=== PATIENT | male | born 1955 | race Caucasian/White ===

== ENCOUNTER 2021-05-31 02:42 | Day surgery (SDC) | payer MEDICARE, SELFPAY ==
[2021-05-31 07:41] VITALS: BP 150/95; PULSE 84; RESP 18; TEMP 36.4; O2SAT 98; BMI 23.3
[2021-05-31] MEDS: LACTATED RINGERS 1,000 ML 150 ML IV CONT (07:57)
--- NOTE | 2021-05-31 08:10 | WPDANESEPPF ---
Anes - Initial Pre Proc Eval Procedure: Operation Date: 05/31/21 08:30 Proposed Procedures p Colonoscopy - Aly Scherer MD Date/Time: 05/31/21 08:10 Surgeon: Aly Scherer MD Pre Op Diagnosis: positive cologuard Patient Data Age: 65 Gender: M Height: 1.83 m Weight: 78 kg Last Vital Signs Temp 36.4 C L 05/31/21 07:41 Pulse 84 05/31/21 07:41 Resp 18 05/31/21 07:41 BP 150/95 H 05/31/21 07:41 Pulse Ox 98 05/31/21 07:41 Allergies Allergy/AdvReac Type Severity Reaction Status Date / Time codeine Allergy Unknown rash/itchin Verified 05/31/21 07:39 g Home Medications Medication Instructions Recorded Confirmed Type propranolol 120 mg capsule,24 120 mg PO DAILY #90 cap 01/26/21 05/22/21 Rx hr,extended release alprazolam 1 mg tablet 1 mg PO .COMPLEX #60 tablet 02/27/21 05/22/21 Rx amitriptyline 10 mg tablet See Rx Instructions .ROUTE 05/04/21 05/22/21 Rx .COMPLEX #180 tablet amlodipine 10 mg tablet 10 mg PO DAILY #90 tablet 05/25/21 05/31/21 Rx Patient hx anesthesia problems: none Family hx anesthesia problems: none PMFSH Surgical History Surgical History H/O colonoscopy (~2010) H/O hernia repair Family History Family History Mother Hypertension Family history of elevated blood lipids Grandparent Family history of malignant neoplasm of uterus Family history of malignant neoplasm of ovary Social History Social History Smoking status: Former smoker Tobacco type: cigarettes Smoking end date: 10/14/08 Alcohol intake: current Substance use: never Substance use type: does not use Living arrangements: with family Spiritual care concerns: No Anes - Eval Final PreProcedure Day of Procedure 05/31/21 08:10 Patient weight: normal Heart: regular rate and rhythm Lungs: clear to auscultation Airway: Mallampati scale class II Neurological: alert and oriented Last oral intake: >/= 8 hours ASA classification: II Emergent: no Anesthetic plan: proceed Anesthesia type and monitoring: general GIVS and standard monitoring Informed Consent: The patient's anesthetic plan and its attendant risks and benefits were discussed with the patient/family/POA. Questions were solicited and answers provided to the satisfaction of the patient/family/POA.
--- NOTE | 2021-05-31 08:14 | WPDGICN ---
Assessment and Plan Assessment and plan (1) Positive colorectal cancer screening using Cologuard test: Code(s): R19.5 - Other fecal abnormalities Status: Acute Assessment and Plan: patient presents for screening colonoscopy because of positive Cologuard test. Further recommendations will be given after endoscopy. GI Consult Note Consult date/time: 05/31/21 08:14 HPI: Daniel Harry is a 65 year old male Referred because of positive Cologuard test. Patient reports his weight appetite bowel movements are normal. He denies abdominal pain. He has had no bleeding. Family history is noncontributory. Last colonoscopy was 10 years ago. Review of Systems Review of Systems: All systems reviewed & are unremarkable except as noted in HPI and below PMFSH Surgical History Surgical History H/O colonoscopy (~2010) H/O hernia repair Family History Family History Mother Hypertension Family history of elevated blood lipids Grandparent Family history of malignant neoplasm of uterus Family history of malignant neoplasm of ovary Social History Social History Smoking status: Former smoker Tobacco type: cigarettes Smoking end date: 10/14/08 Alcohol intake: current Substance use: never Substance use type: does not use Living arrangements: with family Spiritual care concerns: No Meds Home Medications and Allergies Home Medications Medication Instructions Recorded Confirmed Type propranolol 120 mg capsule,24 120 mg PO DAILY #90 cap 01/26/21 05/22/21 Rx hr,extended release alprazolam 1 mg tablet 1 mg PO .COMPLEX #60 tablet 02/27/21 05/22/21 Rx amitriptyline 10 mg tablet See Rx Instructions .ROUTE 05/04/21 05/22/21 Rx .COMPLEX #180 tablet amlodipine 10 mg tablet 10 mg PO DAILY #90 tablet 05/25/21 05/31/21 Rx Allergies Allergy/AdvReac Type Severity Reaction Status Date / Time codeine Allergy Unknown rash/itchin Verified 05/31/21 07:39 g Vital Signs Vital Signs - 24 hr 05/31/21 07:41 Temperature 97.5 F L Pulse Rate 84 Respiratory Rate 18 Blood Pressure 150/95 H Pulse Oximetry 98 Exam Narrative: Physical exam reveals patient to be alert. Vital signs stable. HEENT exam is unremarkable. Patient is anicteric. Lungs are clear to auscultation and percussion. Heart is without murmur or extra sounds. Abdominal exam bowel sounds are present soft nontender with no organomegaly. Digital external rectal exam is normal.
[2021-05-31 08:50] VITALS: BP 84/49; PULSE 69; RESP 22; O2SAT 97
[2021-05-31 09:00] VITALS: BP 107/69; PULSE 63; RESP 20; O2SAT 98
[2021-05-31 09:10] VITALS: BP 116/75; PULSE 60; RESP 20; O2SAT 100
== END 2021-05-31 09:21 | disposition home or self-care (01) ==
PROVIDERS: PCP Family Medicine; Visit Provider Internal Medicine Gastroenterology
PROC: 0DJD8ZZ Inspection of Lower Intestinal Tract, Via Natural or Artificial Opening Endoscopic (ICD-10-PCS; CPT 45378; principal; 2021-05-31 08:30)
DX: R19.5 Other fecal abnormalities (principal); D12.3 Benign neoplasm of transverse colon; K63.5 Polyp of colon; K64.8 Other hemorrhoids; Z87.891 Personal history of nicotine dependence
CPT/HCPCS: 45385; 88305; J2704; J7120

== ENCOUNTER 2022-03-29 13:34 | Outpatient (CLI) | payer MEDICARE, SELFPAY ==
--- NOTE | 2022-03-29 13:44 | ECHO_ITS ---
Patient Info Name: Daniel Harry Age: 66 years : 1955 Gender: Male Ht: 72 in Wt: 180 lbs BSA: 2.04 m2 HR: 73 bpm BP: 158 / 106 mmHg Technical Quality: Good Exam Date: 03/29/2022 2:16 PM Exam Location: [facility] Patient Status: Outpatient Admit Date: 03/29/2022 Staff Ordering Physician: Christopher Wilkinson MD Instrumentation And Control Technician: Melissa Paula RDCS Attending Provider: Christopher Wilkinson MD Referring Physician: Minh MANCIA; Exam Type: CA echo doppler color flow Study Info Indications I34.0 - Nonrheumatic mitral (valve) insufficiency Complete two-dimensional, color flow and Doppler transthoracic echocardiogram is performed. Summary 1. Complete two-dimensional, color flow and Doppler transthoracic echocardiogram is performed. 2. Left ventricular chamber dimension is mildly enlarged. 3. Left ventricular systolic function is normal, estimated at 55-60%. 4. The left ventricular diastolic function is abnormal. 5. E/e' 10 is mildly elevated. 6. Left atrial chamber dimension is moderately enlarged. 7. The mitral valve has moderate posterior prolapse. 8. There is mild to moderate mitral valve regurgitation. 9. No pulmonary hypertension, estimated pulmonary arterial systolic pressure is 27 mmHg. Left Ventricle E/e' 10 is mildly elevated. Left ventricular chamber dimension is mildly enlarged. Left ventricular systolic function is normal, estimated at 55-60%. The left ventricular diastolic function is abnormal. Right Ventricle Right ventricular chamber dimension is normal. Right ventricular systolic function is normal. Left Atria Left atrial chamber dimension is moderately enlarged. Right Atria Right atrial chamber dimension is normal. Aortic Valve The aortic valve is trileaflet. There is no aortic valve stenosis. There is no aortic valve regurgitation. Pulmonic Valve There is no pulmonic regurgitation. Mitral Valve The mitral valve has moderate posterior prolapse. There is no mitral valve stenosis. There is mild to moderate mitral valve regurgitation. Tricuspid Valve There is no tricuspid valve regurgitation. No pulmonary hypertension, estimated pulmonary arterial systolic pressure is 27 mmHg. Pericardium/Pleural There is no pericardial effusion. Inferior Vena Cava Normal inferior vena cava with >50% collapse upon inspiration consistent with normal right atrial pressure, 5 mmHg. Aorta The aortic root size at the sinus of Valsalva is normal. Left Ventricular Outflow Tract Name Value Normal LVOT 2D LVOT Diameter 2.1 cm LVOT Doppler LVOT Peak Gradient 4 mmHg LVOT Mean Gradient 2 mmHg LVOT VTI 19 cm LVOT VTI/AV VTI Ratio 0.9 LVOT Stroke Volume 67 ml LVOT CO 15.6 l/min LVOT CI 7.6 l/min/m2 Pulmonic Valve Name Value Normal
== END 2022-03-29 13:35 | disposition home or self-care (01) ==
LOC: ANHCARD 13:35
PROVIDERS: PCP Family Medicine; Visit Provider Family Medicine
DX: I34.0 Nonrheumatic mitral (valve) insufficiency (principal); R01.1 Cardiac murmur, unspecified
CPT/HCPCS: 93306

== ENCOUNTER 2024-03-17 12:34 | Outpatient (CLI) | payer MEDICARE, SELFPAY ==
--- NOTE | 2024-03-17 12:38 | ECHO_ITS ---
Patient Info Name: Daniel Harry Age: 68 years : 1955 Gender: Male Ht: 72 in Wt: 180 lbs BSA: 2.04 m2 HR: 86 bpm BP: 169 / 114 mmHg Heart Rhythm: Sinus Rhythm Technical Quality: Good Exam Date: 03/17/2024 12:47 PM Exam Location: [facility] Patient Status: Outpatient Admit Date: 03/17/2024 Staff Ordering Physician: Nishant, Andres Solano PA-C Crop Setting Out Machine Operator: Telma Santos RDCS Attending Provider: Nishant, Andres Solano PA-C Referring Physician: Nishant VILLARREAL; Exam Type: CA echo doppler color flow Study Info Indications I10 - Essential (primary) hypertension Complete two-dimensional, color flow and Doppler transthoracic echocardiogram is performed. Summary 1. Complete two-dimensional, color flow and Doppler transthoracic echocardiogram is performed. 2. Left ventricular chamber dimension is normal. 3. Left ventricular systolic function is normal, estimated at 55-60%. 4. The left ventricular diastolic function is abnormal. 5. E/e' 11 is mildly elevated. 6. Left atrial chamber dimension is severely enlarged. 7. The mitral valve has moderate posterior prolapse and mild thickened mitral valve leaflets. 8. There is mild to moderate mitral valve regurgitation. 9. There is trace tricuspid valve regurgitation. 10. No pulmonary hypertension, estimated pulmonary arterial systolic pressure is 33 mmHg. 11. There is trace pulmonic regurgitation. Left Ventricle E/e' 11 is mildly elevated. Left ventricular chamber dimension is normal. Left ventricular systolic function is normal, estimated at 55-60%. The left ventricular diastolic function is abnormal. Right Ventricle Right ventricular systolic function is normal and with normal TAPSE 1.8 cm. Right ventricular chamber dimension is normal. Left Atria Left atrial chamber dimension is severely enlarged. Right Atria Right atrial chamber dimension is normal. Aortic Valve The aortic valve is trileaflet. There is no aortic valve stenosis. There is no aortic valve regurgitation. Pulmonic Valve There is trace pulmonic regurgitation. Mitral Valve The mitral valve has moderate posterior prolapse and mild thickened mitral valve leaflets. There is no mitral valve stenosis. There is mild to moderate mitral valve regurgitation. Tricuspid Valve There is trace tricuspid valve regurgitation. No pulmonary hypertension, estimated pulmonary arterial systolic pressure is 33 mmHg. Pericardium/Pleural There is no pericardial effusion. Inferior Vena Cava Normal inferior vena cava with >50% collapse upon inspiration consistent with normal right atrial pressure, 5 mmHg. Aorta The aortic root size at the sinus of Valsalva is normal. Left Ventricular Outflow Tract Name Value Normal LVOT 2D LVOT Diameter 2.1 cm LVOT Doppler LVOT Peak Gradient 3 mmHg LVOT Mean Gradient 1 mmHg LVOT VTI 12 cm LVOT VTI/AV VTI Ratio 0.8 LVOT Stroke Volume 42 ml LVOT CO 3.3 l/min LVOT CI 1.6 l/min/m2 Pulmonic Valve
== END 2024-03-17 12:35 | disposition home or self-care (01) ==
LOC: ANHCARD 12:35
PROVIDERS: PCP Family Medicine; Visit Provider Physician Assistant
DX: I11.9 Hypertensive heart disease without heart failure (principal); I34.0 Nonrheumatic mitral (valve) insufficiency; R93.1 Abnormal findings on diagnostic imaging of heart and coronary circulation
CPT/HCPCS: 93306

== ENCOUNTER 2024-04-22 00:59 | Day surgery (SDC) | payer MEDICARE, SELFPAY ==
[2024-04-21 15:00] VITALS: BMI 24.4
[2024-04-22] VITALS (9 sets, daily range): BP systolic 127–155; BP diastolic 88–98; PULSE 67–81; RESP 11–19; TEMP 36.3; O2SAT 96–100; BMI 24.2
--- NOTE | 2024-04-22 08:50 | WPDMODSED ---
Moderate Sedation Note-Pt Data Patient Data Diagnosis: Mitral regurgitation Present Complaint: Mitral regurgitation Procedure to be performed/Plan: Transesophageal echocardiogram with color-flow pulse-wave Doppler Agitated saline study Moderate sedation Allergies Allergy/AdvReac Type Severity Reaction Status Date / Time codeine Allergy Unknown rash/itchin Verified 04/22/24 07:32 g Home Medications Medication Instructions Recorded Confirmed Type krill 300 mg-omega-3 90 mg-dha 27 1 cap PO DAILY 07/02/22 04/21/24 History mg-epa 45 [id number]-qdtynhu-qhtlrcq capsule (Maximum Red Krill Chardon-3) smtnovta-wg-zxmff 300 mcg-K 60 1 tablet PO DAILY 07/02/22 04/21/24 History mcg-lycop 600 mcg-lutein 300 mcg tablet (Centrum Silver Ultra Men's) amlodipine 10 mg tablet 10 mg PO DAILY #90 tabs 10/10/23 04/21/24 Rx amitriptyline 25 mg tablet 25 mg PO QHS #90 tabs 11/14/23 04/21/24 Rx propranolol 120 mg capsule,24 See Rx Instructions .Route 02/03/24 04/21/24 Rx hr,extended release .COMPLEX #90 caps Current Medications: Active Medications Sodium Chloride (Normal Saline Iv) 1,000 mls @ 30 mls/hr IV CONT .Q24H ESE Stop: 04/23/24 16:49 Sedation/Anesthesia: No previous sedation/anesthesia problems (including family history). [facility] Surgical History Surgical History H/O colonoscopy (~2010) H/O hernia repair Family History Family History Mother Hypertension Family history of elevated blood lipids Grandparent Family history of malignant neoplasm of uterus Family history of malignant neoplasm of ovary Social History Social History Smoking status: Former smoker Tobacco type: cigarettes Smoking end date: 10/14/08 Alcohol intake: never Substance use: never Substance use type: does not use Lack of Transportation: No Lack of Food: Never True Current Housing: I Have Housing Concerned About Future Housing: No Difficulty Paying Gas/Electric Bills: No Difficulty Paying for Meds: No Currently Unemployed: No Education: High School Diploma/GED Difficulty w/ Childcare or Family Care: No Living arrangements: with family Spiritual care concerns: No Mod Sed Physical Exam Physical Exam Pre Procedural Exam: Normal: Appearance, Eyes, Ears, Nose, Neck, Throat, Airway, Lungs, Heart Size, Heart Rate, Heart Rhythm, Neuro Exam, Abdomen, Extremities and Skin Hours since solid foods: 12 Hours since liquid intake: 12 Mallampati Classification: class II Internal Medicine - PN: Obj Da Vital Signs Vital Signs: Vital Signs - 24 hr 04/22/24 07:34 Temperature 36.3 C L Pulse Rate 81 Respiratory Rate 19 Blood Pressure 155/95 H Pulse Oximetry 100 Oxygen Delivery Room Air Meds/Results Medications: Active Medications Generic Name Dose Route Start Last Admin Trade Name Freq PRN Reason Stop Dose Admin Sodium Chloride 1,000 mls @ 30 mls/hr 04/22/24 07:30 Normal Saline Iv IV CONT 04/23/24 16:49 .Q24H ESE ASA Classification/Sedation ASA Classification/Sedation ASA Class: II Emergent: No Risks: Risks, benefits and alternatives explained and patient/family accepted plan for sedation. Patient re-evaluated immediately prior to sedation.
--- NOTE | 2024-04-22 08:51 | WPDHPUPDATE1 ---
History and Physical Update Update Date/Time: 04/22/24 08:51 History and Physical has been reviewed, including an updated exam of the patient. There are NO changes in the patient's condition. Risks, benefits, and alternatives have been discussed and questions answered. Patient agrees to proceed with procedure.
--- NOTE | 2024-04-22 09:09 | P.PCNTEE_ITS ---
PJ TransEsophageal Echocardiogram Date of procedure: 04/22/24 Procedure Type: 1. Multiplanar transesophageal echocardiography with pulsed wave and color-flow Doppler 2. Agitated saline study 3. Moderate sedation Diagnosis: Mitral valve prolapse and mitral regurgitation Indications: Mitral valve prolapse and mitral regurgitation Image Quality: Good Findings: After discussing the risks, benefits and alternatives of the procedure patient agreeable to verbal and written informed consent. Risks discussed included esophageal rupture perforation, need for emergent surgery bleeding, pain infection, sore throat, adverse reaction anesthesia, . After establishing continuous animal stunner, pulse ox an Faisal and serial blood pressure assessments procedure was started. Procedure start time 8:53 a.m. Procedure stop time 9:09 a.m. Medications used: Her can spread hypopharynx x2 for a topical anesthetic. A total of 3 mg of Versed and 75 mcg of fentanyl are given in divided dosages for moderate sedation. Medications were administered patient was monitored by Scarlet Richey RN Complications: None Blood loss: None Findings: Normal left ventricular size. Ejection fraction 55-60%. Normal right ventricular size and function. Normal right atrial size. Moderate left a trial enlargement. Left atrial appendage is normal with pulse-wave velocities of 75 cm/sec. No pericardial effusion. Aortic root is measured at 3.3 cm at the sinus of Valsalva. Normal tricuspid valve with trivial tricuspid regurgitation. Normal pulmonic valve with mild pulmonic regurgitation. Aortic valve trileaflet mildly sclerotic with trace to mild aortic insufficiency. The mitral valve is abnormal in appearance. Appears to have mitral valve prolapse which is at least moderate and especially involving what is likely P2 although 3D capabilities are not available. Highly eccentric mitral regurgitation is noted with the MR jet being eccentric and anteriorly directed up to the level of the pulmonary veins. Mitral regurgitation is considered to be at least moderate. Atrial septum does show some [id number] shunting by color flow. Agitated saline study however was negative. Conclusions: 1. EF 55-60% without wall motion abnormalities 2. Moderate left atrial enlargement 3. Posterior leaflet prolapse as detailed above with at least moderate mitral regurgitation 4. Rtkn-do-utdcd atrial septal shunting by color-flow Doppler 5. Mild pulmonic regurgitation 6. Trace to mild aortic insufficiency 7. Moderate sedation
== END 2024-04-22 10:05 | disposition home or self-care (01) ==
PROVIDERS: PCP Family Medicine; Visit Provider Internal Medicine Cardiovascular Disease
PROC: (CPT 93312; principal; 2024-04-22 08:30)
DX: I34.1 Nonrheumatic mitral (valve) prolapse (principal); I34.0 Nonrheumatic mitral (valve) insufficiency; I37.1 Nonrheumatic pulmonary valve insufficiency; I10 Essential (primary) hypertension; E78.5 Hyperlipidemia, unspecified; Z87.891 Personal history of nicotine dependence
CPT/HCPCS: 93312; 93320; 93325; J2250; J3010; J7030

== ENCOUNTER 2025-03-11 13:24 | Emergency (ER) | payer MEDICARE, SELFPAY ==
--- OUTSIDE RECORDS SUMMARY | 2025-03-11 13:26 | XMS_ITS | Clinical Summary ---
Author Organization [facility] Address [address] [place] [id number] Phone Care Team Providers Care Bilingual Patient Support Caseworker Name Role Phone Christopher Wilkinson MD Primary Care Provider Allergies Active Allergy Reactions Criticality Noted Date Comments Codeine Rash,Itching Low 12/21/2014 Medications propranolol (INDERAL) 80 mg tablet Take 80 mg by mouth daily. Active amLODIPine (NORVASC) 10 mg tablet Take 10 mg by mouth daily. Active triamterene-hyd rochlorothiazid e (DYAZIDE) 37.5-25 mg capsule Take 1 Cap by mouth daily early childhood. Active ALPRAZolam (XANAX) 1 mg tablet Take 2 mg by mouth nightly as needed for Anxiety. Active FOLIC ACID/MULTIVITS- MIN/LUT (CENTRUM SILVER ORAL) Take 1 Tab by mouth daily. Active glucosamine-cho ndroitin (ARTHX DS) 500-400 mg Capsule Take 1 Cap by mouth daily. 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 Gender Identity Not on file Sexual Orientation Not on file Last Filed Vital Signs Vital Sign Reading Time Taken Comments Blood Pressure 149/90 12/31/2014 6:10 AM CDT Pulse 76 12/31/2014 6:10 AM CDT Temperature 36.9 C (98.5 F) 12/31/2014 6:10 AM CDT Respiratory Rate 18 12/31/2014 6:10 AM CDT Oxygen Saturation 97% 12/31/2014 6:10 AM CDT Inhaled Oxygen Concentration - - Weight 84.4 kg (186 lb) 12/30/2014 5:46 AM CDT Height 182.9 cm (6') 12/21/2014 10:13 AM CDT Body Mass Index 25.23 12/21/2014 10:13 AM CDT Plan of Treatment Health Maintenance Due Date Last Done Comments DTAP/TDAP/TD VACCINES (1 - Tdap) 1974 COLORECTAL SCREENING 2000 Colorectal Cancer Screening 2000 FIT-DNA Q 3 years 2000 FIT/FOBT Q 1 year 2000 Flex Sig/CT Colonography Q 5 years 2000 PNEUMOCOCCAL VACCINE 50+ YEARS (1 of 1 - PCV) 11/24/19 ZOSTER VACCINE (1 of 2) 2005 INFLUENZA VACCINE (#1) 2024 RSV VACCINE (60+ or ) (1 - 1-dose 75+ series) 2030 Medical Devices Implanted Type Area Certified Master Safecracker Device Identifier Shelf Expiration Date Model / Serial / Lot Pros Jaime White [id number] - [id number] Implanted:Qty: 1 on 12/30/2014 by Marito Jane MD at [facility] Ear Left: Ear [employer] 08/30/2022 [id number] / / [id number] Insurance BCBS BLUE ACCESS/TRUE BLUE PPO Advance Directives For more information, please contact: [phone] * Full Code (Latest Code Status on File) Date Activated Date Inactivated Comments 12/30/2014 9:28 AM 12/31/2014 9:42 AM * Full Code Date Activated Date Inactivated Comments 12/30/2014 5:42 AM 12/30/2014 9:28 AM Care Teams Bilingual Patient Support Caseworker Relationship Specialty Start Date End Date Christopher Wilkinson MD [address] [place] [id number] PCP - General Family Practice 11/22/14
--- OUTSIDE RECORDS SUMMARY | 2025-03-11 13:27 | XMS_ITS | Clinical Summary ---
Author Organization [facility] Address [address] [place] [id number] Care Team Providers Care Meteorology Teacher Name Role Phone Nora Montes MD Primary Care Provider [phone] Anne Marie España MD Unavailable [phone] Allergies Active Allergy Reactions Criticality Noted Date Comments Codeine Itching,Rash Medium 12/21/2014 Medications amLODIPine (NORVASC) 10 mg tabletIndicati ons:hypertensi on Take 1 tablet (10 mg total) by mouth every morning Active ALPRAZolam (XANAX) 0.5 mg tablet Take 2 tablets (1 mg total) by mouth daily as needed for anxiety 05/27/20 24 Active omega-3 fatty acids-fish oil 300-1,000 mg capsule Take 1 capsule (1 g total) by mouth every morning Active multivitamin (MULTI-DAY ORAL) Take 1 tablet by mouth every morning Active calcium carbonate (TUMS) 500 mg (200 mg elemental calcium) chewable tablet Take 1 tablet/chew tab (500 mg total) by mouth as needed for indigestion or heartburn Active LORazepam (ATIVAN) 0.5 mg tabletIndicati ons:Insomnia,a nxiety Take 1 tablet (0.5 mg total) by mouth nightly as needed for anxiety 01/28/20 25 Active amitriptyline (ELAVIL) 25 mg tablet Take 0.5 tablets (12.5 mg total) by mouth nightly Active acetaminophen 500 mg capsule Take 2 capsules (1,000 mg total) by mouth every 6 (six) hours as needed for pain 02/21/20 25 Active senna-docusate (PERICOLACE) 8.6-50 mg Take 1 tablet by mouth 2 (two) times a day as needed for constipation 20 tablet 02/21/20 25 Active aspirin 81 mg enteric coated tablet Take 1 tablet (81 mg total) by mouth daily 30 tablet 1 02/21/[address] (PROTONIX) 40 mg EC tabletIndicati ons:Treatment of Non-Bleeding Gastric Disorder Take 1 tablet (40 mg total) by mouth daily 30 tablet 1 02/21/20 25 026 Active oxyCODONE (ROXICODONE) 5 mg immediate release tabletIndicati ons:Pain Take 1 tablet (5 mg total) by mouth every 4 (four) hours as needed for pain 30 tablet 02/21/20 25 Active propranolol LA (INDERAL LA) 120 mg 24 hr capsuleIndicat ions:hypertens ion Take 1 capsule (120 mg total) by mouth every morning 02/03/20 24 Discontinu ed(Stop Taking at Discharge) acetaminophen (TYLENOL) 500 mg tabletIndicati ons:Arthritic Pain,Pain,arth ritis pain in neck Take 1 tablet (500 mg total) by mouth every 6 (six) hours as needed for pain Discontinu ed(Stop Taking at Discharge) mupirocin (BACTROBAN) 2 % ointment Apply to each nostril 2 (two) times a day For 5 days prior to procedure 22 g 02/13/20 25 025 Discontinu ed(Stop Taking at Discharge) methocarbamoL (ROBAXIN) 500 mg tablet Take 2 tablets (1,000 mg total) by mouth 3 (three) times a day for 14 days 84 tablet 02/21/20 25 025 Active Problems Problem Noted Date Diagnosed Date Leukocytosis 02/20/2025 Assessment & Plan (02/20/2025 8:13 AM CDT): Likely reactive Temp (24hrs), Av.2 C (99 F), Min:36.7 C (98.1 F), Max:37.7 C (99.9 F) WBC Date Value Ref Range Status 02/19/2025 12.46 (H) 3.80 - 9.90 K/cumm Final 02/18/2025 13.92 (H) 3.80 - 9.90 K/cumm Final 02/18/2025 10.12 (H) 3.80 - 9.90 K/cumm Final The current medical regimen is effective; continue present plan and medications. Continue to monitor daily CBC and routine vital signs. Thrombocytopenia 02/20/2025 Assessment & Plan (02/20/2025 8:21 AM CDT): Platelet baseline 130 PLT 90 on admission PLT downtrending @ 83 today No overt signs of bleeding Will continue to monitor Postoperative pain 02/19/2025 Assessment & Plan (02/20/2025 8:11 AM CDT): 3 Days Post-Op Expected after surgery Pain 1st site scores for the past 12 hrs: Pain Assessment Pain Score Patient's Stated Pain Goal Pain Type Pain Location Pain Orientation Pain Radiating Towards Pain Descriptors Pain Frequency Pain Onset Clinical Progression Pain Interventions Response to Interventions 02/20/25 0639 -- 3 -- -- -- -- -- -- -- -- -- -- -- 02/20/25 0308 0-10 2 -- -- -- -- -- -- -- -- -- -- Partial pain relief 02/20/25 0210 0-10 4 2 Surgical pain Rib cage Right none Aching With movement/cough Ongoing Not changed Medication (See MAR) -- 02/20/25 0000 0-10 2 -- -- -- -- -- -- -- -- -- Declines -- 02/19/252044 0-10 2 -- -- -- -- -- -- -- -- -- -- Partial pain relief Pain controlled on current regimen Educate and encourage splinting technique Bowel regimen to prevent constipation Preop cardiovascular exam 11/09/2024 Hx of varicose veins of lower extremity 06/26/20 Assessment & Plan (06/26/2024 10:31 AM CDT): Chronic and symptomatic varicosities noted to both lower extremities. No ulcerations. Continue wearing compression therapy and follow-up in the next few weeks with a lower extremity venous reflux. Palpitations 04/10/2024 Nonrheumatic mitral valve regurgitation 04/10/20 24 MVP (mitral valve prolapse) 04/10/2024 Assessment & Plan (02/20/2025 8:09 AM CDT): Procedure(s): REPAIR/REPLACE MITRAL VALVE ROBOTIC XI CLOSURE PATENT FORAMEN OVALE Transferred to floor 02/18/25 Continue aspirin 81mg po daily Daily CBC and BMP Daily weight; last recorded weight 83.9 kg Chest tubes removed on 02/19/25; site(s) approximated without drainage or redness. EPW pulled on 02/19/25; telemetry last 24 hours SR 80's - 90s with rare PACs and PVCs Continue telemetry monitoring Bowel regimen Heart healthy diet Continue incentive spirometer and pulmonary hygiene PT/OT OOBTC TID Hyperlipidemia 04/10/2024 Hypertension 04/10/2024 Assessment & Plan (02/20/2025 8:11 AM CDT): Home antihypertensives: Amlodipine Vitals: 02/19/25200402/19/25 2301 02/20/25 0100 02/20/25 0308 BP: 104/70 100/62 BP Location: Left arm Right arm Patient Position: Reclining HOB 30 degrees Pulse: 97 87 90 Resp: 18 18 18 Temp: 36.7 C (98.1 F) TempSrc: Oral Oral SpO2: 98% 94% 93% Weight: 83.9 kg (184 lb 15.5 oz) Height: Continue to hold home amlodipine; normotensive Encourage low sodium diet Continue to monitor vital signs per routine and adjust medications as tolerated Resolved Problems Problem Noted Date Diagnosed Date Resolved Date Cardiac abnormality 02/17/2025 02/20/20 Severe mitral regurgitation 10/27/2024 02/19/2025 Encounters Date Type Department Care Team Description 02/22/2025 Orders Only [facility] Cardiothoracic Surgery [address] [facility] 8th Floor [address] Room [address] [place] [phone] Argenis Jones, FIELD LOGISTICS COORDINATOR Status post cardiac surgery (Primary Dx) 02/17/2025 12:22 PM CDT - 02/20/2025 12:40 PM CDT Hospital Encounter [facility] [address] [place] [address] Anne Marie España MD Severe mitral regurgitation (Primary Dx); MVP (mitral valve prolapse) Discharge Disposition: Discharge to home, home health skilled care 02/17/2025 8:00 AM CDT - 02/17/2025 3:55 PM CDT Surgery [facility] Operating Room [address] [place] [address] Anne Marie España MD REPAIR/REPLACE MITRAL VALVE ROBOTIC XI 02/17/2025 7:57 AM CDT Anesthesia Event [facility] Operating Room [address] [place] [address] Natividad Guevara MD Mallette, Allison Anne, NP 02/17/2025 7:05 AM CDT Ancillary Procedure [facility] Operating Room [address] [place] [address] Hemant Tucker MD 02/12/2025 Orders Only [facility] Cardiothoracic Surgery [address] [place] [address] [facility] 8th Floor [address] Room [address] [place] [phone] Ciera Tejada NP 02/03/2025 11:40 AM CDT - 02/03/2025 11:59 PM CDT Hospital Encounter [facility] [address] [place] [address] Discharge Disposition: Discharge to home or self care 02/03/2025 10:00 AM CDT Pre-Admission Testing [facility] Preoperative Assessment [facility]) [address] [place] [address] Pre-op testing (Primary Dx); Mitral valve prolapse 12/11/2024 Telephone [facility] Cardiothoracic Surgery [address] [place] [address] [facility] 8th Floor [address] Room [address] [place], [place] [phone] Janeen Das NP from Last 3 Months Surgical History Surgery Date Site/Laterality Comments HERNIA REPAIR 10/14/2015 - 10/13/2016 Left STAPEDECTOMY 12/30/2014 Bilateral COLONOSCOPY CARDIAC CATHETERIZATION 12/07/2024 Left Procedure: LEFT HEART CATHETERIZATION WITH CORONARY ANGIOGRAPHY AND WITH OR WITHOUT LEFT VENTRICULOGRAM [id number]; Surgeon: Ravindra Musa MD PhD; Location: [facility]; Service: Cardiovascular; Laterality: Left; AFTER CPAP Medical History Medical History Date Comments Heart valve disease severe MR Hypertension Arthritis MVP (mitral valve prolapse) PONV (postoperative nausea and vomiting) Family History Medical History Relation Name Comments Arthritis Mother Cem [place] Cancer Mother Cem [place] Depression Mother Cem [place] Hyperlipidemia Mother Cem [place] Hypertension Mother Cem [place] Anesthesia problems Neg Hx Relation Name Status Comments Mother Cem [place] Social History Tobacco Use Types Packs/Day Years Used Date Smoking Tobacco: Former Cigarettes 0.5 41.8 1 968 - 07/23/2009 Passive Smoke Exposure: Past Smokeless Tobacco: Never Tobacco Cessation:Counseling Given: Not Answered Comments:Quit several times, eventually stopping in 2008 AUDIT-C Answer Date Recorded Q1: How often do you have a drink containing alcohol? Never 02/17/2025 Q2: How many drinks containi ng alcohol do you have on a typical day when you are drinking? Patient does not drink Q3: How often do you have si x or more drinks on one occasion? Never 02/17/2025 Personal Safety Answer Date Recorded Have you ever been in or are you currently in a harmful physical or emotional relationship or is someone making you feel afraid or unsafe? Denies 02/17/2025 Sex and Gender Information Value Date Recorded Sex Assigned at Not on file Legal Sex Male 8:00 PM [employer] Gender Identity Not on file Sexual Orientation Not on file Obstetrics History Last Filed Vital Signs Vital Sign Reading Time Taken Comments Blood Pressure 113/69 02/20/2025 11:02 AM CDT Pulse 88 02/20/2025 11:02 AM CDT Temperature 37.2 C (99 F) 02/20/2025 11:02 AM CDT Respiratory Rate 18 02/20/2025 11:0 2 AM CDT Oxygen Saturation 96% 02/20/2025 11: 02 AM CDT Inhaled Oxygen Concentration - - Weight 83.9 kg (184 lb 15.5 oz) 02/20/2025 1:00 AM CDT Height 182.9 cm (6' 0.01) 02/17/2025 3:00 PM CD T Body Mass Index 25.08 02/17/2025 3:00 PM CDT Plan of Treatment Health Maintenance Due Date Last Done Comments Colon Cancer Screening-Colonoscopy 1955 Depression Screening 1955 Hepatitis C Screening 1955 Prostate Cancer Screening-PSA 1955 DTaP/Tdap/Td Vaccine (1 - Tdap) 1966 Hepatitis B Screening 1973 Zoster Vaccine (1 of 2) 2005 Abdominal Aortic Aneurysm (A AA) Screen 2020 Well Visit 65+ 2020 Pneumococcal vaccine 65+ (2 of 2 - PCV) 02/14/2022 02/14/2021 Covid-19 Vaccine (2023-2 5 season) 2024 02/10/2021, 01/13/2021 Influenza Vaccine (Season Ended) 2025 11/14/2023, 08/23/2021, 09/12/2020, Additional history exists Fall Risk Assessment 02/20/2026 02/20/2025, 07/02/2024, 04/10/2024 Medical Devices Implanted Type Area Cipher Expert Device Identifier Shelf Expiration Date Model / Serial / Lot Stapes Implant (Make And Model Unknown) Other - see comments Stapes Description:Patient claims t hat the implant was placed around 1995. Between 06/07/1987 and 04/12/1989 the Noel piston stapes was erroneously manufactured with ferromagnetic material making them MR Unsafe. Such implants could be pulled strongly by magnetic forces which could injure the patient. In MRI Scanners and the Stapes Prosthesis (2007) Tiffanie estimates that between 64 and 266 patients received these implants worldwide and 64 of them received warning cards instructing them not to undergo MRI exposure. Cristobal Stapes Implant (4mm Stem X 1mm Well) With Bucket Handle-12/30/2014 Implanted:2014 (Quantity not on file) Other - see comments Stapes Description:Unfortunately, t he make and model were not described in the op note for this implant in 2015. Fortunately, [employer] lists all Jain stapes implants as MR Safe by the old definition; this can be interpreted to mean that the patient can be safely scanned at least at 1.5T in Normal Operating Mode. Reference (consulted 07/13/2024): [email or web address] =[email or web address] [employer] Ring Physio Flex Mitral Annuloplasty 38mm [id number] - [id number] - [id number] Implanted:Qty: 1 on 02/17/2025 by Anne Marie España MD at [facility] N/A: Heart [employer] [id number] 10/26/2029 [id number] / [id number] / Procedures Procedure Name Priority Date/Time Associated Diagnosis Comments EGFR Routine 02/19/2025 9:52 PM CDT PROTIME-INR Routine 02/19/2025 9:52 PM CDT POTASSIUM, WHOLE BLOOD Routine 02/19/2025 9:52 PM CDT PHOSPHORUS Routine 02/19/2025 9:52 PM CDT MAGNESIUM Routine 02/19/2025 9:52 PM CDT CBC WITHOUT DIFFERENTIAL Routine 02/19/2025 9:52 PM CDT BASIC METABOLIC PANEL Routine 02/19/2025 9:52 PM CDT XR CHEST PA LATERAL 2 VIEWS IP Routine 02/19/2025 8:52 PM CDT TRANSTHORACIC ECHO (TTE) COMPLETE W DOPPLER/CF W CONTRAST Routine 02/19/2025 11:10 AM CDT BLOOD CULTURE Routine 02/19/2025 8:29 AM CDT BLOOD CULTURE Routine 02/19/2025 8:29 AM CDT URINALYSIS AND REFLEX TO MICROSCOPIC AND CULTURE Routine 02/19/2025 1:45 AM CDT XR CHEST 1 VIEW IP Routine 02/18/2025 10:08 PM CDT PEP THERAPY Routine 02/18/2025 9:59 PM CDT PEP THERAPY Routine 02/18/2025 9:59 PM CDT PEP THERAPY Routine 02/18/2025 9:59 PM CDT EGFR Routine 02/18/2025 8:56 PM CDT POTASSIUM, WHOLE BLOOD Routine 02/18/2025 8:56 PM CDT PHOSPHORUS Routine 02/18/2025 8:56 PM CDT MAGNESIUM Routine 02/18/2025 8:56 PM CDT CBC WITHOUT DIFFERENTIAL Routine 02/18/2025 8:56 PM CDT BASIC METABOLIC PANEL Routine 02/18/2025 8:56 PM CDT HEMOGLOBIN A1C Routine 02/18/2025 8:56 PM CDT POCT GLUCOSE DEVICE Routine 02/18/2025 6 :07 PM CDT CRITICAL CARE Routine 02/18/2025 4:07 PM CDT Severe mitral regurgitation POCT GLUCOSE DEVICE Routine 02/18/2025 12:33 PM CDT OXYHEMOGLOBIN, CENTRAL VENOUS STAT 02/18/2025 9:45 AM CDT POTASSIUM, WHOLE BLOOD STAT 02/18/2025 9:45 AM CDT ECG 12-LEAD STAT 02/18/2025 8:39 AM CDT POCT GLUCOSE DEVICE Routine 02/18/2025 7 :28 AM CDT POCT GLUCOSE DEVICE Routine 02/18/2025 4 :14 AM CDT OXYHEMOGLOBIN, CENTRAL VENOUS STAT 02/18/2025 3:07 AM CDT EGFR Routine 02/18/2025 12:44 AM CDT OXYHEMOGLOBIN, CENTRAL VENOUS STAT 02/18/2025 12:44 AM CDT PHOSPHORUS Routine 02/18/2025 12:44 AM CDT MAGNESIUM Routine 02/18/2025 12:44 AM CDT BASIC METABOLIC PANEL Routine 02/18/2025 12:44 AM CDT CBC WITHOUT DIFFERENTIAL Routine 02/18/2025 12:44 AM CDT POCT GLUCOSE DEVICE Routine 02/18/2025 12:43 AM CDT XR CHEST 1 VIEW IP Routine 02/17/2025 9:45 PM CDT POTASSIUM, WHOLE BLOOD STAT 02/17/2025 9:08 PM CDT OXYHEMOGLOBIN, CENTRAL VENOUS STAT 02/17/2025 9:08 PM CDT POCT GLUCOSE DEVICE Routine 02/17/2025 8 :55 PM CDT POTASSIUM, WHOLE BLOOD STAT 02/17/2025 4:53 PM CDT LACTATE, WHOLE BLOOD Timed 02/17/2025 4:53 PM CDT POCT GLUCOSE DEVICE Routine 02/17/2025 4 :48 PM CDT OXYHEMOGLOBIN, CENTRAL VENOUS STAT 02/17/2025 2:38 PM CDT POCT GLUCOSE DEVICE Routine 02/17/2025 2 :35 PM CDT XR ABDOMEN AP 1 VIEW IP Routine 02/17/2025 2:25 PM CDT XR CHEST 1 VIEW ED Urgent/IP Urgent 02/17/2025 2:25 PM CDT ECG 12-LEAD STAT 02/17/2025 1:45 PM CDT CRITICAL CARE Routine 02/17/2025 1:37 PM CDT POC BLOOD GAS AND CHEMISTRIES, ARTERIAL Routine 02/17/2025 1:32 PM CDT EGFR STAT 02/17/2025 1:32 PM CDT APTT STAT 02/17/2025 1:32 PM CDT PROTIME-INR STAT 02/17/2025 1:32 PM CDT CBC WITHOUT DIFFERENTIAL STAT 02/17/2025 1:32 PM CDT MAGNESIUM STAT 02/17/2025 1:32 PM CDT BASIC METABOLIC PANEL STAT 02/17/2025 1:32 PM CDT FL AN PROCEDURE PLACEHOLDER Routine 02/17/2025 1:25 PM CDT FL AN ELECTIVE ENDOTRACHEAL AIRWAY Routine 02/17/2025 1:25 PM CDT POCT PARTIAL THROMBOPLASTIN TIME (PTT) Routine 02/17/2025 12:25 PM CDT POC BLOOD GAS AND CHEMISTRIES, ARTERIAL Routine 02/17/2025 12:25 PM CDT POCT PROTHROMBIN TIME Routine 02/17/2025 12:24 PM CDT POCT PLATELET COUNT AND HEMATOCRIT Routine 02/17/2025 12:24 PM CDT POCT HEPARIN/ACT CPB Routine 02/17/2025 12:22 PM CDT POC BLOOD GAS AND CHEMISTRIES, ARTERIAL Routine 02/17/2025 11:55 AM CDT POCT HEPARIN/ACT CPB Routine 02/17/2025 11:49 AM CDT POCT HEPARIN/ACT CPB Routine 02/17/2025 11:15 AM CDT POC BLOOD GAS AND CHEMISTRIES, ARTERIAL Routine 02/17/2025 11:14 AM CDT POCT HEPARIN/ACT CPB Routine 02/17/2025 10:43 AM CDT POC BLOOD GAS AND CHEMISTRIES, ARTERIAL Routine 02/17/2025 10:42 AM CDT POCT HEPARIN/ACT CPB Routine 02/17/2025 10:08 AM CDT POC BLOOD GAS AND CHEMISTRIES, ARTERIAL Routine 02/17/2025 10:07 AM CDT POCT HEPARIN/ACT CPB Routine 02/17/2025 9:41 AM CDT POC BLOOD GAS AND CHEMISTRIES, ARTERIAL Routine 02/17/2025 9:30 AM CDT FL AN PROCEDURE PLACEHOLDER Routine 02/17/2025 9:28 AM CDT ANESTHESIA CENTRAL VENOUS LINE PLACEMENT Routine 02/17/2025 9:27 AM CDT ANESTHESIA CENTRAL VENOUS LINE PLACEMENT Routine 02/17/2025 9:26 AM CDT ANESTHESIA ARTERIAL LINE PLACEMENT Routine 02/17/2025 9:25 AM CDT ANESTHESIA INTUBATION Routine 02/17/2025 9:22 AM CDT POCT HEPARIN DOSE RESPONSE, CPB Routine 02/17/2025 9:16 AM CDT CLOSURE PATENT FORAMEN OVALE 02/17/2025 8:00 AM CDT MVP (mitral valve prolapse) Severe mitral regurgitation REPAIR/REPLACE MITRAL VALVE ROBOTIC XI 02/17/2025 8:00 AM CDT MVP (mitral valve prolapse) Severe mitral regurgitation PJ ADD-ON FOR OR Routine 02/17/2025 7:0 4 AM CDT TYPE AND SCREEN STAT 02/17/2025 6:58 AM CDT PREPARE RBC Timed 02/17/2025 6:26 AM CDT XR CHEST PA LATERAL 2 VIEWS Schedule Routine, Read Routine (OP Routine) 02/03/2025 11:56 AM CDT Pre-op testing EGFR Routine 02/03/2025 11:23 AM CDT Pre-op testing DIFFERENTIAL AUTO Routine 02/03/2025 11:23 AM CDT Pre-op testing COMPREHENSIVE METABOLIC PANEL Routine 02/03/2025 11:23 AM CDT Pre-op testing CBC WITH AUTO DIFFERENTIAL Routine 02/03/2025 11:23 AM CDT Pre-op testing TYPE AND SCREEN 14 DAY Routine 02/03/2025 11:23 AM CDT Pre-op testing PROTIME-INR Routine 02/03/2025 11:23 AM CDT Pre-op testing Mitral valve prolapse CPAP APTT ALGORITHM Routine 02/03/2025 11:23 AM CDT Pre-op testing URINALYSIS AND REFLEX TO MICROSCOPIC AND CULTURE Routine 02/03/2025 11:23 AM CDT Pre-op testing from Last 3 Months Results * Potassium, whole blood (02/19/2025 9:52 PM CDT) Potassium, bld 4.0 3.3 - 4.9 mmol/L Blood 02/19/2025 9:52 PM CDT 02/19/2025 10:19 PM CDT us Hilaria Cross NP LAB BLOOD ORDERABLES Final Result Performing Organization Address City/State/[facility] Co de Phone Number QUAN SOTO [facility] [place] [address] * eGFR (02/19/2025 9:52 PM CDT) eGFR 85 >=60 mL/min/1. 73 m2 Comment: Interpretive Data Reference Interval Normal >/= 90 mL/min/1.73m2 Mildly decreased* 60 - 89 mL/min/1.73m2 Mildly to moderately decreased 45 - 59 mL/min/1.73m2 Moderately to severely decreased 30 - 44 mL/min/1.73m2 Severely decreased 15 - 29 mL/min/1.73m2 Kidney Failure < 15 mL/min/1.73m2 *Relative to young adult level Estimated glomerular filtration rate is determined by the 2020 CKD-EPI equation recommended by the National Kidney Foundation (A Unifying Approach to GFR Estimation: Recommendations of the NKF-ASK Task Force on Reassessing the Inclusion of Race in Diagnosing Kidney Disease, JASN 202). The CKD-EPI equation should not be used for patients with unstable renal function and has not been validated in children and those over 70. Current interpretive data was last reviewed 2021. Blood 02/19/2025 9:52 PM CDT 02/19/2025 10:24 PM CDT us Hilaria Cross NP LAB BLOOD ORDERABLES Final Result Performing Organization Address City/State/[facility] de Phone Number [facility] Department [place] [address] * (ABNORMAL) Protime-INR (02/19/2025 9:52 PM CDT) [facility] PT 13.2(H) 9.7 - 13.0 sec INR 1.22(H) 0.90 - 1.20 [facility] Comment: Interpretive data Oral anticoagulant therapeutic ranges: Venous thromboembolism prophylaxis or treatment: 2.0-3.0 CARDIOLOGY Standard range: 2.0-3.0 High-intensity range: 2.5-3.5 Refer to indication-specific guidelines for appropriate target ranges for prosthetic heart valve replacement. Current interpretive data was last revised on 2019. Blood 02/19/2025 9:52 PM CDT 02/19/2025 10:29 PM CDT Hilaria Cross NP LAB BLOOD ORDERABLES Final Result Performing Organization Address [facility] de Phone Number [facility] Department [place] [address] * (ABNORMAL) CBC without differential (02/19/2025 9:52 PM CDT) [facility] WBC 12.46(H) 3.80 - 9.90 K/cumm Hgb 10.6(L) 13.0 - 17.5 g/dL [facility] Hct 30.0(L) 38.9 - 50.3 % [facility] Plt 83(L) 150 - 400 K/cumm [facility] MPV 12.4(H) 9.1 - 12.3 fL [facility] RBC 3.06(L) 4.30 - 5.80 M/cumm [facility] MCV 98.0(H) 81.3 - 96.4 fL [facility] MCH 34.6(H) 27.1 - 33.3 pg [facility] MCHC 35.3 32.3 - 35.7 g/dL [facility] RDW CV 12.3 11.1 - 14.9 % [facility] RDW SD 44.1 35.7 - 48.1 fL [facility] NRBC abs 0.00 0.00 - 0.01 K/cumm [facility] Blood 02/19/2025 9:52 PM CDT 02/19/2025 10:24 PM CDT us Hilaria Cross CURB SUPERVISOR LAB BLOOD ORDERABLES Final Result Performing Organization Address City/[facility] Co de Phone Number [facility] [place] [address] * (ABNORMAL) Phosphorus (02/19/2025 9:52 PM CDT) Pathologist [facility] Phosphorus, pl 1.2(L) 2.3 - 4.5 mg/dL Blood 02/19/2025 9:52 PM CDT 02/19/2025 10:24 PM CDT us Hilaria Cross CURB SUPERVISOR LAB BLOOD ORDERABLES Final Result Performing Organization Address [facility] de Phone Number [facility] [place] [address] * Magnesium (02/19/2025 9:52 PM CDT) Pathologist [facility] Magnesium 2.0 1.4 - 2.5 mg/dL Blood 02/19/2025 9:52 PM CDT 02/19/2025 10:24 PM CDT us Hilaria Cross CURB SUPERVISOR LAB BLOOD ORDERABLES Final Result Performing Organization Address [facility] de Phone Number [facility] [place] [address] * (ABNORMAL) Basic metabolic panel (02/19/2025 9:52 PM CDT) Sodium 134(L) 135 - 145 mmol/L Potassium, pl 4.0 3.3 - 4.9 mmol/L [facility] Chloride 101 97 - 110 mmol/L [facility] CO2 28 22 - 32 mmol/L [facility] Anion gap 5 2 - 15 mmol/L [facility] BUN 20 6 - 25 mg/dL [facility] Creatinine 0.97 0.80 - 1.30 mg/dL [facility] Glucose 128 70 - 199 mg/dL [facility] Comment: Interpretive Data Fasting glucose >/= 126 mg/dl is diagnostic for diabetes. Fasting is defined as no caloric intake for at least 8 hours. Fasting glucose between 100 mg/dl to 125 mg/dl is diagnostic of prediabetes. In a patient with classic symptoms of hyperglycemia or hyperglycemic crisis, a random glucose >/= 200 mg/dl is diagnostic for diabetes. In the absence of unequivocal hyperglycemia, results should be confirmed by repeat testing. The classification and Diagnosis of Diabetes Diabetes Care 202; 46: S19-S40. Current interpretive data was last revised 2022. Calcium 8.0(L) 8.5 - 10.3 mg/dL [facility] Blood 02/19/2025 9:52 PM CDT 02/19/2025 10:24 PM CDT us Hilaria Cross NP LAB BLOOD ORDERABLES Final Result [facility] Department [place] [address] * XR Chest PA Lateral 2 Views (02/19/2025 8:52 PM CDT) Anatomical Region Laterality Modality Body, Chest N/A Computed Radiogr aphy 02/19/2025 9:02 PM CDT Impressions 02/19/2025 9:02 PM CDT The current study is compared with the prior radiograph dated 02/18/2025. A right internal jugular catheter is in place, tip overlies the superior vena cava.. There is no pneumothorax.. There are small bilateral pleural effusions. The patient is status post mitral valve repair. Extensive patchy right greater than left basilar atelectasis is noted. The heart and mediastinal contours are stable. Electronically signed by: Danya Martin M.D. Narrative 02/19/2025 9:02 PM CDT EXAMINATION: 2 view chest radiograph Procedure Note Danya Martin MD - 02/19/2025 EXAMINATION: 2 view chest radiograph IMPRESSION: The current study is compared with the prior radiograph dated 02/18/2025. A right internal jugular catheter is in place, tip overlies the superior vena cava.. There is no pneumothorax.. There are small bilateral pleural effusions. The patient is status post mitral valve repair. Extensive patchy right greater than left basilar atelectasis is noted. The heart and mediastinal contours are stable. Electronically signed by: Danya Martin M.D. us Anne Marie España MD IMG XR PROCEDURES Final Resul t * TRANSTHORACIC ECHO (TTE) COMPLETE W DOPPLER/CF W CONTRAST (02/19/2025 11:10 AM CDT) EF Mod BP 52 % CONS SCIMAGE Anatomical Region Laterality Modality Ultrasound 02/19/2025 10:0 8 AM CDT Narrative 02/19/2025 3:17 PM CDT [facility] [place] [place] [address] Transthoracic Echocardiographic Report Patient Name: NORA HARRY L : 1955 (69y 2m) Gender: M Study Date: 02/19/2025 10:08:10 AM Ht(Inch): 72 Wt(Lb): 175.05 BSA: 2.01 Field Crop Farmer: rTish Galindo RDCS Location: [id number] Order Provider: ANNE MARIE ESPAÑA Heart Rate: 73 BMI: 23.74 BP: 96 / 68 Ref Provider: ANNE MARIE ESPAÑA PROCEDURES: Echocardiographic Report: Transthoracic complete echo with strain imaging and contrast, 2D, spectral and tissue Doppler, color flow Doppler, M-mode. Contrast: Contrast Enhancement was Employed: After initial imaging due to sub- optimal quality related to co-morbidity defined by patient's body habitus and due to suboptimal image quality with inadequate visualization of at least 2 of 16 LV wall segments in any view after initial imaging. Perflutren contrast was administered using the volume necessary to obtain adequate images. 0.8 ml Optison Administered, (2.2 ml wasted). INDICATIONS: Post - op Mitral Valve repair. CONCLUSIONS: 1. Concentric LV remodeling. Normal left ventricular systolic function. The Ejection Fraction (Billy's) is measured at 52 %. Left ventricular diastolic function is indeterminate due to mitral valve repair or replacement. The average global longitudinal strain is abnormal. 2. Right ventricular dilatation. Mild right ventricular hypokinesis. 3. Moderately biatrial enlargement. 4. No interatrial shunt by color Doppler. 5. Status post mitral valve repair with annuloplasty ring. Mitral valve leaflets appear mildly thickened. Trivial mitral valve regurgitation. 6. Mild to moderate tricuspid regurgitation. The estimated pulmonary artery systolic pressure is 33.0 mmHg. 7. 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 8. The IVC was <2.1 cm and collapsibility <50%. (est. RA pressure 6-10 mmHg). COMPARISONS: Compared with prior PJ, (08/26/2024) the following changes are now seen: MV annuloplasty is new and MR is significantly reduced. ATTESTATION: I have personally reviewed and interpreted this study without fellow or resident. - DISCLAIMER: The study images and the final report will be retained in the patient chart by the Echo Laboratory for the legally required time period. This chart constitutes the legal record of any testing performed. FINDINGS: Left Ventricle: Concentric LV remodeling. Normal left ventricular systolic function. The Ejection Fraction (Billy's) is measured at 52 %. Left ventricular diastolic function is indeterminate due to mitral valve repair or replacement. The average global longitudinal strain is abnormal. The LV global strain is: -11.4 %. Less negative than expected LV GLPS Avg. Paradoxical interventricular septal motion consistent with prior cardiac or thoracic surgery. Right Ventricle: Right ventricular dilatation. Mild right ventricular hypokinesis. The right ventricular strain is more negative than -17%. Left Atrium: Moderately dilated left atrium. Right Atrium: Right atrial dilatation. Atrial Septum: No shunt by color Doppler. Mitral Valve: Mitral valve leaflets appear mildly thickened. Trivial mitral valve regurgitation. No stenosis present. The mean transmitral gradient is: 1 mmHg. Specific MV Structure Abnormalities: Status post mitral valve repair with annuloplasty ring. Aortic Valve: Trileaflet aortic valve. Mild aortic valve regurgitation. No aortic valve stenosis. The mean transaortic gradient is 3 mmHg. The aortic valve area by the continuity equation (using VTI) is 2.99 cm2. Aortic valve dimensionless index is 0.84. Tricuspid Valve: Normal tricuspid valve structure. Mild to moderate tricuspid regurgitation. The estimated pulmonary artery systolic pressure is 33.0 mmHg. Pulmonic Valve: Normal pulmonic valve structure. Mild pulmonic regurgitation. Pericardium: No pericardial effusion. Aorta: Mild aortic root dilation at sinuses of Valsalva. 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 IVC: IVC is upper limit of normal in size. The IVC was <2.1 cm and collapsibility <50%. (est. RA pressure 6-10 mmHg). MEASUREMENTS: 2D/MM Value Range Doppler Value Range LVIDd 2D 4.67 cm [ 4.20 - 5.80 ] AV Peak Bud 1.0 m/s [ 1.0 - 1.7 ] LVIDs 2D 3.45 cm [ 2.50 - 4.00 ] AV Peak PG 4.00 mmHg IVSd 2D 1.22 cm [ 0.60 - 1.00 ] AV Mean PG 3 mmHg LVPWd 2D 1.22 cm [ 0.60 - 1.00 ] AV VTI 14.9 cm LV Thickness Ratio 1.0 LVOT Peak Bud 0.9 m/s [ 0.7 - 1.1 ] LV FS 2D 26.20 % [ 25.00 - 43.00 ] LVOT Peak PG 3.24 mmHg LV Mass 2D 218.16 g LVOT Mean PG 2 mmHg LV Mass Index 2D 108.54 g/m2 LVOT VTI 12.5 cm RWT 0.52 LVOT Diam 2.13 cm EDV Mod BP 149.45 ml [ 62.00 - 150.00 ] NERI VTI 2.99 cm2 LV EDV Index 74.35 ml/m2 LVOT/AV VTI 0.84 - Dimensionless index (DVI) ESV Mod BP 72.33 ml [ 21.00 - 61.00 ] MV E Peak Bud 1.0 m/s [ 0.6 - 1.3 ] EF Mod BP 52 % [ 52 - 72 ] MV Peak Bud 1.1 m/s LV GLS -11.4 % [ -25.0 - -18.0 ] MV Peak PG 4.84 mmHg LA Length 4C 5.95 cm MV Mean PG 1 mmHg LA Length 2C 6.07 cm MV VTI 20.8 cm LA Volume BP 89.17 ml MV Decel Time 186.45 msec [ 104.00 - 258.00 ] LA Volume Index 44.36 ml/m2 [ 16.00 - 34.00 ] Med E` Bud 9.9 cm/sec [ 8.0 - 25.0 ] RV Base Dimen 2D 4.4 cm [ 2.5 - 4.2 ] Lat E` Bud 11.0 cm/sec [ 10.0 - 25.0 ] TAPSE 1.38 cm [ 1.71 - 5.00 ] Average E/E` 9.57 RA Volume 72.81 ml RV S` 10.19 cm/sec RA Volume Index 36.22 ml/m2 TR Peak Bud 2.3 m/s [ 1.0 - 2.8 ] IVC Diam 2.14 cm TR Peak PG 21.2 mmHg AoR Diam 2D 3.93 cm [ 3.10 - 3.70 ] PV Peak Bud 0.9 m/s [ 0.4 - 0.8 ] Ao Root Index 1.96 cm/m2 [ 1.00 - 2.00 ] PV Peak PG 3.24 mmHg Asc Ao Diam 2D 3.72 cm PI ED Bud 65.66 m/sec Asc Ao Index 1.85 cm/m2 Electronically Signed By: Laure Huntley MD 02/19/2025 3:16:46 PM CDT Procedure Note Laure Huntley, - 02/19/2025 [facility] [place] [place] [address] Transthoracic Echocardiographic Report Patient Name: NORA HARRY L : 1955 (69y 2m) Gender: M Study Date: 02/19/2025 10:08:10 AM Ht(Inch): 72 Wt(Lb): 175.05 BSA: 2.01 Field Crop Farmer: Trish Galindo RDCS Location: [id number] Order Provider:ANNE MARIE ESPAÑA Heart Rate: 73 BMI: 23.74 BP: 96 / 68 Ref Provider: ANNE MARIE ESPAÑA PROCEDURES: Echocardiographic Report: Transthoracic complete echo with strain imagingand contrast, 2D, spectral and tissue Doppler, color flow Doppler, M-mode. Contrast: Contrast Enhancement was Employed: After initial imaging due tosub- optimal quality related to co-morbidity defined by patient's body habitus and dueto suboptimal image quality with inadequate visualization of at least 2 of 16 LV wallsegments in any view after initial imaging. Perflutren contrast was administered using thevolume necessary to obtain adequate images. 0.8 ml Optison Administered, (2.2 mlwasted). INDICATIONS: Post - op Mitral Valve repair. CONCLUSIONS: 1. Concentric LV remodeling. Normal left ventricular systolic function.The Ejection Fraction (Billy's) is measured at 52 %. Left ventricular diastolicfunction is indeterminate due to mitral valve repair or replacement. The averageglobal longitudinal strain is abnormal. 2. Right ventricular dilatation. Mild right ventricular hypokinesis. 3. Moderately biatrial enlargement. 4. No interatrial shunt by color Doppler. 5. Status post mitral valve repair with annuloplasty ring. Mitral valveleaflets appear mildly thickened. Trivial mitral valve regurgitation. 6. Mild to moderate tricuspid regurgitation. The estimated pulmonaryartery systolic pressure is 33.0 mmHg. 7. 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 8. The IVC was <2.1 cm and collapsibility <50%. (est. RA pressure 6-10mmHg). COMPARISONS: Compared with prior PJ, (08/26/2024) the following changes are now seen:MV annuloplasty is new and MR is significantly reduced. ATTESTATION: I have personally reviewed and interpreted this study without fellow orresident. - DISCLAIMER: The study images and the final report will be retained in the patientchart by the Echo Laboratory for the legally required time period. This chart constitutesthe legal record of any testing performed. FINDINGS: Left Ventricle: Concentric LV remodeling. Normal left ventricular systolicfunction. The Ejection Fraction (Billy's) is measured at 52 %. Left ventriculardiastolic function is indeterminate due to mitral valve repair or replacement. The averageglobal longitudinal strain is abnormal. The LV global strain is: -11.4 %. Less negative thanexpected LV GLPS Avg. Paradoxical interventricular septal motion consistent with priorcardiac or thoracic surgery. Right Ventricle: Right ventricular dilatation. Mild right ventricularhypokinesis. The right ventricular strain is more negative than -17%. Left Atrium: Moderately dilated left atrium. Right Atrium: Right atrial dilatation. Atrial Septum: No shunt by color Doppler. Mitral Valve: Mitral valve leaflets appear mildly thickened. Trivialmitral valve regurgitation. No stenosis present. The mean transmitral gradient is: 1mmHg. Specific MV Structure Abnormalities: Status post mitral valve repair with annuloplastyring. Aortic Valve: Trileaflet aortic valve. Mild aortic valve regurgitation. Noaortic valve stenosis. The mean transaortic gradient is 3 mmHg. The aortic valve areaby the continuity equation (using VTI) is 2.99 cm2. Aortic valve dimensionlessindex is 0.84. Tricuspid Valve: Normal tricuspid valve structure. Mild to moderatetricuspid regurgitation. The estimated pulmonary artery systolic pressure is 33.0mmHg. Pulmonic Valve: Normal pulmonic valve structure. Mild pulmonicregurgitation. Pericardium: No pericardial effusion. Aorta: Mild aortic root dilation at sinuses of Valsalva. Dilation of theascending aorta when indexed. IVC: IVC is upper limit of normal in size. The IVC was <2.1 cm andcollapsibility <50%. (est. RA pressure 6-10 mmHg). MEASUREMENTS: 2D/MM Value Range DopplerValue Range LVIDd 2D 4.67 cm [ 4.20 - 5.80 ] AV Peak Vel1.0 m/s [ 1.0 - 1.7 ] LVIDs 2D 3.45 cm [ 2.50 - 4.00 ] AV Peak PG4.00 mmHg IVSd 2D 1.22 cm [ 0.60 - 1.00 ] AV Mean PG3 mmHg LVPWd 2D 1.22 cm [ 0.60 - 1.00 ] AV VTI14.9 cm LV Thickness Ratio 1.0 LVOT Peak Vel0.9 m/s [ 0.7 - 1.1 ] LV FS 2D 26.20 % [ 25.00 - 43.00 ] LVOT Peak PG3.24 mmHg LV Mass 2D 218.16 g LVOT Mean PG2 mmHg LV Mass Index 2D 108.54 g/m2 LVOT VTI12.5 cm RWT 0.52 LVOT Diam2.13 cm EDV Mod BP 149.45 ml [ 62.00 - 150.00 ] NERI VTI2.99 cm2 LV EDV Index 74.35 ml/m2 LVOT/AV VTI0.84 - Dimensionless index (DVI) ESV Mod BP 72.33 ml [ 21.00 - 61.00 ] MV E Peak Vel1.0 m/s [ 0.6 - 1.3 ] EF Mod BP 52 % [ 52 - 72 ] MV Peak Vel1.1 m/s LV GLS -11.4 % [ -25.0 - -18.0 ] MV Peak PG4.84 mmHg LA Length 4C 5.95 cm MV Mean PG1 mmHg LA Length 2C 6.07 cm MV VTI20.8 cm LA Volume BP 89.17 ml MV Decel Dzdd170.45 msec [ 104.00 - 258.00 ] LA Volume Index 44.36 ml/m2 [ 16.00 - 34.00 ] Med E` Vel9.9 cm/sec [ 8.0 - 25.0 ] RV Base Dimen 2D 4.4 cm [ 2.5 - 4.2 ] Lat E` Vel11.0 cm/sec [ 10.0 - 25.0 ] TAPSE 1.38 cm [ 1.71 - 5.00 ] Average E/E`9.57 RA Volume 72.81 ml RV S`10.19 cm/sec RA Volume Index 36.22 ml/m2 TR Peak Vel2.3 m/s [ 1.0 - 2.8 ] IVC Diam 2.14 cm TR Peak PG21.2 mmHg AoR Diam 2D 3.93 cm [ 3.10 - 3.70 ] PV Peak Vel0.9 m/s [ 0.4 - 0.8 ] Ao Root Index 1.96 cm/m2 [ 1.00 - 2.00 ] PV Peak PG3.24 mmHg Asc Ao Diam 2D 3.72 cm PI ED Vel65.66 m/sec Asc Ao Index1.85 cm/m2 Electronically Signed By: Laure Huntley MD 02/19/2025 3:16:46 PM CDT us Anne Marie España MD CV ECHO PROCEDURES Final Resu lt * Blood culture Blood Arm, right (02/19/2025 8:29 AM CDT) Report Final Report: No growth Blood (Arm, right) 02/19/2025 8:29 AM CDT 02/19/2025 9:08 AM CDT Edmond GLASS [facility] - 02/23/2025 12:00 PM CDT Collection->Peripheral 1. Blood cultures are incubated for 4 days on a continuously monitored blood culture system. The first report of a negative culture is issued within 24 hours of receipt of the specimen in the laboratory. 2. Positive culture results are reported as soon as they are detected. 3. The most important factor for detection of microbes in the setting of bloodstream infection is the volume of blood submitted for culture. Failure to collect an optimal blood volume can result in false negative blood cultures. 4. For pediatric patients, the recommended blood volume to collect follows a weight based strategy. See the electronic test catalog for collection instructions. 5. For positive blood cultures, a rapid molecular test may be performed for organism identification using the danuta ePlex blood culture identification panel for gram positive (BCID-GP) and gram negative (BCID-GN) organisms. This nucleic acid amplification test detects microbial DNA in positive blood culture broth. This assay has been cleared by the [place] Food and Drug Administration and its performance characteristics have been verified by the [facility]. For questions about this culture, contact the Microbiology Laboratory at [phone]. Interpretive data was last revised on 24. Anne Marie España MD LAB MICROBIOLOGY - GENERAL OR DERABLES Final Result [facility] Department [place] [address] * Blood culture Blood Arm, left (02/19/2025 8:29 AM CDT) Report Final Report: No growth Blood (Arm, left) 02/19/2025 8:29 AM CDT 02/19/2025 9:08 AM CDT [facility] - 02/23/2025 12:00 PM CDT Collection->Peripheral 1. Blood cultures are incubated for 4 days on a continuously monitored blood culture system. The first report of a negative culture is issued within 24 hours of receipt of the specimen in the laboratory. 2. Positive culture results are reported as soon as they are detected. 3. The most important factor for detection of microbes in the setting of bloodstream infection is the volume of blood submitted for culture. Failure to collect an optimal blood volume can result in false negative blood cultures. 4. For pediatric patients, the recommended blood volume to collect follows a weight based strategy. See the electronic test catalog for collection instructions. 5. For positive blood cultures, a rapid molecular test may be performed for organism identification using the danuta ePlex blood culture identification panel for gram positive (BCID-GP) and gram negative (BCID-GN) organisms. This nucleic acid amplification test detects microbial DNA in positive blood culture broth. This assay has been cleared by the [place] Food and Drug Administration and its performance characteristics have been verified by the [facility]biology [facility]. For questions about this culture, contact the Microbiology Laboratory at [phone]. Interpretive data was last revised on 24. us Anne Marie España MD LAB MICROBIOLOGY - GENERAL OR DERABLES Final Result [facility] [place] [address] * Urinalysis reflex to microscopic and culture Urine (02/19/2025 1:45 AM CDT) Color, ur Yellow Yellow Clarity, ur Clear Clear [facility] Specific gravity, ur 1.029 1.003 - 1.030 [facility] pH, urine 6.0 [facility] Comment: Interpretive Data U rine pH is affected by diet, medications, systemic acid-base disturbances, and renal tubular function. pH may affect urinary stone formation. For example, urine pH below 6.0 may help reduce the tendency for calcium phosphate stones and pH greater than 6.0 may reduce the tendency for uric acid stone formation. Source: [facility] Current Interpretive Data was last revised on 2017 Protein, ur ql Trace Negative [facility] Glucose, ur ql Negative Negative [facility] Ketones, ur Negative Negative [facility] Bilirubin, ur Negative Negative [facility] Blood, ur Negative Negative [facility] Urobilinogen, ur <2.0 <2.0 mg/dL [facility] Nitrite, ur Negative Negative [facility] Leukocyte esterase, ur Negative Negative [facility] UA reflex comment Reflex conditions for microscopic UA and culture not met. [facility] Urine 02/19/2025 1:45 AM CDT 02/19/2025 2:15 AM CDT Hilaria Cross NP LAB MICROBIOLOGY - GENERAL ORDERABLES Final Result [facility] Department [place] [address] * XR Chest 1 View - in PM (02/18/2025 10:08 PM CDT) Anatomical Region Laterality Modality Body, Chest N/A Digital Radiogra phy 02/19/2025 10:3 1 AM CDT Impressions 02/19/2025 11:01 AM CDT Comparison 02/17/2025. Right internal jugular central venous catheter over the superior cavoatrial junction. Unchanged right basilar atelectasis or scarring. No effusion or pneumothorax. Normal heart size. Mitral valve prosthesis. Dictated by: Scottie Guevara MD PHD The radiology attending physician has personally reviewed this study, and had reviewed and/or edited this written report and agrees with it. Electronically signed by: Danya Martin M.D. Narrative 02/19/2025 11:01 AM CDT EXAMINATION: 1 view chest radiograph Procedure Note Danya Martin MD - 02/19/2025 EXAMINATION: 1 view chest radiograph IMPRESSION: Comparison 02/17/2025. Right internal jugular central venous catheter over the superior cavoatrial junction. Unchanged right basilar atelectasis or scarring. No effusion or pneumothorax. Normal heart size. Mitral valve prosthesis. Dictated by: Scottie Guevara MD PHD The radiology attending physician has personally reviewed this study, and had reviewed and/or edited this written report and agrees with it. Electronically signed by: Danya Martin M.D. Elsye Duffy CURB SUPERVISOR IMG XR PROCEDURES Final Result * Potassium, whole blood (02/18/2025 8:56 PM CDT) Potassium, bld 4.1 3.3 - 4.9 mmol/L Blood 02/18/2025 8:56 PM CDT 02/18/2025 9:44 PM CDT Hilaria Cross CURB SUPERVISOR LAB BLOOD ORDERABLES Final Result Performing Organization Address [facility] Co de Phone Number [facility] [place] [address] * eGFR (02/18/2025 8:56 PM CDT) eGFR 72 >=60 mL/min/1. 73 m2 Comment: Interpretive Data Reference Interval Normal >/= 90 mL/min/1.73m2 Mildly decreased* 60 - 89 mL/min/1.73m2 Mildly to moderately decreased 45 - 59 mL/min/1.73m2 Moderately to severely decreased 30 - 44 mL/min/1.73m2 Severely decreased 15 - 29 mL/min/1.73m2 Kidney Failure < 15 mL/min/1.73m2 *Relative to young adult level Estimated glomerular filtration rate is determined by the 2020 CKD-EPI equation recommended by the National Kidney Foundation (A Unifying Approach to GFR Estimation: Recommendations of the NKF-ASK Task Force on Reassessing the Inclusion of Race in Diagnosing Kidney Disease, JASN 2020). The CKD-EPI equation should not be used for patients with unstable renal function and has not been validated in children and those over 70. Current interpretive data was last reviewed 2021. Blood 02/18/2025 8:56 PM CDT 02/18/2025 9:51 PM CDT Hilaria Cross CURB SUPERVISOR LAB BLOOD ORDERABLES Final Result Performing Organization Address [facility] Co de Phone Number [facility] [place] [address] * (ABNORMAL) CBC without differential (02/18/2025 8:56 PM CDT) Pathologist [facility] WBC 13.92(H) 3.80 - 9.90 K/cumm Hgb 11.9(L) 13.0 - 17.5 g/dL [facility] Hct 34.0(L) 38.9 - 50.3 % [facility] Plt 83(L) 150 - 400 K/cumm [facility] MPV 12.7(H) 9.1 - 12.3 fL [facility] RBC 3.42(L) 4.30 - 5.80 M/cumm [facility] MCV 99.4(H) 81.3 - 96.4 fL [facility] MCH 34.8(H) 27.1 - 33.3 pg [facility] MCHC 35.0 32.3 - 35.7 g/dL [facility] RDW CV 12.3 11.1 - 14.9 % [facility] RDW SD 44.8 35.7 - 48.1 fL [facility] NRBC abs 0.00 0.00 - 0.01 K/cumm [facility] Blood 02/18/2025 8:56 PM CDT 02/18/2025 9:50 PM CDT Hilaria Cross CURB SUPERVISOR LAB BLOOD ORDERABLES Final Result Performing Organization Address City/[facility]/ZIP Co de Phone Number [facility] Department [place] [address] * Phosphorus (02/18/2025 8:56 PM CDT) Phosphorus, pl 2.5 2.3 - 4.5 mg/dL Blood 02/18/2025 8:56 PM CDT 02/18/2025 9:51 PM CDT Hilaria Cross CURB SUPERVISOR LAB BLOOD ORDERABLES Final Result [facility] [place] [address] * Magnesium (02/18/2025 8:56 PM CDT) Pathologist [facility] Magnesium 2.2 1.4 - 2.5 mg/dL Blood 02/18/2025 8:56 PM CDT 02/18/2025 9:51 PM CDT Hilaria Cross CURB SUPERVISOR LAB BLOOD ORDERABLES Final Result Performing Organization Address [facility] Co de Phone Number [facility] [place] [address] * Hemoglobin A1c (02/18/2025 8:56 PM CDT) Hgb A1C 5.1 4.0 - 5.6 % Estimated Average Glucose 100 mg/dL [facility] Comment: The ADA recommends reporting an estimated Average Glucose (eAG) with all Hemoglobin A1c results using the equation derived from a study of 507 normal and diabetic adults. Minority populations were underrepresented and children were not included. (Diabetes Care 2020; 43(S1): S66-S76). The eAG is not equivalent to a fasting glucose. Blood 02/18/2025 8:56 PM CDT 02/18/2025 9:51 PM CDT Hilaria Cross CURB SUPERVISOR LAB BLOOD ORDERABLES Final Result Performing Organization Address [facility] Co de Phone Number [facility] [place] [address] * (ABNORMAL) Basic metabolic panel (02/18/2025 8:56 PM CDT) [facility] Sodium 134(L) 135 - 145 mmol/L Potassium, pl 3.9 3.3 - 4.9 mmol/L [facility] Chloride 102 97 - 110 mmol/L [facility] CO2 27 22 - 32 mmol/L [facility] Anion gap 5 2 - 15 mmol/L [facility] BUN 20 6 - 25 mg/dL [facility] Creatinine 1.11 0.80 - 1.30 mg/dL [facility] Glucose 139 70 - 199 mg/dL [facility] Comment: Interpretive Data Fasting glucose >/= 126 mg/dl is diagnostic for diabetes. Fasting is defined as no caloric intake for at least 8 hours. Fasting glucose between 100 mg/dl to 125 mg/dl is diagnostic of prediabetes. In a patient with classic symptoms of hyperglycemia or hyperglycemic crisis, a random glucose >/= 200 mg/dl is diagnostic for diabetes. In the absence of unequivocal hyperglycemia, results should be confirmed by repeat testing. The classification and Diagnosis of Diabetes Diabetes Care 2021; 46: S19-S40. Current interpretive data was last revised 2022. Calcium 8.0(L) 8.5 - 10.3 mg/dL [facility] Blood 02/18/2025 8:56 PM CDT 02/18/2025 9:51 PM CDT us Hilaria Cross CURB SUPERVISOR LAB BLOOD ORDERABLES Final Result Performing Organization Address City/[facility]/ZIP Co de Phone Number [facility] [facility] [place] [address] * POCT glucose (02/18/2025 6:07 PM CDT) [facility] Signature Glucose, POC 159 70 - 199 mg/dL Blood 02/18/2025 6:07 PM CDT 02/18/2025 6:07 PM CDT Anne Marie España MD LAB POCT ORDERABLES - DEVICE Final Result Performing Organization Address City/[facility]/ZIP Co de Phone Number [facility] [place] [address] * Critical Care (02/18/2025 4:07 PM CDT) Narrative Ester Dunn MD - 02/18/2025 4:07 PM CDT Ester Dunn MD 02/18/2025 4:15 PM Critical Care Performed by: Ester Dunn MD Authorized by: Ester Dunn MD CRITICAL CARE: Team: 83 CTICU Shift: AM Level of Billing: Critical Care My time spent with this patient was 35 minutes: Critical Provider Statement: I have seen and examined the patient on this day of service. I have reviewed and confirmed the history, physical exam, laboratory and radiologic data as documented in the signed ICU note. I have reviewed and discussed my treatment plan with the ICU team and other medical/staff consultant staff, making frequent assessments and decisions regarding this patient's complex medical care. Critical Care time was exclusive of time spent performing separately billed procedures, treating other patients, and teaching. This time was in addition to and separate from critical care provided by other practitioners in my group on this day of service. Critical Care was necessary to treat or prevent imminent or life-threatening deterioration of the following conditions: us Ester Dunn MD IN CLINIC/BEDSIDE ORD ERABLES Final Result * POCT glucose (02/18/2025 12:33 PM CDT) Glucose, POC 143 70 - 199 mg/dL Blood 02/18/2025 12:3 3 PM CDT 02/18/2025 12:33 PM CDT Anne Marie España MD LAB POCT ORDERABLES - DEVICE Final Result Performing Organization Address City/[facility] Co de Phone Number [facility] [place] [address] * Oxyhemoglobin, central venous (02/18/2025 9:45 AM CDT) Oxyhemoglobin, CV 77.7 % Comment: Interpretive Data No reference range established. Current interpretive data was last revised 2019. Blood 02/18/2025 9:45 AM CDT 02/18/2025 9:53 AM CDT us Elyse Duffy NP LAB BLOOD ORDERABLES Fi nal Result Performing Organization Address City/[facility]/ZIP Co de Phone Number [facility] [place] [address] * Potassium, whole blood (02/18/2025 9:45 AM CDT) Potassium, bld 4.2 3.3 - 4.9 mmol/L Blood 02/18/2025 9:45 AM CDT 02/18/2025 9:53 AM CDT Elyse Duffy NP LAB BLOOD ORDERABLES Fi nal Result Performing Organization Address [facility] Co de Phone Number [facility] [place] [address] * ECG 12 lead (02/18/2025 8:39 AM CDT) [facility] Ventricular Rate EKG/Min 81 BPM [facility] Atrial Rate 81 BPM [facility] FL-Interval (MSEC) 196 ms [facility] QRS-Interval (MSEC) 90 ms [facility] QT-Interval (MSEC) 396 ms [facility] QTc 460 ms [facility] P [place] 73 degrees [facility] R [place] 10 degrees [facility] T [place] 35 degrees [facility] Diagnosis Normal sinus rhythm Early repolarization Normal ECG When compared with ECG of 17-FEB-2025 13:45, Questionable change in QRS axis Confirmed by HAWA KOTHARI M.D ([id number]) on 02/18/2025 1:56:20 PM [facility] 02/18/2025 8:39 AM CDT 02/18/2025 1:56 PM CDT us Anne Marie España MD ECG ORDERABLES Final Result Performing Organization Address [facility] de Phone Number [facility] * POCT glucose (02/18/2025 7:28 AM CDT) Glucose, POC 105 70 - 199 mg/dL Blood 02/18/2025 7:28 AM CDT 02/18/2025 7:28 AM CDT Anne Marie España MD LAB POCT ORDERABLES - DEVICE Final Result Performing Organization Address [facility] Co de Phone Number [facility] [place] [address] * POCT glucose (02/18/2025 4:14 AM CDT) Glucose, POC 115 70 - 199 mg/dL Blood 02/18/2025 4:14 AM CDT 02/18/2025 4:14 AM CDT Anne Marie España MD LAB POCT ORDERABLES - DEVICE Final Result Performing Organization Address [facility] de Phone Number [facility] [place] [address] * Oxyhemoglobin, central venous (02/18/2025 3:07 AM CDT) Oxyhemoglobin, CV 77.7 % Comment: Interpretive Data No reference range established. Current interpretive data was last revised 2019. Blood 02/18/2025 3:07 AM CDT 02/18/2025 3:11 AM CDT Elyse Duffy NP LAB BLOOD ORDERABLES Fi nal Result Performing Organization Address [facility] de Phone Number [facility] [place] [address] * Oxyhemoglobin, central venous (02/18/2025 12:44 AM CDT) Oxyhemoglobin, CV 71.2 % Comment: Interpretive Data No reference range established. Current interpretive data was last revised 2019. Blood 02/18/2025 12:4 4 AM CDT 02/18/2025 12:49 AM CDT Elyse Duffy NP LAB BLOOD ORDERABLES Fi nal Result Performing Organization Address [facility] Co de Phone Number [facility] [place] [address] * eGFR (02/18/2025 12:44 AM CDT) [facility] eGFR >90 >=60 mL/min/1. 73 m2 Comment: Interpretive Data Reference Interval Normal >/= 90 mL/min/1.73m2 Mildly decreased* 60 - 89 mL/min/1.73m2 Mildly to moderately decreased 45 - 59 mL/min/1.73m2 Moderately to severely decreased 30 - 44 mL/min/1.73m2 Severely decreased 15 - 29 mL/min/1.73m2 Kidney Failure < 15 mL/min/1.73m2 *Relative to young adult level Estimated glomerular filtration rate is determined by the 2020 CKD-EPI equation recommended by the National Kidney Foundation (A Unifying Approach to GFR Estimation: Recommendations of the NKF-ASK Task Force on Reassessing the Inclusion of Race in Diagnosing Kidney Disease, JASN 2020). The CKD-EPI equation should not be used for patients with unstable renal function and has not been validated in children and those over 70. Current interpretive data was last reviewed 2021. Blood 02/18/2025 12:4 4 AM CDT 02/18/2025 12:55 AM CDT us Elyse Duffy NP LAB BLOOD ORDERABLES [facility] Result [facility] [place] [address] * (ABNORMAL) CBC without differential (02/18/2025 12:44 AM CDT) [facility] WBC 10.12(H) 3.80 - 9.90 K/cumm Hgb 12.3(L) 13.0 - 17.5 g/dL [facility] Hct 34.6(L) 38.9 - 50.3 % [facility] Plt 102(L) 150 - 400 K/cumm [facility] MPV 11.8 9.1 - 12.3 fL [facility] RBC 3.57(L) 4.30 - 5.80 M/cumm [facility] MCV 96.9(H) 81.3 - 96.4 fL [facility] MCH 34.5(H) 27.1 - 33.3 pg [facility] MCHC 35.5 32.3 - 35.7 g/dL [facility] RDW CV 12.1 11.1 - 14.9 % [facility] RDW SD 43.2 35.7 - 48.1 fL [facility] NRBC abs 0.00 0.00 - 0.01 K/cumm [facility] Blood 02/18/2025 12:4 4 AM CDT 02/18/2025 12:55 AM CDT Elyse Duffy NP LAB BLOOD ORDERABLES Fi nal Result Performing Organization Address City/[facility] Co de Phone Number [facility] [place] [address] * Phosphorus (02/18/2025 12:44 AM CDT) Phosphorus, pl 3.9 2.3 - 4.5 mg/dL Blood 02/18/2025 12:4 4 AM CDT 02/18/2025 12:55 AM CDT Elyse Duffy NP LAB BLOOD ORDERABLES Fi nal Result Performing Organization Address [facility] Co de Phone Number [facility] [place] [address] * Magnesium (02/18/2025 12:44 AM CDT) Magnesium 1.8 1.4 - 2.5 mg/dL Blood 02/18/2025 12:4 4 AM CDT 02/18/2025 12:55 AM CDT Elyse Duffy NP LAB BLOOD ORDERABLES Fi nal Result Performing Organization Address City/[facility]/ZIP Co de Phone Number [facility] [place] [address] * (ABNORMAL) Basic metabolic panel (02/18/2025 12:44 AM CDT) Sodium 135 135 - 145 mmol/L Potassium, pl 3.8 3.3 - 4.9 mmol/L [facility] Chloride 103 97 - 110 mmol/L [facility] CO2 27 22 - 32 mmol/L [facility] Anion gap 5 2 - 15 mmol/L [facility] BUN 14 6 - 25 mg/dL [facility] Creatinine 0.65(L) 0.80 - 1.30 mg/dL [facility] Glucose 141 70 - 199 mg/dL [facility] Comment: Interpretive Data Fasting glucose >/= 126 mg/dl is diagnostic for diabetes. Fasting is defined as no caloric intake for at least 8 hours. Fasting glucose between 100 mg/dl to 125 mg/dl is diagnostic of prediabetes. In a patient with classic symptoms of hyperglycemia or hyperglycemic crisis, a random glucose >/= 200 mg/dl is diagnostic for diabetes. In the absence of unequivocal hyperglycemia, results should be confirmed by repeat testing. The classification and Diagnosis of Diabetes Diabetes Care 2021; 46: S19-S40. Current interpretive data was last revised 2022. Calcium 8.1(L) 8.5 - 10.3 mg/dL [facility] Blood 02/18/2025 12:4 4 AM CDT 02/18/2025 12:55 AM CDT us Elyse Duffy NP LAB BLOOD ORDERABLES nal Result [facility] [place] [address] * POCT glucose (02/18/2025 12:43 AM CDT) Glucose, POC 130 70 - 199 mg/dL Blood 02/18/2025 12:4 3 AM CDT 02/18/2025 12:43 AM CDT us Anne Marie España MD LAB POCT ORDERABLES - DEVICE Final Result [facility] [place] [address] * XR Chest 1 View - in PM (02/17/2025 9:45 PM CDT) Anatomical Region Laterality Modality Body, Chest N/A Digital Radiogra phy 02/18/2025 9:43 AM CDT Impressions 02/18/2025 9:44 AM CDT Comparison is made to chest radiograph 02/17/2025. There is been interval removal of the endotracheal tube and gastric tube. A right internal jugular central venous catheter terminates in the superior vena cava. A mitral valve annuloplasty is noted. Thoracostomy tube is noted. There is scattered subsegmental atelectasis. No pulmonary consolidation or pleural effusion. No definite residual pneumothorax. The cardiomediastinal silhouette is unchanged. Dictated by: Gregorio Myles MD The radiology attending physician has personally reviewed this study, and had reviewed and/or edited this written report and agrees with it. Electronically signed by: José Miguel Bautista M.D. Narrative 02/18/2025 9:44 AM CDT EXAMINATION: 1 view chest radiograph Procedure Note José Miguel Bautista MD - 02/18/2025 EXAMINATION: 1 view chest radiograph IMPRESSION: Comparison is made to chest radiograph 02/17/2025. There is been interval removal of the endotracheal tube and gastric tube. A right internal jugular central venous catheter terminates in the superior vena cava. A mitral valve annuloplasty is noted. Thoracostomy tube is noted. There is scattered subsegmental atelectasis. No pulmonary consolidation or pleural effusion. No definite residual pneumothorax. The cardiomediastinal silhouette is unchanged. Dictated by: Gregorio Myles MD The radiology attending physician has personally reviewed this study, and had reviewed and/or edited this written report and agrees with it. Electronically signed by: José Miguel Bautista M.D. Elyse Duffy CURB SUPERVISOR IMG XR PROCEDURES Final Result * Oxyhemoglobin, central venous (02/17/2025 9:08 PM CDT) Pathologist [facility] Oxyhemoglobin, CV 81.4 % Comment: Interpretive Data No reference range established. Current interpretive data was last revised 2019. Blood 02/17/2025 9:08 PM CDT 02/17/2025 9:11 PM CDT Elyse Duffy CURB SUPERVISOR LAB BLOOD ORDERABLES Fi nal Result Performing Organization Address [facility] Co de Phone Number [facility] [place] [address] * Potassium, whole blood (02/17/2025 9:08 PM CDT) [facility] Potassium, bld 4.0 3.3 - 4.9 mmol/L Blood 02/17/2025 9:08 PM CDT 02/17/2025 9:11 PM CDT Anne Marie España MD LAB BLOOD ORDERABLES Final Re sult Performing Organization Address [facility] Co de Phone Number [facility] [place] [address] * POCT glucose (02/17/2025 8:55 PM CDT) [facility] Glucose, POC 139 70 - 199 mg/dL Blood 02/17/2025 8:55 PM CDT 02/17/2025 8:55 PM CDT Anne Marie España MD LAB POCT ORDERABLES - DEVICE Final Result Performing Organization Address [facility] Co de Phone Number [facility] [place] [address] * Potassium, whole blood (02/17/2025 4:53 PM CDT) Potassium, bld 4.1 3.3 - 4.9 mmol/L Blood 02/17/2025 4:53 PM CDT 02/17/2025 4:57 PM CDT Elyse Duffy NP LAB BLOOD ORDERABLES Fi nal Result Performing Organization Address [facility] Co de Phone Number [facility] [place] [address] * Lactate, whole blood (02/17/2025 4:53 PM CDT) [facility] Lactate, bld 1.2 0.7 - 2.0 mmol/L Blood 02/17/2025 4:53 PM CDT 02/17/2025 4:57 PM CDT Elyse Duffy NP LAB BLOOD ORDERABLES Fi nal Result Performing Organization Address [facility] de Phone Number [facility] [place] [address] * POCT glucose (02/17/2025 4:48 PM CDT) [facility] Glucose, POC 155 70 - 199 mg/dL Blood 02/17/2025 4:48 PM CDT 02/17/2025 4:48 PM CDT Anne Marie España MD LAB POCT ORDERABLES - DEVICE Final Result Performing Organization Address [facility] de Phone Number [facility] [place] [address] * Oxyhemoglobin, central venous (02/17/2025 2:38 PM CDT) [facility] Oxyhemoglobin, CV 78.4 % Comment: Interpretive Data No reference range established. Current interpretive data was last revised 2019. Blood 02/17/2025 2:38 PM CDT 02/17/2025 2:42 PM CDT us Elyse Duffy NP LAB BLOOD ORDERABLES Fi nal Result [facility] [place] [address] * POCT glucose (02/17/2025 2:35 PM CDT) Glucose, POC 141 70 - 199 mg/dL Blood 02/17/2025 2:35 PM CDT 02/17/2025 2:35 PM CDT Anne Marie España MD LAB POCT ORDERABLES - DEVICE Final Result Performing Organization Address [facility] Co de Phone Number [facility] [place] [address] * XR Chest 1 View (02/17/2025 2:25 PM CDT) Anatomical Region Laterality Modality Body, Chest N/A Computed Radiogr aphy 02/17/2025 3:48 PM CDT Impressions 02/17/2025 4:04 PM CDT Comparison with 02/03/2025. Postoperative changes of mitral valve repair through right thoracostomy changes. No pleural effusion. Tiny right apical pneumothorax. Gastric tube below the diaphragm. Right internal jugular central venous catheter tip overlies the superior cavoatrial junction. Endotracheal tube 5 cm above the catrina. No pneumothorax. Stable cardiac mediastinal silhouette. Dictated by: Scottie Guevara MD PHD The radiology attending physician has personally reviewed this study, and had reviewed and/or edited this written report and agrees with it. Electronically signed by: Nora Romo M.D. Narrative 02/17/2025 4:04 PM CDT EXAMINATION: 1 view chest radiograph Procedure Note Nora Romo MD - 02/17/2025 EXAMINATION: 1 view chest radiograph IMPRESSION: Comparison with 02/03/2025. Postoperative changes of mitral valve repair through right thoracostomy changes. No pleural effusion. Tiny right apical pneumothorax. Gastric tube below the diaphragm. Right internal jugular central venous catheter tip overlies the superior cavoatrial junction. Endotracheal tube 5 cm above the catrina. No pneumothorax. Stable cardiac mediastinal silhouette. Dictated by: Scottie Guevara MD PHD The radiology attending physician has personally reviewed this study, and had reviewed and/or edited this written report and agrees with it. Electronically signed by: Nora Romo M.D. Anne Marie España MD IMG XR PROCEDURES Final Resul t * XR Abdomen AP 1 View - KUB (02/17/2025 2:25 PM CDT) Anatomical Region Laterality Modality Body, Abdomen N/A Computed Radiogr aphy 02/17/2025 3:55 PM CDT Impressions 02/18/2025 1:35 PM CDT Orogastric tube tip and side port terminating in the body of the stomach. Dictated by: Ventura Garber M.D. The radiology attending physician has personally reviewed this study, and had reviewed and/or edited this written report and agrees with it. Electronically signed by: Gurmeet Munoz M.D. Narrative 02/18/2025 1:35 PM CDT EXAMINATION: Abdomen, one view. HISTORY: Check tube placement. COMPARISON: None Procedure Note Gurmeet Munoz MD - 02/18/2025 EXAMINATION: Abdomen, one view. HISTORY: Check tube placement. COMPARISON: None IMPRESSION: Orogastric tube tip and side port terminating in the body of the stomach. Dictated by: Ventura Garber M.D. The radiology attending physician has personally reviewed this study, and had reviewed and/or edited this written report and agrees with it. Electronically signed by: Gurmeet Munoz M.D. us Elyse Duffy NP IMG XR PROCEDURES Final Result * ECG 12 lead (02/17/2025 1:45 PM CDT) Ventricular Rate EKG/Min 66 BPM [facility] Atrial Rate 66 BPM [facility] FL-Interval (MSEC) 196 ms [facility] QRS-Interval (MSEC) 98 ms [facility] QT-Interval (MSEC) 416 ms [facility] QTc 436 ms [facility] P [place] 80 degrees [facility] R [place] 70 degrees [facility] T [place] 40 degrees [facility] Diagnosis Normal sinus rhythm Minimal voltage criteria for LVH, may be normal variant ( Sokolow-Talbot ) Borderline ECG When compared with ECG of 03-FEB-2025 11:12, (unconfirmed) No significant change was found Confirmed by HAWA KOTHARI M.D ([id number]) on 02/17/2025 4:09:21 PM [facility] 02/17/2025 1:45 PM CDT 02/17/2025 4:09 PM CDT us Anne Marie España MD ECG ORDERABLES Final Result [facility] * Critical Care (02/17/2025 1:37 PM CDT) Narrative Ester Dunn MD - 02/17/2025 1:37 PM CDT Ester Dunn MD 02/18/2025 1:23 PM Critical Care Performed by: Elyse Duffy NP Authorized by: Elyse Duffy NP CRITICAL CARE: Team: [facility] Shift: AM Level of Billing: Critical Care My time spent with this patient was 125 minutes: Critical Provider Statement: I have seen and examined the patient on this day of service. I have reviewed and confirmed the history, physical exam, laboratory and radiologic data as documented in the signed ICU note. I have reviewed and discussed my treatment plan with the ICU team and other medical/staff consultant staff, making frequent assessments and decisions regarding this patient's complex medical care. Critical Care time was exclusive of time spent performing separately billed procedures, treating other patients, and teaching. This time was in addition to and separate from critical care provided by other practitioners in my group on this day of service. Critical Care was necessary to treat or prevent imminent or life-threatening deterioration of the following conditions: I spent time reviewing and interpreting data from bedside monitors, laboratory results, and imaging, I spent time discussing the management of this critically ill patient with consultants and the medical staff and I spent time documenting in the medical record us Elyse Duffy NP IN CLINIC/BEDSIDE ORDER FELISA Final Result * eGFR (02/17/2025 1:32 PM CDT) eGFR >90 >=60 mL/min/1. 73 m2 Comment: Interpretive Data Reference Interval Normal >/= 90 mL/min/1.73m2 Mildly decreased* 60 - 89 mL/min/1.73m2 Mildly to moderately decreased 45 - 59 mL/min/1.73m2 Moderately to severely decreased 30 - 44 mL/min/1.73m2 Severely decreased 15 - 29 mL/min/1.73m2 Kidney Failure < 15 mL/min/1.73m2 *Relative to young adult level Estimated glomerular filtration rate is determined by the 2020 CKD-EPI equation recommended by the National Kidney Foundation (A Unifying Approach to GFR Estimation: Recommendations of the NKF-ASK Task Force on Reassessing the Inclusion of Race in Diagnosing Kidney Disease, JASN 202). The CKD-EPI equation should not be used for patients with unstable renal function and has not been validated in children and those over 70. Current interpretive data was last reviewed 2021. Blood 02/17/2025 1:32 PM CDT 02/17/2025 1:51 PM CDT us Anne Marie España MD LAB BLOOD ORDERABLES Final Re sult [facility] [place] [address] * (ABNORMAL) POC Blood Gas and Chemistries, Arterial - (02/17/2025 1:32 PM CDT) pH, Art POC 7.33(L) 7.35 - 7.45 pCO2, Art POC 44 35 - 45 mmHg [facility] pO2, Art POC 150(H) 83 - 108 mmHg [facility] Na, POC 138 135 - 145 mmol/L [facility] K POC 4.5 3.3 - 4.9 mmol/L [facility] Comment: Interpretive Data Not all point of care methods assess for hemolysis. Confirm with instrument and retest K+ if not consistent with clinical signs and symptoms. Current Interpretive Data was last revised on 2024. Cl, POC 108 97 - 110 mmol/L [facility] Ionized Ca, POC 5.46(H) 4.50 - 5.10 mg/dL [facility] Glucose, POC 146 70 - 199 mg/dL [facility] Lactate POC 2.6(H) 0.7 - 2.0 mmol/L [facility] SO2 (olvin) arterial 99(H) 90 - 95 % [facility] Base excess, POC -2.8 mmol/L [facility] HCO3, Art POC 23 20 - 30 mmol/L [facility] Hct, POC 35.0(L) 41.4 - 51.6 % [facility] Total Hb, POC 11.6(L) 13.8 - 17.2 g/dL [facility] Blood 02/17/2025 1:32 PM CDT 02/17/2025 1:32 PM CDT us Anne Marie España MD LAB POCT ORDERABLES - DEVICE Final Result [facility] [place] [address] * aPTT (02/17/2025 1:32 PM CDT) [facility] Signature aPTT 28 28 - 38 sec Comment: Interpretive Data Heparin therapeutic range: 66.0 - 100.0 seconds. Range based on correlation with therapeutic heparin activity range of 0.3 - 0.7 Units/mL. Current interpretive data was last revised on 2023. Blood 02/17/2025 1:32 PM CDT 02/17/2025 1:43 PM CDT Anne Marie España MD LAB BLOOD ORDERABLES Final Re sult Performing Organization Address [facility] Co de Phone Number [facility] [place] [address] * (ABNORMAL) Protime-INR (02/17/2025 1:32 PM CDT) [facility] PT 14.7(H) 9.7 - 13.0 sec INR 1.35(H) 0.90 - 1.20 [facility] Comment: Interpretive data Oral anticoagulant therapeutic ranges: Venous thromboembolism prophylaxis or treatment: 2.0-3.0 CARDIOLOGY Standard range: 2.0-3.0 High-intensity range: 2.5-3.5 Refer to indication-specific guidelines for appropriate target ranges for prosthetic heart valve replacement. Current interpretive data was last revised on 2019. Blood 02/17/2025 1:32 PM CDT 02/17/2025 1:43 PM CDT Anne Marie España MD LAB BLOOD ORDERABLES Final Re sult Performing Organization Address [facility] Co de Phone Number [facility] Department [place] [address] * (ABNORMAL) CBC without differential (02/17/2025 1:32 PM CDT) Pathologist [facility] WBC 10.51(H) 3.80 - 9.90 K/cumm Hgb 11.1(L) 13.0 - 17.5 g/dL [facility] Hct 32.1(L) 38.9 - 50.3 % [facility] Plt 90(L) 150 - 400 K/cumm [facility] MPV 11.8 9.1 - 12.3 fL [facility] RBC 3.21(L) 4.30 - 5.80 M/cumm [facility] MCV 100.0(H) 81.3 - 96.4 fL [facility] MCH 34.6(H) 27.1 - 33.3 pg [facility] MCHC 34.6 32.3 - 35.7 g/dL [facility] RDW CV 12.2 11.1 - 14.9 % [facility] RDW SD 44.6 35.7 - 48.1 fL [facility] NRBC abs 0.00 0.00 - 0.01 K/cumm [facility] Blood 02/17/2025 1:32 PM CDT 02/17/2025 1:51 PM CDT Anne Marie España MD LAB BLOOD ORDERABLES Final Re sult Performing Organization Address City/[facility]/ZIP Co de Phone Number [facility] Department [place] [address] * Magnesium (02/17/2025 1:32 PM CDT) [facility] Magnesium 2.2 1.4 - 2.5 mg/dL Blood 02/17/2025 1:32 PM CDT 02/17/2025 1:51 PM CDT Anne Marie España MD LAB BLOOD ORDERABLES Final Re sult Performing Organization Address [facility] Co de Phone Number [facility] [place] [address] * Basic metabolic panel (02/17/2025 1:32 PM CDT) [facility] Sodium 138 135 - 145 mmol/L Potassium, pl 4.5 3.3 - 4.9 mmol/L [facility] Chloride 110 97 - 110 mmol/L [facility] CO2 24 22 - 32 mmol/L [facility] Anion gap 4 2 - 15 mmol/L [facility] BUN 20 6 - 25 mg/dL [facility] Creatinine 0.81 0.80 - 1.30 mg/dL [facility] Glucose 145 70 - 199 mg/dL [facility] Comment: Interpretive Data Fasting glucose >/= 126 mg/dl is diagnostic for diabetes. Fasting is defined as no caloric intake for at least 8 hours. Fasting glucose between 100 mg/dl to 125 mg/dl is diagnostic of prediabetes. In a patient with classic symptoms of hyperglycemia or hyperglycemic crisis, a random glucose >/= 200 mg/dl is diagnostic for diabetes. In the absence of unequivocal hyperglycemia, results should be confirmed by repeat testing. The classification and Diagnosis of Diabetes Diabetes Care 2021; 46: S19-S40. Current interpretive data was last revised 2022. Calcium 9.3 8.5 - 10.3 mg/dL [facility] Blood 02/17/2025 1:32 PM CDT 02/17/2025 1:51 PM CDT us Anne Marie España MD LAB BLOOD ORDERABLES Final Re sult [facility] [place] [address] * FL AN ELECTIVE ENDOTRACHEAL AIRWAY, [place] AN PROCEDURE PLACEHOLDER (02/17/2025 1:25 PM CDT) Narrative Ever Mishra RN - 02/17/2025 1:25 PM CDT Ever Mishra RN 02/17/2025 1:26 PM Airway Patient location: OR Urgency: elective Indications for airway management: anesthesia Difficult airway: no Staff: Supervising provider: Natividad Guevara MD Placed by: Other staff: Ever Mishra, RN Emergent airway documentation: Risks and benefits discussed: yes Consent obtained: yes Consent given by: patient Airway prep: Preoxygenated: yes Patient position: sniffing Mask difficulty assessment: 0 - not attempted Spontaneous ventilation during airway: absent Sedation level during airway: GA Final airway details: Final airway type: endotracheal airway Tube type: Sonny tube ETT size: 8.0 mm Cuffed: yes Technique used for successful ETT placement: exchange catheter Devices/Methods used in placement: tube changer Insertion site: oral Blade type: Aurora Blade size: 4 Cormack-Lehane (direct): grade I - full view of glottis Cuff volume: 8 mL Cuff inflated with: air ETT to teeth: 24 cm Placement verified by: auscultation and CO2 detection Airway secured with: silk tape Number of attempts: 1 Additional comments: Atraumatic. Dentition same as pre-op. Double lumen ETT exchanged for Sonny tube us Natividad Guevara MD ANESTHESIA ORDERABLES Final Result * (ABNORMAL) POCT Partial thromboplastin time (PTT) (02/17/2025 12:25 PM CDT) APTT, POC 30.8(L) 32.5 - 46.1 sec Blood 02/17/2025 12:2 5 PM CDT 02/17/2025 12:25 PM CDT Anne Marie España MD LAB POCT ORDERABLES - DEVICE Final Result [facility] [place] [address] * (ABNORMAL) POC Blood Gas and Chemistries, Arterial - (02/17/2025 12:25 PM CDT) pH, Art POC 7.29(L) 7.35 - 7.45 pCO2, Art POC 46(H) 35 - 45 mmHg [facility] pO2, Art POC 92 83 - 108 mmHg [facility] Na, POC 138 135 - 145 mmol/L [facility] K POC 4.5 3.3 - 4.9 mmol/L [facility] Comment: Interpretive Data Not all point of care methods assess for hemolysis. Confirm with instrument and retest K+ if not consistent with clinical signs and symptoms. Current Interpretive Data was last revised on 2024. Cl, POC 109 97 - 110 mmol/L [facility] Ionized Ca, POC 5.48(H) 4.50 - 5.10 mg/dL [facility] Glucose, POC 179 70 - 199 mg/dL [facility] Lactate POC 2.3(H) 0.7 - 2.0 mmol/L [facility] SO2 (olvin) arterial 98(H) 90 - 95 % [facility] Base excess, POC -4.5 mmol/L [facility] HCO3, Art POC 21 20 - 30 mmol/L [facility] Hct, POC 34.0(L) 41.4 - 51.6 % [facility] Total Hb, POC 11.3(L) 13.8 - 17.2 g/dL [facility] Blood 02/17/2025 12:2 5 PM CDT 02/17/2025 12:25 PM CDT Anne Marie España MD LAB POCT ORDERABLES - DEVICE Final Result Performing Organization Address [facility] de Phone Number [facility] [place] [address] * (ABNORMAL) POCT prothrombin time (02/17/2025 12:24 PM CDT) PT, POC 22.4(H) 11.7 - 16.6 sec INR, POC 1.7(H) 0.9 - 1.2 [facility] Blood 02/17/2025 12:2 4 PM CDT 02/17/2025 12:24 PM CDT Anne Marie España MD LAB POCT ORDERABLES - DEVICE Final Result Performing Organization Address [facility] de Phone Number [facility] [place] [address] * (ABNORMAL) POCT hemoglobin, hematocrit and platelet count (02/17/2025 12:24 PM CDT) Hgb, POC 10.6(L) 13.0 - 17.5 g/dL Hematocrit POC 31.2(L) 38.9 - 50.3 % [facility] Platelet POC 71(L) 150 - 400 K/cumm [facility] Blood 02/17/2025 12:2 4 PM CDT 02/17/2025 12:24 PM CDT Anne Marie España MD LAB POCT ORDERABLES - DEVICE Final Result [facility] Department [place] [address] * POCT heparin/ACT CPB (02/17/2025 12:22 PM CDT) Pathologist [facility] Heparin POC 0.0 units/mL ACT, CPB 112 112 - 174 sec [facility] Blood 02/17/2025 12:2 2 PM CDT 02/17/2025 12:22 PM CDT Anne Marie España MD LAB POCT ORDERABLES - DEVICE Final Result Performing Organization Address [facility] Co de Phone Number [facility] Department [place] [address] * (ABNORMAL) POC Blood Gas and Chemistries, Arterial - (02/17/2025 11:55 AM CDT) [facility] pH, Art POC 7.35 7.35 - 7.45 pCO2, Art POC 39 35 - 45 mmHg [facility] pO2, Art POC 154(H) 83 - 108 mmHg [facility] Na, POC 138 135 - 145 mmol/L [facility] K POC 5.2(H) 3.3 - 4.9 mmol/L [facility] Comment: Interpretive Data Not all point of care methods assess for hemolysis. Confirm with instrument and retest K+ if not consistent with clinical signs and symptoms. Current Interpretive Data was last revised on 2024. Cl, POC 113(H) 97 - 110 mmol/L [facility] Ionized Ca, POC 5.64(H) 4.50 - 5.10 mg/dL [facility] Glucose, POC 178 70 - 199 mg/dL [facility] Lactate POC 1.8 0.7 - 2.0 mmol/L [facility] SO2 (olvin) arterial 100(H) 90 - 95 % [facility] Base excess, POC -3.8 mmol/L [facility] HCO3, Art POC 22 20 - 30 mmol/L [facility] Hct, POC 32.0(L) 41.4 - 51.6 % [facility] Total Hb, POC 10.6(L) 13.8 - 17.2 g/dL [facility] Blood 02/17/2025 11:5 5 AM CDT 02/17/2025 11:55 AM CDT Anne Marie España MD LAB POCT ORDERABLES - DEVICE Final Result Performing Organization Address City/[facility] Co de Phone Number [facility] [place] [address] * (ABNORMAL) POCT heparin/ACT CPB (02/17/2025 11:49 AM CDT) Heparin POC 3.4 units/mL ACT, CPB 479(H) 112 - 174 sec [facility] Blood 02/17/2025 11:4 9 AM CDT 02/17/2025 11:49 AM CDT Anne Marie España MD LAB POCT ORDERABLES - DEVICE Final Result Performing Organization Address [facility] de Phone Number [facility] [place] [address] * (ABNORMAL) POCT heparin/ACT CPB (02/17/2025 11:15 AM CDT) Heparin POC <2.8 units/mL ACT, CPB 465(H) 112 - 174 sec [facility] Blood 02/17/2025 11:1 5 AM CDT 02/17/2025 11:15 AM CDT Anne Marie España MD LAB POCT ORDERABLES - DEVICE Final Result Performing Organization Address City/[facility] Co de Phone Number [facility] [place] [address] * (ABNORMAL) POC Blood Gas and Chemistries, Arterial - (02/17/2025 11:14 AM CDT) pH, Art POC 7.37 7.35 - 7.45 pCO2, Art POC 39 35 - 45 mmHg [facility] pO2, Art POC 296(H) 83 - 108 mmHg [facility] Na, POC 138 135 - 145 mmol/L [facility] K POC 5.0(H) 3.3 - 4.9 mmol/L [facility] Comment: Interpretive Data Not all point of care methods assess for hemolysis. Confirm with instrument and retest K+ if not consistent with clinical signs and symptoms. Current Interpretive Data was last revised on 2024. Cl, POC 111(H) 97 - 110 mmol/L [facility] Ionized Ca, POC 4.46(L) 4.50 - 5.10 mg/dL [facility] Glucose, POC 166 70 - 199 mg/dL [facility] Lactate POC 1.2 0.7 - 2.0 mmol/L [facility] SO2 (olvin) arterial 100(H) 90 - 95 % [facility] Base excess, POC -2.5 mmol/L [facility] HCO3, Art POC 23 20 - 30 mmol/L [facility] Hct, POC 32.0(L) 41.4 - 51.6 % [facility] Total Hb, POC 10.5(L) 13.8 - 17.2 g/dL [facility] Blood 02/17/2025 11:1 4 AM CDT 02/17/2025 11:14 AM CDT us Anne Marie España MD LAB POCT ORDERABLES - DEVICE Final Result [facility] [place] [address] * (ABNORMAL) POCT heparin/ACT CPB (02/17/2025 10:43 AM CDT) Heparin POC 3.4 units/mL ACT, CPB 549(H) 112 - 174 sec [facility] Blood 02/17/2025 10:4 3 AM CDT 02/17/2025 10:43 AM CDT us Anne Marie España MD LAB POCT ORDERABLES - DEVICE Final Result [facility] [place] [address] * (ABNORMAL) POC Blood Gas and Chemistries, Arterial - (02/17/2025 10:42 AM CDT) pH, Art POC 7.35 7.35 - 7.45 pCO2, Art POC 42 35 - 45 mmHg [facility] pO2, Art POC 320(H) 83 - 108 mmHg [facility] Na, POC 137 135 - 145 mmol/L [facility] K POC 4.8 3.3 - 4.9 mmol/L [facility] Comment: Interpretive Data Not all point of care methods assess for hemolysis. Confirm with instrument and retest K+ if not consistent with clinical signs and symptoms. Current Interpretive Data was last revised on 2024. Cl, POC 110 97 - 110 mmol/L [facility] Ionized Ca, POC 4.57 4.50 - 5.10 mg/dL [facility] Glucose, POC 154 70 - 199 mg/dL [facility] Lactate POC 1.3 0.7 - 2.0 mmol/L [facility] SO2 (olvin) arterial 100(H) 90 - 95 % [facility] Base excess, POC -2.3 mmol/L [facility] HCO3, Art POC 23 20 - 30 mmol/L [facility] Hct, POC 33.0(L) 41.4 - 51.6 % [facility] Total Hb, POC 11.1(L) 13.8 - 17.2 g/dL [facility] Blood 02/17/2025 10:4 2 AM CDT 02/17/2025 10:42 AM CDT us Anne Marie España MD LAB POCT ORDERABLES - DEVICE Final Result [facility] [place] [address] * (ABNORMAL) POCT heparin/ACT CPB (02/17/2025 10:08 AM CDT) Heparin POC 4.1 units/mL ACT, CPB 498(H) 112 - 174 sec [facility] Blood 02/17/2025 10:0 8 AM CDT 02/17/2025 10:08 AM CDT us Anne Marie España MD LAB POCT ORDERABLES - DEVICE Final Result [facility] [place] [address] * (ABNORMAL) POC Blood Gas and Chemistries, Arterial - (02/17/2025 10:07 AM CDT) pH, Art POC 7.41 7.35 - 7.45 pCO2, Art POC 35 35 - 45 mmHg [facility] pO2, Art POC 378(H) 83 - 108 mmHg [facility] Na, POC 138 135 - 145 mmol/L [facility] K POC 4.2 3.3 - 4.9 mmol/L [facility] Comment: Interpretive Data Not all point of care methods assess for hemolysis. Confirm with instrument and retest K+ if not consistent with clinical signs and symptoms. Current Interpretive Data was last revised on 2024. Cl, POC 109 97 - 110 mmol/L [facility] Ionized Ca, POC 4.49(L) 4.50 - 5.10 mg/dL [facility] Glucose, POC 131 70 - 199 mg/dL [facility] Lactate POC 2.1(H) 0.7 - 2.0 mmol/L [facility] SO2 (olvin) arterial 98(H) 90 - 95 % [facility] Base excess, POC -2.0 mmol/L [facility] HCO3, Art POC 23 20 - 30 mmol/L [facility] Hct, POC 34.0(L) 41.4 - 51.6 % [facility] Total Hb, POC 11.2(L) 13.8 - 17.2 g/dL [facility] Blood 02/17/2025 10:0 7 AM CDT 02/17/2025 10:07 AM CDT Anne Marie España MD LAB POCT ORDERABLES - DEVICE Final Result Performing Organization Address [facility] Co de Phone Number [facility] [place] [address] * (ABNORMAL) POCT heparin/ACT CPB (02/17/2025 9:41 AM CDT) Pathologist [facility] Heparin POC >4.7 units/mL ACT, CPB 539(H) 112 - 174 sec [facility] Blood 02/17/2025 9:41 AM CDT 02/17/2025 9:41 AM CDT Anne Marie España MD LAB POCT ORDERABLES - DEVICE Final Result Performing Organization Address [facility] de Phone Number [facility] [place] [address] * (ABNORMAL) POC Blood Gas and Chemistries, Arterial - (02/17/2025 9:30 AM CDT) pH, Art POC 7.40 7.35 - 7.45 pCO2, Art POC 36 35 - 45 mmHg [facility] pO2, Art POC 373(H) 83 - 108 mmHg [facility] Na, POC 137 135 - 145 mmol/L [facility] K POC 3.8 3.3 - 4.9 mmol/L [facility] Comment: Interpretive Data Not all point of care methods assess for hemolysis. Confirm with instrument and retest K+ if not consistent with clinical signs and symptoms. Current Interpretive Data was last revised on 2024. Cl, POC 109 97 - 110 mmol/L [facility] Glucose, POC 122 70 - 199 mg/dL [facility] Lactate POC 2.2(H) 0.7 - 2.0 mmol/L [facility] SO2 (olvin) arterial 100(H) 90 - 95 % [facility] Base excess, POC -2.1 mmol/L [facility] HCO3, Art POC 23 20 - 30 mmol/L [facility] Hct, POC 38.0(L) 41.4 - 51.6 % [facility] Total Hb, POC 12.7(L) 13.8 - 17.2 g/dL [facility] Blood 02/17/2025 9:30 AM CDT 02/17/2025 9:30 AM CDT us Anne Marie España MD LAB POCT ORDERABLES - DEVICE Final Result [facility] [place] [address] * [place] AN PROCEDURE PLACEHOLDER (02/17/2025 9:28 AM CDT) Anatomical Region Laterality Modality Other Narrative 02/17/2025 9:28 AM CDT Natividad Guevara MD 02/17/2025 1:13 PM PJ Date/time: Staff: Supervising anesthesiologist: Natividad Guevara MD Performed by: 1st Fellow: Hemant Tucker MD Preprocedure checklist: patient identified, procedure contraindications assessed, procedure consent, risks, benefits and alternatives discussed, monitors and equipment checked, timeout performed and PJ probe inserted into esophagus using lubricating jelly General procedure Information: Reason for procedure/indications: assessment of ascending aorta, assessment of surgical repair, hemodynamic instability and hemodynamic monitoring Performed: personally and with fellows Procedure performed at surgeon's request: yes Results discussed with surgeon: yes Images submitted to archive: yes Patient location: OR Intubated: yes Bite block placed: no Probe Insertion: easy Complications: no Probe type: adult Modalities: 2D imaging, continuous wave Doppler, pulsed wave Doppler, color Doppler and 3D imaging Billing information: Physician requesting echo: Anne Marie España MD CPT code: PJ placement and diagnostic exam, non-congenital (34150) ICD code(s) for medical necessity: I34.0 - Nonrheumatic mitral (valve) insufficiency, Q21.1 - Atrial septal defect Echocardiographic and doppler measurements: Ventricles: Left ventricle: Cavity size: normal Hypertrophy: No Thrombus: No Global function: mildly decreased LVEF%: 40-50 Right ventricle: Cavity size: normal Hypertrophy: no Thrombus: No Global function: normal Interventricular septum: normal Regional function: 1- Basal anteroseptal: normal 2- Basal anterior: normal 3- Basal anterolateral: normal 4- Basal inferolateral: normal 5- Basal inferior: normal 6- Basal inferoseptal: normal 7- Mid anteroseptal: normal 8- Mid anterior: normal 9- Mid anterolateral: normal 10- Mid inferolateral: normal 11- Mid inferior: normal 12- Mid inferoseptal: normal 13- Apical anterior: normal 14- Apical lateral: normal 15- Apical inferior: normal 16- Apical septal: normal 17- [place]: normal Valves: Aortic Valve: Annulus: normal Leaflet morphology: normal Leaflet motion: normal Stenosis: none Regurgitation: trace Mitral valve: Annulus: normal Leaflet morphology anterior: thickened Leaflet morphology posterior: normal Leaflet motion anterior: prolapse Stenosis: none Regurgitation: severe Tricuspid valve: Annulus: normal Leaflet morphology: normal Leaflet motion: normal Stenosis: none Regurgitation: mild Pulmonic valve: Annulus: normal Stenosis: none Regurgitation: mild Aorta: Ascending aorta: Size: normal Dissection: no Plaque thickness(mm): 0-3 Plaque mobile: no Aortic arch: Size: normal Dissection: no Plaque thickness(mm): 0-3 Plaque mobile: no Descending aorta: Size: normal Dissection: no Plaque thickness(mm): 0-3 Plaque mobile: no Atria: Right atrium: Size: normal Spontaneous echo contrast: No Thrombus: no Mass: No Left atrium: Size: dilated Spontaneous echo contrast: No Thrombus: no Mass: No Left atrial appendage: normal Interatrial septum: PFO by CFD Diastolic function and other findings: Diastolic function: normal Pericardium: normal Left pleural effusion: none Right pleural effusion: normal Pulmonary venous flow: reversed systolic flow Pre-procedure PJ exam summary: Patient intubated, under anesthesia, NSR, no inotropes. Normal LV size with mildly reduced function EF 50%. Normal RV size/function. Severe MR secondary to P2 prolapse, thickened posterior leaflet. C-sept 2.8cm. Trileaflet AV with trace AI, no . Mild TR with PASP 39, annulus dilated to 4.5 cm. Moderate PFO by CFD with L>R shunt. Postprocedure (follow-up) PJ exam: LV: normal systolic function RV: unchanged Interventricular septum: unchanged Aortic valve: unchanged Mitral valve: normal Mitral valve gradient peak: 5 mmHg Mitral valve gradient mean: 2 mmHg Pulmonic valve: unchanged Tricuspid valve: unchanged Atria: unchanged Aorta: unchanged Pericardium: unchanged Left pleural: unchanged Right pleural: unchanged Postprocedure (follow-up) PJ exam comments: S/p MVr and PFO closure. On dobutamine 5>3 after initial sluggish inferior wall and function, subsequently recovered to baseline. LV on 3 dobutamine with normal EF. No RWMA. Normal RV size/function. No residual MR. Peak gradient 5, mean 2. AI remains trace. TR remains trace/mild. No residual PFO. No changes with chest closure. Attestation Statement: By signing this report the attending anesthesiologist certifies that he or she has personally reviewed and interpreted the echocardiogram and has reviewed and or edited and agrees with the written comments contained within the report. us Natividad Guevara MD ANESTHESIA ORDERABLES Edited Result - Final * Central Venous Line (02/17/2025 9:27 AM CDT) Narrative Hemant Tucker MD - 02/17/2025 9:27 AM CDT Hemant Tucker MD 02/17/2025 9:27 AM Central Venous Line Patient location: OR Indication: central venous access and CVP monitoring Staff: Supervising provider: Natividad Guevara MD Placed by: Other staff: Ever Mishra RN Procedure prep: Patient position: Trendelenburg. PPE: provider hand hygiene, provider hat/mask, sterile gloves, sterile gown, full body drape, sterile gel and sterile probe covers. Prep solution: chlorhexadine/alcohol was applied to area. Ultrasound Evaluation: Ultrasound was prepped into field and used prior to prep. Prior to the procedure, the cannulated vein was evaluated by ultrasound and deemed suitably patent for access.This vessel was accessed using real-time ultrasound guidance and an image was placed in the patient's medical record Central line: Laterality: right Site: internal jugular An individually distinct skin insertion site is being utilized for placement of the catheter. Catheter type: introducer sheath Oximetric catheter: yes Catheter size: 9 Fr. Catheter length: 10 cm Technique: anatomy identified with ultrasound, Seldinger technique, wire threaded easily and wire removed intact Venous verification: manometry, ultrasound confirmation and PJ confirmation Post insertion: all ports aspirated, all ports flushed easily, line sutured in place and occlusive dressing applied Chlorhexidine patch applied: yes Number of attempts: 1 Assessment: Events: patient tolerated procedure well with no complications Natividad Guevara MD ANESTHESIA ORDERABLES Final Result * Central Venous Line (02/17/2025 9:26 AM CDT) Hemant Rivero MD - 02/17/2025 9:26 AM CDT Hemant Tucker MD 02/17/2025 9:27 AM Central Venous Line Patient location: OR Indication: central venous access Staff: Supervising provider: Natividad Guevara MD Placed by: Other staff: Ever Mishra RN Procedure prep: Patient position: Trendelenburg. PPE: provider hand hygiene, provider hat/mask, sterile gloves, sterile gown, sterile gel, sterile probe covers and full body drape. Prep solution: chlorhexadine/alcohol was applied to area. Ultrasound Evaluation: Ultrasound was prepped into field. Prior to the procedure, the cannulated vein was evaluated by ultrasound and deemed suitably patent for access.This vessel was accessed using real-time ultrasound guidance and an image was placed in the patient's medical record Central line: Laterality: right Site: internal jugular An individually distinct skin insertion site is being utilized for placement of the catheter. Catheter type: quad lumen Catheter size: 8.5 Fr. Catheter length: 20 cm Catheter length at skin: 15 cm Technique: anatomy identified with ultrasound, Seldinger technique, wire threaded easily and wire removed intact Venous verification: manometry, pressure transduced, ultrasound confirmation and PJ confirmation Post insertion: all ports aspirated, all ports flushed easily, line sutured in place and occlusive dressing applied Chlorhexidine patch applied: yes Number of attempts: 1 Assessment: Events: patient tolerated procedure well with no complications Natividad Guevara MD ANESTHESIA ORDERABLES Final Result * Arterial Line (02/17/2025 9:25 AM CDT) Hemant Rivero MD - 02/17/2025 9:25 AM CDT Hemant Tucker MD 02/17/2025 9:26 AM Arterial Line Patient location: pre-op holding Indication: continuous blood pressure monitoring and blood sampling needed Ultrasound assisted: yes Staff: Supervising provider: Natividad Guevara MD Placed by: Fellow: Hemant Tucker MD Other staff: Ever Mishra, ap operator prep: Prep solution: chlorhexadine/alcohol Prep: provider hat/mask, sterile gloves and sterile drape Skin infiltrated with lidocaine 1%: yes Arterial line: Catheter size: 20 gauge Catheter length: 1 and 3/4 inch Catheter type: wire-guided catheter Seldinger technique: yes Laterality: left Site: radial artery Line secured: tape and Tegaderm Results: good waveform and good blood return Number of attempts: 1 Assessment: Events: patient tolerated procedure well with no complications us Natividad Guevara MD ANESTHESIA ORDERABLES Final Result * Airway (02/17/2025 9:22 AM CDT) Narrative Hemant Tucker MD - 02/17/2025 9:22 AM CDT Hemant Tucker MD 02/17/2025 9:25 AM Airway Patient location: OR Urgency: elective Indications for airway management: anesthesia Difficult airway: no Staff: Supervising provider: Natividad Guevara MD Placed by: Fellow: Hemant Tucker MD Other staff: Ever Mishra, ART Emergent airway documentation: Risks and benefits discussed: yes Consent obtained: yes Consent given by: patient Airway prep: Preoxygenated: yes Patient position: sniffing Mask difficulty assessment: 1 - vent by mask Spontaneous ventilation during airway: absent Sedation level during airway: GA Final airway details: Final airway type: endotracheal airway Tube type: ETT - double lumen left ETT double lumen: 39 fr Cuffed: yes Technique used for successful ETT placement: video laryngoscopy Devices/Methods used in placement: stylet Insertion site: oral Blade type: Aurora Video blade type: [employer] Blade size: 4 Cormack-Lehane (video): grade I - full view of glottis Cuff volume: 8 mL Cuff inflated with: air ETT to lips: 31 cm Placement verified by: auscultation, bronchoscopy, CO2 detection, palpation of cuff and single lung ventilation Airway secured with: silk tape Number of attempts: 1 Planned trial extubation: yes Result [facility] Natividad Guevara MD ANESTHESIA ORDERABLES Final Result * (ABNORMAL) POCT heparin dose response, CPB (02/17/2025 9:16 AM CDT) Baseline ACT POC 29(L) 112 - 174 sec Heparin dose response slope POC 107 60 - 195 [facility] Projected Heparin Concentration POC 4.2 units/mL [facility] Blood 02/17/2025 9:16 AM CDT 02/17/2025 9:16 AM CDT Result [facility] Anne Marie España MD LAB POCT ORDERABLES - DEVICE Final Result Performing Organization Address [facility] de Phone Number [facility] Department [place] [address] * PJ Add-On For OR (02/17/2025 7:04 AM CDT) Narrative [facility] PROSOLV_CARDIOREPORT_CONS SCIMAGE - 02/17/2025 7:04 AM CDT Procedure Auto Finalized by Rule: BW CV PJ DURING CASE OR Please see the Anesthesiologist's Procedure Note for the results. Result [facility] Hemant Tucker MD CV ECHO PROCEDURES Final Result Performing Organization Address [facility] de Phone Number [facility] PROSOLV_CARDIOREPORT_CONS SCIMAGE * Type and screen (02/17/2025 6:58 AM CDT) Vivi, indirect Negative ABO Rh A Positive [facility] Blood 02/17/2025 6:58 AM CDT 02/17/2025 7:20 AM CDT Result [facility] Anne Marie España MD LAB BLOOD BANK TEST ORDERABLE S Final Result Performing Organization Address [facility] de Phone Number [facility] Department [place] [address] * Prepare RBC: 4 Units (02/17/2025 6:26 AM CDT) Product code [id number] [facility] Unit Number [id number] 4-6 [facility] Product Blood Type APOS [facility] Dispense Status RETURNED [facility] Product code [id number] [facility] Unit Number [id number] 5-* [facility] Product Blood Type APOS CERNER BJ Dispense Status RETURNED [facility]ERNER [facility] Product code [id number] [facility] Unit Number [id number] 4-P [facility] Product Blood Type APOS CERNER BJ Dispense Status RETURNED [facility] Product code [id number] Unit Number [id number] 6-5 [facility] Product Blood Type APOS CERNER BJ Dispense Status RETURNED [facility] Blood 02/17/2025 6:26 AM CDT 02/17/2025 6:26 AM CDT Narrative [facility] - 02/17/2025 1:26 PM CDT 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 (All products are leukoreduced and CMV- safe)- >No Date required:-[id number] LRRBC # of [id number] Reasons:-Hold for procedure (specify procedure)} us Anne Marie España MD BLOOD BANK PRODUCT ORDERABLES Final Result [facility] Department [place] [address] * XR Chest PA Lateral 2 Views (02/03/2025 11:56 AM CDT) Anatomical Region Laterality Modality Body, Chest N/A Computed Radiogr aphy 02/03/2025 12:0 4 PM CDT Impressions 02/03/2025 12:04 PM CDT There are no prior chest radiographs for comparison. The heart and mediastinal is normal in size there is a tortuous aorta. There is no mass or consolidation. There is no lymphadenopathy. There are no pleural effusions. There is no pneumothorax. Electronically signed by: Danya Martin M.D. Narrative 02/03/2025 12:04 PM CDT EXAMINATION: 2 view chest radiograph Procedure Note Danya Martin MD - 02/03/2025 EXAMINATION: 2 view chest radiograph IMPRESSION: There are no prior chest radiographs for comparison. The heart and mediastinal is normal in size there is a tortuous aorta. There is no mass or consolidation. There is no lymphadenopathy. There are no pleural effusions. There is no pneumothorax. Electronically signed by: Danya Martin M.D. Eddie Carbone MD IMG XR PROCEDURES Wendy l Result * TYPE AND SCREEN 14 DAY (02/03/2025 11:23 AM CDT) Pathologist [facility] ABO Rh A Positive Vivi, indirect Negative [facility] Blood 02/03/2025 11:2 3 AM CDT 02/03/2025 12:59 PM CDT Narrative [facility] - 02/03/2025 2:19 PM CDT Is this test being ordered in advance for a procedure?->Yes Expected date of procedure:->02/17/25 Has the patient been transfused in the past 3 months?->No Eddie Carbone MD LAB BLOOD BANK TEST OR DERABLES Final Result [facility] [place] [address] * eGFR (02/03/2025 11:23 AM CDT) Pathologist [facility] eGFR >90 >=60 mL/min/1. 73 m2 Comment: Interpretive Data Reference Interval Normal >/= 90 mL/min/1.73m2 Mildly decreased* 60 - 89 mL/min/1.73m2 Mildly to moderately decreased 45 - 59 mL/min/1.73m2 Moderately to severely decreased 30 - 44 mL/min/1.73m2 Severely decreased 15 - 29 mL/min/1.73m2 Kidney Failure < 15 mL/min/1.73m2 *Relative to young adult level Estimated glomerular filtration rate is determined by the 2020 CKD-EPI equation recommended by the National Kidney Foundation (A Unifying Approach to GFR Estimation: Recommendations of the NKF-ASK Task Force on Reassessing the Inclusion of Race in Diagnosing Kidney Disease, JASN 202). The CKD-EPI equation should not be used for patients with unstable renal function and has not been validated in children and those over 70. Current interpretive data was last reviewed 2021. Blood 02/03/2025 11:2 3 AM CDT 02/03/2025 12:29 PM CDT us Eddie Carbone MD LAB BLOOD ORDERABLES F inal Result [facility] Department [place] [address] * Differential, auto (02/03/2025 11:23 AM CDT) Neutrophil abs 4.22 1.50 - 6.50 K/cumm Imm gran abs 0.01 0.00 - 0.10 K/cumm [facility] Lymphocyte abs 1.29 0.80 - 3.30 K/cumm [facility] Monocyte abs 0.74 0.20 - 0.80 K/cumm [facility] Eosinophil abs 0.17 0.00 - 0.50 K/cumm [facility] Basophil abs 0.04 0.00 - 0.10 K/cumm [facility] Neutrophil pct 65.3 % [facility] Comment: Interpretive Data Percent cell count reference ranges are not reported, since discordance with absolute values may lead to misinterpretation of CBC data. Current Interpretive Data was last revised on 2018. Imm gran pct 0.2 % [facility] Comment: Interpretive Data Percent cell count reference ranges are not reported, since discordance with absolute values may lead to misinterpretation of CBC data. Current Interpretive Data was last revised on 2018. Lymphocyte pct 19.9 % [facility] Comment: Interpretive Data Percent cell count reference ranges are not reported, since discordance with absolute values may lead to misinterpretation of CBC data. Current Interpretive Data was last revised on 2018. Monocyte pct 11.4 % [facility] Comment: Interpretive Data Percent cell count reference ranges are not reported, since discordance with absolute values may lead to misinterpretation of CBC data. Current Interpretive Data was last revised on 2018. Eosinophil pct 2.6 % [facility] Comment: Interpretive Data Percent cell count reference ranges are not reported, since discordance with absolute values may lead to misinterpretation of CBC data. Current Interpretive Data was last revised on 2018. Basophil pct 0.6 % [facility] Comment: Interpretive Data Percent cell count reference ranges are not reported, since discordance with absolute values may lead to misinterpretation of CBC data. Current Interpretive Data was last revised on 2018. Blood 02/03/2025 11:2 3 AM CDT 02/03/2025 12:29 PM CDT Eddie Carbone MD LAB BLOOD ORDERABLES F inal Result Performing Organization Address City/State/[facility] Co de Phone Number [facility] Department [place] [address] * CPAP aPTT algorithm (02/03/2025 11:23 AM CDT) aPTT 29 28 - 38 sec Comment: Interpretive Data Heparin therapeutic range: 66.0 - 100.0 seconds. Range based on correlation with therapeutic heparin activity range of 0.3 - 0.7 Units/mL. Current interpretive data was last revised on 2023. Blood 02/03/2025 11:2 3 AM CDT 02/03/2025 12:33 PM CDT Eddie Carbone MD LAB BLOOD ORDERABLES F inal Result Performing Organization Address City/State/[facility] Co de Phone Number [facility] [place] [address] * (ABNORMAL) Urinalysis reflex to microscopic and culture Urine (02/03/2025 11:23 AM CDT) Color, ur Yellow Yellow Clarity, ur Clear Clear [facility] Specific gravity, ur 1.031(H) 1.003 - 1.030 [facility] pH, urine 5.5 [facility] Comment: Interpretive Data U rine pH is affected by diet, medications, systemic acid-base disturbances, and renal tubular function. pH may affect urinary stone formation. For example, urine pH below 6.0 may help reduce the tendency for calcium phosphate stones and pH greater than 6.0 may reduce the tendency for uric acid stone formation. Source: [facility] Current Interpretive Data was last revised on 2017 Protein, ur ql Negative Negative [facility] Glucose, ur ql Negative Negative [facility] Ketones, ur Negative Negative [facility] Bilirubin, ur Negative Negative [facility] Blood, ur Negative Negative [facility] Urobilinogen, ur <2.0 <2.0 mg/dL [facility] Nitrite, ur Negative Negative [facility] Leukocyte esterase, ur Negative Negative [facility] UA reflex comment Reflex conditions for microscopic UA and culture not met. [facility] Urine 02/03/2025 11:2 3 AM CDT 02/03/2025 12:20 PM CDT us Eddie Carbone MD LAB MICROBIOLOGY - GEN ERAL ORDERABLES Final Result [facility] [place] [address] * (ABNORMAL) CBC with auto differential (02/03/2025 11:23 AM CDT) WBC 6.47 3.80 - 9.90 K/cumm Hgb 15.0 13.0 - 17.5 g/dL [facility] Hct 43.7 38.9 - 50.3 % [facility] Plt 144(L) 150 - 400 K/cumm [facility] MPV 12.2 9.1 - 12.3 fL [facility] RBC 4.39 4.30 - 5.80 M/cumm [facility] MCV 99.5(H) 81.3 - 96.4 fL [facility] MCH 34.2(H) 27.1 - 33.3 pg [facility] MCHC 34.3 32.3 - 35.7 g/dL [facility] RDW CV 12.0 11.1 - 14.9 % [facility] RDW SD 44.1 35.7 - 48.1 fL [facility] NRBC abs 0.00 0.00 - 0.01 K/cumm [facility] Blood 02/03/2025 11:2 3 AM CDT 02/03/2025 12:29 PM CDT Eddie Carbone MD LAB BLOOD ORDERABLES F inal Result Performing Organization Address [facility] de Phone Number [facility] Department [place] [address] * Protime-INR (02/03/2025 11:23 AM CDT) PT 12.2 9.7 - 13.0 sec INR 1.13 0.90 - 1.20 [facility] Comment: Interpretive data Oral anticoagulant therapeutic ranges: Venous thromboembolism prophylaxis or treatment: 2.0-3.0 CARDIOLOGY Standard range: 2.0-3.0 High-intensity range: 2.5-3.5 Refer to indication-specific guidelines for appropriate target ranges for prosthetic heart valve replacement. Current interpretive data was last revised on 2019. Blood 02/03/2025 11:2 3 AM CDT 02/03/2025 12:33 PM CDT Eddie Carbone MD LAB BLOOD ORDERABLES F inal Result Performing Organization Address [facility] de Phone Number [facility] Department [place] [address] * (ABNORMAL) Comprehensive metabolic panel (02/03/2025 11:23 AM CDT) Sodium 143 135 - 145 mmol/L Potassium, pl 4.6 3.3 - 4.9 mmol/L [facility] Chloride 108 97 - 110 mmol/L [facility] CO2 26 22 - 32 mmol/L [facility] Anion gap 9 2 - 15 mmol/L [facility] BUN 28(H) 6 - 25 mg/dL [facility] Creatinine 0.78(L) 0.80 - 1.30 mg/dL [facility] Glucose 104 70 - 199 mg/dL [facility] Comment: Interpretive Data Fasting glucose >/= 126 mg/dl is diagnostic for diabetes. Fasting is defined as no caloric intake for at least 8 hours. Fasting glucose between 100 mg/dl to 125 mg/dl is diagnostic of prediabetes. In a patient with classic symptoms of hyperglycemia or hyperglycemic crisis, a random glucose >/= 200 mg/dl is diagnostic for diabetes. In the absence of unequivocal hyperglycemia, results should be confirmed by repeat testing. The classification and Diagnosis of Diabetes Diabetes Care 202; 46: S19-S40. Current interpretive data was last revised 2022. Calcium 9.2 8.5 - 10.3 mg/dL [facility] Bilirubin, total 0.5 0.1 - 1.2 mg/dL [facility] Protein, pl 7.1 6.5 - 8.5 g/dL [facility] Albumin 4.4 3.5 - 5.0 g/dL [facility] Alk phos 77 40 - 130 Units/L [facility] ALT 33 7 - 55 Units/L [facility] AST 28 10 - 50 Units/L [facility] Blood 02/03/2025 11:2 3 AM CDT 02/03/2025 12:29 PM CDT us Eddie Carbone MD LAB BLOOD ORDERABLES F inal Result [facility] [place] [address] from Last 3 Months Insurance MEDICARE [facility] S[facility]IOR SUPPLE[facility] MEDICARE [employer] SENIOR SUPPLEMENT Advance Directives For more information, please contact: [phone] Documents on File Type Date Recorded Patient Metallurgical Lab Technician Expl anation ADVANCE DIRECTIVE 02/17/2025 6:46 AM Power of Internet Site Designer-Medical * Full Code (Latest Code Status on File) Date Activated Date Inactivated Comments 02/17/2025 1:18 PM 02/20/2025 4:49 PM * Full Code Date Activated Date Inactivated Comments 12/07/2024 2:05 PM 12/07/2024 8:36 PM * Full Code Date Activated Date Inactivated Comments 08/26/2024 10:28 AM 08/27/2024 4:55 AM Care Teams Meteorology Teacher Relationship Specialty Start Date End Date Nora Montes MD [address] [place] [address] [address] [place] [address] PCP - General Family Medicine 04/06/24 Anne Marie España MD [address] [place] [address] [place] [address] Cardiothoracic Surgery 02/20/25
--- OUTSIDE RECORDS SUMMARY | 2025-03-11 13:27 | XMS_ITS | Referral Summary ---
Author Organization [facility] Address [address] [place] [phone] Care Team Providers Care Cafeteria Manager Name Role Phone Nora Montes MD Primary Care Provider [phone] Anne Marie España MD Unavailable [phone] Encounters Date Type Department Care Team Description 02/22/2025 Orders Only [facility] [address] [place] [address] 8th Floor [address] Room [address] [place] [phone] Argenis Jones, FARMHAND Status post cardiac surgery (Primary Dx) 02/17/2025 12:22 PM CDT - 02/20/2025 12:40 PM CDT Hospital Encounter [address] [phone] Anne Marie España MD Severe mitral regurgitation (Primary Dx); MVP (mitral valve prolapse) Discharge Disposition: Discharge to home, home health skilled care 02/17/2025 7:05 AM CDT Ancillary Procedure [facility] Operating Room [address] [place] [phone] Hemant Tucker MD 02/17/2025 8:00 AM CDT - 02/17/2025 3:55 PM CDT Surgery [facility] Operating Room [address] [place] [phone] Anne Marie España MD REPAIR/REPLACE MITRAL VALVE ROBOTIC XI 02/17/2025 7:57 AM CDT Anesthesia Event [facility] Operating Room [address] [place] [phone] Natividad Guevara MD Mallette, Allison Anne, NP 02/12/2025 Orders Only [facility] [address] [place] [address] Medicine 8th Floor [address] Room [address] [place] [phone] Ciera Tejada NP 02/03/2025 11:40 AM CDT - 02/03/2025 11:59 PM CDT Hospital Encounter [facility] Radiology [facility] ([facility]) [address] [place] [id number] Discharge Disposition: Discharge to home or self care 02/03/2025 10:00 AM CDT Pre-Admission Testing [facility] Center for Preoperative Assessment and Planning [facility] ([facility]) [address] [place] [phone] Pre-op testing (Primary Dx); Mitral valve prolapse 12/11/2024 Telephone [facility] [address] [place] [address] 8th Floor [address] Room [address] [place] [phone] Janeen Das NP from Last 3 Months Allergies Active Allergy Reactions Criticality Noted Date [...] (six) hours as needed for pain 02/21/20 Active senna-docusate (PERICOLACE) 8.6-50 mg Take 1 [...] Palpitations 04/10/2024 Nonrheumatic mitral valve regurgitation 04/10/20 MVP (mitral valve prolapse) 04/10/2024 Assessment & [...] Date Resolved Date Cardiac abnormality 02/17/2025 02/20/20 25 Severe mitral regurgitation 10/27/2024 02/19/2025 Social History Tobacco Use Types Packs/Day Years [...] on file 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 Fortunately, [employer] lists all Jain stapes implants as MR Safe by the old definition; this can be interpreted to mean that the patient can be safely scanned at least at 1.5T in Normal Operating Mode. Reference (consulted 07/13/2024): [email or web address] =[email or web address] t_description [employer] Ring Physio Flex Mitral Annuloplasty 38mm [id number] - [id number] - [id number] Implanted:Qty: 1 on 02/17/2025 by Anne Marie España MD at [facility] N/A: Heart [employer] [id number] 10/26/2029 [id number] / [id number] / Procedures Procedure Name Priority Date/Time Associated [...] METABOLIC PANEL STAT 02/17/2025 1:32 PM CDT SD AN PROCEDURE PLACEHOLDER Routine 02/17/2025 1:25 PM CDT SD AN ELECTIVE ENDOTRACHEAL AIRWAY Routine 02/17/2025 1:25 [...] CHEMISTRIES, ARTERIAL Routine 02/17/2025 9:30 AM CDT SD AN PROCEDURE PLACEHOLDER Routine 02/17/2025 9:28 AM [...] 9:52 PM CDT 02/19/2025 10:19 PM CDT Hilaria Cross LIME MIXER LAB BLOOD ORDERABLES Final Result [facility] Department [place] [address] * eGFR (02/19/2025 9:52 PM CDT) eGFR [...] 9:52 PM CDT 02/19/2025 10:24 PM CDT Hilaria Cross LIME MIXER LAB BLOOD ORDERABLES Final Result Performing Organization Address [facility] de Phone Number [facility] [place] [address] * (ABNORMAL) Protime-INR (02/19/2025 9:52 PM CDT) PT 13.2(H) 9.7 - 13.0 sec INR 1.22(H) 0.90 - 1.20 [facility] Comment: Interpretive data Oral anticoagulant therapeutic ranges: Venous thromboembolism prophylaxis or treatment: 2.0-3.0 CARDIOLOGY Standard range: 2.0-3.0 High-intensity range: 2.5-3.5 Refer to indication-specific guidelines for appropriate target ranges for prosthetic heart valve replacement. Current interpretive data was last revised on 2019. Blood 02/19/2025 9:52 PM CDT 02/19/2025 10:29 PM CDT Hilaria Cross LIME MIXER LAB BLOOD ORDERABLES Final Result Performing Organization Address [facility] de Phone Number [facility] [place] [address] * (ABNORMAL) CBC without differential (02/19/2025 9:52 PM CDT) WBC 12.46(H) 3.80 - 9.90 K/cumm Hgb 10.6(L) 13.0 - 17.5 g/dL [facility] Hct 30.0(L) 38.9 - 50.3 % [facility] Plt 83(L) 150 - 400 K/cumm [facility] MPV 12.4(H) 9.1 - 12.3 fL [facility] RBC 3.06(L) 4.30 - 5.80 M/cumm [facility] MCV 98.0(H) 81.3 - 96.4 fL [facility] MCH 34.6(H) 27.1 - 33.3 pg [facility] MCHC 35.3 32.3 - 35.7 g/dL [facility] RDW CV 12.3 11.1 - 14.9 % [facility] RDW SD 44.1 35.7 - 48.1 fL [facility] NRBC abs 0.00 0.00 - 0.01 K/cumm [facility] Blood 02/19/2025 9:52 PM CDT 02/19/2025 10:24 PM CDT us Hilaria Cross LIME MIXER LAB BLOOD ORDERABLES Final Result Performing Organization Address [facility] Co de Phone Number [facility] Department [place] [address] * (ABNORMAL) Phosphorus (02/19/2025 9:52 PM CDT) Phosphorus, pl 1.2(L) 2.3 - 4.5 mg/dL Blood 02/19/2025 9:52 PM CDT 02/19/2025 10:24 PM CDT us Hilaria Cross LIME MIXER LAB BLOOD ORDERABLES Final Result [facility] [place] [address] * Magnesium (02/19/2025 9:52 PM CDT) Magnesium 2.0 1.4 - 2.5 mg/dL Blood 02/19/2025 9:52 PM CDT 02/19/2025 10:24 PM CDT us Hilaria Cross LIME MIXER LAB BLOOD ORDERABLES Final Result [facility] Department [place] [address] * (ABNORMAL) Basic metabolic panel (02/19/2025 9:52 PM CDT) Sodium 134(L) 135 - 145 mmol/L Potassium, pl 4.0 3.3 - 4.9 mmol/L [facility] Chloride 101 97 - 110 mmol/L [facility] CO2 28 22 - 32 mmol/L [facility] Anion gap 5 2 - 15 mmol/L [facility] BUN 20 6 - 25 mg/dL [facility] Creatinine 0.97 0.80 - 1.30 mg/dL [facility] Glucose 128 70 - 199 mg/dL [facility] Comment: Interpretive Data Fasting glucose >/= 126 [...] 2022. Calcium 8.0(L) 8.5 - 10.3 mg/dL [facility] Blood 02/19/2025 9:52 PM CDT 02/19/2025 10:24 PM CDT Hilaria Cross NP LAB BLOOD ORDERABLES Final Result Performing Organization Address City/[facility]/ZIP Co de Phone Number [facility] Department [place] [address] * XR Chest PA Lateral 2 Views [...] AM CDT Narrative 02/19/2025 3:17 PM CDT [facility] [place]iac [place] [address] Transthoracic Echocardiographic Report Patient Name: NORA HARRY L : 1955 (69y 2m) Gender: M Study Date: 02/19/2025 10:08:10 AM Ht(Inch): 72 Wt(Lb): 175.05 BSA: 2.01 Customer Service Specialist: Trish Galindo [facility] Location: [id number] Order Provider: ANNE MARIE ESPAÑA Heart Rate: [...] CDT Procedure Note Laure Huntley, - 02/19/2025 [facility] [place] [place] [address] Transthoracic Echocardiographic Report Patient Name: NORA HARRY L : 1955 (69y 2m) Gender: M Study Date: 02/19/2025 10:08:10 AM Ht(Inch): 72 Wt(Lb): 175.05 BSA: 2.01 Customer Service Specialist: Trish Galindo RDCS Location: [id number] Order Provider:ANNE MARIE ESPAÑA Heart Rate: 73 [...] LA Volume BP 89.17 ml MV Decel Hidg723.45 msec [ 104.00 - 258.00 ] LA [...] 8:29 AM CDT 02/19/2025 9:08 AM CDT Narrative QUAN [facility] - 02/23/2025 12:00 PM CDT Collection->Peripheral [...] performance characteristics have been verified by the [facility] Microbiology Laboratory. For questions about this culture, contact the Microbiology Laboratory at [phone]. Interpretive data was last revised on 24. Anne Marie España MD LAB MICROBIOLOGY - GENERAL OR DERABLES Final Result [facility] Department [place] [address] * Blood culture Blood Arm, left (02/19/2025 8:29 AM CDT) Report Final Report: No growth Blood (Arm, left) 02/19/2025 8:29 AM CDT 02/19/2025 9:08 AM CDT Narrative QUAN [facility] - 02/23/2025 12:00 PM CDT Collection->Peripheral [...] performance characteristics have been verified by the [facility] Microbiology Laboratory. For questions about this culture, contact the Microbiology Laboratory at [phone]. Interpretive data was last revised on 24. Anne Marie España MD LAB MICROBIOLOGY - GENERAL OR DERABLES Final Result [facility] Department [place] [address] * Urinalysis reflex to microscopic and culture Urine (02/19/2025 1:45 AM CDT) Color, ur Yellow Yellow Clarity, ur Clear Clear [facility] Specific gravity, ur 1.029 1.003 - 1.030 [facility] pH, urine 6.0 [facility] Comment: Interpretive Data U rine pH is affected by diet, medications, systemic acid-base disturbances, and renal tubular function. pH may affect urinary stone formation. For example, urine pH below 6.0 may help reduce the tendency for calcium phosphate stones and pH greater than 6.0 may reduce the tendency for uric acid stone formation. Source: [place] [employer] Current Interpretive Data was last revised on 2017 Protein, ur ql Trace Negative [facility] Glucose, ur ql Negative Negative [facility] Ketones, ur Negative Negative [facility] Bilirubin, ur Negative Negative [facility] Blood, ur Negative Negative [facility] Urobilinogen, ur <2.0 <2.0 mg/dL [facility] Nitrite, ur Negative Negative [facility] Leukocyte esterase, ur Negative Negative [facility] UA reflex comment Reflex conditions for microscopic UA and culture not met. [facility] Urine 02/19/2025 1:45 AM CDT 02/19/2025 2:15 AM CDT us Hilaria Cross NP LAB MICROBIOLOGY - GENERAL ORDERABLES Final Result [facility] Department [place] [address] * XR Chest 1 View - in [...] it. Electronically signed by: Danya Martin M.D. us Elyse Duffy LIME MIXER IMG XR PROCEDURES Final Result * Potassium, whole blood (02/18/2025 8:56 PM CDT) Potassium, bld 4.1 3.3 - 4.9 mmol/L Blood 02/18/2025 8:56 PM CDT 02/18/2025 9:44 PM CDT Hilaria Cross NP LAB BLOOD ORDERABLES Final Result Performing Organization Address [facility] de Phone Number QUAN [facility] Department [place] [employer] [place] [address] * eGFR (02/18/2025 8:56 PM CDT) eGFR [...] CDT 02/18/2025 9:51 PM CDT Hilaria Cross NP LAB BLOOD ORDERABLES Final Result Performing Organization Address [facility] Co de Phone Number [facility] Department [place] [address] * (ABNORMAL) CBC without differential (02/18/2025 8:56 PM CDT) WBC 13.92(H) 3.80 - 9.90 K/cumm Hgb 11.9(L) 13.0 - 17.5 g/dL [facility] Hct 34.0(L) 38.9 - 50.3 % [facility] Plt 83(L) 150 - 400 K/cumm [facility] MPV 12.7(H) 9.1 - 12.3 fL [facility] RBC 3.42(L) 4.30 - 5.80 M/cumm [facility] MCV 99.4(H) 81.3 - 96.4 fL [facility] MCH 34.8(H) 27.1 - 33.3 pg [facility] MCHC 35.0 32.3 - 35.7 g/dL [facility] RDW CV 12.3 11.1 - 14.9 % [facility] RDW SD 44.8 35.7 - 48.1 fL [facility] NRBC abs 0.00 0.00 - 0.01 K/cumm [facility] Blood 02/18/2025 8:56 PM CDT 02/18/2025 9:50 PM CDT us Hilaria Cross LIME MIXER LAB BLOOD ORDERABLES Final Result Performing Organization Address [facility] Co de Phone Number [facility] [place] [employer] [address] * Phosphorus (02/18/2025 8:56 PM CDT) Pathologist [facility] Phosphorus, pl 2.5 2.3 - 4.5 mg/dL Blood 02/18/2025 8:56 PM CDT 02/18/2025 9:51 PM CDT Hilaria Cross LIME MIXER LAB BLOOD ORDERABLES Final Result Performing Organization Address City/[facility] Co de Phone Number [facility] [place] [address] * Magnesium (02/18/2025 8:56 PM CDT) [facility] Magnesium 2.2 1.4 - 2.5 mg/dL Blood 02/18/2025 8:56 PM CDT 02/18/2025 9:51 PM CDT Result [facility] Hilaria Cross LIME MIXER LAB BLOOD ORDERABLES Final Result Performing Organization Address [facility] [place] [address] * Hemoglobin A1c (02/18/2025 8:56 PM CDT) [facility] Hgb A1C 5.1 4.0 - 5.6 % Estimated Average Glucose 100 mg/dL [facility] Comment: The ADA recommends reporting an estimated Average Glucose (eAG) with all Hemoglobin A1c results using the equation derived from a study of 507 normal and diabetic adults. Minority populations were underrepresented and children were not included. (Diabetes Care 2020; 43(S1): S66-S76). The eAG is not equivalent to a fasting glucose. Blood 02/18/2025 8:56 PM CDT 02/18/2025 9:51 PM CDT Hilaria Cross LIME MIXER LAB BLOOD ORDERABLES Final Result Performing Organization Address [facility] [place] [address] * (ABNORMAL) Basic metabolic panel (02/18/2025 8:56 PM CDT) [facility] Sodium 134(L) 135 - 145 mmol/L Potassium, pl 3.9 3.3 - 4.9 mmol/L [facility] Chloride 102 97 - 110 mmol/L [facility] CO2 27 22 - 32 mmol/L [facility] Anion gap 5 2 - 15 mmol/L [facility] BUN 20 6 - 25 mg/dL [facility] Creatinine 1.11 0.80 - 1.30 mg/dL [facility] Glucose 139 70 - 199 mg/dL [facility] Comment: Interpretive Data Fasting glucose >/= 126 [...] 2022. Calcium 8.0(L) 8.5 - 10.3 mg/dL [facility] Blood 02/18/2025 8:56 PM CDT 02/18/2025 9:51 PM CDT us Hilaria Cross NP LAB BLOOD ORDERABLES Final Result Performing Organization Address City/[facility]/ZIP Co de Phone Number [facility] Department [place] [address] * POCT glucose (02/18/2025 6:07 PM CDT) [facility] Glucose, POC 159 70 - 199 mg/dL Blood 02/18/2025 6:07 PM CDT 02/18/2025 6:07 PM CDT us Anne Marie España MD LAB POCT ORDERABLES - DEVICE Final Result [facility] Department [place] [address] * Critical Care (02/18/2025 4:07 PM CDT) [...] plan with the ICU team and other medical/sap business intelligence consultant staff, making frequent assessments and decisions [...] 3 PM CDT 02/18/2025 12:33 PM CDT us Anne Marie España MD LAB POCT ORDERABLES - DEVICE Final Result Performing Organization Address City/[facility] Phone Number [facility] Department [place] [address] * Oxyhemoglobin, central venous (02/18/2025 9:45 AM CDT) Oxyhemoglobin, CV 77.7 % Comment: Interpretive Data No reference range established. Current interpretive data was last revised 2019. Blood 02/18/2025 9:45 AM CDT 02/18/2025 9:53 AM CDT Elyse Duffy NP LAB BLOOD ORDERABLES Fi nal Result Performing Organization Address City/State/[facility] Co de Phone Number [facility] Department [place] [address] * Potassium, whole blood (02/18/2025 9:45 AM CDT) Pathologist [facility] Potassium, bld 4.2 3.3 - 4.9 mmol/L Blood 02/18/2025 9:45 AM CDT 02/18/2025 9:53 AM CDT us Elyse Duffy NP LAB BLOOD ORDERABLES Fi nal Result Performing Organization Address [facility] de Phone Number QUAN [facility] [place] [address] * ECG 12 lead (02/18/2025 8:39 AM CDT) [facility] Ventricular Rate EKG/Min 81 BPM [facility] Atrial Rate 81 BPM [facility] SD-Interval (MSEC) 196 ms [facility] QRS-Interval (MSEC) 90 ms [facility] QT-Interval (MSEC) 396 ms [facility] QTc 460 ms [facility] P [place] 73 degrees [facility] R [place] 10 degrees [facility] T [place] 35 degrees [facility] Diagnosis Normal sinus rhythm Early repolarization Normal ECG When compared with ECG of 17-FEB-2025 13:45, Questionable change in QRS axis Confirmed by HAWA KOTHARI M.D ([id number]) on 02/18/2025 1:56:20 PM [facility] 02/18/2025 8:39 AM CDT 02/18/2025 1:56 PM CDT us Anne Marie España MD ECG ORDERABLES Final Result Performing Organization Address [facility] Co de Phone Number [facility] * POCT glucose (02/18/2025 7:28 AM CDT) Pathologist [facility] Glucose, POC 105 70 - 199 mg/dL Blood 02/18/2025 7:28 AM CDT 02/18/2025 7:28 AM CDT Anne Marie España MD LAB POCT ORDERABLES - DEVICE Final Result Performing Organization Address [facility] de Phone Number [facility] [place] [address] * POCT glucose (02/18/2025 4:14 AM CDT) Glucose, POC 115 70 - 199 mg/dL Blood 02/18/2025 4:14 AM CDT 02/18/2025 4:14 AM CDT Anne Marie España MD LAB POCT ORDERABLES - DEVICE Final Result Performing Organization Address [facility] de Phone Number [facility] [place] [address] * Oxyhemoglobin, central venous (02/18/2025 3:07 AM CDT) Oxyhemoglobin, CV 77.7 % Comment: Interpretive Data No reference range established. Current interpretive data was last revised 2019. Blood 02/18/2025 3:07 AM CDT 02/18/2025 3:11 AM CDT Elyse Duffy NP LAB BLOOD ORDERABLES Fi nal Result Performing Organization Address [facility] de Phone Number [facility] [place] [address] * Oxyhemoglobin, central venous (02/18/2025 12:44 AM CDT) Oxyhemoglobin, CV 71.2 % Comment: Interpretive Data No reference range established. Current interpretive data was last revised 2019. Blood 02/18/2025 12:4 4 AM CDT 02/18/2025 12:49 AM CDT Elyse Duffy NP LAB BLOOD ORDERABLES Fi nal Result Performing Organization Address [facility] Co de Phone Number QUAN [facility] Department [place] [address] * eGFR (02/18/2025 12:44 AM CDT) eGFR >90 >=60 mL/min/1. 73 m2 [...] ORDERABLES Fi nal Result Performing Organization Address City/[facility]/ZIP Co de Phone Number QUAN [facility] Department [place] [address] * (ABNORMAL) CBC without differential (02/18/2025 12:44 AM CDT) WBC 10.12(H) 3.80 - 9.90 K/cumm Hgb 12.3(L) 13.0 - 17.5 g/dL [facility] Hct 34.6(L) 38.9 - 50.3 % [facility] Plt 102(L) 150 - 400 K/cumm [facility] MPV 11.8 9.1 - 12.3 fL [facility] RBC 3.57(L) 4.30 - 5.80 M/cumm [facility] MCV 96.9(H) 81.3 - 96.4 fL [facility] MCH 34.5(H) 27.1 - 33.3 pg [facility] MCHC 35.5 32.3 - 35.7 g/dL [facility] RDW CV 12.1 11.1 - 14.9 % [facility] RDW SD 43.2 35.7 - 48.1 fL [facility] NRBC abs 0.00 0.00 - 0.01 K/cumm [facility] Blood 02/18/2025 12:4 4 AM CDT 02/18/2025 12:55 AM CDT Elyse Duffy NP LAB BLOOD ORDERABLES Fi nal Result [facility] [place] [address] * Phosphorus (02/18/2025 12:44 AM CDT) Phosphorus, pl 3.9 2.3 - 4.5 mg/dL Blood 02/18/2025 12:4 4 AM CDT 02/18/2025 12:55 AM CDT Elyse Duffy NP LAB BLOOD ORDERABLES Fi nal Result [facility] [place] [address] * Magnesium (02/18/2025 12:44 AM CDT) Magnesium 1.8 1.4 - 2.5 mg/dL Blood 02/18/2025 12:4 4 AM CDT 02/18/2025 12:55 AM CDT Elyse Duffy NP LAB BLOOD ORDERABLES Fi nal Result Performing Organization Address City/[facility]/ZIP Co de Phone Number [facility] Department [place] [address] * (ABNORMAL) Basic metabolic panel (02/18/2025 12:44 AM CDT) [facility] Sodium 135 135 - 145 mmol/L Potassium, pl 3.8 3.3 - 4.9 mmol/L [facility] Chloride 103 97 - 110 mmol/L [facility] CO2 27 22 - 32 mmol/L [facility] Anion gap 5 2 - 15 mmol/L [facility] BUN 14 6 - 25 mg/dL [facility] Creatinine 0.65(L) 0.80 - 1.30 mg/dL [facility] Glucose 141 70 - 199 mg/dL [facility] Comment: Interpretive Data Fasting glucose >/= 126 [...] 2022. Calcium 8.1(L) 8.5 - 10.3 mg/dL [facility] Blood 02/18/2025 12:4 4 AM CDT 02/18/2025 12:55 AM CDT Elyse Duffy NP LAB BLOOD ORDERABLES Fi nal Result Performing Organization Address City/[facility]/ZIP Co de Phone Number [facility] Department [place] [address] * POCT glucose (02/18/2025 12:43 AM CDT) Glucose, POC 130 70 - 199 mg/dL Blood 02/18/2025 12:4 3 AM CDT 02/18/2025 12:43 AM CDT us Anne Marie España MD LAB POCT ORDERABLES - DEVICE Final Result [facility] Department [place] [address] * XR Chest 1 View - in [...] by: José Miguel Bautista M.D. Elyse Duffy NP IMG XR PROCEDURES Final Result * Oxyhemoglobin, central venous (02/17/2025 9:08 PM CDT) [facility] Oxyhemoglobin, CV 81.4 % Comment: Interpretive Data No reference range established. Current interpretive data was last revised 2019. Blood 02/17/2025 9:08 PM CDT 02/17/2025 9:11 PM CDT Elyse Duffy NP LAB BLOOD ORDERABLES Fi nal Result Performing Organization Address [facility] Co de Phone Number [facility] Department [place] [address] * Potassium, whole blood (02/17/2025 9:08 PM CDT) [facility] Potassium, bld 4.0 3.3 - 4.9 mmol/L Blood 02/17/2025 9:08 PM CDT 02/17/2025 9:11 PM CDT Anne Marie España MD LAB BLOOD ORDERABLES Final Re sult [facility] [place] [address] * POCT glucose (02/17/2025 8:55 PM CDT) Glucose, POC 139 70 - 199 mg/dL Blood 02/17/2025 8:55 PM CDT 02/17/2025 8:55 PM CDT us Anne Marie España MD LAB POCT ORDERABLES - DEVICE Final Result Performing Organization Address City/[facility] Co de Phone Number [facility] [place] [address] * Potassium, whole blood (02/17/2025 4:53 PM CDT) Potassium, bld 4.1 3.3 - 4.9 mmol/L Blood 02/17/2025 4:53 PM CDT 02/17/2025 4:57 PM CDT Elyse Duffy NP LAB BLOOD ORDERABLES Fi nal Result Performing Organization Address [facility] de Phone Number [facility] [place] [address] * Lactate, whole blood (02/17/2025 4:53 PM CDT) Lactate, bld 1.2 0.7 - 2.0 mmol/L Blood 02/17/2025 4:53 PM CDT 02/17/2025 4:57 PM CDT Elyse Duffy NP LAB BLOOD ORDERABLES Fi nal Result Performing Organization Address [facility] Co de Phone Number [facility] [place] [address] * POCT glucose (02/17/2025 4:48 PM CDT) Glucose, POC 155 70 - 199 mg/dL Blood 02/17/2025 4:48 PM CDT 02/17/2025 4:48 PM CDT Anne Marie España MD LAB POCT ORDERABLES - DEVICE Final Result Performing Organization Address [facility] Co de Phone Number [facility] [place] [address] * Oxyhemoglobin, central venous (02/17/2025 2:38 PM CDT) Oxyhemoglobin, CV 78.4 % Comment: Interpretive Data No reference range established. Current interpretive data was last revised 2019. Blood 02/17/2025 2:38 PM CDT 02/17/2025 2:42 PM CDT Elyse Duffy NP LAB BLOOD ORDERABLES Fi nal Result [facility] [place] [address] * POCT glucose (02/17/2025 2:35 PM CDT) Glucose, POC 141 70 - 199 mg/dL Blood 02/17/2025 2:35 PM CDT 02/17/2025 2:35 PM CDT Anne Marie España MD LAB POCT ORDERABLES - DEVICE Final Result Performing Organization Address [facility] Co de Phone Number [facility] [place] [address] * XR Chest 1 View (02/17/2025 2:25 [...] it. Electronically signed by: Nora Romo M.D. us Anne Marie España MD IMG [...] it. Electronically signed by: Gurmeet Munoz M.D. Elyse Duffy NP IMG XR PROCEDURES Final Result * ECG 12 lead (02/17/2025 1:45 PM CDT) Pathologist [facility] Ventricular Rate EKG/Min 66 BPM [facility] Atrial Rate 66 BPM [facility] SD-Interval (MSEC) 196 ms [facility] QRS-Interval (MSEC) 98 ms [facility] QT-Interval (MSEC) 416 ms [facility] QTc 436 ms [facility] P [place] 80 degrees [facility] R [place] 70 degrees [facility] T [place] 40 degrees [facility] Diagnosis Normal sinus rhythm Minimal voltage criteria for LVH, may be normal variant ( Sokolow-Talbot ) Borderline ECG When compared with ECG of 03-FEB-2025 11:12, (unconfirmed) No significant change was found Confirmed by HAWA KOTHARI M.D ([id number]) on 02/17/2025 4:09:21 PM [facility] 02/17/2025 1:45 PM CDT 02/17/2025 4:09 PM CDT Anne Marie España MD ECG ORDERABLES Final Result [facility] * Critical Care (02/17/2025 1:37 PM CDT) Narrative Ester Dunn MD - 02/17/2025 1:37 PM CDT Ester Dunn MD 02/18/2025 1:23 PM Critical Care Performed by: Elyse Duffy NP Authorized by: Elyse Duffy NP CRITICAL CARE: Team: [facility] Shift: AM Level of Billing: Critical Care [...] plan with the ICU team and other medical/sap business intelligence consultant staff, making frequent assessments and decisions [...] BLOOD ORDERABLES Final Re sult QUAN SOTO Eliseo [facility] Department [place] [address] * (ABNORMAL) POC Blood Gas and Chemistries, Arterial - (02/17/2025 1:32 PM CDT) [facility] pH, Art POC 7.33(L) 7.35 - 7.45 pCO2, Art POC 44 35 - 45 mmHg [facility] pO2, Art POC 150(H) 83 - 108 mmHg [facility] Na, POC 138 135 - 145 mmol/L [facility] K POC 4.5 3.3 - 4.9 mmol/L [facility] Comment: Interpretive Data Not all point of care methods assess for hemolysis. Confirm with instrument and retest K+ if not consistent with clinical signs and symptoms. Current Interpretive Data was last revised on 2024. Cl, POC 108 97 - 110 mmol/L [facility] Ionized Ca, POC 5.46(H) 4.50 - 5.10 mg/dL [facility] Glucose, POC 146 70 - 199 mg/dL [facility] Lactate POC 2.6(H) 0.7 - 2.0 mmol/L [facility] SO2 (olvin) arterial 99(H) 90 - 95 % [facility] Base excess, POC -2.8 mmol/L [facility] HCO3, Art POC 23 20 - 30 mmol/L [facility] Hct, POC 35.0(L) 41.4 - 51.6 % [facility] Total Hb, POC 11.6(L) 13.8 - 17.2 g/dL [facility] Blood 02/17/2025 1:32 PM CDT 02/17/2025 1:32 PM CDT us Anne Marie España MD LAB POCT ORDERABLES - DEVICE Final Result [facility]AN S[facility] Elise[facility] Department [place] [address] * aPTT (02/17/2025 1:32 PM CDT) aPTT 28 28 - 38 sec Comment: Interpretive Data Heparin therapeutic range: 66.0 - 100.0 seconds. Range based on correlation with therapeutic heparin activity range of 0.3 - 0.7 Units/mL. Current interpretive data was last revised on 2023. Blood 02/17/2025 1:32 PM CDT 02/17/2025 1:43 PM CDT Anne Marie Espaañ MD LAB BLOOD ORDERABLES Final Re sult Performing Organization Address [facility] Co de Phone Number [facility] [place] [address] * (ABNORMAL) Protime-INR (02/17/2025 1:32 PM CDT) Pathologist [facility] PT 14.7(H) 9.7 - 13.0 sec INR 1.35(H) 0.90 - 1.20 [facility] Comment: Interpretive data Oral anticoagulant therapeutic ranges: Venous thromboembolism prophylaxis or treatment: 2.0-3.0 CARDIOLOGY Standard range: 2.0-3.0 High-intensity range: 2.5-3.5 Refer to indication-specific guidelines for appropriate target ranges for prosthetic heart valve replacement. Current interpretive data was last revised on 2019. Blood 02/17/2025 1:32 PM CDT 02/17/2025 1:43 PM CDT Anne Marie España MD LAB BLOOD ORDERABLES Final Re sult Performing Organization Address City/[facility] Co de Phone Number [facility] [place] [address] * (ABNORMAL) CBC without differential (02/17/2025 1:32 PM CDT) Pathologist [facility] WBC 10.51(H) 3.80 - 9.90 K/cumm Hgb 11.1(L) 13.0 - 17.5 g/dL [facility] Hct 32.1(L) 38.9 - 50.3 % [facility] Plt 90(L) 150 - 400 K/cumm [facility] MPV 11.8 9.1 - 12.3 fL [facility] RBC 3.21(L) 4.30 - 5.80 M/cumm [facility] MCV 100.0(H) 81.3 - 96.4 fL [facility] MCH 34.6(H) 27.1 - 33.3 pg [facility] MCHC 34.6 32.3 - 35.7 g/dL [facility] RDW CV 12.2 11.1 - 14.9 % [facility] RDW SD 44.6 35.7 - 48.1 fL [facility] NRBC abs 0.00 0.00 - 0.01 K/cumm [facility] Blood 02/17/2025 1:32 PM CDT 02/17/2025 1:51 PM CDT Anne Marie España MD LAB BLOOD ORDERABLES Final Re sult Performing Organization Address City/[facility]/ZIP Co de Phone Number [facility] Department [place] [employer] [address] * Magnesium (02/17/2025 1:32 PM CDT) [facility] Magnesium 2.2 1.4 - 2.5 mg/dL Blood 02/17/2025 1:32 PM CDT 02/17/2025 1:51 PM CDT Anne Marie España MD LAB BLOOD ORDERABLES Final Re sult [facility] [place] [address] * Basic metabolic panel (02/17/2025 1:32 PM CDT) [facility] Sodium 138 135 - 145 mmol/L Potassium, pl 4.5 3.3 - 4.9 mmol/L [facility] Chloride 110 97 - 110 mmol/L [facility] CO2 24 22 - 32 mmol/L [facility] Anion gap 4 2 - 15 mmol/L [facility] BUN 20 6 - 25 mg/dL [facility] Creatinine 0.81 0.80 - 1.30 mg/dL [facility] Glucose 145 70 - 199 mg/dL [facility] Comment: Interpretive Data Fasting glucose >/= 126 [...] 2022. Calcium 9.3 8.5 - 10.3 mg/dL [facility] Blood 02/17/2025 1:32 PM CDT 02/17/2025 1:51 PM CDT us Anne Marie España MD LAB BLOOD ORDERABLES Final Re sult [facility] Department [place] [address] * SD AN ELECTIVE ENDOTRACHEAL AIRWAY, SD AN PROCEDURE PLACEHOLDER (02/17/2025 1:25 PM CDT) Narrative Ever Mishra RN - 02/17/2025 1:25 PM CDT Ever Mishra RN 02/17/2025 1:26 PM Airway Patient location: OR Urgency: elective Indications for airway management: anesthesia Difficult airway: no Staff: Supervising provider: Natividad Guevara MD Placed by: Other staff: Ever Mishra, ART Emergent airway [...] thromboplastin time (PTT) (02/17/2025 12:25 PM CDT) Pathologist [facility] APTT, POC 30.8(L) 32.5 - 46.1 sec Blood 02/17/2025 12:2 5 PM CDT 02/17/2025 12:25 PM CDT Anne Marie España MD LAB POCT ORDERABLES - DEVICE Final Result [facility] Department [place] [address] * (ABNORMAL) POC Blood Gas and Chemistries, Arterial - (02/17/2025 12:25 PM CDT) Pathologist [facility] pH, Art POC 7.29(L) 7.35 - 7.45 pCO2, Art POC 46(H) 35 - 45 mmHg [facility] pO2, Art POC 92 83 - 108 mmHg [facility] Na, POC 138 135 - 145 mmol/L [facility] K POC 4.5 3.3 - 4.9 mmol/L [facility] Comment: Interpretive Data Not all point of care methods assess for hemolysis. Confirm with instrument and retest K+ if not consistent with clinical signs and symptoms. Current Interpretive Data was last revised on 2024. Cl, POC 109 97 - 110 mmol/L [facility] Ionized Ca, POC 5.48(H) 4.50 - 5.10 mg/dL [facility] Glucose, POC 179 70 - 199 mg/dL [facility] Lactate POC 2.3(H) 0.7 - 2.0 mmol/L [facility] SO2 (olvin) arterial 98(H) 90 - 95 % [facility] Base excess, POC -4.5 mmol/L [facility] HCO3, Art POC 21 20 - 30 mmol/L [facility] Hct, POC 34.0(L) 41.4 - 51.6 % [facility] Total Hb, POC 11.3(L) 13.8 - 17.2 g/dL [facility] Blood 02/17/2025 12:2 5 PM CDT 02/17/2025 12:25 PM CDT Anne Marie España MD LAB POCT ORDERABLES - DEVICE Final Result Performing Organization Address [facility] Co de Phone Number [facility] Department [place] [address] * (ABNORMAL) POCT prothrombin time (02/17/2025 12:24 PM CDT) Pathologist [facility] PT, POC 22.4(H) 11.7 - 16.6 sec INR, POC 1.7(H) 0.9 - 1.2 [facility] Blood 02/17/2025 12:2 4 PM CDT 02/17/2025 12:24 PM CDT Anne Marie España MD LAB POCT ORDERABLES - DEVICE Final Result [facility] [place] [address] * (ABNORMAL) POCT hemoglobin, hematocrit and platelet count (02/17/2025 12:24 PM CDT) Hgb, POC 10.6(L) 13.0 - 17.5 g/dL Hematocrit POC 31.2(L) 38.9 - 50.3 % [facility] Platelet POC 71(L) 150 - 400 K/cumm [facility] Blood 02/17/2025 12:2 4 PM CDT 02/17/2025 12:24 PM CDT Anne Marie España MD LAB POCT ORDERABLES - DEVICE Final Result Performing Organization Address [facility] Co de Phone Number [facility] [place] [address] * POCT heparin/ACT CPB (02/17/2025 12:22 PM CDT) Pathologist [facility] Heparin POC 0.0 units/mL ACT, CPB 112 112 - 174 sec [facility] Blood 02/17/2025 12:2 2 PM CDT 02/17/2025 12:22 PM CDT Anne Marie España MD LAB POCT ORDERABLES - DEVICE Final Result Performing Organization Address City/[facility] de Phone Number [facility] [place] [address] * (ABNORMAL) POC Blood Gas and Chemistries, Arterial - (02/17/2025 11:55 AM CDT) pH, Art POC 7.35 7.35 - 7.45 pCO2, Art POC 39 35 - 45 mmHg [facility] pO2, Art POC 154(H) 83 - 108 mmHg [facility] Na, POC 138 135 - 145 mmol/L [facility] K POC 5.2(H) 3.3 - 4.9 mmol/L [facility] Comment: Interpretive Data Not all point of care methods assess for hemolysis. Confirm with instrument and retest K+ if not consistent with clinical signs and symptoms. Current Interpretive Data was last revised on 2024. Cl, POC 113(H) 97 - 110 mmol/L [facility] Ionized Ca, POC 5.64(H) 4.50 - 5.10 mg/dL [facility] Glucose, POC 178 70 - 199 mg/dL [facility] Lactate POC 1.8 0.7 - 2.0 mmol/L [facility] SO2 (olvin) arterial 100(H) 90 - 95 % [facility] Base excess, POC -3.8 mmol/L [facility] HCO3, Art POC 22 20 - 30 mmol/L [facility] Hct, POC 32.0(L) 41.4 - 51.6 % [facility] Total Hb, POC 10.6(L) 13.8 - 17.2 g/dL [facility] Blood 02/17/2025 11:5 5 AM CDT 02/17/2025 11:55 AM CDT Anne Marie España MD LAB POCT ORDERABLES - DEVICE Final Result Performing Organization Address [facility] de Phone Number [facility] Department [place] [address] * (ABNORMAL) POCT heparin/ACT CPB (02/17/2025 11:49 AM CDT) Heparin POC 3.4 units/mL ACT, CPB 479(H) 112 - 174 sec [facility] Blood 02/17/2025 11:4 9 AM CDT 02/17/2025 11:49 AM CDT Anne Marie España MD LAB POCT ORDERABLES - DEVICE Final Result Performing Organization Address City/State/[facility] Co de Phone Number [facility] [place] [address] * (ABNORMAL) POCT heparin/ACT CPB (02/17/2025 11:15 AM CDT) Heparin POC <2.8 units/mL ACT, CPB 465(H) 112 - 174 sec [facility] Blood 02/17/2025 11:1 5 AM CDT 02/17/2025 11:15 AM CDT us Anne Marie España MD LAB POCT ORDERABLES - DEVICE Final Result [facility] Department [place] [address] * (ABNORMAL) POC Blood Gas and Chemistries, Arterial - (02/17/2025 11:14 AM CDT) pH, Art POC 7.37 7.35 - 7.45 pCO2, Art POC 39 35 - 45 mmHg [facility] pO2, Art POC 296(H) 83 - 108 mmHg [facility] Na, POC 138 135 - 145 mmol/L [facility] K POC 5.0(H) 3.3 - 4.9 mmol/L [facility] Comment: Interpretive Data Not all point of care methods assess for hemolysis. Confirm with instrument and retest K+ if not consistent with clinical signs and symptoms. Current Interpretive Data was last revised on 2024. Cl, POC 111(H) 97 - 110 mmol/L [facility] Ionized Ca, POC 4.46(L) 4.50 - 5.10 mg/dL [facility] Glucose, POC 166 70 - 199 mg/dL [facility] Lactate POC 1.2 0.7 - 2.0 mmol/L [facility] SO2 (olvin) arterial 100(H) 90 - 95 % [facility] Base excess, POC -2.5 mmol/L [facility] HCO3, Art POC 23 20 - 30 mmol/L [facility] Hct, POC 32.0(L) 41.4 - 51.6 % [facility] Total Hb, POC 10.5(L) 13.8 - 17.2 g/dL [facility] Blood 02/17/2025 11:1 4 AM CDT 02/17/2025 11:14 AM CDT us Anne Marie España MD LAB POCT ORDERABLES - DEVICE Final Result QUAN SOTO Eliseo [facility] Department [place] [address] * (ABNORMAL) POCT heparin/ACT CPB (02/17/2025 10:43 AM CDT) Heparin POC 3.4 units/mL ACT, CPB 549(H) 112 - 174 sec [facility] Blood 02/17/2025 10:4 3 AM CDT 02/17/2025 10:43 AM CDT us Anne Marie España MD LAB POCT ORDERABLES - DEVICE Final Result [facility] [place] [address] * (ABNORMAL) POC Blood Gas and Chemistries, Arterial - (02/17/2025 10:42 AM CDT) pH, Art POC 7.35 7.35 - 7.45 pCO2, Art POC 42 35 - 45 mmHg [facility] pO2, Art POC 320(H) 83 - 108 mmHg [facility] Na, POC 137 135 - 145 mmol/L [facility] K POC 4.8 3.3 - 4.9 mmol/L [facility] Comment: Interpretive Data Not all point of care methods assess for hemolysis. Confirm with instrument and retest K+ if not consistent with clinical signs and symptoms. Current Interpretive Data was last revised on 2024. Cl, POC 110 97 - 110 mmol/L [facility] Ionized Ca, POC 4.57 4.50 - 5.10 mg/dL [facility] Glucose, POC 154 70 - 199 mg/dL [facility] Lactate POC 1.3 0.7 - 2.0 mmol/L [facility] SO2 (olvin) arterial 100(H) 90 - 95 % [facility] Base excess, POC -2.3 mmol/L [facility] HCO3, Art POC 23 20 - 30 mmol/L [facility] Hct, POC 33.0(L) 41.4 - 51.6 % [facility] Total Hb, POC 11.1(L) 13.8 - 17.2 g/dL [facility] Blood 02/17/2025 10:4 2 AM CDT 02/17/2025 10:42 AM CDT Anne Marie España MD LAB POCT ORDERABLES - DEVICE Final Result Performing Organization Address [facility] de Phone Number [facility] [place] [address] * (ABNORMAL) POCT heparin/ACT CPB (02/17/2025 10:08 AM CDT) Pathologist [facility] Heparin POC 4.1 units/mL ACT, CPB 498(H) 112 - 174 sec [facility] Blood 02/17/2025 10:0 8 AM CDT 02/17/2025 10:08 AM CDT Anne Marie España MD LAB POCT ORDERABLES - DEVICE Final Result Performing Organization Address [facility] de Phone Number [facility] [place] [address] * (ABNORMAL) POC Blood Gas and Chemistries, Arterial - (02/17/2025 10:07 AM CDT) pH, Art POC 7.41 7.35 - 7.45 pCO2, Art POC 35 35 - 45 mmHg [facility] pO2, Art POC 378(H) 83 - 108 mmHg [facility] Na, POC 138 135 - 145 mmol/L [facility] K POC 4.2 3.3 - 4.9 mmol/L [facility] Comment: Interpretive Data Not all point of care methods assess for hemolysis. Confirm with instrument and retest K+ if not consistent with clinical signs and symptoms. Current Interpretive Data was last revised on 2024. Cl, POC 109 97 - 110 mmol/L [facility] Ionized Ca, POC 4.49(L) 4.50 - 5.10 mg/dL [facility] Glucose, POC 131 70 - 199 mg/dL [facility] Lactate POC 2.1(H) 0.7 - 2.0 mmol/L [facility] SO2 (olvin) arterial 98(H) 90 - 95 % [facility] Base excess, POC -2.0 mmol/L [facility] HCO3, Art POC 23 20 - 30 mmol/L [facility] Hct, POC 34.0(L) 41.4 - 51.6 % [facility] Total Hb, POC 11.2(L) 13.8 - 17.2 g/dL [facility] Blood 02/17/2025 10:0 7 AM CDT 02/17/2025 10:07 AM CDT Anne Marie España MD LAB POCT ORDERABLES - DEVICE Final Result Performing Organization Address City/[facility] Co de Phone Number [facility] Department [place] [address] * (ABNORMAL) POCT heparin/ACT CPB (02/17/2025 9:41 AM CDT) Pathologist [facility] Heparin POC >4.7 units/mL ACT, CPB 539(H) 112 - 174 sec [facility] Blood 02/17/2025 9:41 AM CDT 02/17/2025 9:41 AM CDT Anne Marie España MD LAB POCT ORDERABLES - DEVICE Final Result Performing Organization Address [facility] de Phone Number [facility] [place] [address] * (ABNORMAL) POC Blood Gas and Chemistries, Arterial - (02/17/2025 9:30 AM CDT) pH, Art POC 7.40 7.35 - 7.45 pCO2, Art POC 36 35 - 45 mmHg [facility] pO2, Art POC 373(H) 83 - 108 mmHg [facility] Na, POC 137 135 - 145 mmol/L [facility] K POC 3.8 3.3 - 4.9 mmol/L [facility] Comment: Interpretive Data Not all point of care methods assess for hemolysis. Confirm with instrument and retest K+ if not consistent with clinical signs and symptoms. Current Interpretive Data was last revised on 2024. Cl, POC 109 97 - 110 mmol/L [facility] Glucose, POC 122 70 - 199 mg/dL [facility] Lactate POC 2.2(H) 0.7 - 2.0 mmol/L [facility] SO2 (olvin) arterial 100(H) 90 - 95 % [facility] [place] Base excess, POC -2.1 mmol/L [facility] HCO3, Art POC 23 20 - 30 mmol/L [facility] Hct, POC 38.0(L) 41.4 - 51.6 % [facility] Total Hb, POC 12.7(L) 13.8 - 17.2 g/dL [facility] Blood 02/17/2025 9:30 AM CDT 02/17/2025 9:30 AM CDT us Anne Marie España MD LAB POCT ORDERABLES - DEVICE Final Result [facility] Department [place] [address] * SD AN PROCEDURE PLACEHOLDER (02/17/2025 9:28 AM CDT) [...] code: PJ placement and diagnostic exam, non-congenital (75069) ICD code(s) for medical necessity: I34.0 - [...] inferior: normal 16- Apical septal: normal 17- [place]: normal Valves: Aortic Valve: Annulus: normal Leaflet [...] the written comments contained within the report. Natividad Guevara MD ANESTHESIA ORDERABLES Edited Result [...] Central Venous Line (02/17/2025 9:26 AM CDT) Narrative Hemant Tucker MD - 02/17/2025 9:26 AM CDT Hemant [...] * Arterial Line (02/17/2025 9:25 AM CDT) Narrative Hemant Tucker MD - 02/17/2025 9:25 AM CDT Hemant Tucker MD 02/17/2025 9:26 AM Arterial Line Patient location: pre-op holding Indication: continuous blood pressure monitoring and blood sampling needed Ultrasound assisted: yes Staff: Supervising provider: Natividad Guevara MD Placed by: Fellow: Hemant Tucker MD Other staff: Ever Mishra RN Procedure prep: Prep solution: chlorhexadine/alcohol Prep: provider hat/mask, [...] Fellow: Hemant Tucker MD Other staff: Ever Mishra RN Emergent airway documentation: Risks and benefits [...] oral Blade type: Aurora Video blade type: Kelly Blade size: 4 Cormack-Lehane (video): grade I - full view of glottis Cuff volume: 8 mL Cuff inflated with: air ETT to lips: 31 cm Placement verified by: auscultation, bronchoscopy, CO2 detection, palpation of cuff and single lung ventilation Airway secured with: silk tape Number of attempts: 1 Planned trial extubation: yes Natividad Guevara MD ANESTHESIA ORDERABLES Final Result * (ABNORMAL) POCT heparin dose response, CPB (02/17/2025 9:16 AM CDT) Baseline ACT POC 29(L) 112 - 174 sec Heparin dose response slope POC 107 60 - 195 [facility] Projected Heparin Concentration POC 4.2 units/mL [facility] Blood 02/17/2025 9:16 AM CDT 02/17/2025 9:16 AM CDT Anne Marie España MD LAB POCT ORDERABLES - DEVICE Final Result Performing Organization Address City/[facility] Co de Phone Number [facility] Department [place] [address] * PJ Add-On For OR (02/17/2025 7:04 AM CDT) Narrative [facility] PROSOLV_CARDIOREPORT_CONS SCIMAGE - 02/17/2025 7:04 AM CDT Procedure Auto Finalized by Rule: JORDIN CV PJ DURING CASE OR Please see the Anesthesiologist's Procedure Note for the results. Hemant Tucker MD CV ECHO PROCEDURES Final Result Performing Organization Address [facility] Co de Phone Number [facility] PROSOLV_CARDIOREPORT_CONS SCIMAGE * Type and screen (02/17/2025 6:58 AM CDT) Vivi, indirect Negative ABO Rh A Positive [facility] Blood 02/17/2025 6:58 AM CDT 02/17/2025 7:20 AM CDT Anne Marie España MD LAB BLOOD BANK TEST ORDERABLE S Final Result Performing Organization Address City/[facility]/ZIP Co de Phone Number [facility] Department [place] [address] * Prepare RBC: 4 Units (02/17/2025 6:26 AM CDT) Product code [id number] [facility] Unit Number [id number] 4-6 [facility] Product Blood Type APOS [facility] Dispense Status RETURNED [facility] Product code E9530R91 [facility] Unit Number [id number] 5-* [facility] Product Blood Type APOS CERNER BJ Dispense Status RETURNED [facility] Product code [id number] [facility] Unit Number [id number] 4-P [facility] Product Blood Type APOS CERNER BJ Dispense Status RETURNED [facility] Product code [id number] Unit Number [id number] 6-5 [facility] Product Blood Type APOS C[facility]ER BJ Dispense Status RETURNED [facility] Blood 02/17/2025 6:26 AM CDT 02/17/2025 6:26 AM CDT [facility]ative [facility] - 02/17/2025 1:26 PM CDT 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 (All products are leukoreduced and CMV- safe)- >No Date required:-[id number] LRRBC # of [id number] Reasons:-Hold for procedure (specify procedure)} us Anne Marie España MD BLOOD BANK PRODUCT ORDERABLES Final Result [facility] Department [place] [address] * XR Chest PA Lateral 2 Views [...] SCREEN 14 DAY (02/03/2025 11:23 AM CDT) ABO Rh A Positive Vivi, indirect Negative [facility] Blood 02/03/2025 11:2 3 AM CDT 02/03/2025 12:59 PM CDT Narrative [facility] - 02/03/2025 2:19 PM CDT Is this test being ordered in advance for a procedure?->Yes Expected date of procedure:->02/17/25 Has the patient been transfused in the past 3 months?->No Eddie Carbone MD LAB BLOOD BANK TEST OR DERABLES Final Result [facility] Department [place] [address] * eGFR (02/03/2025 11:23 AM CDT) eGFR >90 >=60 mL/min/1. 73 m2 [...] MD LAB BLOOD ORDERABLES F inal Result [facility] Department [place] [address] * Differential, auto (02/03/2025 11:23 AM CDT) Pathologist [facility] Neutrophil abs 4.22 1.50 - 6.50 K/cumm Imm gran abs 0.01 0.00 - 0.10 K/cumm [facility] Lymphocyte abs 1.29 0.80 - 3.30 K/cumm [facility] Monocyte abs 0.74 0.20 - 0.80 K/cumm [facility] Eosinophil abs 0.17 0.00 - 0.50 K/cumm [facility] Basophil abs 0.04 0.00 - 0.10 K/cumm [facility] Neutrophil pct 65.3 % [facility] Comment: Interpretive Data Percent cell count reference ranges are not reported, since discordance with absolute values may lead to misinterpretation of CBC data. Current Interpretive Data was last revised on 2018. Imm gran pct 0.2 % [facility] Comment: Interpretive Data Percent cell count reference ranges are not reported, since discordance with absolute values may lead to misinterpretation of CBC data. Current Interpretive Data was last revised on 2018. Lymphocyte pct 19.9 % [facility] Comment: Interpretive Data Percent cell count reference ranges are not reported, since discordance with absolute values may lead to misinterpretation of CBC data. Current Interpretive Data was last revised on 2018. Monocyte pct 11.4 % [facility] Comment: Interpretive Data Percent cell count reference ranges are not reported, since discordance with absolute values may lead to misinterpretation of CBC data. Current Interpretive Data was last revised on 2018. Eosinophil pct 2.6 % [facility] Comment: Interpretive Data Percent cell count reference ranges are not reported, since discordance with absolute values may lead to misinterpretation of CBC data. Current Interpretive Data was last revised on 2018. Basophil pct 0.6 % [facility] Comment: Interpretive Data Percent cell count reference ranges are not reported, since discordance with absolute values may lead to misinterpretation of CBC data. Current Interpretive Data was last revised on 2018. Blood 02/03/2025 11:2 3 AM CDT 02/03/2025 12:29 PM CDT us Eddie Carbone MD LAB BLOOD ORDERABLES F inal Result [facility] Department of Laboratories [place], [place] [id number] * CPAP aPTT algorithm (02/03/2025 11:23 AM CDT) aPTT 29 28 - 38 sec Comment: Interpretive Data Heparin therapeutic range: 66.0 - 100.0 seconds. Range based on correlation with therapeutic heparin activity range of 0.3 - 0.7 Units/mL. Current interpretive data was last revised on 2023. Blood 02/03/2025 11:2 3 AM CDT 02/03/2025 12:33 PM CDT us Eddie Carbone MD LAB BLOOD ORDERABLES F inal Result [facility] Department [place] [address] * (ABNORMAL) Urinalysis reflex to microscopic and culture Urine (02/03/2025 11:23 AM CDT) Color, ur Yellow Yellow Clarity, ur Clear Clear [facility] Specific gravity, ur 1.031(H) 1.003 - 1.030 [facility] pH, urine 5.5 [facility] Comment: Interpretive Data U rine pH is affected by diet, medications, systemic acid-base disturbances, and renal tubular function. pH may affect urinary stone formation. For example, urine pH below 6.0 may help reduce the tendency for calcium phosphate stones and pH greater than 6.0 may reduce the tendency for uric acid stone formation. Source: [facility] Current Interpretive Data was last revised on 2017 Protein, ur ql Negative Negative [facility] Glucose, ur ql Negative Negative [facility] Ketones, ur Negative Negative [facility] Bilirubin, ur Negative Negative [facility] Blood, ur Negative Negative [facility] Urobilinogen, ur <2.0 <2.0 mg/dL [facility] Nitrite, ur Negative Negative [facility] Leukocyte esterase, ur Negative Negative [facility] UA reflex comment Reflex conditions for microscopic UA and culture not met. [facility] Urine 02/03/2025 11:2 3 AM CDT 02/03/2025 12:20 PM CDT us Eddie Carbone MD LAB MICROBIOLOGY - GEN ERAL ORDERABLES Final Result [facility] Department [place] [address] * (ABNORMAL) CBC with auto differential (02/03/2025 11:23 AM CDT) [facility] WBC 6.47 3.80 - 9.90 K/cumm Hgb 15.0 13.0 - 17.5 g/dL [facility] Hct 43.7 38.9 - 50.3 % [facility] Plt 144(L) 150 - 400 K/cumm [facility] MPV 12.2 9.1 - 12.3 fL [facility] RBC 4.39 4.30 - 5.80 M/cumm [facility] MCV 99.5(H) 81.3 - 96.4 fL [facility] MCH 34.2(H) 27.1 - 33.3 pg [facility] MCHC 34.3 32.3 - 35.7 g/dL [facility] RDW CV 12.0 11.1 - 14.9 % [facility] RDW SD 44.1 35.7 - 48.1 fL [facility] NRBC abs 0.00 0.00 - 0.01 K/cumm [facility] Blood 02/03/2025 11:2 3 AM CDT 02/03/2025 12:29 PM CDT us Eddie Carbone MD LAB BLOOD ORDERABLES F inal Result [facility] Department [place] [address] * Protime-INR (02/03/2025 11:23 AM CDT) [facility] PT 12.2 9.7 - 13.0 sec INR 1.13 0.90 - 1.20 [facility] Comment: Interpretive data Oral anticoagulant therapeutic ranges: Venous thromboembolism prophylaxis or treatment: 2.0-3.0 CARDIOLOGY Standard range: 2.0-3.0 High-intensity range: 2.5-3.5 Refer to indication-specific guidelines for appropriate target ranges for prosthetic heart valve replacement. Current interpretive data was last revised on 2019. Blood 02/03/2025 11:2 3 AM CDT 02/03/2025 12:33 PM CDT us Eddie Carbone MD LAB BLOOD ORDERABLES F inal Result [facility] Department [place] [address] * (ABNORMAL) Comprehensive metabolic panel (02/03/2025 11:23 AM CDT) Sodium 143 135 - 145 mmol/L Potassium, pl 4.6 3.3 - 4.9 mmol/L [facility] Chloride 108 97 - 110 mmol/L [facility] CO2 26 22 - 32 mmol/L [facility] Anion gap 9 2 - 15 mmol/L [facility] BUN 28(H) 6 - 25 mg/dL [facility] Creatinine 0.78(L) 0.80 - 1.30 mg/dL [facility] Glucose 104 70 - 199 mg/dL [facility] Comment: Interpretive Data Fasting glucose >/= 126 [...] 2022. Calcium 9.2 8.5 - 10.3 mg/dL [facility] Bilirubin, total 0.5 0.1 - 1.2 mg/dL [facility] Protein, pl 7.1 6.5 - 8.5 g/dL [facility] Albumin 4.4 3.5 - 5.0 g/dL [facility] Alk phos 77 40 - 130 Units/L [facility] ALT 33 7 - 55 Units/L [facility] AST 28 10 - 50 Units/L [facility] Blood 02/03/2025 11:2 3 AM CDT 02/03/2025 12:29 PM CDT Eddie Carbone MD LAB BLOOD ORDERABLES F inal Result [facility] Department [place] [address] from Last 3 Months Insurance MEDICARE [employer] [place] [address] MEDICARE [employer] S[employer]IOR [employer]MENT Advance Directives For more information, please contact: [phone] Documents on File Type Date Recorded Patient Metal Buffer Expl anation ADVANCE DIRECTIVE 02/17/2025 6:46 AM Power of Tax Evaluator-Medical * Full Code (Latest Code Status on File) Date Activated Date Inactivated Comments 02/17/2025 1:18 PM 02/20/2025 4:49 PM * Full Code Date Activated Date Inactivated Comments 12/07/2024 2:05 PM 12/07/2024 8:36 PM * Full Code Date Activated Date Inactivated Comments 08/26/2024 10:28 AM 08/27/2024 4:55 AM Care Teams Cafeteria Manager Relationship Specialty Start Date End Date Nora Montes MD [address] [place] [address] DR RE[address] [place] [id number] PCP - General Family Medicine 04/06/24 Anne Marie España MD [address] [place] [address] DR [address] [place] [id number] Cardiothoracic Surgery 02/20/25
[2025-03-11 13:30] VITALS: BP 127/84; PULSE 139; RESP 16; TEMP 36.6; O2SAT 97
--- NOTE | 2025-03-11 13:35 | ECG_ITS ---
Test Date: 2025-03-11 13:44:37 Measurements Intervals [place] Rate: 135 P: 0 MA: 0 QRS: 52 QRSD: 88 T: 133 QT: 357 QTc: 536 Interpretive Statements ATRIAL FLUTTER/TACHYCARDIA WITH RAPID VENTRICULAR RESPONSE VOLTAGE CRITERIA FOR LVH [MEETS CRITERIA IN ONE OF: R(aVL), S(V1), R(V5), R(V5/V6)+S(V1)] ST DEVIATION AND MODERATE T-WAVE ABNORMALITY, CONSIDER LATERAL ISCHEMIA [-0.1+ mV T WAVE IN I/aVL/V5/V6] No previous ECG available for comparison Electronically Signed On 03-12-2025 11:06:13 CDT by Alea Carpenter M.D.
--- NOTE | 2025-03-11 14:00 | ED.GENADULT ---
HPI - General Adult General Chief complaint: Skin/Abscess/Foreign Body Stated complaint: flu-like symptoms Time Seen by Provider: 03/11/25 13:50 Source: patient and RN notes reviewed Mode of arrival: ambulatory Limitations: no limitations History of Present Illness HPI narrative: 69-year-old male presents [facility] complaining of flu-like symptoms for 5 days. Patient reports body aches, cough, red eyes, sore throat, and mucopurulent sputum over the last 5 days. Patient reports he is not feeling any better. Patient recently had a mitral valve replacement approximately 3 weeks ago for a mitral valve prolapse with severe mitral valve regurgitation at [facility] with Dr. Pozo. Patient denies any fevers, chest pain, shortness of breath, ear pain, nausea, vomiting, diarrhea, palpitations, vision changes, syncope, dizziness, lightheadedness. Patient feels like his heart rate has been faster than normal today. Patient denies any other significant cardiac history. Related Data Home Medications ?Medication ?Instructions ?Recorded ?Confirmed ?Last Taken ?Type krill 300 mg-omega-3 90 mg-dha 27 1 cap PO DAILY 07/02/22 03/11/25 03/11/25 History mg-epa 45 ec-jptwcoj-kvpnrix capsule (Maximum Red Krill [place]-3) Allergies Allergy/AdvReac Type Severity Reaction Status Date / Time codeine Allergy Unknown rash/itchin Verified 03/11/25 14:44 g Review of Systems Review of Systems: CONSTITUTIONAL: Denies fever, chills, or sweats. Positive for body aches. EYES: Denies visual changes, redness, or discharge. ENT: Denies rhinorrhea or otalgia. Positive for congestion, sore throat. CARDIOVASCULAR: Denies chest pain, palpitations, or edema. Positive for tachycardia. RESPIRATORY: Denies cough or dyspnea. GASTROINTESTINAL: Denies abdominal pain, nausea, vomiting, or diarrhea. GENITOURINARY: Denies dysuria or hematuria. SKIN: Denies itching. Positive for rash MUSCULOSKELETAL: Denies back pain, joint pain, or myalgia. NEUROLOGIC: Denies headache, numbness, or weakness. PSYCHIATRIC: Denies anxiety or depression. All other systems reviewed are negative, except as documented in HPI. [facility] Surgical History Surgical History S/P patent foramen ovale closure 2024 H/O mitral valve replacement 2024 H/O colonoscopy (~2010) H/O hernia repair Family History Family History Mother Hypertension Family history of elevated blood lipids Grandparent Family history of malignant neoplasm of uterus Family history of malignant neoplasm of ovary Social History Social History Smoking status: Former smoker Tobacco type: cigarettes Smoking end date: 10/14/08 Alcohol intake: never Substance use: never Substance use type: does not use Lack of Transportation: No Lack of Food: Never True Current Housing: I Have Housing Concerned About Future Housing: No Difficulty Paying Gas/Electric Bills: No Difficulty Paying for Meds: No Currently Unemployed: No Education: High School Diploma/GED Difficulty w/ Childcare or Family Care: No Living arrangements: with family Spiritual care concerns: No Comments At the time of my signature, I reviewed and agree with the nursing past medical, surgical, social, and family history. There is no relevant family history pertinent to the patient complaint. Exam Narrative: GENERAL: This is a well-nourished, well-developed adult, in no apparent distress. They are non ill-appearing, nontoxic appearing. HEAD: normocephalic, atraumatic. EYES: Sclera clear/white. Conjunctiva injected bilaterally without exudate. Vision is grossly intact. Extraocular movements intact. Pupils PERRLA EARS: External ears normal, auditory canals clear and without drainage, TMs normal without perforation. Hearing grossly intact. NOSE: External nose normal with no obvious nasal discharge, nasal turbinates erythema without swelling, no rhinorrhea. THROAT: Mucous membranes moist, posterior pharynx erythemic without swelling. Uvula midline. NECK: Neck supple, non-tender without lymphadenopathy, masses or thyromegaly. CARDIOVASCULAR: Tachycardic rate and rhythm without murmurs, clicks, gallops, or rubs. RESPIRATORY: Clear to auscultation. Breath sounds equal bilaterally. No wheezes, rales, or rhonchi. Respiratory rate normal, respiratory effort nonlabored, no respiratory distress SKIN: Palms: Erythematous, nontender macular rash on palms. NEURO: awake, alert, and oriented to person, place and time. There were no obvious focal neurologic abnormalities. EXTREMITIES: No joint tenderness, effusion, or edema noted. BACK: Nontender without deformity. No CVA tenderness. Course Course Emergency Course: Portions of this record may have been created with voice recognition software Level of Care: Express Care Visit Vital Signs Vital signs: Vital Signs Temperature 97.9 F 03/11/25 13:30 Pulse Rate 139 H 03/11/25 13:30 Respiratory Rate 16 03/11/25 13:30 Blood Pressure 127/84 03/11/25 13:30 Pulse Oximetry 97 03/11/25 13:30 Oxygen Delivery Room Air 03/11/25 13:30 Temperature 97.9 F 03/11/25 13:30 Pulse Rate 139 H 03/11/25 13:30 Respiratory Rate 16 03/11/25 13:30 Blood Pressure 127/84 03/11/25 13:30 Pulse Oximetry 97 03/11/25 13:30 Oxygen Delivery Room Air 03/11/25 13:30 Reviewed Transfer Transfered to: [facility] Transportation: Other (Private vehicle) Transfer rationale: Possible atrial flutter, rule out endocarditis or other serious condition, higher level care Accepting physician: Dr. Del Valle Transfer comments: Patient refused EMS. Medical Decision Making MDM Narrative Medical decision making narrative: Patient EKG shows a possible atrial tachycardia that appears to be a 2:1 conduction of atrial flutter in the rate of 130s. Patient has no history of atrial flutter or atrial fibrillation. Patient has a suspicious rash on his palms that he reports that his palms are always red but denies the macular rash that is present on his palms currently. This could be Jan[place]ay lesions. No evidence of Osler's nodes, no splinter hemorrhages, or petechiae observed. Patient is afebrile. Patient does not appear to be in any apparent distress and is nontoxic appearing. Patient recently had a mitral valve replacement proximally 3 weeks ago. It is possible patient could have a viral upper respiratory infection or other respiratory illness. However given these findings it is recommend the patient seek higher level care and proceed immediately to the ER for further evaluation and management of his symptoms. Cannot rule out serious or significant conditions here at the Express [facility] given symptoms and exam findings. Patient is agreeable to go to [facility]. 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 Called over to [facility] spoke with Dr. Del Valle who is aware of this patient accepted the patient for transfer. Offered patient EMS for transfer and he declined. Patient advised to remain NPO and immediately proceed to ER. Differential Diagnosis Differential Diagnosis: Upper respiratory infection, pneumonia, endocarditis, atrial flutter, sinus tachycardia, viral illness Vital Signs Vital Signs: Vital Signs Temperature 97.9 F 03/11/25 13:30 Pulse Rate 139 H 03/11/25 13:30 Respiratory Rate 16 03/11/25 13:30 Blood Pressure 127/84 03/11/25 13:30 Pulse Oximetry 97 03/11/25 13:30 Oxygen Delivery Room Air 03/11/25 13:30 Temperature 97.9 F 03/11/25 13:30 Pulse Rate 139 H 03/11/25 13:30 Respiratory Rate 16 03/11/25 13:30 Blood Pressure 127/84 03/11/25 13:30 Pulse Oximetry 97 03/11/25 13:30 Oxygen Delivery Room Air 03/11/25 13:30 ECG Data EKG #1: Attestation: I personally reviewed and interpreted this ECG as follows: ECG completion date: 03/11/25 ECG completion time: 13:44 EKG Interpretation: tachycardia (atrial tachycardia, possible 2:1 atrial flutter), no ectopy, no ST changes and normal QRS Critical Care Time Critical Care Time Critical Care Time: No Discharge Plan Discharge Clinical Impression: Atrial tachycardia, Infection Patient Disposition: Acute Care Hospital Condition: Stable Patient Language: Honduran Prescriptions: No Action alprazolam 1 mg tablet 1 mg PO QHS Qty: 90 3RF Rx Instructions: stopped oxycodone Maximum Red Krill [place]-3 [id number] mg capsule 1 cap PO DAILY amlodipine 10 mg tablet 10 mg PO DAILY Qty: 90 3RF Follow-up/Referrals: Daniel Montes MD [Primary Care Provider] - Time of Disposition: 13:56
== END 2025-03-11 14:00 | disposition short-term general hospital (02) ==
LOC: EXPTROY 13:27
PROVIDERS: PCP Family Medicine
DX: R00.0 Tachycardia, unspecified (principal); Z95.2 Presence of prosthetic heart valve; Z87.891 Personal history of nicotine dependence
CPT/HCPCS: 93005; 99213; G0463

== ENCOUNTER 2025-03-11 14:20 | Inpatient (IN) | payer MEDICARE, SELFPAY ==
[2025-03-11] VITALS (29 sets, daily range): BP systolic 105–149; BP diastolic 77–110; PULSE 67–139; RESP 14–25; TEMP 36.8; O2SAT 95–99
--- NOTE | ~2025-03-11 | XR_ITS ---
CHEST RADIOGRAPH CLINICAL HISTORY: flu like sx, recent valve surgery X 3 WEEKS AGO . COMPARISON: 09/05/2009 TECHNIQUE: Single portable view of the chest. FINDINGS Ring identified within the mitral position. The remainder of the cardiomediastinal silhouette is enlarged (likely secondary to positioning) when compared with 2009 examination, and is otherwise unremarkable. Coarse interstitial lung markings are identified bilaterally with blunting of the left costophrenic s ulcus suggesting a small left-sided pleural effusion. Tenting of the right hemidiaphragm is also noted, an interval change from prior. The remainder of the lungs are clear. IMPRESSION: Small left-sided pleural effusion with otherwise coarse interstitial markings. No focal infiltrate is appreciated. Reviewed, dictated and finalized at location A.
--- NOTE | ~2025-03-11 | CT_ITS ---
CTA chest PE protocol Ordering provider: Emery Sung MD History: 69 years Male with . L CP w/ SOB, s/p mtrl valve rpr 3 wks ago . Comparison: None. Technique: CT angiogram chest was performed following timed intravenous injection of contrast. Thin s lice axial images and reformatted coronal images were obtained. Three dimensional reformatted images of the chest were also obtained using a Button workstation. . Automated exposure control and iterati ve reconstruction technique were employed. The dose-length product was 247.15 mGy-cm. 100 mL Omnipaqu e 350 was given IV. Findings: PULMONARY ARTERIES: No pulmonary embolus. VISUALIZED THORACIC INLET: Normal. MEDIASTINUM: Aorta/coronary arteries: The thoracic aorta is normal. Heart/other: The heart is slightly enlarged. Lymph nodes: No mediastinal or hilar adenopathy. LUNGS: Right moderate pleural effusion with left mild pleural effusion. Adjacent atelectasis seen bilaterall y. No pulmonary nodules or masses. . No pneumothorax. VISUALIZED UPPER ABDOMEN: Cyst in the right kidney upper pole. Otherwise, the visualized upper abdome n is normal. MUSCULOSKELETAL: Soft tissues: The superficial soft tissues are normal. Bones: Age appropriate degenerative changes of the spine. IMPRESSION: 1. No pulmonary embolism. 2. Bilateral pleural effusion more on the right side with adjacent atelectasis versus pneumonia. Cli nical correlation and follow-up advised. Reviewed, dictated and finalized at location A. IMPRESSION: 1. No pulmonary embolism. 2. Bilateral pleural effusion more on the right side with adjacent atelectasis versus pneumonia. Clinical correlation and follow-up advised.
--- NOTE | 2025-03-11 14:34 | ECG_ITS ---
Test Date: 2025-03-11 14:37:29 Measurements Intervals [place] Rate: 114 P: 0 PA: 0 QRS: 58 QRSD: 90 T: 97 QT: 221 QTc: 305 Interpretive Statements ATRIAL FLUTTER/TACHYCARDIA WITH RAPID VENTRICULAR RESPONSE LEFT VENTRICULAR HYPERTROPHY AND ST-T CHANGE [VOLTAGE CRITERIA PLUS ST/T ABNORMALITY] Compared to ECG 03/11/2025 13:44:37 HEART RATE HAS DECREASED Electronically Signed On 03-12-2025 11:06:58 CDT by Alea Carpenter M.D.
[2025-03-11 14:58] LABS: Basophils Absolute Auto 0.1 K/mm3 (0.0-0.1); Basophils Percent Auto 0.6 % (0.2-1.2); Eosinophils Absolute Auto 0.1 K/mm3 (0-0.3); Eosinophils Percent Auto 1.5 % (0-4.4); Hematocrit 39.9 % (42.0-52.0); Immature Granulocyte Absolute 0.02 K/mm3 (0.00-0.031); Immature Granulocyte Percent A 0.2 % (0-0.5); Lymphocytes Absolute Auto 1.48 K/mm3 (0.9-3.2); Lymphocytes Percent Auto 18.3 % (18.3-44.2); Mean Corpuscular HGB Conc 32.6 g/dl (32-36); Mean Corpuscular Hemoglobin 32.9 pg (26-34); Mean Platelet Volume 9.7 fl (7.4-10.4); Monocytes Absolute Auto 0.9 K/mm3 (0.1-0.6); Monocytes Percent Auto 11.5 % (2.6-8.5); Neutrophils Absolute Auto 5.5 K/mm3 (1.3-6.7); Neutrophils Percent Auto 67.9 % (45.5-73.1); Platelet Count Result 278 k/mm3 (150-375); Red Blood Count 3.95 M/mm3 (4.6-6.20); Red Cell Distribution Width 12.9 % (11.5-14.5); White Blood Count 8.1 K/mm3 (4.5-10.0)
[2025-03-11 15:08] LABS: Alanine Aminotransferase 52 U/L (6-50); Albumin Level 4.2 g/dL (3.5-5.1); Alkaline Phosphatase 66 U/L (38-126); Anion Gap 10 mmol/L (4-12); Aspartate Amino Transferase 37 U/L (17-59); Bilirubin,Total 0.4 mg/dL (0.2-1.3); Blood Urea Nitrogen 23 mg/dL (9-20); Calcium 9.1 mg/dL (8.4-10.2); Carbon Dioxide 22 mmol/L (22-30); Chloride 107 mmol/L (98-107); Estimated Glomerular Filt Rate > 60; Glucose 118 mg/dL (65-110); Sodium 139 mmol/L (137-145)
[2025-03-11 15:19] LABS: INR 1.1; Partial Thromboplastin Time 25.5 Seconds (22.3-36.8); Prothrombin Time 14.4 Seconds (11.1-14.7)
[2025-03-11 17:41] LABS: Influenza A QL RT-PCR Negative (Negative); Influenza B QL RT-PCR Negative (Negative); RSV RNA, RT-PCR Negative (Negative); SARS-CoV-2 RNA PCR Negative (Negative)
--- NOTE | 2025-03-11 18:09 | ECG_ITS ---
Test Date: 2025-03-11 18:31:02 Measurements Intervals [place] Rate: 120 P: 0 ID: 0 QRS: 36 QRSD: 87 T: 157 QT: 224 QTc: 316 Interpretive Statements ATRIAL FLUTTER/TACHYCARDIA WITH RAPID VENTRICULAR RESPONSE Compared to ECG 03/11/2025 14:37:29 NO SIGNIFICANT CHANGES Electronically Signed On 03-12-2025 15:02:17 CDT by Alea Carpenter M.D.
--- OUTSIDE RECORDS SUMMARY | 2025-03-11 18:26 | XMS_ITS | Clinical Summary ---
Author Organization [facility] Address [address] [place] [id number] Phone Care Team Providers Care Table Machine Operator Name Role Phone Christopher Wilkinson MD Primary Care Provider Allergies Active Allergy Reactions Criticality Noted Date Comments Codeine Rash,Itching Low 12/21/2014 Medications propranolol (INDERAL) 80 mg tablet Take 80 mg by mouth daily. Active amLODIPine (NORVASC) 10 mg tablet Take 10 mg by mouth daily. Active triamterene-hyd rochlorothiazid e (DYAZIDE) 37.5-25 mg capsule Take 1 Cap by mouth daily loop puller. 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 Gender Identity Not on file Sexual Orientation [...] series) 2030 Medical Devices Implanted Type Area Financial Aid Coordinator Device Identifier Shelf Expiration Date Model / Serial / Lot Pros Jaime White [id number] - [id number] Implanted:Qty: 1 on 12/30/2014 by Marito Jane MD at [facility] Ear Left: Ear [employer] 08/30/2022 [id number] / / [id number] Insurance [employer] BLUE ACCESS/TRUE BLUE PPO Advance Directives For more information, please contact: [phone] * Full Code (Latest Code Status on File) Date Activated Date Inactivated Comments 12/30/2014 9:28 AM 12/31/2014 9:42 AM * Full Code Date Activated Date Inactivated Comments 12/30/2014 5:42 AM 12/30/2014 9:28 AM Care Teams Table Machine Operator Relationship Specialty Start Date End Date Christopher Wilkinson MD [address] [place] [id number] PCP - General Family Practice 11/22/14
--- OUTSIDE RECORDS SUMMARY | 2025-03-11 18:27 | XMS_ITS | Clinical Summary ---
Author Organization [facility] Address [address] [place] [id number] Care Team Providers Care Sample Maker Original Name Role Phone Nora Montes MD Primary Care Provider [phone] Anne Marie España MD Unavailable [phone] Allergies Active Allergy Reactions Criticality Noted [...] Department Care Team Description 02/22/2025 Orders Only [facility] Cardiothoracic Surgery [address] [facility] 8th Floor [address] Room [address] [place] [phone] Argenis Jones, STOCK BROKER SUPERVISOR Status post cardiac surgery (Primary Dx) 02/17/2025 12:22 PM CDT - 02/20/2025 12:40 PM CDT Hospital Encounter [facility] [address] [place] [address] Anne Marie España MD Severe mitral regurgitation (Primary Dx); MVP (mitral valve prolapse) Discharge Disposition: Discharge to home, home health skilled care 02/17/2025 8:00 AM CDT - 02/17/2025 3:55 PM CDT Surgery [facility] Operating Room [address] [place] [address] Anne Marie España MD REPAIR/REPLACE MITRAL VALVE ROBOTIC XI 02/17/2025 7:57 AM CDT Anesthesia Event [facility] [address] [place] [address] Natividad Guevara MD Mallette, Allison Anne, NP 02/17/2025 7:05 AM CDT Ancillary Procedure [facility] Operating Room [address] [place] [address] Hemant Tucker MD 02/12/2025 Orders Only [facility] Cardiothoracic Surgery [address] [place] [address] Advanced Medicine 8th Floor [address] Room [address] [place] [phone] Ciera Tejada NP 02/03/2025 11:40 AM CDT - 02/03/2025 11:59 PM CDT Hospital Encounter [facility] [address] [place] [address] Discharge Disposition: Discharge to home or self care 02/03/2025 10:00 AM CDT Pre-Admission Testing [facility] [address] [place] [address] Pre-op testing (Primary Dx); Mitral valve prolapse 12/11/2024 Telephone [facility] Cardiothoracic Surgery [address] [place] [address] Advanced [facility] 8th Floor [address] Room [address] [place], [place] [phone] Janeen Das NP from Last 3 Months Surgical History Surgery Date Site/Laterality Comments HERNIA REPAIR 10/14/2015 - 10/13/2016 Left STAPEDECTOMY 12/30/2014 Bilateral COLONOSCOPY CARDIAC CATHETERIZATION 12/07/2024 Left Procedure: LEFT HEART CATHETERIZATION WITH CORONARY ANGIOGRAPHY AND WITH OR WITHOUT LEFT VENTRICULOGRAM 62021; Surgeon: Ravindra Musa MD PhD; Location: [facility] CARDIAC BAKING POWDER MIXER; Service: Cardiovascular; Laterality: Left; AFTER CPAP Medical [...] on file 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 Fortunately, [employer] lists all Jain stapes implants as MR Safe by the old definition; this can be interpreted to mean that the patient can be safely scanned at least at 1.5T in Normal Operating Mode. Reference (consulted 07/13/2024): [email or web address]&criteria=[email or web address] =[email or web address] t_description [employer] Ring Physio Flex Mitral Annuloplasty 38mm [id number] - [id number] - [id number] Implanted:Qty: 1 on 02/17/2025 by Anne Marie España MD at [facility] N/A: Heart [employer] [id number] 10/26/2029 [id number] / [id number] / Procedures Procedure Name Priority Date/Time Associated [...] METABOLIC PANEL STAT 02/17/2025 1:32 PM CDT [place] AN PROCEDURE PLACEHOLDER Routine 02/17/2025 1:25 PM CDT NJ AN ELECTIVE ENDOTRACHEAL AIRWAY Routine 02/17/2025 1:25 [...] CHEMISTRIES, ARTERIAL Routine 02/17/2025 9:30 AM CDT NJ AN PROCEDURE PLACEHOLDER Routine 02/17/2025 9:28 AM [...] BLOOD ORDERABLES Final Result Performing Organization Address City/State/[facility] Co de Phone Number QUAN SOTO [facility] Department [place] [address] * eGFR (02/19/2025 9:52 PM CDT) eGFR [...] BLOOD ORDERABLES Final Result Performing Organization Address City/State/[facility] de Phone Number [facility] Department [place] [address] * (ABNORMAL) Protime-INR (02/19/2025 9:52 PM CDT) [facility] PT 13.2(H) 9.7 - 13.0 sec INR 1.22(H) 0.90 - 1.20 [facility] Comment: Interpretive data Oral anticoagulant therapeutic ranges: Venous thromboembolism prophylaxis or treatment: 2.0-3.0 CARDIOLOGY Standard range: 2.0-3.0 High-intensity range: 2.5-3.5 Refer to indication-specific guidelines for appropriate target ranges for prosthetic heart valve replacement. Current interpretive data was last revised on 2019. Blood 02/19/2025 9:52 PM CDT 02/19/2025 10:29 PM CDT Hilaria Cross NP LAB BLOOD ORDERABLES Final Result Performing Organization Address [facility] de Phone Number [facility] Department [place] [address] * (ABNORMAL) CBC without differential (02/19/2025 9:52 PM CDT) [facility] WBC 12.46(H) 3.80 - 9.90 K/cumm Hgb 10.6(L) 13.0 - 17.5 g/dL [facility] Hct 30.0(L) 38.9 - 50.3 % [facility] Plt 83(L) 150 - 400 K/cumm [facility] MPV 12.4(H) 9.1 - 12.3 fL [facility] RBC 3.06(L) 4.30 - 5.80 M/cumm [facility] MCV 98.0(H) 81.3 - 96.4 fL [facility] MCH 34.6(H) 27.1 - 33.3 pg [facility] MCHC 35.3 32.3 - 35.7 g/dL [facility] RDW CV 12.3 11.1 - 14.9 % [facility] RDW SD 44.1 35.7 - 48.1 fL [facility] NRBC abs 0.00 0.00 - 0.01 K/cumm [facility] Blood 02/19/2025 9:52 PM CDT 02/19/2025 10:24 PM CDT us Hilaria Cross [employer] LAB BLOOD ORDERABLES Final Result Performing Organization Address City/[facility] Co de Phone Number [facility] [place] [address] * (ABNORMAL) Phosphorus (02/19/2025 9:52 PM CDT) Pathologist [facility] Phosphorus, pl 1.2(L) 2.3 - 4.5 mg/dL Blood 02/19/2025 9:52 PM CDT 02/19/2025 10:24 PM CDT us Hilaria Corss [employer] LAB BLOOD ORDERABLES Final Result Performing Organization Address [facility] de Phone Number [facility] [place] [address] * Magnesium (02/19/2025 9:52 PM CDT) Pathologist [facility] Magnesium 2.0 1.4 - 2.5 mg/dL Blood 02/19/2025 9:52 PM CDT 02/19/2025 10:24 PM CDT us Hilaria Cross [employer] LAB BLOOD ORDERABLES Final Result Performing Organization Address [facility] de Phone Number [facility] [place] [address] * (ABNORMAL) Basic metabolic panel (02/19/2025 9:52 PM CDT) Sodium 134(L) 135 - 145 mmol/L Potassium, pl 4.0 3.3 - 4.9 mmol/L [facility] Chloride 101 97 - 110 mmol/L [facility] CO2 28 22 - 32 mmol/L [facility] Anion gap 5 2 - 15 mmol/L [facility] BUN 20 6 - 25 mg/dL [facility] Creatinine 0.97 0.80 - 1.30 mg/dL [facility] Glucose 128 70 - 199 mg/dL [facility] Comment: Interpretive Data Fasting glucose [...] 2022. Calcium 8.0(L) 8.5 - 10.3 mg/dL [facility] Blood 02/19/2025 9:52 PM CDT 02/19/2025 10:24 PM CDT us Hilaria Cross NP LAB BLOOD ORDERABLES Final Result [facility] Department [place] [address] * XR Chest PA Lateral 2 Views [...] AM CDT Narrative 02/19/2025 3:17 PM CDT [facility] Cardiac [place] [address] Transthoracic Echocardiographic Report Patient Name: NORA HARRY L : 1955 (69y 2m) Gender: M Study Date: 02/19/2025 10:08:10 AM Ht(Inch): 72 Wt(Lb): 175.05 BSA: 2.01 It Professional: Trish Galindo RDCS Location: [id number] Order Provider: ANNE MARIE ESPAÑA Heart Rate: [...] CDT Procedure Note Laure Huntley, - 02/19/2025 [facility] [place] [address] Transthoracic Echocardiographic Report Patient Name: NORA HARRY L : 1955 (69y 2m) Gender: M Study Date: 02/19/2025 10:08:10 AM Ht(Inch): 72 Wt(Lb): 175.05 BSA: 2.01 It Professional: Trish Galindo RDCS Location: [id number] Order Provider:ANNE MARIE ESPAÑA Heart Rate: 73 [...] LA Volume BP 89.17 ml MV Decel Tijc849.45 msec [ 104.00 - 258.00 ] LA [...] CDT 02/19/2025 9:08 AM CDT Edmond GLASS [facility] - 02/23/2025 12:00 PM CDT Collection->Peripheral 1. [...] performance characteristics have been verified by the [facility] Microbiology Laboratory. For questions about this culture, contact the Microbiology Laboratory at [phone]. Interpretive data was last revised on 24. Anne Marie España MD LAB MICROBIOLOGY - GENERAL OR DERABLES Final Result QUAN SOTO [facility] Department [place] [address] * Blood culture Blood Arm, left (02/19/2025 8:29 AM CDT) Report Final Report: No growth Blood (Arm, left) 02/19/2025 8:29 AM CDT 02/19/2025 9:08 AM CDT [facility] QUAN [facility] - 02/23/2025 12:00 PM CDT Collection->Peripheral 1. [...] performance characteristics have been verified by the [facility] Microbiology Laboratory. For questions about this culture, contact the Microbiology Laboratory at [phone]. Interpretive data was last revised on 24. us Anne Marie España MD LAB MICROBIOLOGY - GENERAL OR DERABLES Final Result [facility] Department [place] [address] * Urinalysis reflex to microscopic and culture Urine (02/19/2025 1:45 AM CDT) Color, ur Yellow Yellow Clarity, ur Clear Clear [facility] Specific gravity, ur 1.029 1.003 - 1.030 [facility] pH, urine 6.0 [facility] Comment: Interpretive Data U rine pH is affected by diet, medications, systemic acid-base disturbances, and renal tubular function. pH may affect urinary stone formation. For example, urine pH below 6.0 may help reduce the tendency for calcium phosphate stones and pH greater than 6.0 may reduce the tendency for uric acid stone formation. Source: [facility] Current Interpretive Data was last revised on 2017 Protein, ur ql Trace Negative [facility] Glucose, ur ql Negative Negative [facility] Ketones, ur Negative Negative [facility] Bilirubin, ur Negative Negative [facility] Blood, ur Negative Negative [facility] Urobilinogen, ur <2.0 <2.0 mg/dL [facility] Nitrite, ur Negative Negative [facility] Leukocyte esterase, ur Negative Negative [facility] UA reflex comment Reflex conditions for microscopic UA and culture not met. [facility] Urine 02/19/2025 1:45 AM CDT 02/19/2025 2:15 AM CDT Hilaria Cross NP LAB MICROBIOLOGY - GENERAL ORDERABLES Final Result [facility] Department [place] [address] * XR Chest 1 View - in [...] it. Electronically signed by: Danya Martin M.D. Elyse Duffy [employer] IMG XR PROCEDURES Final Result * Potassium, whole blood (02/18/2025 8:56 PM CDT) Potassium, bld 4.1 3.3 - 4.9 mmol/L Blood 02/18/2025 8:56 PM CDT 02/18/2025 9:44 PM CDT Hilaria Cross [employer] LAB BLOOD ORDERABLES Final Result Performing Organization Address [facility] Co de Phone Number [facility] [place] [address] * eGFR (02/18/2025 8:56 PM CDT) eGFR [...] CDT 02/18/2025 9:51 PM CDT Hilaria Cross [employer] LAB BLOOD ORDERABLES Final Result Performing Organization Address [facility] Co de Phone Number [facility] [place] [address] * (ABNORMAL) CBC without differential (02/18/2025 8:56 PM CDT) Pathologist [facility] WBC 13.92(H) 3.80 - 9.90 K/cumm Hgb 11.9(L) 13.0 - 17.5 g/dL [facility] Hct 34.0(L) 38.9 - 50.3 % [facility] Plt 83(L) 150 - 400 K/cumm [facility] MPV 12.7(H) 9.1 - 12.3 fL [facility] RBC 3.42(L) 4.30 - 5.80 M/cumm [facility] MCV 99.4(H) 81.3 - 96.4 fL [facility] MCH 34.8(H) 27.1 - 33.3 pg [facility] MCHC 35.0 32.3 - 35.7 g/dL [facility] RDW CV 12.3 11.1 - 14.9 % [facility] RDW SD 44.8 35.7 - 48.1 fL [facility] NRBC abs 0.00 0.00 - 0.01 K/cumm [facility] Blood 02/18/2025 8:56 PM CDT 02/18/2025 9:50 PM CDT Hilaria Cross [employer] LAB BLOOD ORDERABLES Final Result Performing Organization Address City/[facility]/ZIP Co de Phone Number [facility] Department [place] [address] * Phosphorus (02/18/2025 8:56 PM CDT) Phosphorus, pl 2.5 2.3 - 4.5 mg/dL Blood 02/18/2025 8:56 PM CDT 02/18/2025 9:51 PM CDT Hilaria Cross [employer] LAB BLOOD ORDERABLES Final Result [facility] [place] [address] * Magnesium (02/18/2025 8:56 PM CDT) Pathologist [facility] Magnesium 2.2 1.4 - 2.5 mg/dL Blood 02/18/2025 8:56 PM CDT 02/18/2025 9:51 PM CDT Hilaria Cross [employer] LAB BLOOD ORDERABLES Final Result Performing Organization Address [facility] Co de Phone Number [facility] [place] [address] * Hemoglobin A1c (02/18/2025 8:56 PM CDT) Hgb A1C 5.1 4.0 - 5.6 % Estimated Average Glucose 100 mg/dL [facility] Comment: The ADA recommends reporting [...] CDT 02/18/2025 9:51 PM CDT Hilaria Cross [employer] LAB BLOOD ORDERABLES Final Result Performing Organization Address [facility] Co de Phone Number [facility] [place] [address] * (ABNORMAL) Basic metabolic panel (02/18/2025 8:56 PM CDT) [facility] Sodium 134(L) 135 - 145 mmol/L Potassium, pl 3.9 3.3 - 4.9 mmol/L [facility] Chloride 102 97 - 110 mmol/L [facility] CO2 27 22 - 32 mmol/L [facility] Anion gap 5 2 - 15 mmol/L [facility] BUN 20 6 - 25 mg/dL [facility] Creatinine 1.11 0.80 - 1.30 mg/dL [facility] Glucose 139 70 - 199 mg/dL [facility] Comment: Interpretive Data Fasting glucose [...] 2022. Calcium 8.0(L) 8.5 - 10.3 mg/dL [facility] Blood 02/18/2025 8:56 PM CDT 02/18/2025 9:51 PM CDT us Hilaria Cross [employer] LAB BLOOD ORDERABLES Final Result Performing Organization Address City/[facility]/ZIP Co de Phone Number [facility] Department [place] [address] * POCT glucose (02/18/2025 6:07 PM CDT) [facility] Signature Glucose, POC 159 70 - 199 mg/dL Blood 02/18/2025 6:07 PM CDT 02/18/2025 6:07 PM CDT Anne Marie España MD LAB POCT ORDERABLES - DEVICE Final Result Performing Organization Address City/[facility]/ZIP Co de Phone Number [facility] Department [place] [address] * Critical Care (02/18/2025 4:07 PM CDT) [...] plan with the ICU team and other medical/data virtualization consultant staff, making frequent assessments and decisions [...] - DEVICE Final Result Performing Organization Address City/[facility] Co de Phone Number [facility] Department [place] [address] * Oxyhemoglobin, central venous (02/18/2025 9:45 AM CDT) Oxyhemoglobin, CV 77.7 % Comment: Interpretive Data No reference range established. Current interpretive data was last revised 2019. Blood 02/18/2025 9:45 AM CDT 02/18/2025 9:53 AM CDT us Elyse Duffy NP LAB BLOOD ORDERABLES Fi nal Result Performing Organization Address City/[facility]/ZIP Co de Phone Number [facility] Department [place] [address] * Potassium, whole blood (02/18/2025 9:45 AM CDT) Potassium, bld 4.2 3.3 - 4.9 mmol/L Blood 02/18/2025 9:45 AM CDT 02/18/2025 9:53 AM CDT Elyse Duffy NP LAB BLOOD ORDERABLES Fi nal Result Performing Organization Address [facility] Co de Phone Number QUAN [facility] Department [place] [address] * ECG 12 lead (02/18/2025 8:39 AM CDT) [facility] Ventricular Rate EKG/Min 81 BPM [facility] Atrial Rate 81 BPM [facility] [place]-Interval (MSEC) 196 ms [facility] QRS-Interval (MSEC) 90 ms [facility] QT-Interval (MSEC) 396 ms [facility] QTc 460 ms [facility] P [place] 73 degrees [facility] R [place] 10 degrees [facility] T [place] 35 degrees [facility] Diagnosis Normal sinus rhythm Early repolarization Normal ECG When compared with ECG of 17-FEB-2025 13:45, Questionable change in QRS axis Confirmed by HAWA KOTHARI M.D ([id number]) on 02/18/2025 1:56:20 PM [facility] 02/18/2025 8:39 AM CDT 02/18/2025 1:56 PM CDT us Anne Marie España MD ECG ORDERABLES Final Result Performing Organization Address [facility] de Phone Number [facility] * POCT glucose (02/18/2025 7:28 AM CDT) Glucose, POC 105 70 - 199 mg/dL Blood 02/18/2025 7:28 AM CDT 02/18/2025 7:28 AM CDT Anne Marie España MD LAB POCT ORDERABLES - DEVICE Final Result Performing Organization Address [facility] Co de Phone Number [facility] Department [place] [address] * POCT glucose (02/18/2025 4:14 AM CDT) Glucose, POC 115 70 - 199 mg/dL Blood 02/18/2025 4:14 AM CDT 02/18/2025 4:14 AM CDT Anne Marie España MD LAB POCT ORDERABLES - DEVICE Final Result Performing Organization Address [facility] de Phone Number [facility] [place] [address] * Oxyhemoglobin, central venous (02/18/2025 3:07 AM CDT) Oxyhemoglobin, CV 77.7 % Comment: Interpretive Data No reference range established. Current interpretive data was last revised 2019. Blood 02/18/2025 3:07 AM CDT 02/18/2025 3:11 AM CDT Elyse Duffy NP LAB BLOOD ORDERABLES Fi nal Result Performing Organization Address [facility] de Phone Number [facility] [place] [address] * Oxyhemoglobin, central venous (02/18/2025 12:44 AM CDT) Oxyhemoglobin, CV 71.2 % Comment: Interpretive Data No reference range established. Current interpretive data was last revised 2019. Blood 02/18/2025 12:4 4 AM CDT 02/18/2025 12:49 AM CDT Elyse Duffy NP LAB BLOOD ORDERABLES Fi nal Result Performing Organization Address [facility] Co de Phone Number [facility] [place] [address] * eGFR (02/18/2025 12:44 AM CDT) [facility] eGFR >90 >=60 mL/min/1. 73 m2 Comment: [...] us Elyse Duffy NP LAB BLOOD ORDERABLES [facility] Result [facility] Department [place] [address] * (ABNORMAL) CBC without differential (02/18/2025 12:44 AM CDT) [facility] WBC 10.12(H) 3.80 - 9.90 K/cumm Hgb 12.3(L) 13.0 - 17.5 g/dL [facility] Hct 34.6(L) 38.9 - 50.3 % [facility] Plt 102(L) 150 - 400 K/cumm [facility] MPV 11.8 9.1 - 12.3 fL [facility] RBC 3.57(L) 4.30 - 5.80 M/cumm [facility] MCV 96.9(H) 81.3 - 96.4 fL [facility] MCH 34.5(H) 27.1 - 33.3 pg [facility] MCHC 35.5 32.3 - 35.7 g/dL [facility] RDW CV 12.1 11.1 - 14.9 % [facility] RDW SD 43.2 35.7 - 48.1 fL [facility] NRBC abs 0.00 0.00 - 0.01 K/cumm [facility] Blood 02/18/2025 12:4 4 AM CDT 02/18/2025 12:55 AM CDT Elyse Duffy NP LAB BLOOD ORDERABLES Fi nal Result Performing Organization Address City/[facility] Co de Phone Number [facility] [place] [address] * Phosphorus (02/18/2025 12:44 AM CDT) Phosphorus, pl 3.9 2.3 - 4.5 mg/dL Blood 02/18/2025 12:4 4 AM CDT 02/18/2025 12:55 AM CDT Elyse Duffy NP LAB BLOOD ORDERABLES Fi nal Result Performing Organization Address [facility] Co de Phone Number [facility] [place] [address] * Magnesium (02/18/2025 12:44 AM CDT) Magnesium 1.8 1.4 - 2.5 mg/dL Blood 02/18/2025 12:4 4 AM CDT 02/18/2025 12:55 AM CDT Elyse Duffy NP LAB BLOOD ORDERABLES Fi nal Result Performing Organization Address City/[facility]/ZIP Co de Phone Number [facility] [place] [address] * (ABNORMAL) Basic metabolic panel (02/18/2025 12:44 AM CDT) Sodium 135 135 - 145 mmol/L Potassium, pl 3.8 3.3 - 4.9 mmol/L [facility] Chloride 103 97 - 110 mmol/L [facility] CO2 27 22 - 32 mmol/L [facility] Anion gap 5 2 - 15 mmol/L [facility] BUN 14 6 - 25 mg/dL [facility] Creatinine 0.65(L) 0.80 - 1.30 mg/dL [facility] Glucose 141 70 - 199 mg/dL [facility] Comment: Interpretive Data Fasting glucose [...] 2022. Calcium 8.1(L) 8.5 - 10.3 mg/dL [facility] Blood 02/18/2025 12:4 4 AM CDT 02/18/2025 12:55 AM CDT us Elyse Duffy NP LAB BLOOD ORDERABLES nal Result [facility] Department [place] [address] * POCT glucose (02/18/2025 12:43 AM CDT) Glucose, POC 130 70 - 199 mg/dL Blood 02/18/2025 12:4 3 AM CDT 02/18/2025 12:43 AM CDT us Anne Marie España MD LAB POCT ORDERABLES - DEVICE Final Result [facility] [place] [address] * XR Chest 1 View - in [...] by: José Miguel Bautista M.D. Elyse Duffy [employer] IMG XR PROCEDURES Final Result * Oxyhemoglobin, central venous (02/17/2025 9:08 PM CDT) Pathologist [facility] Oxyhemoglobin, CV 81.4 % Comment: Interpretive Data No reference range established. Current interpretive data was last revised 2019. Blood 02/17/2025 9:08 PM CDT 02/17/2025 9:11 PM CDT Elyse Duffy [employer] LAB BLOOD ORDERABLES Fi nal Result Performing Organization Address [facility] [facility] Co de Phone Number [facility] [place] [address] * Potassium, whole blood (02/17/2025 9:08 PM CDT) [facility] Potassium, bld 4.0 3.3 - 4.9 mmol/L Blood 02/17/2025 9:08 PM CDT 02/17/2025 9:11 PM CDT Anne Marie España MD LAB BLOOD ORDERABLES Final Re sult Performing Organization Address [facility] Co de Phone Number [facility] Department [place] [address] * POCT glucose (02/17/2025 8:55 PM CDT) [facility] Glucose, POC 139 70 - 199 mg/dL Blood 02/17/2025 8:55 PM CDT 02/17/2025 8:55 PM CDT Anne Marie España MD LAB POCT ORDERABLES - DEVICE Final Result Performing Organization Address [facility] Co de Phone Number [facility] [place] [address] * Potassium, whole blood (02/17/2025 4:53 PM CDT) Potassium, bld 4.1 3.3 - 4.9 mmol/L Blood 02/17/2025 4:53 PM CDT 02/17/2025 4:57 PM CDT Elyse Duffy NP LAB BLOOD ORDERABLES Fi nal Result Performing Organization Address [facility] Co de Phone Number [facility] [place] [address] * Lactate, whole blood (02/17/2025 4:53 PM CDT) [facility] Lactate, bld 1.2 0.7 - 2.0 mmol/L Blood 02/17/2025 4:53 PM CDT 02/17/2025 4:57 PM CDT Elyse Duffy NP LAB BLOOD ORDERABLES Fi nal Result Performing Organization Address [facility] de Phone Number [facility] [place] [address] * POCT glucose (02/17/2025 4:48 PM CDT) [facility] Glucose, POC 155 70 - 199 mg/dL Blood 02/17/2025 4:48 PM CDT 02/17/2025 4:48 PM CDT Anne Marie España MD LAB POCT ORDERABLES - DEVICE Final Result Performing Organization Address [facility] de Phone Number [facility] [place] [address] * Oxyhemoglobin, central venous (02/17/2025 2:38 PM CDT) [facility] Oxyhemoglobin, CV 78.4 % Comment: Interpretive Data No reference range established. Current interpretive data was last revised 2019. Blood 02/17/2025 2:38 PM CDT 02/17/2025 2:42 PM CDT us Elyse Duffy NP LAB BLOOD ORDERABLES Fi nal Result [facility] [place] [address] * POCT glucose (02/17/2025 2:35 PM CDT) Glucose, POC 141 70 - 199 mg/dL Blood 02/17/2025 2:35 PM CDT 02/17/2025 2:35 PM CDT Anne Marie España MD LAB POCT ORDERABLES - DEVICE Final Result Performing Organization Address [facility] Co de Phone Number [facility] [place] [address] * XR Chest 1 View (02/17/2025 2:25 [...] PM CDT) Ventricular Rate EKG/Min 66 BPM [facility] Atrial Rate 66 BPM [facility] [place]-Interval (MSEC) 196 ms [facility] QRS-Interval (MSEC) 98 ms [facility] QT-Interval (MSEC) 416 ms [facility] QTc 436 ms [facility] P [place] 80 degrees [facility] R [place] 70 degrees [facility] T [place] 40 degrees [facility] Diagnosis Normal sinus rhythm Minimal voltage criteria for LVH, may be normal variant ( Sokolow-Talbot ) Borderline ECG When compared with ECG of 03-FEB-2025 11:12, (unconfirmed) No significant change was found Confirmed by HAWA KOTHARI M.D ([id number]) on 02/17/2025 4:09:21 PM [facility] 02/17/2025 1:45 PM CDT 02/17/2025 4:09 PM CDT us Anne Marie España MD ECG ORDERABLES Final Result [facility] * Critical Care (02/17/2025 1:37 PM CDT) Narrative Estre Dunn MD - 02/17/2025 1:37 PM CDT Ester Dunn MD 02/18/2025 1:23 PM Critical Care Performed by: Elyse Duffy NP Authorized by: Elyse Duffy NP CRITICAL CARE: Team: [facility] Shift: AM Level of Billing: Critical Care [...] plan with the ICU team and other medical/data virtualization consultant staff, making frequent assessments and decisions [...] ORDERABLES Final Re sult QUAN SOTO [facility] [place] [address] * (ABNORMAL) POC Blood Gas and Chemistries, Arterial - (02/17/2025 1:32 PM CDT) pH, Art POC 7.33(L) 7.35 - 7.45 pCO2, Art POC 44 35 - 45 mmHg [facility] pO2, Art POC 150(H) 83 - 108 mmHg [facility] Na, POC 138 135 - 145 mmol/L [facility] K POC 4.5 3.3 - 4.9 mmol/L [facility] Comment: Interpretive Data Not all point of care methods assess for hemolysis. Confirm with instrument and retest K+ if not consistent with clinical signs and symptoms. Current Interpretive Data was last revised on 2024. Cl, POC 108 97 - 110 mmol/L [facility] Ionized Ca, POC 5.46(H) 4.50 - 5.10 mg/dL [facility] Glucose, POC 146 70 - 199 mg/dL [facility] Lactate POC 2.6(H) 0.7 - 2.0 mmol/L [facility] SO2 (olvin) arterial 99(H) 90 - 95 % [facility] Base excess, POC -2.8 mmol/L [facility] HCO3, Art POC 23 20 - 30 mmol/L [facility] Hct, POC 35.0(L) 41.4 - 51.6 % [facility] Total Hb, POC 11.6(L) 13.8 - 17.2 g/dL [facility] Blood 02/17/2025 1:32 PM CDT 02/17/2025 1:32 PM CDT us Anne Marie España MD LAB POCT ORDERABLES - DEVICE Final Result [facility] [place] [address] * aPTT (02/17/2025 1:32 PM CDT) [facility] Signature aPTT 28 28 - 38 sec Comment: Interpretive Data Heparin therapeutic range: 66.0 - 100.0 seconds. Range based on correlation with therapeutic heparin activity range of 0.3 - 0.7 Units/mL. Current interpretive data was last revised on 2023. Blood 02/17/2025 1:32 PM CDT 02/17/2025 1:43 PM CDT Anne Marie España MD LAB BLOOD ORDERABLES Final Re sult Performing Organization Address [facility] Co de Phone Number [facility] [place] [address] * (ABNORMAL) Protime-INR (02/17/2025 1:32 PM CDT) [facility] PT 14.7(H) 9.7 - 13.0 sec INR 1.35(H) 0.90 - 1.20 [facility] Comment: Interpretive data Oral anticoagulant [...] ORDERABLES Final Re sult Performing Organization Address [facility] Co de Phone Number [facility] Department [place] [address] * (ABNORMAL) CBC without differential (02/17/2025 1:32 PM CDT) Pathologist [facility] WBC 10.51(H) 3.80 - 9.90 K/cumm Hgb 11.1(L) 13.0 - 17.5 g/dL [facility] Hct 32.1(L) 38.9 - 50.3 % [facility] Plt 90(L) 150 - 400 K/cumm [facility] MPV 11.8 9.1 - 12.3 fL [facility] RBC 3.21(L) 4.30 - 5.80 M/cumm [facility] MCV 100.0(H) 81.3 - 96.4 fL [facility] MCH 34.6(H) 27.1 - 33.3 pg [facility] MCHC 34.6 32.3 - 35.7 g/dL [facility] RDW CV 12.2 11.1 - 14.9 % [facility] RDW SD 44.6 35.7 - 48.1 fL [facility] NRBC abs 0.00 0.00 - 0.01 K/cumm [facility] Blood 02/17/2025 1:32 PM CDT 02/17/2025 1:51 PM CDT Anne Marie España MD LAB BLOOD ORDERABLES Final Re sult Performing Organization Address City/[facility]/ZIP Co de Phone Number [facility] Department [place] [address] * Magnesium (02/17/2025 1:32 PM CDT) [facility] Magnesium 2.2 1.4 - 2.5 mg/dL Blood 02/17/2025 1:32 PM CDT 02/17/2025 1:51 PM CDT Anne Marie España MD LAB BLOOD ORDERABLES Final Re sult Performing Organization Address [facility] Co de Phone Number [facility] [place] [address] * Basic metabolic panel (02/17/2025 1:32 PM CDT) [facility] Sodium 138 135 - 145 mmol/L Potassium, pl 4.5 3.3 - 4.9 mmol/L [facility] Chloride 110 97 - 110 mmol/L [facility] CO2 24 22 - 32 mmol/L [facility] Anion gap 4 2 - 15 mmol/L [facility] BUN 20 6 - 25 mg/dL [facility] Creatinine 0.81 0.80 - 1.30 mg/dL [facility] Glucose 145 70 - 199 mg/dL [facility] Comment: Interpretive Data Fasting glucose [...] 2022. Calcium 9.3 8.5 - 10.3 mg/dL [facility] Blood 02/17/2025 1:32 PM CDT 02/17/2025 1:51 PM CDT us Anne Marie España MD LAB BLOOD ORDERABLES Final Re sult [facility] [place] [address] * [place] AN ELECTIVE ENDOTRACHEAL AIRWAY, [place] AN PROCEDURE PLACEHOLDER (02/17/2025 1:25 PM CDT) [...] LAB POCT ORDERABLES - DEVICE Final Result [facility] [place] [address] * (ABNORMAL) POC Blood Gas and Chemistries, Arterial - (02/17/2025 12:25 PM CDT) pH, Art POC 7.29(L) 7.35 - 7.45 pCO2, Art POC 46(H) 35 - 45 mmHg [facility] pO2, Art POC 92 83 - 108 mmHg [facility] Na, POC 138 135 - 145 mmol/L [facility] K POC 4.5 3.3 - 4.9 mmol/L [facility] Comment: Interpretive Data Not all point of care methods assess for hemolysis. Confirm with instrument and retest K+ if not consistent with clinical signs and symptoms. Current Interpretive Data was last revised on 2024. Cl, POC 109 97 - 110 mmol/L [facility] Ionized Ca, POC 5.48(H) 4.50 - 5.10 mg/dL [facility] Glucose, POC 179 70 - 199 mg/dL [facility] Lactate POC 2.3(H) 0.7 - 2.0 mmol/L [facility] SO2 (olvin) arterial 98(H) 90 - 95 % [facility] Base excess, POC -4.5 mmol/L [facility] HCO3, Art POC 21 20 - 30 mmol/L [facility] Hct, POC 34.0(L) 41.4 - 51.6 % [facility] Total Hb, POC 11.3(L) 13.8 - 17.2 g/dL [facility] Blood 02/17/2025 12:2 5 PM CDT 02/17/2025 12:25 PM CDT Anne Marie España MD LAB POCT ORDERABLES - DEVICE Final Result Performing Organization Address [facility] de Phone Number [facility] [place] [address] * (ABNORMAL) POCT prothrombin time (02/17/2025 12:24 PM CDT) PT, POC 22.4(H) 11.7 - 16.6 sec INR, POC 1.7(H) 0.9 - 1.2 [facility] Blood 02/17/2025 12:2 4 PM CDT 02/17/2025 12:24 PM CDT Anne Marie España MD LAB POCT ORDERABLES - DEVICE Final Result Performing Organization Address [facility] de Phone Number [facility] [place] [address] * (ABNORMAL) POCT hemoglobin, hematocrit and platelet count (02/17/2025 12:24 PM CDT) Hgb, POC 10.6(L) 13.0 - 17.5 g/dL Hematocrit POC 31.2(L) 38.9 - 50.3 % [facility] Platelet POC 71(L) 150 - 400 K/cumm [facility] Blood 02/17/2025 12:2 4 PM CDT 02/17/2025 12:24 PM CDT Anne Marie España MD LAB POCT ORDERABLES - DEVICE Final Result [facility] Department [place] [address] * POCT heparin/ACT CPB (02/17/2025 12:22 PM CDT) Pathologist [facility] Heparin POC 0.0 units/mL ACT, CPB 112 112 - 174 sec [facility] Blood 02/17/2025 12:2 2 PM CDT 02/17/2025 12:22 PM CDT Anne Marie España MD LAB POCT ORDERABLES - DEVICE Final Result Performing Organization Address [facility] Co de Phone Number [facility] Department [place] [address] * (ABNORMAL) POC Blood Gas and Chemistries, Arterial - (02/17/2025 11:55 AM CDT) [facility] pH, Art POC 7.35 7.35 - 7.45 pCO2, Art POC 39 35 - 45 mmHg [facility] pO2, Art POC 154(H) 83 - 108 mmHg [facility] Na, POC 138 135 - 145 mmol/L [facility] K POC 5.2(H) 3.3 - 4.9 mmol/L [facility] Comment: Interpretive Data Not all point of care methods assess for hemolysis. Confirm with instrument and retest K+ if not consistent with clinical signs and symptoms. Current Interpretive Data was last revised on 2024. Cl, POC 113(H) 97 - 110 mmol/L [facility] Ionized Ca, POC 5.64(H) 4.50 - 5.10 mg/dL [facility] Glucose, POC 178 70 - 199 mg/dL [facility] Lactate POC 1.8 0.7 - 2.0 mmol/L [facility] SO2 (olvin) arterial 100(H) 90 - 95 % [facility] Base excess, POC -3.8 mmol/L [facility] HCO3, Art POC 22 20 - 30 mmol/L [facility] Hct, POC 32.0(L) 41.4 - 51.6 % [facility] Total Hb, POC 10.6(L) 13.8 - 17.2 g/dL [facility] Blood 02/17/2025 11:5 5 AM CDT 02/17/2025 11:55 AM CDT Anne Marie España MD LAB POCT ORDERABLES - DEVICE Final Result Performing Organization Address City/[facility] Co de Phone Number [facility] [place] [address] * (ABNORMAL) POCT heparin/ACT CPB (02/17/2025 11:49 AM CDT) Heparin POC 3.4 units/mL ACT, CPB 479(H) 112 - 174 sec [facility] Blood 02/17/2025 11:4 9 AM CDT 02/17/2025 11:49 AM CDT Anne Marie España MD LAB POCT ORDERABLES - DEVICE Final Result Performing Organization Address [facility] de Phone Number [facility] [place] [address] * (ABNORMAL) POCT heparin/ACT CPB (02/17/2025 11:15 AM CDT) Heparin POC <2.8 units/mL ACT, CPB 465(H) 112 - 174 sec [facility] Blood 02/17/2025 11:1 5 AM CDT 02/17/2025 11:15 AM CDT Anne Marie España MD LAB POCT ORDERABLES - DEVICE Final Result Performing Organization Address City/[facility] Co de Phone Number [facility] [place] [address] * (ABNORMAL) POC Blood Gas and Chemistries, Arterial - (02/17/2025 11:14 AM CDT) pH, Art POC 7.37 7.35 - 7.45 pCO2, Art POC 39 35 - 45 mmHg [facility] pO2, Art POC 296(H) 83 - 108 mmHg [facility] Na, POC 138 135 - 145 mmol/L [facility] K POC 5.0(H) 3.3 - 4.9 mmol/L [facility] Comment: Interpretive Data Not all point of care methods assess for hemolysis. Confirm with instrument and retest K+ if not consistent with clinical signs and symptoms. Current Interpretive Data was last revised on 2024. Cl, POC 111(H) 97 - 110 mmol/L [facility] Ionized Ca, POC 4.46(L) 4.50 - 5.10 mg/dL [facility] Glucose, POC 166 70 - 199 mg/dL [facility] Lactate POC 1.2 0.7 - 2.0 mmol/L [facility] SO2 (olvin) arterial 100(H) 90 - 95 % [facility] Base excess, POC -2.5 mmol/L [facility] HCO3, Art POC 23 20 - 30 mmol/L [facility] Hct, POC 32.0(L) 41.4 - 51.6 % [facility] Total Hb, POC 10.5(L) 13.8 - 17.2 g/dL [facility] Blood 02/17/2025 11:1 4 AM CDT 02/17/2025 11:14 AM CDT us Anne Marie España MD LAB POCT ORDERABLES - DEVICE Final Result [facility] [place] [address] * (ABNORMAL) POCT heparin/ACT CPB (02/17/2025 10:43 AM CDT) Heparin POC 3.4 units/mL ACT, CPB 549(H) 112 - 174 sec [facility] Blood 02/17/2025 10:4 3 AM CDT 02/17/2025 10:43 AM CDT us Anne Marie España MD LAB POCT ORDERABLES - DEVICE Final Result [facility] [place] [address] * (ABNORMAL) POC Blood Gas and Chemistries, Arterial - (02/17/2025 10:42 AM CDT) pH, Art POC 7.35 7.35 - 7.45 pCO2, Art POC 42 35 - 45 mmHg [facility] pO2, Art POC 320(H) 83 - 108 mmHg [facility] Na, POC 137 135 - 145 mmol/L [facility] K POC 4.8 3.3 - 4.9 mmol/L [facility] Comment: Interpretive Data Not all point of care methods assess for hemolysis. Confirm with instrument and retest K+ if not consistent with clinical signs and symptoms. Current Interpretive Data was last revised on 2024. Cl, POC 110 97 - 110 mmol/L [facility] Ionized Ca, POC 4.57 4.50 - 5.10 mg/dL [facility] Glucose, POC 154 70 - 199 mg/dL [facility] Lactate POC 1.3 0.7 - 2.0 mmol/L [facility] SO2 (olvin) arterial 100(H) 90 - 95 % [facility] Base excess, POC -2.3 mmol/L [facility] HCO3, Art POC 23 20 - 30 mmol/L [facility] Hct, POC 33.0(L) 41.4 - 51.6 % [facility] Total Hb, POC 11.1(L) 13.8 - 17.2 g/dL [facility] Blood 02/17/2025 10:4 2 AM CDT 02/17/2025 10:42 AM CDT us Anne Marie España MD LAB POCT ORDERABLES - DEVICE Final Result [facility] Department [place] [address] * (ABNORMAL) POCT heparin/ACT CPB (02/17/2025 10:08 AM CDT) Heparin POC 4.1 units/mL ACT, CPB 498(H) 112 - 174 sec [facility] Blood 02/17/2025 10:0 8 AM CDT 02/17/2025 10:08 AM CDT us Anne Marie España MD LAB POCT ORDERABLES - DEVICE Final Result [facility] Department [place] [address] * (ABNORMAL) POC Blood Gas and Chemistries, Arterial - (02/17/2025 10:07 AM CDT) pH, Art POC 7.41 7.35 - 7.45 pCO2, Art POC 35 35 - 45 mmHg [facility] pO2, Art POC 378(H) 83 - 108 mmHg [facility] Na, POC 138 135 - 145 mmol/L [facility] K POC 4.2 3.3 - 4.9 mmol/L [facility] Comment: Interpretive Data Not all point of care methods assess for hemolysis. Confirm with instrument and retest K+ if not consistent with clinical signs and symptoms. Current Interpretive Data was last revised on 2024. Cl, POC 109 97 - 110 mmol/L [facility] Ionized Ca, POC 4.49(L) 4.50 - 5.10 mg/dL [facility] Glucose, POC 131 70 - 199 mg/dL [facility] Lactate POC 2.1(H) 0.7 - 2.0 mmol/L [facility] SO2 (olvin) arterial 98(H) 90 - 95 % [facility] Base excess, POC -2.0 mmol/L [facility] HCO3, Art POC 23 20 - 30 mmol/L [facility] Hct, POC 34.0(L) 41.4 - 51.6 % [facility] Total Hb, POC 11.2(L) 13.8 - 17.2 g/dL [facility] Blood 02/17/2025 10:0 7 AM CDT 02/17/2025 10:07 AM CDT Anne Marie España MD LAB POCT ORDERABLES - DEVICE Final Result Performing Organization Address [facility] Co de Phone Number [facility] [place] [address] * (ABNORMAL) POCT heparin/ACT CPB (02/17/2025 9:41 AM CDT) Pathologist [facility] Heparin POC >4.7 units/mL ACT, CPB 539(H) 112 - 174 sec [facility] Blood 02/17/2025 9:41 AM CDT 02/17/2025 9:41 AM CDT Anne Marie España MD LAB POCT ORDERABLES - DEVICE Final Result Performing Organization Address [facility] de Phone Number [facility] [place] [address] * (ABNORMAL) POC Blood Gas and Chemistries, Arterial - (02/17/2025 9:30 AM CDT) pH, Art POC 7.40 7.35 - 7.45 pCO2, Art POC 36 35 - 45 mmHg [facility] pO2, Art POC 373(H) 83 - 108 mmHg [facility] Na, POC 137 135 - 145 mmol/L [facility] K POC 3.8 3.3 - 4.9 mmol/L [facility] Comment: Interpretive Data Not all point of care methods assess for hemolysis. Confirm with instrument and retest K+ if not consistent with clinical signs and symptoms. Current Interpretive Data was last revised on 2024. Cl, POC 109 97 - 110 mmol/L [facility] Glucose, POC 122 70 - 199 mg/dL [facility] Lactate POC 2.2(H) 0.7 - 2.0 mmol/L [facility] SO2 (olvin) arterial 100(H) 90 - 95 % [facility] Base excess, POC -2.1 mmol/L [facility] HCO3, Art POC 23 20 - 30 mmol/L [facility] Hct, POC 38.0(L) 41.4 - 51.6 % [facility] Total Hb, POC 12.7(L) 13.8 - 17.2 g/dL [facility] Blood 02/17/2025 9:30 AM CDT 02/17/2025 9:30 AM CDT us Anne Marie España MD LAB POCT ORDERABLES - DEVICE Final Result [facility] [place] [address] * [place] AN PROCEDURE PLACEHOLDER (02/17/2025 9:28 AM CDT) [...] code: PJ placement and diagnostic exam, non-congenital (41516) ICD code(s) for medical necessity: I34.0 - [...] inferior: normal 16- Apical septal: normal 17- [place]: normal Valves: Aortic Valve: Annulus: normal Leaflet [...] Hemant Tucker MD Other staff: Ever Mishra, white goods appliance tech prep: Prep solution: chlorhexadine/alcohol Prep: provider hat/mask, [...] oral Blade type: Aurora Video blade type: Ballooning Nest Eggs Blade size: 4 Cormack-Lehane (video): grade I - full view of glottis Cuff volume: 8 mL Cuff inflated with: air ETT to lips: 31 cm Placement verified by: auscultation, bronchoscopy, CO2 detection, palpation of cuff and single lung ventilation Airway secured with: silk tape Number of attempts: 1 Planned trial extubation: yes Result [facility] Natividad Guevara MD ANESTHESIA ORDERABLES Final Result * (ABNORMAL) POCT heparin dose response, CPB (02/17/2025 9:16 AM CDT) Baseline ACT POC 29(L) 112 - 174 sec Heparin dose response slope POC 107 60 - 195 [facility] Projected Heparin Concentration POC 4.2 units/mL [facility] Blood 02/17/2025 9:16 AM CDT 02/17/2025 9:16 AM CDT Result [facility] Anne Marie España MD LAB POCT ORDERABLES - DEVICE Final Result Performing Organization Address [facility] de Phone Number [facility] [place] [address] * PJ Add-On For OR (02/17/2025 7:04 AM CDT) Narrative [facility] PROSOLV_CARDIOREPORT_CONS SCIMAGE - 02/17/2025 7:04 AM CDT Procedure Auto Finalized by Rule: BW CV PJ DURING CASE OR Please see the Anesthesiologist's Procedure Note for the results. Result [facility] Hemant Tucker MD CV ECHO PROCEDURES Final Result Performing Organization Address [facility] de Phone Number [facility] PROSOLV_CARDIOREPORT_CONS SCIMAGE * Type and screen (02/17/2025 6:58 AM CDT) Vivi, indirect Negative ABO Rh A Positive [facility] Blood 02/17/2025 6:58 AM CDT 02/17/2025 7:20 AM CDT Result [facility] Anne Marie España MD LAB BLOOD BANK TEST ORDERABLE S Final Result Performing Organization Address [facility] de Phone Number [facility] Department [place] [address] * Prepare RBC: 4 Units (02/17/2025 6:26 AM CDT) Product code T5232T49 CERNER BJ Unit Number [id number] 4-6 CERNER BJ Product Blood Type APOS CERNER BJH Dispense Status RETURNED CERNER BJ Product code [id number] CERNER BJ Unit Number [id number] 5-* CERNER BJ Product Blood Type APOS CERNER BJ Dispense Status RETURNED CERNER BJ Product code [id number] CERNER BJ Unit Number [id number] 4-P CERNER BJ Product Blood Type APOS CERNER BJ Dispense Status RETURNED CERNER BJ Product code P1107T22 Unit Number [id number] 6-5 CERNER BJ Product Blood Type APOS CERNER BJ Dispense Status RETURNED CERNER BJ Blood 02/17/2025 6:26 AM CDT 02/17/2025 6:26 AM CDT N[facility]ative [facility] - 02/17/2025 1:26 PM CDT 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 (All products are leukoreduced and CMV- safe)- >No Date required:-[id number] LRRBC # of [id number] Reasons:-Hold for procedure (specify procedure)} us Anne Marie España MD BLOOD BANK PRODUCT ORDERABLES Final Result [facility] Department [place] [address] * XR Chest PA Lateral 2 Views [...] 14 DAY (02/03/2025 11:23 AM CDT) Pathologist [facility] ABO Rh A Positive Vivi, indirect Negative [facility] Blood 02/03/2025 11:2 3 AM CDT 02/03/2025 12:59 PM CDT Narrative [facility] - 02/03/2025 2:19 PM CDT Is this test being ordered in advance for a procedure?->Yes Expected date of procedure:->02/17/25 Has the patient been transfused in the past 3 months?->No Eddie Carbone MD LAB BLOOD BANK TEST OR DERABLES Final Result [facility] Department [place] [address] * eGFR (02/03/2025 11:23 AM CDT) Pathologist [facility] eGFR >90 >=60 mL/min/1. 73 m2 Comment: [...] MD LAB BLOOD ORDERABLES F inal Result [facility] Department [place] [address] * Differential, auto (02/03/2025 11:23 AM CDT) Neutrophil abs 4.22 1.50 - 6.50 K/cumm Imm gran abs 0.01 0.00 - 0.10 K/cumm [facility] Lymphocyte abs 1.29 0.80 - 3.30 K/cumm [facility] Monocyte abs 0.74 0.20 - 0.80 K/cumm [facility] Eosinophil abs 0.17 0.00 - 0.50 K/cumm [facility] Basophil abs 0.04 0.00 - 0.10 K/cumm [facility] Neutrophil pct 65.3 % [facility] Comment: Interpretive Data Percent cell count reference ranges are not reported, since discordance with absolute values may lead to misinterpretation of CBC data. Current Interpretive Data was last revised on 2018. Imm gran pct 0.2 % [facility] Comment: Interpretive Data Percent cell count reference ranges are not reported, since discordance with absolute values may lead to misinterpretation of CBC data. Current Interpretive Data was last revised on 2018. Lymphocyte pct 19.9 % [facility] Comment: Interpretive Data Percent cell count reference ranges are not reported, since discordance with absolute values may lead to misinterpretation of CBC data. Current Interpretive Data was last revised on 2018. Monocyte pct 11.4 % [facility] Comment: Interpretive Data Percent cell count reference ranges are not reported, since discordance with absolute values may lead to misinterpretation of CBC data. Current Interpretive Data was last revised on 2018. Eosinophil pct 2.6 % [facility] Comment: Interpretive Data Percent cell count reference ranges are not reported, since discordance with absolute values may lead to misinterpretation of CBC data. Current Interpretive Data was last revised on 2018. Basophil pct 0.6 % [facility] Comment: Interpretive Data Percent cell count reference ranges are not reported, since discordance with absolute values may lead to misinterpretation of CBC data. Current Interpretive Data was last revised on 2018. Blood 02/03/2025 11:2 3 AM CDT 02/03/2025 12:29 PM CDT Eddie Carbone MD LAB BLOOD ORDERABLES F inal Result Performing Organization Address City/State/[facility] Co de Phone Number [facility] Department [place] [address] * CPAP aPTT algorithm (02/03/2025 11:23 AM [...] ORDERABLES F inal Result Performing Organization Address City/State/[facility] Co de Phone Number [facility] Department [place] [address] * (ABNORMAL) Urinalysis reflex to microscopic and culture Urine (02/03/2025 11:23 AM CDT) Color, ur Yellow Yellow Clarity, ur Clear Clear [facility] Specific gravity, ur 1.031(H) 1.003 - 1.030 [facility] pH, urine 5.5 [facility] Comment: Interpretive Data U rine pH is affected by diet, medications, systemic acid-base disturbances, and renal tubular function. pH may affect urinary stone formation. For example, urine pH below 6.0 may help reduce the tendency for calcium phosphate stones and pH greater than 6.0 may reduce the tendency for uric acid stone formation. Source: [facility] Current Interpretive Data was last revised on 2017 Protein, ur ql Negative Negative [facility] Glucose, ur ql Negative Negative [facility] Ketones, ur Negative Negative [facility] Bilirubin, ur Negative Negative [facility] Blood, ur Negative Negative [facility] Urobilinogen, ur <2.0 <2.0 mg/dL [facility] Nitrite, ur Negative Negative [facility] Leukocyte esterase, ur Negative Negative [facility] UA reflex comment Reflex conditions for microscopic UA and culture not met. [facility] Urine 02/03/2025 11:2 3 AM CDT 02/03/2025 12:20 PM CDT us Eddie Carbone MD LAB MICROBIOLOGY - GEN ERAL ORDERABLES Final Result [facility] Department [place] [address] * (ABNORMAL) CBC with auto differential (02/03/2025 11:23 AM CDT) WBC 6.47 3.80 - 9.90 K/cumm Hgb 15.0 13.0 - 17.5 g/dL [facility] Hct 43.7 38.9 - 50.3 % [facility] Plt 144(L) 150 - 400 K/cumm [facility] MPV 12.2 9.1 - 12.3 fL [facility] RBC 4.39 4.30 - 5.80 M/cumm [facility] MCV 99.5(H) 81.3 - 96.4 fL [facility] MCH 34.2(H) 27.1 - 33.3 pg [facility] MCHC 34.3 32.3 - 35.7 g/dL [facility] RDW CV 12.0 11.1 - 14.9 % [facility] RDW SD 44.1 35.7 - 48.1 fL [facility] NRBC abs 0.00 0.00 - 0.01 K/cumm [facility] Blood 02/03/2025 11:2 3 AM CDT 02/03/2025 12:29 PM CDT Eddie Carbone MD LAB BLOOD ORDERABLES F inal Result Performing Organization Address [facility] de Phone Number [facility] Department [place] [address] * Protime-INR (02/03/2025 11:23 AM CDT) PT 12.2 9.7 - 13.0 sec INR 1.13 0.90 - 1.20 [facility] Comment: Interpretive data Oral anticoagulant [...] ORDERABLES F inal Result Performing Organization Address [facility] de Phone Number [facility] Department [place] [address] * (ABNORMAL) Comprehensive metabolic panel (02/03/2025 11:23 AM CDT) Sodium 143 135 - 145 mmol/L Potassium, pl 4.6 3.3 - 4.9 mmol/L [facility] Chloride 108 97 - 110 mmol/L [facility] CO2 26 22 - 32 mmol/L [facility] Anion gap 9 2 - 15 mmol/L [facility] BUN 28(H) 6 - 25 mg/dL [facility] Creatinine 0.78(L) 0.80 - 1.30 mg/dL [facility] Glucose 104 70 - 199 mg/dL [facility] Comment: Interpretive Data Fasting glucose [...] 2022. Calcium 9.2 8.5 - 10.3 mg/dL [facility] Bilirubin, total 0.5 0.1 - 1.2 mg/dL [facility] Protein, pl 7.1 6.5 - 8.5 g/dL [facility] Albumin 4.4 3.5 - 5.0 g/dL [facility] Alk phos 77 40 - 130 Units/L [facility] ALT 33 7 - 55 Units/L [facility] AST 28 10 - 50 Units/L [facility] Blood 02/03/2025 11:2 3 AM CDT 02/03/2025 12:29 PM CDT us Eddie Carbone MD LAB BLOOD ORDERABLES F inal Result [facility] Department [place] [address] from Last 3 Months Insurance MEDICARE [facility] SENIOR SUPPLEMENT MEDICARE [employer] SENIOR SUPPLEMENT Advance Directives For more information, please contact: [phone] Documents on File Type Date Recorded Patient Ammonia Nitrate Operator Expl anation ADVANCE DIRECTIVE 02/17/2025 6:46 AM Power of Digital Campaign Manager-Medical * Full Code (Latest Code Status on File) Date Activated Date Inactivated Comments 02/17/2025 1:18 PM 02/20/2025 4:49 PM * Full Code Date Activated Date Inactivated Comments 12/07/2024 2:05 PM 12/07/2024 8:36 PM * Full Code Date Activated Date Inactivated Comments 08/26/2024 10:28 AM 08/27/2024 4:55 AM Care Teams Sample Maker Original Relationship Specialty Start Date End Date Nora Montes MD [address] [place] [address] [address] [place] [address] PCP - General Family Medicine 04/06/24 Anne Marie España MD [address] [place] [address] [place] [address] Cardiothoracic Surgery 02/20/25
--- OUTSIDE RECORDS SUMMARY | 2025-03-11 18:27 | XMS_ITS | Referral Summary ---
Author Organization [facility] Address [address] [place] [id number] Care Team Providers Care Riprap Man Name Role Phone Nora Montes MD Primary Care Provider [phone] Anne Marie España MD Unavailable [phone] Encounters Date Type Department Care Team Description 02/22/2025 Orders Only [facility] Cardiothoracic Surgery [address] [place] [address] 8th Floor [address] Room [address] [place] [phone] Argenis Jones, SUMMER CLERK Status post cardiac surgery (Primary Dx) 02/17/2025 12:22 PM CDT - 02/20/2025 12:40 PM CDT Hospital Encounter [address] [phone] Anne Marie España MD Severe mitral regurgitation (Primary Dx); MVP (mitral valve prolapse) Discharge Disposition: Discharge to home, home health skilled care 02/17/2025 7:05 AM CDT Ancillary Procedure [facility] Operating Room 1 [place] [phone] Hemant Tucker MD 02/17/2025 8:00 AM CDT - 02/17/2025 3:[address] [facility] Operating Room 1 [place] [phone] Anne Marie España MD REPAIR/REPLACE MITRAL VALVE ROBOTIC XI 02/17/2025 7:57 AM CDT Anesthesia Event [facility] Operating Room 1 [place] [phone] Natividad Guevara MD Mallette, Allison Anne, NP 02/12/2025 Orders Only [facility] Cardiothoracic Surgery [address] [place] [address] Medicine 8th Floor [address] Room [address] [place] [phone] Ciera Tejada NP 02/03/2025 11:40 AM CDT - 02/03/2025 11:59 PM CDT Hospital Encounter [facility] Radiology [facility] ([facility]) [address] [place] [phone] Discharge Disposition: Discharge to home or self care 02/03/2025 10:00 AM CDT Pre-Admission Testing [facility] Center for Preoperative Assessment and Planning [facility] ([facility]) [address] [place] [phone] Pre-op testing (Primary Dx); Mitral valve prolapse 12/11/2024 Telephone [facility] Cardiothoracic Surgery [address] [place] [address] 8th Floor [address] Room [address] [place] [phone] Janeen Das NP from Last 3 Months [...] on file Legal Sex Male 8:00 PM [employer]FORE SCHOOL Gender Identity Not on file Sexual Orientation [...] on file Medical Devices Implanted Type Area Campaign Consultant Device Identifier Shelf Expiration Date Model / [...] note for this implant in 2014. Fortunately, Reclog lists all Jani stapes implants as MR Safe by the old definition; this can be interpreted to mean that the patient can be safely scanned at least at 1.5T in Normal Operating Mode. Reference (consulted 07/13/2024): [email or web address] =[email or web address] t_description [employer] Ring Physio Flex Mitral Annuloplasty 38mm [id number] - [id number] - [id number] Implanted:Qty: 1 on 02/17/2025 by Anne Marie España MD at [facility] N/A: Heart [employer] [id number] 10/26/2029 [id number] / [id number] / Procedures Procedure Name Priority Date/Time Associated [...] METABOLIC PANEL STAT 02/17/2025 1:32 PM CDT OH AN PROCEDURE PLACEHOLDER Routine 02/17/2025 1:25 PM CDT OH AN ELECTIVE ENDOTRACHEAL AIRWAY Routine 02/17/2025 1:25 [...] CHEMISTRIES, ARTERIAL Routine 02/17/2025 9:30 AM CDT OH AN PROCEDURE PLACEHOLDER Routine 02/17/2025 9:28 AM [...] CDT 02/19/2025 10:19 PM CDT Hilaria Cross BRICK CLEANER LAB BLOOD ORDERABLES Final Result [facility] [address] [facility] [place] [address] * eGFR (02/19/2025 9:52 PM CDT) eGFR [...] CDT 02/19/2025 10:24 PM CDT Hilaria Cross BRICK CLEANER LAB BLOOD ORDERABLES Final Result Performing Organization Address [facility] de Phone Number [facility] [place] [address] * (ABNORMAL) Protime-INR (02/19/2025 9:52 PM CDT) PT 13.2(H) 9.7 - 13.0 sec INR 1.22(H) 0.90 - 1.20 [facility] Comment: Interpretive data Oral anticoagulant therapeutic ranges: Venous thromboembolism prophylaxis or treatment: 2.0-3.0 CARDIOLOGY Standard range: 2.0-3.0 High-intensity range: 2.5-3.5 Refer to indication-specific guidelines for appropriate target ranges for prosthetic heart valve replacement. Current interpretive data was last revised on 2019. Blood 02/19/2025 9:52 PM CDT 02/19/2025 10:29 PM CDT Hilaria Cross BRICK CLEANER LAB BLOOD ORDERABLES Final Result Performing Organization Address [facility] de Phone Number [facility] [place] [address] * (ABNORMAL) CBC without differential (02/19/2025 9:52 PM CDT) WBC 12.46(H) 3.80 - 9.90 K/cumm Hgb 10.6(L) 13.0 - 17.5 g/dL [facility] Hct 30.0(L) 38.9 - 50.3 % [facility] Plt 83(L) 150 - 400 K/cumm [facility] MPV 12.4(H) 9.1 - 12.3 fL [facility] RBC 3.06(L) 4.30 - 5.80 M/cumm [facility] MCV 98.0(H) 81.3 - 96.4 fL [facility] MCH 34.6(H) 27.1 - 33.3 pg [facility] MCHC 35.3 32.3 - 35.7 g/dL [facility] RDW CV 12.3 11.1 - 14.9 % [facility] RDW SD 44.1 35.7 - 48.1 fL [facility] NRBC abs 0.00 0.00 - 0.01 K/cumm [facility] Blood 02/19/2025 9:52 PM CDT 02/19/2025 10:24 PM CDT us Hilaria Cross BRICK CLEANER LAB BLOOD ORDERABLES Final Result Performing Organization Address [facility] Co de Phone Number [facility] Department [place] [address] * (ABNORMAL) Phosphorus (02/19/2025 9:52 PM CDT) Phosphorus, pl 1.2(L) 2.3 - 4.5 mg/dL Blood 02/19/2025 9:52 PM CDT 02/19/2025 10:24 PM CDT us Hilaria Cross BRICK CLEANER LAB BLOOD ORDERABLES Final Result [facility] [place] [address] * Magnesium (02/19/2025 9:52 PM CDT) Magnesium 2.0 1.4 - 2.5 mg/dL Blood 02/19/2025 9:52 PM CDT 02/19/2025 10:24 PM CDT us Hilaria Cross BRICK CLEANER LAB BLOOD ORDERABLES Final Result [facility] Department [place] [address] * (ABNORMAL) Basic metabolic panel (02/19/2025 9:52 PM CDT) Sodium 134(L) 135 - 145 mmol/L Potassium, pl 4.0 3.3 - 4.9 mmol/L [facility] Chloride 101 97 - 110 mmol/L [facility] CO2 28 22 - 32 mmol/L [facility] Anion gap 5 2 - 15 mmol/L [facility] BUN 20 6 - 25 mg/dL [facility] Creatinine 0.97 0.80 - 1.30 mg/dL [facility] Glucose 128 70 - 199 mg/dL [facility] Comment: Interpretive Data Fasting glucose [...] 2022. Calcium 8.0(L) 8.5 - 10.3 mg/dL [facility] Blood 02/19/2025 9:52 PM CDT 02/19/2025 10:24 PM CDT Hilaria Cross NP LAB BLOOD ORDERABLES Final Result Performing Organization Address City/[facility]/ZIP Co de Phone Number [facility] Department [place] [address] * XR Chest PA Lateral 2 Views [...] AM CDT Narrative 02/19/2025 3:17 PM CDT [facility] [place] [address] Transthoracic Echocardiographic Report Patient Name: NORA HARRY L : 1955 (69y 2m) Gender: M Study Date: 02/19/2025 10:08:10 AM Ht(Inch): 72 Wt(Lb): 175.05 BSA: 2.01 Line Analyst: Trish Galindo [facility] Location: [id number] Order Provider: ANNE MARIE ESPAÑA Heart Rate: [...] CDT Procedure Note Laure Huntley, - 02/19/2025 [facility] [place] [address] Transthoracic Echocardiographic Report Patient Name: NORA HARRY L : 1955 (69y 2m) Gender: M Study Date: 02/19/2025 10:08:10 AM Ht(Inch): 72 Wt(Lb): 175.05 BSA: 2.01 Line Analyst: Trish Galindo RDCS Location: [id number] Order Provider:ANNE MARIE ESPAÑA Heart Rate: 73 [...] LA Volume BP 89.17 ml MV Decel Oolg304.45 msec [ 104.00 - 258.00 ] LA [...] CDT 02/19/2025 9:08 AM CDT Narrative QUAN [facility] - 02/23/2025 12:00 PM CDT Collection->Peripheral 1. [...] performance characteristics have been verified by the [facility] Microbiology Laboratory. For questions about this culture, contact the Microbiology Laboratory at [phone]. Interpretive data was last revised on 24. Anne Marie España MD LAB MICROBIOLOGY - GENERAL OR DERABLES Final Result [facility] [address] [facility] Department [place] [address] * Blood culture Blood Arm, left (02/19/2025 8:29 AM CDT) Report Final Report: No growth Blood (Arm, left) 02/19/2025 8:29 AM CDT 02/19/2025 9:08 AM CDT Narrative QUAN [facility] - 02/23/2025 12:00 PM CDT Collection->Peripheral 1. [...] performance characteristics have been verified by the [facility] Microbiology Laboratory. For questions about this culture, contact the Microbiology Laboratory at [phone]. Interpretive data was last revised on 24. Anne Marie España MD LAB MICROBIOLOGY - GENERAL OR DERABLES Final Result [facility] [address] [facility] Department [place] [address] * Urinalysis reflex to microscopic and culture Urine (02/19/2025 1:45 AM CDT) Color, ur Yellow Yellow Clarity, ur Clear Clear [facility] Specific gravity, ur 1.029 1.003 - 1.030 [facility] pH, urine 6.0 [facility] Comment: Interpretive Data U rine pH is affected by diet, medications, systemic acid-base disturbances, and renal tubular function. pH may affect urinary stone formation. For example, urine pH below 6.0 may help reduce the tendency for calcium phosphate stones and pH greater than 6.0 may reduce the tendency for uric acid stone formation. Source: [place] [employer] Current Interpretive Data was last revised on 2017 Protein, ur ql Trace Negative [facility] Glucose, ur ql Negative Negative [facility] Ketones, ur Negative Negative [facility] Bilirubin, ur Negative Negative [facility] Blood, ur Negative Negative [facility] Urobilinogen, ur <2.0 <2.0 mg/dL [facility] Nitrite, ur Negative Negative [facility] Leukocyte esterase, ur Negative Negative [facility] UA reflex comment Reflex conditions for microscopic UA and culture not met. [facility] Urine 02/19/2025 1:45 AM CDT 02/19/2025 2:15 AM CDT us Hilaria Cross NP LAB MICROBIOLOGY - GENERAL ORDERABLES Final Result [facility] [address] [facility] Department [place] [address] * XR Chest 1 View - in [...] by: Danya Martin M.D. us Elyse Duffy BRICK CLEANER IMG XR PROCEDURES Final Result * Potassium, whole blood (02/18/2025 8:56 PM CDT) Potassium, bld 4.1 3.3 - 4.9 mmol/L Blood 02/18/2025 8:56 PM CDT 02/18/2025 9:44 PM CDT Hilaria Cross NP LAB BLOOD ORDERABLES Final Result Performing Organization Address [facility] de Phone Number QUAN [facility] Department [employer] [place] [address] * eGFR (02/18/2025 8:56 PM CDT) eGFR [...] BLOOD ORDERABLES Final Result Performing Organization Address [facility] Co de Phone Number [facility] Department [place] [address] * (ABNORMAL) CBC without differential (02/18/2025 8:56 PM CDT) WBC 13.92(H) 3.80 - 9.90 K/cumm Hgb 11.9(L) 13.0 - 17.5 g/dL [facility] Hct 34.0(L) 38.9 - 50.3 % [facility] Plt 83(L) 150 - 400 K/cumm [facility] MPV 12.7(H) 9.1 - 12.3 fL [facility] RBC 3.42(L) 4.30 - 5.80 M/cumm [facility] MCV 99.4(H) 81.3 - 96.4 fL [facility] MCH 34.8(H) 27.1 - 33.3 pg [facility] MCHC 35.0 32.3 - 35.7 g/dL [facility] RDW CV 12.3 11.1 - 14.9 % [facility] RDW SD 44.8 35.7 - 48.1 fL [facility] NRBC abs 0.00 0.00 - 0.01 K/cumm [facility] Blood 02/18/2025 8:56 PM CDT 02/18/2025 9:50 PM CDT us Hilaria Cross BRICK CLEANER LAB BLOOD ORDERABLES Final Result Performing Organization Address [facility] Co de Phone Number [facility] [employer] [place] [address] * Phosphorus (02/18/2025 8:56 PM CDT) Pathologist [facility] Phosphorus, pl 2.5 2.3 - 4.5 mg/dL Blood 02/18/2025 8:56 PM CDT 02/18/2025 9:51 PM CDT Hilaria Cross BRICK CLEANER LAB BLOOD ORDERABLES Final Result Performing Organization Address City/[facility] Co de Phone Number [facility] [place] [address] * Magnesium (02/18/2025 8:56 PM CDT) [facility] Magnesium 2.2 1.4 - 2.5 mg/dL Blood 02/18/2025 8:56 PM CDT 02/18/2025 9:51 PM CDT Result [facility] Hilaria Cross BRICK CLEANER LAB BLOOD ORDERABLES Final Result Performing Organization Address [facility] [place] [address] * Hemoglobin A1c (02/18/2025 8:56 PM CDT) [facility] Hgb A1C 5.1 4.0 - 5.6 % Estimated Average Glucose 100 mg/dL [facility] Comment: The ADA recommends reporting [...] CDT 02/18/2025 9:51 PM CDT Hilaria Cross BRICK CLEANER LAB BLOOD ORDERABLES Final Result Performing Organization Address [facility] [place] [address] * (ABNORMAL) Basic metabolic panel (02/18/2025 8:56 PM CDT) [facility] Sodium 134(L) 135 - 145 mmol/L Potassium, pl 3.9 3.3 - 4.9 mmol/L [facility] Chloride 102 97 - 110 mmol/L [facility] CO2 27 22 - 32 mmol/L [facility] Anion gap 5 2 - 15 mmol/L [facility] BUN 20 6 - 25 mg/dL [facility] Creatinine 1.11 0.80 - 1.30 mg/dL [facility] Glucose 139 70 - 199 mg/dL [facility] Comment: Interpretive Data Fasting glucose [...] 2022. Calcium 8.0(L) 8.5 - 10.3 mg/dL [facility] Blood 02/18/2025 8:56 PM CDT 02/18/2025 9:51 PM CDT us Hilaria Cross NP LAB BLOOD ORDERABLES Final Result Performing Organization Address City/[facility]/ZIP Co de Phone Number [facility] Department [place] [address] * POCT glucose (02/18/2025 6:07 PM CDT) [facility] Glucose, POC 159 70 - 199 mg/dL Blood 02/18/2025 6:07 PM CDT 02/18/2025 6:07 PM CDT us Anne Marie España MD LAB POCT ORDERABLES - DEVICE Final Result [facility] Department [place] [address] * Critical Care (02/18/2025 4:07 PM CDT) [...] plan with the ICU team and other medical/bridal sales consultant staff, making frequent assessments and decisions [...] - DEVICE Final Result Performing Organization Address City/[facility] Phone Number [facility] [address] [facility] Department [place] [address] * Oxyhemoglobin, central venous (02/18/2025 9:45 AM CDT) Oxyhemoglobin, CV 77.7 % Comment: Interpretive Data No reference range established. Current interpretive data was last revised 2019. Blood 02/18/2025 9:45 AM CDT 02/18/2025 9:53 AM CDT Elyse Duffy NP LAB BLOOD ORDERABLES Fi nal Result Performing Organization Address City/State/[facility] Co de Phone Number [facility] Department [place] [address] * Potassium, whole blood (02/18/2025 9:45 AM CDT) Pathologist [facility] Potassium, bld 4.2 3.3 - 4.9 mmol/L Blood 02/18/2025 9:45 AM CDT 02/18/2025 9:53 AM CDT us Elyse Duffy NP LAB BLOOD ORDERABLES Fi nal Result Performing Organization Address [facility] de Phone Number QUAN [facility] [place] [address] * ECG 12 lead (02/18/2025 8:39 AM CDT) [facility] Ventricular Rate EKG/Min [address] [facility] Atrial Rate [address] [facility] [place]-Interval (MSEC) [address] [facility] QRS-Interval (MSEC) [address] [facility] QT-Interval (MSEC) [address] [facility] QTc [address] [facility] P [place] [address] [facility] R [place] [address] [facility] T [place] [address] [facility] Diagnosis Normal sinus rhythm Early repolarization Normal ECG When compared with ECG of 17-FEB-2025 13:45, Questionable change in QRS axis Confirmed by HAWA KOTHARI M.D ([id number]) on 02/18/2025 1:56:[address] [facility] 02/18/2025 8:39 AM CDT 02/18/2025 1:56 PM CDT us Anne Marie España MD ECG ORDERABLES Final Result Performing Organization Address [facility] Co de Phone Number [facility] * POCT glucose (02/18/2025 7:28 AM CDT) Pathologist [facility] Glucose, POC 105 70 - 199 mg/dL Blood 02/18/2025 7:28 AM CDT 02/18/2025 7:28 AM CDT Anne Marie España MD LAB POCT ORDERABLES - DEVICE Final Result Performing Organization Address [facility] de Phone Number [facility] [employer] [place] [address] * POCT glucose (02/18/2025 4:14 AM CDT) Glucose, POC 115 70 - 199 mg/dL Blood 02/18/2025 4:14 AM CDT 02/18/2025 4:14 AM CDT Anne Marie España MD LAB POCT ORDERABLES - DEVICE Final Result Performing Organization Address [facility] de Phone Number [facility] [employer] [place] [address] * Oxyhemoglobin, central venous (02/18/2025 3:07 AM CDT) Oxyhemoglobin, CV 77.7 % Comment: Interpretive Data No reference range established. Current interpretive data was last revised 2019. Blood 02/18/2025 3:07 AM CDT 02/18/2025 3:11 AM CDT Elyse Duffy NP LAB BLOOD ORDERABLES Fi nal Result Performing Organization Address [facility] de Phone Number [facility] [employer] [place] [address] * Oxyhemoglobin, central venous (02/18/2025 12:44 AM CDT) Oxyhemoglobin, CV 71.2 % Comment: Interpretive Data No reference range established. Current interpretive data was last revised 2019. Blood 02/18/2025 12:4 4 AM CDT 02/18/2025 12:49 AM CDT Elyse Duffy NP LAB BLOOD ORDERABLES Fi nal Result Performing Organization Address [facility] Co de Phone Number QUAN [facility] Department [place] [address] * eGFR (02/18/2025 12:44 AM CDT) eGFR [...] ORDERABLES Fi nal Result Performing Organization Address City/[facility]/ZIP Co de Phone Number [facility] Department [place] [address] * (ABNORMAL) CBC without differential (02/18/2025 12:44 AM CDT) WBC 10.12(H) 3.80 - 9.90 K/cumm Hgb 12.3(L) 13.0 - 17.5 g/dL [facility] Hct 34.6(L) 38.9 - 50.3 % [facility] Plt 102(L) 150 - 400 K/cumm [facility] MPV 11.8 9.1 - 12.3 fL [facility] RBC 3.57(L) 4.30 - 5.80 M/cumm [facility] MCV 96.9(H) 81.3 - 96.4 fL [facility] MCH 34.5(H) 27.1 - 33.3 pg [facility] MCHC 35.5 32.3 - 35.7 g/dL [facility] RDW CV 12.1 11.1 - 14.9 % [facility] RDW SD 43.2 35.7 - 48.1 fL [facility] NRBC abs 0.00 0.00 - 0.01 K/cumm [facility] Blood 02/18/2025 12:4 4 AM CDT 02/18/2025 12:55 AM CDT Elyse Duffy NP LAB BLOOD ORDERABLES Fi nal Result [facility] [employer] [place] [address] * Phosphorus (02/18/2025 12:44 AM CDT) Phosphorus, pl 3.9 2.3 - 4.5 mg/dL Blood 02/18/2025 12:4 4 AM CDT 02/18/2025 12:55 AM CDT Elyse Duffy NP LAB BLOOD ORDERABLES Fi nal Result [facility] [employer] [place] [address] * Magnesium (02/18/2025 12:44 AM CDT) Magnesium 1.8 1.4 - 2.5 mg/dL Blood 02/18/2025 12:4 4 AM CDT 02/18/2025 12:55 AM CDT Elyse Duffy NP LAB BLOOD ORDERABLES Fi nal Result Performing Organization Address City/[facility]/ZIP Co de Phone Number [facility] Department [place] [address] * (ABNORMAL) Basic metabolic panel (02/18/2025 12:44 AM CDT) [facility] Sodium 135 135 - 145 mmol/L Potassium, pl 3.8 3.3 - 4.9 mmol/L [facility] Chloride 103 97 - 110 mmol/L [facility] CO2 27 22 - 32 mmol/L [facility] Anion gap 5 2 - 15 mmol/L [facility] BUN 14 6 - 25 mg/dL [facility] Creatinine 0.65(L) 0.80 - 1.30 mg/dL [facility] Glucose 141 70 - 199 mg/dL [facility] Comment: Interpretive Data Fasting glucose [...] 2022. Calcium 8.1(L) 8.5 - 10.3 mg/dL [facility] Blood 02/18/2025 12:4 4 AM CDT 02/18/2025 12:55 AM CDT Elyse Duffy NP LAB BLOOD ORDERABLES Fi nal Result Performing Organization Address City/[facility]/ZIP Co de Phone Number [facility] Department [place] [address] * POCT glucose (02/18/2025 12:43 AM CDT) Glucose, POC 130 70 - 199 mg/dL Blood 02/18/2025 12:4 3 AM CDT 02/18/2025 12:43 AM CDT us Anne Marie España MD LAB POCT ORDERABLES - DEVICE Final Result [facility] Department [place] [address] * XR Chest 1 View - in [...] Oxyhemoglobin, central venous (02/17/2025 9:08 PM CDT) [facility] Oxyhemoglobin, CV 81.4 % Comment: Interpretive Data No reference range established. Current interpretive data was last revised 2019. Blood 02/17/2025 9:08 PM CDT 02/17/2025 9:11 PM CDT Elyse Duffy NP LAB BLOOD ORDERABLES Fi nal Result Performing Organization Address [facility] Co de Phone Number [facility] Department [place] [address] * Potassium, whole blood (02/17/2025 9:08 PM CDT) [facility] Potassium, bld 4.0 3.3 - 4.9 mmol/L Blood 02/17/2025 9:08 PM CDT 02/17/2025 9:11 PM CDT Anne Marie España MD LAB BLOOD ORDERABLES Final Re sult [facility] Department [place] [address] * POCT glucose (02/17/2025 8:55 PM CDT) Glucose, POC 139 70 - 199 mg/dL Blood 02/17/2025 8:55 PM CDT 02/17/2025 8:55 PM CDT us Anne Marie España MD LAB POCT ORDERABLES - DEVICE Final Result Performing Organization Address City/[facility] Co de Phone Number [facility] [place] [address] * Potassium, whole blood (02/17/2025 4:53 PM CDT) Potassium, bld 4.1 3.3 - 4.9 mmol/L Blood 02/17/2025 4:53 PM CDT 02/17/2025 4:57 PM CDT Elyse Duffy NP LAB BLOOD ORDERABLES Fi nal Result Performing Organization Address [facility] de Phone Number [facility] [place] [address] * Lactate, whole blood (02/17/2025 4:53 PM CDT) Lactate, bld 1.2 0.7 - 2.0 mmol/L Blood 02/17/2025 4:53 PM CDT 02/17/2025 4:57 PM CDT Elyse Duffy NP LAB BLOOD ORDERABLES Fi nal Result Performing Organization Address [facility] Co de Phone Number [facility] [place] [address] * POCT glucose (02/17/2025 4:48 PM CDT) Glucose, POC 155 70 - 199 mg/dL Blood 02/17/2025 4:48 PM CDT 02/17/2025 4:48 PM CDT Anne Marie España MD LAB POCT ORDERABLES - DEVICE Final Result Performing Organization Address [facility] Co de Phone Number [facility] [place] [address] * Oxyhemoglobin, central venous (02/17/2025 2:38 PM CDT) Oxyhemoglobin, CV 78.4 % Comment: Interpretive Data No reference range established. Current interpretive data was last revised 2019. Blood 02/17/2025 2:38 PM CDT 02/17/2025 2:42 PM CDT Elyse Duffy NP LAB BLOOD ORDERABLES Fi nal Result [facility] [place] [address] * POCT glucose (02/17/2025 2:35 PM CDT) Glucose, POC 141 70 - 199 mg/dL Blood 02/17/2025 2:35 PM CDT 02/17/2025 2:35 PM CDT Anne Marie España MD LAB POCT ORDERABLES - DEVICE Final Result Performing Organization Address [facility] Co de Phone Number [facility] [place] [address] * XR Chest 1 View (02/17/2025 2:25 [...] 12 lead (02/17/2025 1:45 PM CDT) Pathologist [facility] Ventricular Rate EKG/Min 66 BPM [facility] Atrial Rate [address] [facility] [place]-Interval (MSEC) [address] [facility] QRS-Interval (MSEC) [address] [facility] QT-Interval (MSEC) [address] [facility] QTc [address] [facility] P [place] [address] [facility] R [place] [address] [facility] T [place] [address] [facility] Diagnosis Normal sinus rhythm Minimal voltage criteria for LVH, may be normal variant ( Sokolow-Talbot ) Borderline ECG When compared with ECG of 03-FEB-2025 11:12, (unconfirmed) No significant change was found Confirmed by HAWA KOTHARI M.D ([id number]) on 02/17/2025 4:09:[address] [facility] 02/17/2025 1:45 PM CDT 02/17/2025 4:09 PM CDT Anne Marie España MD ECG ORDERABLES Final Result [facility] * Critical Care (02/17/2025 1:37 PM CDT) Narrative Ester Dunn MD - 02/17/2025 1:37 PM CDT Ester Dunn MD 02/18/2025 1:23 PM Critical Care Performed by: Elyse Duffy NP Authorized by: Elyse Duffy NP CRITICAL CARE: Team: [facility] Shift: AM Level of Billing: Critical Care [...] plan with the ICU team and other medical/bridal sales consultant staff, making frequent assessments and decisions [...] time documenting in the medical record us lEyse Duffy NP IN CLINIC/BEDSIDE ORDER FELISA Final [...] ORDERABLES Final Re sult [facility] [place] [address] * (ABNORMAL) POC Blood Gas and Chemistries, Arterial - (02/17/2025 1:32 PM CDT) [facility] pH, Art POC 7.33(L) 7.35 - 7.45 pCO2, Art POC 44 35 - 45 mmHg [facility] pO2, Art POC 150(H) 83 - 108 mmHg [facility] Na, POC 138 135 - 145 mmol/L [facility] K POC 4.5 3.3 - 4.9 mmol/L [facility] Comment: Interpretive Data Not all point of care methods assess for hemolysis. Confirm with instrument and retest K+ if not consistent with clinical signs and symptoms. Current Interpretive Data was last revised on 2024. Cl, POC 108 97 - 110 mmol/L [facility] Ionized Ca, POC 5.46(H) 4.50 - 5.10 mg/dL [facility] Glucose, POC 146 70 - 199 mg/dL [facility] Lactate POC 2.6(H) 0.7 - 2.0 mmol/L [facility] SO2 (olvin) arterial 99(H) 90 - 95 % [facility] Base excess, POC -2.8 mmol/L [facility] HCO3, Art POC 23 20 - 30 mmol/L [facility] Hct, POC 35.0(L) 41.4 - 51.6 % [facility] Total Hb, POC 11.6(L) 13.8 - 17.2 g/dL [facility] Blood 02/17/2025 1:32 PM CDT 02/17/2025 1:32 PM CDT us Anne Marie España MD LAB POCT ORDERABLES - DEVICE Final Result [facility] Department [place] [address] * aPTT (02/17/2025 1:32 PM CDT) aPTT [...] ORDERABLES Final Re sult Performing Organization Address [facility] Co de Phone Number [facility] [employer] [place] [address] * (ABNORMAL) Protime-INR (02/17/2025 1:32 PM CDT) Pathologist [facility] PT 14.7(H) 9.7 - 13.0 sec INR 1.35(H) 0.90 - 1.20 [facility] Comment: Interpretive data Oral anticoagulant [...] ORDERABLES Final Re sult Performing Organization Address City/[facility] Co de Phone Number [facility] [employer] [place] [address] * (ABNORMAL) CBC without differential (02/17/2025 1:32 PM CDT) Pathologist [facility] WBC 10.51(H) 3.80 - 9.90 K/cumm Hgb 11.1(L) 13.0 - 17.5 g/dL [facility] Hct 32.1(L) 38.9 - 50.3 % [facility] Plt 90(L) 150 - 400 K/cumm [facility] MPV 11.8 9.1 - 12.3 fL [facility] RBC 3.21(L) 4.30 - 5.80 M/cumm [facility] MCV 100.0(H) 81.3 - 96.4 fL [facility] MCH 34.6(H) 27.1 - 33.3 pg [facility] MCHC 34.6 32.3 - 35.7 g/dL [facility] RDW CV 12.2 11.1 - 14.9 % [facility] RDW SD 44.6 35.7 - 48.1 fL [facility] NRBC abs 0.00 0.00 - 0.01 K/cumm [facility] Blood 02/17/2025 1:32 PM CDT 02/17/2025 1:51 PM CDT Anne Marie España MD LAB BLOOD ORDERABLES Final Re sult Performing Organization Address City/[facility]/ZIP Co de Phone Number [facility] Department of [employer] [place] [address] * Magnesium (02/17/2025 1:32 PM CDT) [facility] Magnesium 2.2 1.4 - 2.5 mg/dL Blood 02/17/2025 1:32 PM CDT 02/17/2025 1:51 PM CDT Anne Marie España MD LAB BLOOD ORDERABLES Final Re sult [facility] [employer] [place] [address] * Basic metabolic panel (02/17/2025 1:32 PM CDT) [facility] Sodium 138 135 - 145 mmol/L Potassium, pl 4.5 3.3 - 4.9 mmol/L [facility] Chloride 110 97 - 110 mmol/L [facility] CO2 24 22 - 32 mmol/L [facility] Anion gap 4 2 - 15 mmol/L [facility] BUN 20 6 - 25 mg/dL [facility] Creatinine 0.81 0.80 - 1.30 mg/dL [facility] Glucose 145 70 - 199 mg/dL [facility] Comment: Interpretive Data Fasting glucose [...] 2022. Calcium 9.3 8.5 - 10.3 mg/dL [facility] Blood 02/17/2025 1:32 PM CDT 02/17/2025 1:51 PM CDT us Anne Marie España MD LAB BLOOD ORDERABLES Final Re sult [facility] [place] [address] * [place] AN ELECTIVE ENDOTRACHEAL AIRWAY, [place] AN PROCEDURE PLACEHOLDER (02/17/2025 1:25 PM CDT) [...] time (PTT) (02/17/2025 12:25 PM CDT) Pathologist [facility] APTT, POC 30.8(L) 32.5 - 46.1 sec Blood 02/17/2025 12:2 5 PM CDT 02/17/2025 12:25 PM CDT Anne Marie España MD LAB POCT ORDERABLES - DEVICE Final Result [facility] Department [place] [address] * (ABNORMAL) POC Blood Gas and Chemistries, Arterial - (02/17/2025 12:25 PM CDT) Pathologist [facility] pH, Art POC 7.29(L) 7.35 - 7.45 pCO2, Art POC 46(H) 35 - 45 mmHg [facility] pO2, Art POC 92 83 - [address] [facility] Na, POC 138 135 - 145 mmol/L [facility] K POC 4.5 3.3 - 4.9 mmol/L [facility] Comment: Interpretive Data Not all point of care methods assess for hemolysis. Confirm with instrument and retest K+ if not consistent with clinical signs and symptoms. Current Interpretive Data was last revised on 2024. Cl, POC 109 97 - 110 mmol/L [facility] Ionized Ca, POC 5.48(H) 4.50 - 5.10 mg/dL [facility] Glucose, POC 179 70 - 199 mg/dL [facility] Lactate POC 2.3(H) 0.7 - 2.0 mmol/L [facility] SO2 (olvin) arterial 98(H) 90 - 95 % [facility] Base excess, POC -4.5 mmol/L [facility] HCO3, Art POC 21 20 - 30 mmol/L [facility] Hct, POC 34.0(L) 41.4 - 51.6 % [facility] Total Hb, POC 11.3(L) 13.8 - 17.2 g/dL [facility] Blood 02/17/2025 12:2 5 PM CDT 02/17/2025 12:25 PM CDT Anne Marie España MD LAB POCT ORDERABLES - DEVICE Final Result Performing Organization Address [facility] Co de Phone Number [facility] Department of [employer] [place] [address] * (ABNORMAL) POCT prothrombin time (02/17/2025 12:24 PM CDT) Pathologist [facility] PT, POC 22.4(H) 11.7 - 16.6 sec INR, POC 1.7(H) 0.9 - 1.2 [facility] Blood 02/17/2025 12:2 4 PM CDT 02/17/2025 12:24 PM CDT Anne Marie España MD LAB POCT ORDERABLES - DEVICE Final Result [facility] [employer] [place] [address] * (ABNORMAL) POCT hemoglobin, hematocrit and platelet count (02/17/2025 12:24 PM CDT) Hgb, POC 10.6(L) 13.0 - 17.5 g/dL Hematocrit POC 31.2(L) 38.9 - 50.3 % [facility] Platelet POC 71(L) 150 - 400 K/cumm [facility] Blood 02/17/2025 12:2 4 PM CDT 02/17/2025 12:24 PM CDT Anne Marie España MD LAB POCT ORDERABLES - DEVICE Final Result Performing Organization Address [facility] Co de Phone Number [facility] [place] [address] * POCT heparin/ACT CPB (02/17/2025 12:22 PM CDT) Pathologist [facility] Heparin POC 0.0 units/mL ACT, CPB 112 112 - 174 sec [facility] Blood 02/17/2025 12:2 2 PM CDT 02/17/2025 12:22 PM CDT Anne Marie España MD LAB POCT ORDERABLES - DEVICE Final Result Performing Organization Address City/[facility] de Phone Number [facility] [place] [address] * (ABNORMAL) POC Blood Gas and Chemistries, Arterial - (02/17/2025 11:55 AM CDT) pH, Art POC 7.35 7.35 - 7.45 pCO2, Art POC 39 35 - 45 mmHg [facility] pO2, Art POC 154(H) 83 - 108 mmHg [facility] Na, POC 138 135 - 145 mmol/L [facility] K POC 5.2(H) 3.3 - 4.9 mmol/L [facility] Comment: Interpretive Data Not all point of care methods assess for hemolysis. Confirm with instrument and retest K+ if not consistent with clinical signs and symptoms. Current Interpretive Data was last revised on 2024. Cl, POC 113(H) 97 - 110 mmol/L [facility] Ionized Ca, POC 5.64(H) 4.50 - 5.10 mg/dL [facility] Glucose, POC 178 70 - 199 mg/dL [facility] Lactate POC 1.8 0.7 - 2.0 mmol/L [facility] SO2 (olvin) arterial 100(H) 90 - 95 % [facility] Base excess, POC -3.8 mmol/L [facility] HCO3, Art POC 22 20 - 30 mmol/L [facility] Hct, POC 32.0(L) 41.4 - 51.6 % [facility] Total Hb, POC 10.6(L) 13.8 - 17.2 g/dL [facility] Blood 02/17/2025 11:5 5 AM CDT 02/17/2025 11:55 AM CDT Anne Marie España MD LAB POCT ORDERABLES - DEVICE Final Result Performing Organization Address [facility] de Phone Number [facility] Department [place] [address] * (ABNORMAL) POCT heparin/ACT CPB (02/17/2025 11:49 AM CDT) Heparin POC 3.4 units/mL ACT, CPB 479(H) 112 - 174 sec [facility] Blood 02/17/2025 11:4 9 AM CDT 02/17/2025 11:49 AM CDT Anne Marie España MD LAB POCT ORDERABLES - DEVICE Final Result Performing Organization Address City/State/[facility] Co de Phone Number [facility] [place] [employer] [place] [address] * (ABNORMAL) POCT heparin/ACT CPB (02/17/2025 11:15 AM CDT) Heparin POC <2.8 units/mL ACT, CPB 465(H) 112 - 174 sec [facility] Blood 02/17/2025 11:1 5 AM CDT 02/17/2025 11:15 AM CDT us Anne Marie España MD LAB POCT ORDERABLES - DEVICE Final Result [facility] [place] [address] * (ABNORMAL) POC Blood Gas and Chemistries, Arterial - (02/17/2025 11:14 AM CDT) pH, Art POC 7.37 7.35 - 7.45 pCO2, Art POC 39 35 - 45 mmHg [facility] pO2, Art POC 296(H) 83 - 108 mmHg [facility] Na, POC 138 135 - 145 mmol/L [facility] K POC 5.0(H) 3.3 - 4.9 mmol/L [facility] Comment: Interpretive Data Not all point of care methods assess for hemolysis. Confirm with instrument and retest K+ if not consistent with clinical signs and symptoms. Current Interpretive Data was last revised on 2024. Cl, POC 111(H) 97 - 110 mmol/L [facility] Ionized Ca, POC 4.46(L) 4.50 - 5.10 mg/dL [facility] Glucose, POC 166 70 - 199 mg/dL [facility] Lactate POC 1.2 0.7 - 2.0 mmol/L [facility] SO2 (olvin) arterial 100(H) 90 - 95 % [facility] Base excess, POC -2.5 mmol/L [facility] HCO3, Art POC 23 20 - 30 mmol/L [facility] Hct, POC 32.0(L) 41.4 - 51.6 % [facility] Total Hb, POC 10.5(L) 13.8 - 17.2 g/dL [facility] Blood 02/17/2025 11:1 4 AM CDT 02/17/2025 11:14 AM CDT us Anne Marie España MD LAB POCT ORDERABLES - DEVICE Final Result [facility] Department [place] [address] * (ABNORMAL) POCT heparin/ACT CPB (02/17/2025 10:43 AM CDT) Heparin POC 3.4 units/mL ACT, CPB 549(H) 112 - 174 sec [facility] Blood 02/17/2025 10:4 3 AM CDT 02/17/2025 10:43 AM CDT us Anne Marie España MD LAB POCT ORDERABLES - DEVICE Final Result [facility] [place] [address] * (ABNORMAL) POC Blood Gas and Chemistries, Arterial - (02/17/2025 10:42 AM CDT) pH, Art POC 7.35 7.35 - 7.45 pCO2, Art POC 42 35 - 45 mmHg [facility] pO2, Art POC 320(H) 83 - 108 mmHg [facility] Na, POC 137 135 - 145 mmol/L [facility] K POC 4.8 3.3 - 4.9 mmol/L [facility] Comment: Interpretive Data Not all point of care methods assess for hemolysis. Confirm with instrument and retest K+ if not consistent with clinical signs and symptoms. Current Interpretive Data was last revised on 2024. Cl, POC 110 97 - 110 mmol/L [facility] Ionized Ca, POC 4.57 4.50 - 5.10 mg/dL [facility] Glucose, POC 154 70 - 199 mg/dL [facility] Lactate POC 1.3 0.7 - 2.0 mmol/L [facility] SO2 (olvin) arterial 100(H) 90 - 95 % [facility] Base excess, POC -2.3 mmol/L [facility] HCO3, Art POC 23 20 - 30 mmol/L [facility] Hct, POC 33.0(L) 41.4 - 51.6 % [facility] Total Hb, POC 11.1(L) 13.8 - 17.2 g/dL [facility] Blood 02/17/2025 10:4 2 AM CDT 02/17/2025 10:42 AM CDT Anne Marie España MD LAB POCT ORDERABLES - DEVICE Final Result Performing Organization Address [facility] de Phone Number [facility] [place] [address] * (ABNORMAL) POCT heparin/ACT CPB (02/17/2025 10:08 AM CDT) Pathologist [facility] Heparin POC 4.1 units/mL ACT, CPB 498(H) 112 - 174 sec [facility] Blood 02/17/2025 10:0 8 AM CDT 02/17/2025 10:08 AM CDT Anne Marie España MD LAB POCT ORDERABLES - DEVICE Final Result Performing Organization Address [facility] de Phone Number [facility] [place] [address] * (ABNORMAL) POC Blood Gas and Chemistries, Arterial - (02/17/2025 10:07 AM CDT) pH, Art POC 7.41 7.35 - 7.45 pCO2, Art POC 35 35 - 45 mmHg [facility] pO2, Art POC 378(H) 83 - 108 mmHg [facility] Na, POC 138 135 - 145 mmol/L [facility] K POC 4.2 3.3 - 4.9 mmol/L [facility] Comment: Interpretive Data Not all point of care methods assess for hemolysis. Confirm with instrument and retest K+ if not consistent with clinical signs and symptoms. Current Interpretive Data was last revised on 2024. Cl, POC 109 97 - 110 mmol/L [facility] Ionized Ca, POC 4.49(L) 4.50 - 5.10 mg/dL [facility] Glucose, POC 131 70 - 199 mg/dL [facility] Lactate POC 2.1(H) 0.7 - 2.0 mmol/L [facility] SO2 (olvin) arterial 98(H) 90 - 95 % [facility] Base excess, POC -2.0 mmol/L [facility] HCO3, Art POC 23 20 - 30 mmol/L [facility] Hct, POC 34.0(L) 41.4 - 51.6 % [facility] Total Hb, POC 11.2(L) 13.8 - 17.2 g/dL [facility] Blood 02/17/2025 10:0 7 AM CDT 02/17/2025 10:07 AM CDT Anne Marie España MD LAB POCT ORDERABLES - DEVICE Final Result Performing Organization Address City/[facility] Co de Phone Number [facility] [place] [address] * (ABNORMAL) POCT heparin/ACT CPB (02/17/2025 9:41 AM CDT) Pathologist [facility] Heparin POC >4.7 units/mL ACT, CPB 539(H) 112 - 174 sec [facility] Blood 02/17/2025 9:41 AM CDT 02/17/2025 9:41 AM CDT Anne Marie España MD LAB POCT ORDERABLES - DEVICE Final Result Performing Organization Address [facility] de Phone Number [facility] [place] [address] * (ABNORMAL) POC Blood Gas and Chemistries, Arterial - (02/17/2025 9:30 AM CDT) pH, Art POC 7.40 7.35 - 7.45 pCO2, Art POC 36 35 - 45 mmHg [facility] pO2, Art POC 373(H) 83 - 108 mmHg [facility] Na, POC 137 135 - 145 mmol/L [facility] K POC 3.8 3.3 - 4.9 mmol/L [facility] Comment: Interpretive Data Not all point of care methods assess for hemolysis. Confirm with instrument and retest K+ if not consistent with clinical signs and symptoms. Current Interpretive Data was last revised on 2024. Cl, POC 109 97 - 110 mmol/L [facility] Glucose, POC 122 70 - 199 mg/dL [facility] Lactate POC 2.2(H) 0.7 - 2.0 mmol/L [facility] SO2 (olvin) arterial 100(H) 90 - 95 % [facility] Base excess, POC -2.1 mmol/L [facility] HCO3, Art POC 23 20 - 30 mmol/L [facility] Hct, POC 38.0(L) 41.4 - 51.6 % [facility] Total Hb, POC 12.7(L) 13.8 - 17.2 g/dL [facility] Blood 02/17/2025 9:30 AM CDT 02/17/2025 9:30 AM CDT us Anne Marie España MD LAB POCT ORDERABLES - DEVICE Final Result [facility] [place] [address] * [place] AN PROCEDURE PLACEHOLDER (02/17/2025 9:28 AM CDT) [...] code: PJ placement and diagnostic exam, non-congenital (24443) ICD code(s) for medical necessity: I34.0 - [...] inferior: normal 16- Apical septal: normal 17- [place]: normal Valves: Aortic Valve: Annulus: normal Leaflet [...] Tucker MD - 02/17/2025 9:27 AM CDT Hmeant Tucker MD 02/17/2025 9:27 AM Central Venous [...] response slope POC 107 60 - 195 [facility] Projected Heparin Concentration POC 4.2 units/mL [facility] Blood 02/17/2025 9:16 AM CDT 02/17/2025 9:16 AM CDT Anne Marie España MD LAB POCT ORDERABLES - DEVICE Final Result Performing Organization Address City/[facility] Co de Phone Number [facility] [place] [address] * PJ Add-On For OR (02/17/2025 7:04 AM CDT) Narrative [facility] PROSOLV_CARDIOREPORT_CONS SCIMAGE - 02/17/2025 7:04 AM CDT Procedure Auto Finalized by Rule: JORDIN CV PJ DURING CASE OR Please see the Anesthesiologist's Procedure Note for the results. Hemant Tucker MD CV ECHO PROCEDURES Final Result Performing Organization Address [facility] Co de Phone Number [facility] PROSOLV_CARDIOREPORT_CONS SCIMAGE * Type and screen (02/17/2025 6:58 AM CDT) Vivi, indirect Negative ABO Rh A Positive [facility] Blood 02/17/2025 6:58 AM CDT 02/17/2025 7:20 AM CDT Anne Marie España MD LAB BLOOD BANK TEST ORDERABLE S Final Result Performing Organization Address City/[facility]/ZIP Co de Phone Number [facility] [place] [address] * Prepare RBC: 4 Units (02/17/2025 6:26 AM CDT) Product code [id number] [facility] Unit Number [id number] 4-6 [facility] Product Blood Type APOS [facility] Dispense Status RETURNED [facility] Product code [id number] [facility] Unit Number [id number] 5-* [facility] Product Blood Type APOS [facility] Dispense Status RETURNED [facility] Product code [id number] [facility] Unit Number [id number] 4-P [facility] Product Blood Type APOS [facility] Dispense Status RETURNED [facility] Product code [id number] Unit Number [id number] 6-5 [facility] Product Blood Type APOS [facility] Dispense Status RETURNED [facility] Blood 02/17/2025 6:26 AM CDT 02/17/2025 6:26 AM CDT Narrative [facility] - 02/17/2025 1:26 PM CDT 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 (All products are leukoreduced and CMV- safe)- >No Date required:-[id number] LRRBC # of [id number] Reasons:-Hold for procedure (specify procedure)} us Anne Marie España MD BLOOD BANK PRODUCT ORDERABLES Final Result [facility] [place] [address] * XR Chest PA Lateral 2 Views [...] BLOOD BANK TEST OR DERABLES Final Result [facility] [place] [address] * eGFR (02/03/2025 11:23 AM CDT) eGFR [...] MD LAB BLOOD ORDERABLES F inal Result [facility] [place] [address] * Differential, auto (02/03/2025 11:23 AM CDT) Pathologist [facility] Neutrophil abs 4.22 1.50 - 6.50 K/cumm Imm gran abs 0.01 0.00 - 0.10 K/cumm [facility] Lymphocyte abs 1.29 0.80 - 3.30 K/cumm [facility] Monocyte abs 0.74 0.20 - 0.80 K/cumm [facility] Eosinophil abs 0.17 0.00 - 0.50 K/cumm [facility] Basophil abs 0.04 0.00 - 0.10 K/cumm [facility] Neutrophil pct 65.3 % [facility] Comment: Interpretive Data Percent cell count reference ranges are not reported, since discordance with absolute values may lead to misinterpretation of CBC data. Current Interpretive Data was last revised on 2018. Imm gran pct 0.2 % [facility] Comment: Interpretive Data Percent cell count reference ranges are not reported, since discordance with absolute values may lead to misinterpretation of CBC data. Current Interpretive Data was last revised on 2018. Lymphocyte pct 19.9 % [facility] Comment: Interpretive Data Percent cell count reference ranges are not reported, since discordance with absolute values may lead to misinterpretation of CBC data. Current Interpretive Data was last revised on 2018. Monocyte pct 11.4 % [facility] Comment: Interpretive Data Percent cell count reference ranges are not reported, since discordance with absolute values may lead to misinterpretation of CBC data. Current Interpretive Data was last revised on 2018. Eosinophil pct 2.6 % [facility] Comment: Interpretive Data Percent cell count reference ranges are not reported, since discordance with absolute values may lead to misinterpretation of CBC data. Current Interpretive Data was last revised on 2018. Basophil pct 0.6 % [facility] Comment: Interpretive Data Percent cell count reference ranges are not reported, since discordance with absolute values may lead to misinterpretation of CBC data. Current Interpretive Data was last revised on 2018. Blood 02/03/2025 11:2 3 AM CDT 02/03/2025 12:29 PM CDT us Eddie Carbone MD LAB BLOOD ORDERABLES F inal Result [facility] Department of Laboratories [place], [place] [id number] * CPAP aPTT algorithm (02/03/2025 11:23 AM [...] MD LAB BLOOD ORDERABLES F inal Result [facility] Department [place] [address] * (ABNORMAL) Urinalysis reflex to microscopic and culture Urine (02/03/2025 11:23 AM CDT) Color, ur Yellow Yellow Clarity, ur Clear Clear [facility] Specific gravity, ur 1.031(H) 1.003 - 1.030 [facility] pH, urine 5.5 [facility] Comment: Interpretive Data U rine pH is affected by diet, medications, systemic acid-base disturbances, and renal tubular function. pH may affect urinary stone formation. For example, urine pH below 6.0 may help reduce the tendency for calcium phosphate stones and pH greater than 6.0 may reduce the tendency for uric acid stone formation. Source: [facility] Current Interpretive Data was last revised on 2017 Protein, ur ql Negative Negative [facility] Glucose, ur ql Negative Negative [facility] Ketones, ur Negative Negative [facility] Bilirubin, ur Negative Negative [facility] Blood, ur Negative Negative [facility] Urobilinogen, ur <2.0 <2.0 mg/dL [facility] Nitrite, ur Negative Negative [facility] Leukocyte esterase, ur Negative Negative [facility] UA reflex comment Reflex conditions for microscopic UA and culture not met. [facility] Urine 02/03/2025 11:2 3 AM CDT 02/03/2025 12:20 PM CDT us Eddie Carbone MD LAB MICROBIOLOGY - GEN ERAL ORDERABLES Final Result [facility] [place] [address] * (ABNORMAL) CBC with auto differential (02/03/2025 11:23 AM CDT) [facility] WBC 6.47 3.80 - 9.90 K/cumm Hgb 15.0 13.0 - 17.5 g/dL [facility] Hct 43.7 38.9 - 50.3 % [facility] Plt 144(L) 150 - 400 K/cumm [facility] MPV 12.2 9.1 - 12.3 fL [facility] RBC 4.39 4.30 - 5.80 M/cumm [facility] MCV 99.5(H) 81.3 - 96.4 fL [facility] MCH 34.2(H) 27.1 - 33.3 pg [facility] MCHC 34.3 32.3 - 35.7 g/dL [facility] RDW CV 12.0 11.1 - 14.9 % [facility] RDW SD 44.1 35.7 - 48.1 fL [facility] NRBC abs 0.00 0.00 - 0.01 K/cumm [facility] Blood 02/03/2025 11:2 3 AM CDT 02/03/2025 12:29 PM CDT us Eddie Carbone MD LAB BLOOD ORDERABLES F inal Result [facility] [address] [facility] [place] [address] * Protime-INR (02/03/2025 11:23 AM CDT) [facility] PT 12.2 9.7 - 13.0 sec INR 1.13 0.90 - 1.20 [facility] Comment: Interpretive data Oral anticoagulant therapeutic ranges: Venous thromboembolism prophylaxis or treatment: 2.0-3.0 CARDIOLOGY Standard range: 2.0-3.0 High-intensity range: 2.5-3.5 Refer to indication-specific guidelines for appropriate target ranges for prosthetic heart valve replacement. Current interpretive data was last revised on 2019. Blood 02/03/2025 11:2 3 AM CDT 02/03/2025 12:33 PM CDT us Eddie Carbone MD LAB BLOOD ORDERABLES F inal Result [facility] [address] [facility] [place] [address] * (ABNORMAL) Comprehensive metabolic panel (02/03/2025 11:23 AM CDT) Sodium 143 135 - 145 mmol/L Potassium, pl 4.6 3.3 - 4.9 mmol/L [facility] Chloride 108 97 - 110 mmol/L [facility] CO2 26 22 - 32 mmol/L [facility] Anion gap 9 2 - 15 mmol/L [facility] BUN 28(H) 6 - 25 mg/dL [facility] Creatinine 0.78(L) 0.80 - 1.30 mg/dL [facility] Glucose 104 70 - 199 mg/dL [facility] Comment: Interpretive Data Fasting glucose [...] Calcium 9.2 8.5 - 10.3 mg/dL [facility] Bilirubin, total 0.5 0.1 - 1.2 mg/dL [facility] Protein, pl 7.1 6.5 - 8.5 g/dL [facility] Albumin 4.4 3.5 - 5.0 g/dL [facility] Alk phos 77 40 - 130 Units/L [facility] ALT 33 7 - 55 Units/L [facility] AST 28 10 - 50 Units/L [facility] Blood 02/03/2025 11:2 3 AM CDT 02/03/2025 12:29 PM CDT Eddie Carbone MD LAB BLOOD ORDERABLES F inal Result [facility] [place] [address] from Last 3 Months Insurance MEDICARE [employer] SENIOR SUPPLEMENT MEDICARE [employer] SENIOR SUPPLEMENT Advance Directives For more information, please contact: [phone] Documents on File Type Date Recorded Patient Post Doctoral Researcher Expl anation ADVANCE DIRECTIVE 02/17/2025 6:46 AM Power of White Sugar Supervisor-Medical * Full Code (Latest Code Status on File) Date Activated Date Inactivated Comments 02/17/2025 1:18 PM 02/20/2025 4:49 PM * Full Code Date Activated Date Inactivated Comments 12/07/2024 2:05 PM 12/07/2024 8:36 PM * Full Code Date Activated Date Inactivated Comments 08/26/2024 10:28 AM 08/27/2024 4:55 AM Care Teams Riprap Man Relationship Specialty Start Date End Date Nora Montes MD [address] [place] [address] DR REID [address] [place] [id number] PCP - General Family Medicine 04/06/24 Anne Marie España MD [address] [place] [address] DR REID [address] [place] [id number] Cardiothoracic Surgery 02/20/25
[2025-03-11 19:18] LABS: Erythrocyte Sedimentation Rate 34 mm/hr (0-20)
[2025-03-11 19:45] LABS: CRP 1.6 mg/dL (<1.0)
[2025-03-11 20:23] LABS: Lactic Acid Reflex 0.8 mmol/L (0.7-2.0)
--- NOTE | 2025-03-11 20:58 | ED.GENADULT ---
HPI - General Adult General Chief complaint: Unspecified <Emery Sung MD - Last Filed: 03/11/25 22:15> Stated complaint: r/o endocarditis? <Emery Sung MD - Last Filed: 03/11/25 22:15> Time Seen by Provider: 03/11/25 17:30 <Emery Sung MD - Last Filed: 03/11/25 22:15> History of Present Illness HPI narrative: This is a 69-year-old male presenting ED for endocarditis rule out. Seven days ago the patient developed URI symptoms including sinus congestion, ear pressure and productive cough. He denies fevers chills chest pain difficulty breathing, lower extremity edema or night sweats. He was seen in urgent care earlier today and he was referred to the ED is concerns for infective endocarditis as he had a mitral valve repair performed on February [address] Bedoya going to [facility] system <Emery Sung MD - Last Filed: 03/11/25 22:15> Related Data Home medications: Home Medications ?Medication ?Instructions ?Recorded ?Confirmed ?Last Taken ?Type krill 300 mg-omega-3 90 mg-dha 27 1 cap PO DAILY 07/02/22 03/11/25 03/11/25 History mg-epa 45 [id number]-[id number] capsule (Maximum Red Krill [place]-3) <Emery Sung MD - Last Filed: 03/11/25 22:15> Allergies/adverse reactions: Allergies Allergy/AdvReac Type Severity Reaction Status Date / Time codeine Allergy Unknown rash/itchin Verified 03/11/25 14:44 g <Emery Sung MD - Last Filed: 03/11/25 22:15> [facility] Surgical History Surgical History: Surgical History S/P patent foramen ovale closure 2024 H/O mitral valve replacement 2024 H/O colonoscopy (~2010) H/O hernia repair <Emery Sung MD - Last Filed: 03/11/25 22:15> Family History Family History: Family History Mother Hypertension Family history of elevated blood lipids Grandparent Family history of malignant neoplasm of uterus Family history of malignant neoplasm of ovary <Emery Sung MD - Last Filed: 03/11/25 22:15> Social History Social History: Social History Smoking status: Former smoker Tobacco type: cigarettes Smoking end date: 10/14/08 Alcohol intake: former Substance use: never Substance use type: does not use Do You Feel Safe in your Home?: Yes Lack of Transportation: No Lack of Food: Never True Current Housing: I Have Housing Concerned About Future Housing: No Difficulty Paying Gas/Electric Bills: No Difficulty Paying for Meds: No Currently Unemployed: No Education: High School Diploma/GED Difficulty w/ Childcare or Family Care: No Living arrangements: with family Spiritual care concerns: No <Emery Sung MD - Last Filed: 03/11/25 22:15> Exam Narrative: APPEARANCE: No apparent distress. Head: atraumatic. TMs have serous effusion, no erythema posterior pharynx EYES: EOMI, NOSE: Atraumatic NECK: Trachea midline RESPIRATORY: No increased rate of breathing clear to auscultation CARDIOVASCULAR: tachycardic, no peripheral edema ABDOMINAL: Non-distended soft nontender MUSCULOSKELETAl: No obvious deformities NEURO: Alert. Moving 4/4 extremities SKIN:: Warm, dry. Normal color PSYCHIATRIC: Normal affect <Emery Sung MD - Last Filed: 03/11/25 22:15> Course Course Emergency Course: Patient care taken over by previous ER physician Dr. Sung at 10:00 p.m. patient found to be in new onset a flutter with rapid ventricular response. Discussions with our in-house java performance engineer Dr. Pozo recommendations are for metoprolol management 5 mg and p.o. transition given his reduction in EF bed baseline. Discussed the case with the cardiothoracic surgeon (Dr. Coleman; covering physician) at [facility] who is familiar with the patient's case and stated that this is a known complication that happens about 30-40% of patients and they would prefer rather aggressive treatments of trying to convert him with chemical cardioversion given the duration of his symptoms. Recommendations are for boluses of amiodarone and infusions for maintenance dose which were ordered and to the EMR provided at bedside. Patient is currently rate controlled with heart rate in the 90s to 100s. Still remains in atrial flutter. Discussed with her hospitalist with the plans from both are java performance engineer and cardiothoracic surgeon from [facility] recommendations. Patient was accepted to the IMU and remained hemodynamically stable for admission at this time. <José Miguel Clayton MD - Last Filed: 03/12/25 04:08> Vital Signs Vital signs: Vital Signs Temperature 36.8 C 03/11/25 14:21 Pulse Rate 67 03/11/25 14:21 Respiratory Rate 16 03/11/25 14:21 Blood Pressure 146/110 H 03/11/25 14:21 Pulse Oximetry 99 03/11/25 14:21 Temperature 36.7 C 03/12/25 03:49 Pulse Rate 113 H 03/12/25 03:49 Respiratory Rate 22 H 03/12/25 03:49 Blood Pressure 119/92 H 03/12/25 03:49 Pulse Oximetry 98 03/12/25 03:49 Oxygen Delivery Room Air 03/12/25 03:29 <Emery Sung MD - Last Filed: 03/11/25 22:15> Vital Signs Temperature 36.8 C 03/11/25 14:21 Pulse Rate 67 03/11/25 14:21 Respiratory Rate 16 03/11/25 14:21 Blood Pressure 146/110 H 03/11/25 14:21 Pulse Oximetry 99 03/11/25 14:21 Temperature 36.7 C 03/12/25 03:49 Pulse Rate 113 H 03/12/25 03:49 Respiratory Rate 22 H 03/12/25 03:49 Blood Pressure 119/92 H 03/12/25 03:49 Pulse Oximetry 98 03/12/25 03:49 Oxygen Delivery Room Air 03/12/25 03:29 <José Miguel Clayton MD - Last Filed: 03/12/25 04:08> Medical Decision Making MDM Narrative Medical decision making narrative: -Course: 69-year-old male recently underwent mitral valve repair presenting for upper respiratory symptoms. White count is normal. Patient is afebrile. CT PE showed atelectasis with small pleural effusions but no evidence of pneumonia. Blood cultures are pending. Mild elevations in inflammatory markers of unknown significance. Rest the patient's workup is Patient is in atrial flutter with rapid ventricular response. Attempted to reach his cardio thoracic surgeon @ [facility]. he is an emergent surgery and we are waiting his call back. Case discussed with Dr. Pozo. He recommended we start the patient on metoprolol and heparin. patient has been signed out to the oncoming physician pending call back from his surgeon. Patient require admission our hospital or transferred to [facility]. <Emery Sung MD - Last Filed: 03/11/25 22:15> Vital Signs Vital Signs: Vital Signs Temperature 36.8 C 03/11/25 14:21 Pulse Rate 67 03/11/25 14:21 Respiratory Rate 16 03/11/25 14:21 Blood Pressure 146/110 H 03/11/25 14:21 Pulse Oximetry 99 03/11/25 14:21 Temperature 36.7 C 03/12/25 03:49 Pulse Rate 113 H 03/12/25 03:49 Respiratory Rate 22 H 03/12/25 03:49 Blood Pressure 119/92 H 03/12/25 03:49 Pulse Oximetry 98 03/12/25 03:49 Oxygen Delivery Room Air 03/12/25 03:29 <Emery Sung MD - Last Filed: 03/11/25 22:15> Vital Signs Temperature 36.8 C 03/11/25 14:21 Pulse Rate 67 03/11/25 14:21 Respiratory Rate 16 03/11/25 14:21 Blood Pressure 146/110 H 03/11/25 14:21 Pulse Oximetry 99 03/11/25 14:21 Temperature 36.7 C 03/12/25 03:49 Pulse Rate 113 H 03/12/25 03:49 Respiratory Rate 22 H 03/12/25 03:49 Blood Pressure 119/92 H 03/12/25 03:49 Pulse Oximetry 98 03/12/25 03:49 Oxygen Delivery Room Air 03/12/25 03:29 <José Miguel Clayton MD - Last Filed: 03/12/25 04:08> Lab Data Result diagrams: 03/11/25 23:13 03/11/25 14:50 <Emery Sung MD - Last Filed: 03/11/25 22:15> Labs: Lab Results 03/11/25 03/11/25 03/11/25 Range/Units 14:50 16:58 19:53 WBC 8.1 (4.5-10.0) K/mm3 RBC 3.95 L (4.6-6.20) M/mm3 Hgb 13.0 L (14.0-18.0) g/dL Hct 39.9 L (42.0-52.0) % MCV 101.0 H (80-100) fl MCH 32.9 (26-34) pg MCHC 32.6 (32-36) g/dl RDW 12.9 (11.5-14.5) % Plt Count 278 (150-375) k/mm3 MPV 9.7 (7.4-10.4) fl Immature Gran % (Auto) 0.2 (0-0.5) % Neut % (Auto) 67.9 (45.5-73.1) % Lymph % (Auto) 18.3 (18.3-44.2) % Branch % (Auto) 11.5 H (2.6-8.5) % Eos % (Auto) 1.5 (0-4.4) % Baso % (Auto) 0.6 (0.2-1.2) % Lymph # (Auto) 1.48 (0.9-3.2) K/mm3 Branch # (Auto) 0.9 H (0.1-0.6) K/mm3 Eos # (Auto) 0.1 (0-0.3) K/mm3 Baso # (Auto) 0.1 (0.0-0.1) K/mm3 Abs Immat Gran (auto) 0.02 (0.00-0.031) K/mm3 Absolute Neuts (auto) 5.5 (1.3-6.7) K/mm3 Absolute Nucleated RBC 0.000 (0.0-0.012) K/mm3 Nucleated RBC % 0.0 (0.0-0.2) % ESR 34 H (0-20) mm/hr PT 14.4 (11.1-14.7) Seconds INR 1.1 APTT 25.5 (22.3-36.8) Seconds Sodium 139 (137-145) mmol/L Potassium 4.0 (3.4-5.0) mmol/L Chloride 107 (98-107) mmol/L Carbon Dioxide 22 (22-30) mmol/L Anion Gap 10 (4-12) mmol/L BUN 23 H (9-20) mg/dL Creatinine 0.85 (0.7-1.3) mg/dL Estim Creat Clear Calc Not Reportable Estimated GFR > 60 (59 - ) Glucose 118 H (65-110) mg/dL Lactic Acid 0.8 (0.7-2.0) mmol/L Calcium 9.1 (8.4-10.2) mg/dL Total Bilirubin 0.4 (0.2-1.3) mg/dL AST 37 (17-59) U/L ALT 52 H (6-50) U/L Alkaline Phosphatase 66 (38-126) U/L C-Reactive Protein 1.6 H (<1.0) mg/dL Total Protein 7.0 (6.3-8.2) g/dL Albumin 4.2 (3.5-5.1) g/dL Influenza A (RT-PCR) Negative (Negative) Influenza B (RT-PCR) Negative (Negative) RSV (RT-PCR) Negative (Negative) SARS-CoV-2 RNA (RT-PCR) Negative (Negative) 03/11/25 Range/Units 23:13 WBC 9.1 (4.5-10.0) K/mm3 RBC 3.88 L (4.6-6.20) M/mm3 Hgb 12.9 L (14.0-18.0) g/dL Hct 39.2 L (42.0-52.0) % MCV 101.0 H (80-100) fl MCH 33.2 (26-34) pg MCHC 32.9 (32-36) g/dl RDW 13.1 (11.5-14.5) % Plt Count 280 (150-375) k/mm3 MPV 9.6 (7.4-10.4) fl Immature Gran % (Auto) 0.2 (0-0.5) % Neut % (Auto) 66.7 (45.5-73.1) % Lymph % (Auto) 20.8 (18.3-44.2) % Branch % (Auto) 9.5 H (2.6-8.5) % Eos % (Auto) 2.0 (0-4.4) % Baso % (Auto) 0.8 (0.2-1.2) % Lymph # (Auto) 1.88 (0.9-3.2) K/mm3 Branch # (Auto) 0.9 H (0.1-0.6) K/mm3 Eos # (Auto) 0.2 (0-0.3) K/mm3 Baso # (Auto) 0.1 (0.0-0.1) K/mm3 Abs Immat Gran (auto) 0.02 (0.00-0.031) K/mm3 Absolute Neuts (auto) 6.1 (1.3-6.7) K/mm3 Absolute Nucleated RBC 0.000 (0.0-0.012) K/mm3 Nucleated RBC % 0.0 (0.0-0.2) % ESR (0-20) mm/hr PT 14.1 (11.1-14.7) Seconds INR 1.1 APTT < 20.0 L (22.3-36.8) Seconds Sodium (137-145) mmol/L Potassium (3.4-5.0) mmol/L Chloride (98-107) mmol/L Carbon Dioxide (22-30) mmol/L Anion Gap (4-12) mmol/L BUN (9-20) mg/dL Creatinine (0.7-1.3) mg/dL Estim Creat Clear Calc Estimated GFR (59 - ) Glucose (65-110) mg/dL Lactic Acid (0.7-2.0) mmol/L Calcium (8.4-10.2) mg/dL Total Bilirubin (0.2-1.3) mg/dL AST (17-59) U/L ALT (6-50) U/L Alkaline Phosphatase (38-126) U/L C-Reactive Protein (<1.0) mg/dL Total Protein (6.3-8.2) g/dL Albumin (3.5-5.1) g/dL Influenza A (RT-PCR) (Negative) Influenza B (RT-PCR) (Negative) RSV (RT-PCR) (Negative) SARS-CoV-2 RNA (RT-PCR) (Negative) <Emery Sung MD - Last Filed: 03/11/25 22:15> Lab Results 03/11/25 03/11/25 03/11/25 Range/Units 14:50 16:58 19:53 WBC 8.1 (4.5-10.0) K/mm3 RBC 3.95 L (4.6-6.20) M/mm3 Hgb 13.0 L (14.0-18.0) g/dL Hct 39.9 L (42.0-52.0) % MCV 101.0 H (80-100) fl MCH 32.9 (26-34) pg MCHC 32.6 (32-36) g/dl RDW 12.9 (11.5-14.5) % Plt Count 278 (150-375) k/mm3 MPV 9.7 (7.4-10.4) fl Immature Gran % (Auto) 0.2 (0-0.5) % Neut % (Auto) 67.9 (45.5-73.1) % Lymph % (Auto) 18.3 (18.3-44.2) % Branch % (Auto) 11.5 H (2.6-8.5) % Eos % (Auto) 1.5 (0-4.4) % Baso % (Auto) 0.6 (0.2-1.2) % Lymph # (Auto) 1.48 (0.9-3.2) K/mm3 Branch # (Auto) 0.9 H (0.1-0.6) K/mm3 Eos # (Auto) 0.1 (0-0.3) K/mm3 Baso # (Auto) 0.1 (0.0-0.1) K/mm3 Abs Immat Gran (auto) 0.02 (0.00-0.031) K/mm3 Absolute Neuts (auto) 5.5 (1.3-6.7) K/mm3 Absolute Nucleated RBC 0.000 (0.0-0.012) K/mm3 Nucleated RBC % 0.0 (0.0-0.2) % ESR 34 H (0-20) mm/hr PT 14.4 (11.1-14.7) Seconds INR 1.1 APTT 25.5 (22.3-36.8) Seconds Sodium 139 (137-145) mmol/L Potassium 4.0 (3.4-5.0) mmol/L Chloride 107 (98-107) mmol/L Carbon Dioxide 22 (22-30) mmol/L Anion Gap 10 (4-12) mmol/L BUN 23 H (9-20) mg/dL Creatinine 0.85 (0.7-1.3) mg/dL Estim Creat Clear Calc Not Reportable Estimated GFR > 60 (59 - ) Glucose 118 H (65-110) mg/dL Lactic Acid 0.8 (0.7-2.0) mmol/L Calcium 9.1 (8.4-10.2) mg/dL Total Bilirubin 0.4 (0.2-1.3) mg/dL AST 37 (17-59) U/L ALT 52 H (6-50) U/L Alkaline Phosphatase 66 (38-126) U/L C-Reactive Protein 1.6 H (<1.0) mg/dL Total Protein 7.0 (6.3-8.2) g/dL Albumin 4.2 (3.5-5.1) g/dL Influenza A (RT-PCR) Negative (Negative) Influenza B (RT-PCR) Negative (Negative) RSV (RT-PCR) Negative (Negative) SARS-CoV-2 RNA (RT-PCR) Negative (Negative) 03/11/25 Range/Units 23:13 WBC 9.1 (4.5-10.0) K/mm3 RBC 3.88 L (4.6-6.20) M/mm3 Hgb 12.9 L (14.0-18.0) g/dL Hct 39.2 L (42.0-52.0) % MCV 101.0 H (80-100) fl MCH 33.2 (26-34) pg MCHC 32.9 (32-36) g/dl RDW 13.1 (11.5-14.5) % Plt Count 280 (150-375) k/mm3 MPV 9.6 (7.4-10.4) fl Immature Gran % (Auto) 0.2 (0-0.5) % Neut % (Auto) 66.7 (45.5-73.1) % Lymph % (Auto) 20.8 (18.3-44.2) % Branch % (Auto) 9.5 H (2.6-8.5) % Eos % (Auto) 2.0 (0-4.4) % Baso % (Auto) 0.8 (0.2-1.2) % Lymph # (Auto) 1.88 (0.9-3.2) K/mm3 Branch # (Auto) 0.9 H (0.1-0.6) K/mm3 Eos # (Auto) 0.2 (0-0.3) K/mm3 Baso # (Auto) 0.1 (0.0-0.1) K/mm3 Abs Immat Gran (auto) 0.02 (0.00-0.031) K/mm3 Absolute Neuts (auto) 6.1 (1.3-6.7) K/mm3 Absolute Nucleated RBC 0.000 (0.0-0.012) K/mm3 Nucleated RBC % 0.0 (0.0-0.2) % ESR (0-20) mm/hr PT 14.1 (11.1-14.7) Seconds INR 1.1 APTT < 20.0 L (22.3-36.8) Seconds Sodium (137-145) mmol/L Potassium (3.4-5.0) mmol/L Chloride (98-107) mmol/L Carbon Dioxide (22-30) mmol/L Anion Gap (4-12) mmol/L BUN (9-20) mg/dL Creatinine (0.7-1.3) mg/dL Estim Creat Clear Calc Estimated GFR (59 - ) Glucose (65-110) mg/dL Lactic Acid (0.7-2.0) mmol/L Calcium (8.4-10.2) mg/dL Total Bilirubin (0.2-1.3) mg/dL AST (17-59) U/L ALT (6-50) U/L Alkaline Phosphatase (38-126) U/L C-Reactive Protein (<1.0) mg/dL Total Protein (6.3-8.2) g/dL Albumin (3.5-5.1) g/dL Influenza A (RT-PCR) (Negative) Influenza B (RT-PCR) (Negative) RSV (RT-PCR) (Negative) SARS-CoV-2 RNA (RT-PCR) (Negative) <José Miguel Clayton MD - Last Filed: 03/12/25 04:08> Critical Care Time Critical Care Time Critical Care Time: Yes <José Miguel Clayton MD - Last Filed: 03/12/25 04:08> Total Critical Care Time: 35 <José Miguel Clayton MD - Last Filed: 03/12/25 04:08> Discharge Plan Discharge Clinical Impression: URI (upper respiratory infection), Atrial flutter with rapid ventricular response <Emery Sung MD - Last Filed: 03/11/25 22:15> Patient Disposition: Still a Patient <Emery Sugn MD - Last Filed: 03/11/25 22:15> Condition: Stable <Emery Sung MD - Last Filed: 03/11/25 22:15>
[2025-03-11] MEDS: METOPROLOL TARTRATE INJ 5 MG/5 ML VIAL IV PUSH (22:21)
[2025-03-11] MEDS: HEPARIN SODIUM 5,000 UNITS/ML VIAL 1 UNITS IV PUSH (22:21)
[2025-03-11 23:18] LABS: Basophils Absolute Auto 0.1 K/mm3 (0.0-0.1); Basophils Percent Auto 0.8 % (0.2-1.2); Eosinophils Absolute Auto 0.2 K/mm3 (0-0.3); Hematocrit 39.2 % (42.0-52.0); Hemoglobin 12.9 g/dL (14.0-18.0); Immature Granulocyte Absolute 0.02 K/mm3 (0.00-0.031); Immature Granulocyte Percent A 0.2 % (0-0.5); Lymphocytes Absolute Auto 1.88 K/mm3 (0.9-3.2); Lymphocytes Percent Auto 20.8 % (18.3-44.2); Mean Corpuscular HGB Conc 32.9 g/dl (32-36); Mean Corpuscular Hemoglobin 33.2 pg (26-34); Mean Platelet Volume 9.6 fl (7.4-10.4); Monocytes Absolute Auto 0.9 K/mm3 (0.1-0.6); Monocytes Percent Auto 9.5 % (2.6-8.5); Neutrophils Absolute Auto 6.1 K/mm3 (1.3-6.7); Neutrophils Percent Auto 66.7 % (45.5-73.1); Platelet Count Result 280 k/mm3 (150-375); Red Blood Count 3.88 M/mm3 (4.6-6.20); Red Cell Distribution Width 13.1 % (11.5-14.5); White Blood Count 9.1 K/mm3 (4.5-10.0)
[2025-03-11] MEDS: HEPARIN SODIUM 5,000 UNITS/ML VIAL 6500 UNITS IV PUSH (23:20)
[2025-03-11] MEDS: HEPARIN SOD/D5W 100 UNITS/ML 25,000 UNITS/250 ML BAG 14 UNITS IV CONT (23:20)
[2025-03-11 23:28] LABS: INR 1.1; Prothrombin Time 14.1 Seconds (11.1-14.7)
[2025-03-11 23:35] LABS: Partial Thromboplastin Time < 20.0 Seconds (22.3-36.8)
[2025-03-12] VITALS (33 sets, daily range): BP systolic 101–134; BP diastolic 67–99; PULSE 86–113; RESP 17–25; TEMP 36.3–36.7; O2SAT 96–99; BMI 24.0
[2025-03-12] MEDS: ACETAMINOPHEN 325 MG TABLET 650 MG PO (01:05)
[2025-03-12] MEDS: AMIODARONE 150 MG/D5W 100 ML 150 MG/100 ML BAG 600 MG IV CONT ×2 (01:06→01:08)
[2025-03-12] MEDS: AMIODARONE 360 MG/D5W 200 ML 360 MG/200 ML BAG 33.33 MG IV CONT (01:34)
--- NOTE | 2025-03-12 03:00 | ADMGEN ---
This patient, Daniel Harry, was admitted to IMU Room 200-01 at 0252. Patient/family oriented to hospital policies and general routines including ID bracelet, bed and alarms, visiting hours, pain management, procedures, bathroom and other care routines, personal items, smoking policy, room service/diet, and visiting hours. Information on how to activate the Rapid Response Team has been discussed. Patient/Family are encouraged to report perceived risks to care and to ask questions if they do not understand what they are told or what they should do.
--- NOTE | 2025-03-12 03:31 | P.HP_ITS ---
H&P: HPI History of Present Illness Date/Time: 03/12/25 03:31 Chief Complaint: Sinus congestion Narrative: Mr. Edwards is a 69-year-old male who had a mitral valve repair on February [address] Bedoya with [facility]. Presents to [facility] on 03/11/2025 with complaint of sinus pressure and sneezing. ER evaluation revealed a normal white count, afebrile, atrial flutter with RVR. Dr. Bedoya was consulted and r ecommended amiodarone. Conferred with [facility] group. Patient reports being able to feel palpitations prior to admission however after initiation of amiodarone he did not have any symptoms of concern. Review of Systems Review of Systems: All systems reviewed & are unremarkable except as noted in HPI and below (HPI) [facility] Surgical History Surgical History S/P patent foramen ovale closure 2024 H/O mitral valve replacement 2024 H/O colonoscopy (~2010) H/O hernia repair Family History Family History Mother Hypertension Family history of elevated blood lipids Grandparent Family history of malignant neoplasm of uterus Family history of malignant neoplasm of ovary Social History Social History Smoking status: Former smoker Tobacco type: cigarettes Smoking end date: 10/14/08 Alcohol intake: former Substance use: never Substance use type: does not use Do You Feel Safe in your Home?: Yes Lack of Transportation: No Lack of Food: Never True Current Housing: I Have Housing Concerned About Future Housing: No Difficulty Paying Gas/Electric Bills: No Difficulty Paying for Meds: No Currently Unemployed: No Education: High School Diploma/GED Difficulty w/ Childcare or Family Care: No Living arrangements: with family Spiritual care concerns: No Meds Home Medications and Allergies Home Medications ?Medication ?Instructions ?Recorded ?Confirmed ?Type krill 300 mg-omega-3 90 mg-dha 27 1 cap PO DAILY 07/02/22 03/11/25 History mg-epa 45 [id number] capsule (Maximum Red Krill Modena-3) amlodipine 10 mg tablet 10 mg PO DAILY #90 tabs 10/27/24 03/11/25 Rx alprazolam 1 mg tablet 1 mg PO QHS #90 tabs 02/25/25 03/11/25 Rx Allergies Allergy/AdvReac Type Severity Reaction Status Date / Time codeine Allergy Unknown rash/itchin Verified 03/11/25 14:44 g Vital Signs Vital Signs - 24 hr 03/11/25 14:21 03/11/25 14:38 03/11/25 14:46 Temperature 98.2 F Pulse Rate 67 125 H 108 H Respiratory Rate 16 16 23 H Blood Pressure 146/110 H 149/85 H 112/84 Pulse Oximetry 99 98 98 03/11/25 15:01 03/11/25 15:17 03/11/25 15:31 Temperature Pulse Rate 108 H 106 H 109 H Respiratory Rate 21 H 14 20 Blood Pressure 140/84 138/77 113/86 Pulse Oximetry 97 95 97 03/11/25 15:46 03/11/25 16:01 03/11/25 16:12 Temperature Pulse Rate 107 H 111 H 101 H Respiratory Rate 21 H 21 H Blood Pressure 108/91 H 109/77 Pulse Oximetry 98 97 03/11/25 16:12 03/11/25 16:16 03/11/25 16:31 Temperature Pulse Rate 104 H 105 H 114 H Respiratory Rate 18 18 21 H Blood Pressure 109/77 122/81 117/99 H Pulse Oximetry 99 97 97 03/11/25 16:46 03/11/25 17:00 03/11/25 17:12 Temperature Pulse Rate 115 H 117 H 115 H Respiratory Rate 18 21 H 25 H Blood Pressure 118/90 123/93 H 116/97 H Pulse Oximetry 97 97 99 03/11/25 17:17 03/11/25 17:31 03/11/25 17:46 Temperature Pulse Rate 120 H 136 H 129 H Respiratory Rate 20 17 19 Blood Pressure 114/103 H 105/95 H 113/98 H Pulse Oximetry 98 98 99 03/11/25 18:16 03/11/25 18:31 03/11/25 18:46 Temperature Pulse Rate 139 H 132 H 115 H Respiratory Rate 16 21 H 21 H Blood Pressure 127/94 H 121/91 H 124/96 H Pulse Oximetry 98 97 98 03/11/25 19:01 03/11/25 19:16 03/11/25 19:31 Temperature Pulse Rate 123 H 133 H 137 H Respiratory Rate 21 H 21 H 19 Blood Pressure 119/85 131/83 127/99 H Pulse Oximetry 97 98 97 03/11/25 22:21 03/11/25 22:32 03/11/25 23:01 Temperature Pulse Rate 92 100 112 H Respiratory Rate 22 H 20 Blood Pressure 135/87 140/101 H Pulse Oximetry 98 98 03/11/25 23:23 03/11/25 23:31 03/11/25 23:58 Temperature Pulse Rate 109 H 110 H 115 H Respiratory Rate 23 H 23 H 22 H Blood Pressure 130/92 H 109/77 109/77 Pulse Oximetry 97 96 96 03/12/25 00:16 03/12/25 01:01 03/12/25 01:06 Temperature Pulse Rate 111 H 112 H 96 Respiratory Rate 25 H 25 H Blood Pressure 110/81 106/86 106/86 Pulse Oximetry 97 98 03/12/25 01:08 03/12/25 01:08 03/12/25 01:33 Temperature Pulse Rate 96 109 H 103 H Respiratory Rate Blood Pressure 106/86 108/86 106/86 Pulse Oximetry 03/12/25 01:34 03/12/25 01:37 03/12/25 01:46 Temperature Pulse Rate 97 100 109 H Respiratory Rate 22 H 22 H Blood Pressure 106/86 106/86 106/83 Pulse Oximetry 99 97 03/12/25 02:31 Temperature Pulse Rate 111 H Respiratory Rate 23 H Blood Pressure 101/70 Pulse Oximetry 97 Exam Const: General: comfortable and no acute distress Eyes: Pupils: Equal, round and reactive pupils present Resp: Effort & Inspection: normal respiratory effort Auscultation: clear to auscultation bilaterally Cardio: Rate: regular rate Rhythm: abnormal rhythm GI: GI Palp: Yes Soft to palpation and No Tenderness to palpation present (GI) Neuro: Motor exam (neuro): 5/5 motor strength present throughout Extrem: General: no edema H&P: Results Labs Labs: Short CBC 03/11/25 03/11/25 Range/Units 14:50 23:13 WBC 8.1 9.1 (4.5-10.0) K/mm3 Hgb 13.0 L 12.9 L (14.0-18.0) g/dL Hct 39.9 L 39.2 L (42.0-52.0) % Plt Count 278 280 (150-375) k/mm3 BMP 03/11/25 14:50 Sodium 139 Potassium 4.0 Chloride 107 Carbon Dioxide 22 BUN 23 H Creatinine 0.85 Glucose 118 H Calcium 9.1 Liver Function 03/11/25 Range/Units 14:50 Total Bilirubin 0.4 (0.2-1.3) mg/dL AST 37 (17-59) U/L ALT 52 H (6-50) U/L Alkaline Phosphatase 66 (38-126) U/L Albumin 4.2 (3.5-5.1) g/dL Assessment and Plan Assessment and plan (1) Atrial flutter with rapid ventricular response: Code(s): I48.92 - Unspecified atrial flutter Status: Acute Plan Continue telemetry. Currently in the low 100s heart rate. Asymptomatic. Continue heparin GTT. Amiodarone infusion ongoing. Follow-up cardiology recommendations. Full code. Hospitalist MIPS Advance Care Plan I have confirmed that the patient's Advanced Care Plan is present, code status is documented, or surrogate decision maker is listed in patient medical record.: Yes Medication Reconciliation I have utilized all available resources to obtain, update and review the patients current medications (includes all prescriptions, OTC, herbals, cannabis, and nutritional supplements).: Yes
[2025-03-12 05:31] LABS: Basophils Absolute Auto 0.1 K/mm3 (0.0-0.1); Basophils Percent Auto 0.8 % (0.2-1.2); Eosinophils Absolute Auto 0.3 K/mm3 (0-0.3); Hematocrit 35.7 % (42.0-52.0); Hemoglobin 11.7 g/dL (14.0-18.0); Immature Granulocyte Absolute 0.02 K/mm3 (0.00-0.031); Immature Granulocyte Percent A 0.2 % (0-0.5); Lymphocytes Absolute Auto 2.26 K/mm3 (0.9-3.2); Lymphocytes Percent Auto 26.3 % (18.3-44.2); Mean Corpuscular HGB Conc 32.8 g/dl (32-36); Mean Corpuscular Hemoglobin 33.3 pg (26-34); Mean Corpuscular Volume 101.7 fl (80-100); Mean Platelet Volume 9.9 fl (7.4-10.4); Monocytes Absolute Auto 1.1 K/mm3 (0.1-0.6); Monocytes Percent Auto 12.9 % (2.6-8.5); Neutrophils Absolute Auto 4.8 K/mm3 (1.3-6.7); Neutrophils Percent Auto 55.8 % (45.5-73.1); Platelet Count Result 263 k/mm3 (150-375); Red Blood Count 3.51 M/mm3 (4.6-6.20); Red Cell Distribution Width 13.1 % (11.5-14.5); White Blood Count 8.6 K/mm3 (4.5-10.0)
[2025-03-12 05:42] LABS: Partial Thromboplastin Time 67.9 Seconds (22.3-36.8)
[2025-03-12 05:49] LABS: Anion Gap 8 mmol/L (4-12); Blood Urea Nitrogen 24 mg/dL (9-20); Calcium 8.7 mg/dL (8.4-10.2); Carbon Dioxide 22 mmol/L (22-30); Chloride 107 mmol/L (98-107); Estimated CRCL calculation 89 ml/min; Estimated Glomerular Filt Rate > 60; Glucose 113 mg/dL (65-110); Magnesium 2.1 mg/dL (1.6-2.3); Potassium 3.9 mmol/L (3.4-5.0); Sodium 137 mmol/L (137-145)
[2025-03-12] MEDS: AMIODARONE 360 MG/D5W 200 ML 360 MG/200 ML BAG 16.67 MG IV CONT (06:00)
[2025-03-12] MEDS: HEPARIN SODIUM 5,000 UNITS/ML VIAL 3000 UNITS IV PUSH (06:14)
--- NOTE | 2025-03-12 08:44 | PM.IMPN ---
Progress Note: A&P Assessment and Plan (1) Atrial flutter with rapid ventricular response: Code(s): I48.92 - Unspecified atrial flutter Status: Acute Plan Mr. Edwards is a 69-year-old male who had a mitral valve repair on February [address] Bedoya with [facility]. Presents to [facility] on 03/11/2025 with complaint of sinus pressure and sneezing. ER evaluation revealed a normal white count, afebrile, atrial flutter with RVR. Dr. Bedoya was consulted and recommended amiodarone. Conferred with [facility] group. Patient reports being able to feel palpitations prior to admission however after initiation of amiodarone he did not have any symptoms of concern. Continue telemetry. Currently in the low 100s heart rate. Asymptomatic. Continue heparin GTT. Amiodarone infusion ongoing. Plan cardioversion this afternoon. Plan to transition to oral amiodarone post cardioversion. Transition to Eliquis planned Full code. Subjective Date/time seen: 03/12/25 08:44 Interval history: Feels well. No palpitation. Going for cardioversion this afternoon. Review of Systems Review of Systems: All systems reviewed & are unremarkable except as noted in HPI and below (HPI) Exam Narrative: APPEARANCE: No apparent distress. Alert and oriented x3 EYES: EOMI, NOSE: Atraumatic NECK: Trachea midline RESPIRATORY: No increased rate of breathing clear to auscultation CARDIOVASCULAR: Mildly tachycardic AFib rhythm no peripheral edema ABDOMINAL: Non-distended soft nontender MUSCULOSKELETAl: No obvious deformities NEURO: Alert. Moving 4/4 extremities SKIN:: Warm, dry. Normal color PSYCHIATRIC: Normal affect Objective Data Vital Signs Vital Signs: Vital Signs - 24 hr 03/11/25 14:21 03/11/25 14:38 03/11/25 14:46 Temperature 98.2 F Pulse Rate 67 125 H 108 H Respiratory Rate 16 16 23 H Blood Pressure 146/110 H 149/85 H 112/84 Pulse Oximetry 99 98 98 Oxygen Delivery 03/11/25 15:01 03/11/25 15:17 03/11/25 15:31 Temperature Pulse Rate 108 H 106 H 109 H Respiratory Rate 21 H 14 20 Blood Pressure 140/84 138/77 113/86 Pulse Oximetry 97 95 97 Oxygen Delivery 03/11/25 15:46 03/11/25 16:01 03/11/25 16:12 Temperature Pulse Rate 107 H 111 H 101 H Respiratory Rate 21 H 21 H Blood Pressure 108/91 H 109/77 Pulse Oximetry 98 97 Oxygen Delivery 03/11/25 16:12 03/11/25 16:16 03/11/25 16:31 Temperature Pulse Rate 104 H 105 H 114 H Respiratory Rate 18 18 21 H Blood Pressure 109/77 122/81 117/99 H Pulse Oximetry 99 97 97 Oxygen Delivery 03/11/25 16:46 03/11/25 17:00 03/11/25 17:12 Temperature Pulse Rate 115 H 117 H 115 H Respiratory Rate 18 21 H 25 H Blood Pressure 118/90 123/93 H 116/97 H Pulse Oximetry 97 97 99 Oxygen Delivery 03/11/25 17:17 03/11/25 17:31 03/11/25 17:46 Temperature Pulse Rate 120 H 136 H 129 H Respiratory Rate 20 17 19 Blood Pressure 114/103 H 105/95 H 113/98 H Pulse Oximetry 98 98 99 Oxygen Delivery 03/11/25 18:16 03/11/25 18:31 03/11/25 18:46 Temperature Pulse Rate 139 H 132 H 115 H Respiratory Rate 16 21 H 21 H Blood Pressure 127/94 H 121/91 H 124/96 H Pulse Oximetry 98 97 98 Oxygen Delivery 03/11/25 19:01 03/11/25 19:16 03/11/25 19:31 Temperature Pulse Rate 123 H 133 H 137 H Respiratory Rate 21 H 21 H 19 Blood Pressure 119/85 131/83 127/99 H Pulse Oximetry 97 98 97 Oxygen Delivery 03/11/25 22:21 03/11/25 22:32 03/11/25 23:01 Temperature Pulse Rate 92 100 112 H Respiratory Rate 22 H 20 Blood Pressure 135/87 140/101 H Pulse Oximetry 98 98 Oxygen Delivery 03/11/25 23:23 03/11/25 23:31 03/11/25 23:58 Temperature Pulse Rate 109 H 110 H 115 H Respiratory Rate 23 H 23 H 22 H Blood Pressure 130/92 H 109/77 109/77 Pulse Oximetry 97 96 96 Oxygen Delivery 03/12/25 00:16 03/12/25 01:01 03/12/25 01:06 Temperature Pulse Rate 111 H 112 H 96 Respiratory Rate 25 H 25 H Blood Pressure 110/81 106/86 106/86 Pulse Oximetry 97 98 Oxygen Delivery 03/12/25 01:08 03/12/25 01:08 03/12/25 01:33 Temperature Pulse Rate 96 109 H 103 H Respiratory Rate Blood Pressure 106/86 108/86 106/86 Pulse Oximetry Oxygen Delivery 03/12/25 01:34 03/12/25 01:37 03/12/25 01:46 Temperature Pulse Rate 97 100 109 H Respiratory Rate 22 H 22 H Blood Pressure 106/86 106/86 106/83 Pulse Oximetry 99 97 Oxygen Delivery 03/12/25 02:31 03/12/25 03:29 03/12/25 03:49 Temperature 98.1 F Pulse Rate 111 H 113 H Respiratory Rate 23 H 22 H Blood Pressure 101/70 119/92 H Pulse Oximetry 97 98 Oxygen Delivery Room Air 03/12/25 04:00 03/12/25 04:00 03/12/25 06:00 Temperature Pulse Rate 97 103 H 92 Respiratory Rate Blood Pressure 119/92 H 104/75 Pulse Oximetry Oxygen Delivery 03/12/25 06:00 03/12/25 06:00 03/12/25 06:00 Temperature Pulse Rate 92 92 92 Respiratory Rate Blood Pressure 104/75 104/75 Pulse Oximetry Oxygen Delivery 03/12/25 07:46 Temperature 98.1 F Pulse Rate 94 Respiratory Rate 20 Blood Pressure 118/67 Pulse Oximetry 98 Oxygen Delivery Intake/Output Intake/Output: Intake & Output 03/09/25 03/10/25 03/11/25 03/12/25 23:59 23:59 23:59 23:59 Intake Total 954.4 Output Total 300 Balance 654.4 Meds/Results Medications: Active Medications Generic Name Dose Route Start Last Admin Trade Name Freq PRN Reason Stop Dose Admin Acetaminophen 650 mg 03/12/25 00:31 03/12/25 01:05 Acetaminophen 325 Mg Tablet PO 650 mg Q4H PRN Administration Mild Pain (1-3) or Fever Alprazolam 1 mg 03/12/25 21:00 Alprazolam (*Crx) 0.5 Mg Tablet PO QHS [facility] Heparin Sodium (Porcine) 6,500 units 03/11/25 22:07 Heparin Sodium 5,000 Units/Ml Vial IV PUSH PRN PRN aPTT less than 55 seconds Heparin Sodium (Porcine) 3,000 units 03/11/25 22:07 03/12/25 06:14 Heparin Sodium 5,000 Units/Ml Vial IV PUSH 3,000 units PRN PRN Administration aPTT 55 - 70 seconds Heparin Sodium/Dextrose 25,000 units in 250 mls @ 16 mls/hr 03/11/25 22:40 03/12/25 06:14 Heparin Sodium/D5w 100 Units/Ml IV CONT 1,600 units/hr .[id number] ESE 16 mls/hr Titration Protocol 1,600 UNITS/HR Amiodarone HCl/Dextrose 360 mg in 200 mls @ 16.667 mls/hr 03/12/25 06:00 03/12/25 06:00 Nexterone 360 Mg/D5w 200 Ml IV CONT 0.5 mg/min .Q12H ESE 16.67 mls/hr Administration 0.5 MG/MIN Metoprolol Tartrate 25 mg 03/12/25 09:00 Metoprolol Tartrate 25 Mg Tablet PO Q12HR ESE Ondansetron HCl 4 mg 03/12/25 00:31 Ondansetron Inj 4 Mg/2 Ml Vial IV PUSH Q4H PRN Nausea Radiology Results: ITS Impressions Chest X-Ray 03/11/25 16:34 IMPRESSION: Small left-sided pleural effusion with otherwise coarse interstitial markings. No focal infiltrate is appreciated. Chest CTA 03/11/25 19:17 IMPRESSION: 1. No pulmonary embolism. 2. Bilateral pleural effusion more on the right side with adjacent atelectasis versus pneumonia. Clinical correlation and follow-up advised. Labs Labs: Laboratory Results - last 24 hr 03/11/25 03/11/25 03/11/25 14:50 16:58 19:53 WBC 8.1 RBC 3.95 L Hgb 13.0 L Hct 39.9 L MCV 101.0 H MCH 32.9 MCHC 32.6 RDW 12.9 Plt Count 278 MPV 9.7 Immature Gran % (Auto) 0.2 Neut % (Auto) 67.9 Lymph % (Auto) 18.3 [place] % (Auto) 11.5 H Eos % (Auto) 1.5 Baso % (Auto) 0.6 Lymph # (Auto) 1.48 [place] # (Auto) 0.9 H Eos # (Auto) 0.1 Baso # (Auto) 0.1 Abs Immat Gran (auto) 0.02 Absolute Neuts (auto) 5.5 Absolute Nucleated RBC 0.000 Nucleated RBC % 0.0 ESR 34 H PT 14.4 INR 1.1 APTT 25.5 Sodium 139 Potassium 4.0 Chloride 107 Carbon Dioxide 22 Anion Gap 10 BUN 23 H Creatinine 0.85 Estim Creat Clear Calc Not Reportable Estimated GFR > 60 Glucose 118 H Lactic Acid 0.8 Calcium 9.1 Magnesium Total Bilirubin 0.4 AST 37 ALT 52 H Alkaline Phosphatase 66 C-Reactive Protein 1.6 H Total Protein 7.0 Albumin 4.2 Influenza A (RT-PCR) Negative Influenza B (RT-PCR) Negative RSV (RT-PCR) Negative SARS-CoV-2 RNA (RT-PCR) Negative 03/11/25 03/12/25 23:13 05:25 WBC 9.1 8.6 RBC 3.88 L 3.51 L Hgb 12.9 L 11.7 L Hct 39.2 L 35.7 L MCV 101.0 H 101.7 H MCH 33.2 33.3 MCHC 32.9 32.8 RDW 13.1 13.1 Plt Count 280 263 MPV 9.6 9.9 Immature Gran % (Auto) 0.2 0.2 Neut % (Auto) 66.7 55.8 Lymph % (Auto) 20.8 26.3 [place] % (Auto) 9.5 H 12.9 H Eos % (Auto) 2.0 4.0 Baso % (Auto) 0.8 0.8 Lymph # (Auto) 1.88 2.26 [place] # (Auto) 0.9 H 1.1 H Eos # (Auto) 0.2 0.3 Baso # (Auto) 0.1 0.1 Abs Immat Gran (auto) 0.02 0.02 Absolute Neuts (auto) 6.1 4.8 Absolute Nucleated RBC 0.000 0.000 Nucleated RBC % 0.0 0.0 ESR PT 14.1 INR 1.1 APTT < 20.0 L 67.9 H Sodium 137 Potassium 3.9 Chloride 107 Carbon Dioxide 22 Anion Gap 8 BUN 24 H Creatinine 0.74 Estim Creat Clear Calc 89 Estimated GFR > 60 Glucose 113 H Lactic Acid Calcium 8.7 Magnesium 2.1 Total Bilirubin AST ALT Alkaline Phosphatase C-Reactive Protein Total Protein Albumin Influenza A (RT-PCR) Influenza B (RT-PCR) RSV (RT-PCR) SARS-CoV-2 RNA (RT-PCR)
[2025-03-12] MEDS: METOPROLOL TARTRATE 25 MG TABLET PO ×2 (09:41→20:39)
--- NOTE | 2025-03-12 10:36 | PM.CNCAR ---
Assessment and Plan Assessment and plan (1) Atrial flutter with rapid ventricular response: Code(s): I48.92 - Unspecified atrial flutter Status: Acute Plan 1. Atrial flutter with RVR. New diagnosis of atrial flutter. [id number] of 2 for age and hypertension 2. Mitral valve prolapse with severe mitral regurgitation s/p mitral valve repair with a ring annuloplasty using 38mm Physio Felex ring and PFO closure by Dr. Bedoya on 02/17/2025. 3. Hypertension 4. Hyperlipidemia PLAN: -Discussed management options of atrial flutter with the patient. Will proceed with PJ-guided DCCV today in an attempt to restore sinus rhythm. -Continue Amiodarone drip, will plan to transition to PO Amiodarone post-cardioversion. -Continue Metoprolol. -Continue Heparin drip, will transition to Eliquis 5mg BID. Will need long-term anticoagulation given [id number] of 2. -Check TSH level. History of Present Illness History of Present Illness Consult date/time: 03/12/25 10:36 Requesting physician: José Miguel Clayton MD Consult reason: Other (Atrial flutter with RVR) Reason For Visit: New onset a flutter RVR Narrative: Daniel is a 69 year old male who presented for evaluate of cold/flu-like symptoms. Noted to be in atrial flutter with RVR. Has history of mitral valve prolapse with severe mitral regurgitation s/p recent mitral valve repair this month. EKGs show atrial flutter with RVR. Started on Amiodarone drip along with Heparin drip. Remains in AFL, however, rates have improved. Outside hospital records from [facility] were personally reviewed and noted below: Patient underwent mitral valve repair with a ring annuloplasty using 38mm Physio Felex ring and PFO closure by Dr. Bedoya on 02/17/2025. Transthoracic echocardiogram 02/19/2025 showed LVEF 52%, mild RV hypokinesis, moderate biatrial enlargement, s/p mitral valve repair with annuloplasty ring with trivial mitral regurgitation, s/p PFO closure with no interatrial shunt by color Doppler, mild-moderate TR. Review of Systems Review of Systems: All systems reviewed & are unremarkable except as noted in HPI and below (HPI) [facility] Surgical History Surgical History S/P patent foramen ovale closure 2024 H/O mitral valve replacement 2024 H/O colonoscopy (~2010) H/O hernia repair Family History Family History Mother Hypertension Family history of elevated blood lipids Grandparent Family history of malignant neoplasm of uterus Family history of malignant neoplasm of ovary Social History Social History Smoking status: Former smoker Tobacco type: cigarettes Smoking end date: 10/14/08 Alcohol intake: former Substance use: never Substance use type: does not use Do You Feel Safe in your Home?: Yes Lack of Transportation: No Lack of Food: Never True Current Housing: I Have Housing Concerned About Future Housing: No Difficulty Paying Gas/Electric Bills: No Difficulty Paying for Meds: No Currently Unemployed: No Education: High School Diploma/GED Difficulty w/ Childcare or Family Care: No Living arrangements: with family Spiritual care concerns: No Meds Home Medications and Allergies Home Medications ?Medication ?Instructions ?Recorded ?Confirmed ?Type krill 300 mg-omega-3 90 mg-dha 27 1 cap PO DAILY 07/02/22 03/11/25 History mg-epa 45 ld-bwkhkyc-eskyout capsule (Maximum Red Krill [place]-3) amlodipine 10 mg tablet 10 mg PO DAILY #90 tabs 10/27/24 03/11/25 Rx alprazolam 1 mg tablet 1 mg PO QHS #90 tabs 02/25/25 03/11/25 Rx Allergies Allergy/AdvReac Type Severity Reaction Status Date / Time codeine Allergy Unknown rash/itchin Verified 03/11/25 14:44 g Vital Signs Vital Signs - 24 hr 03/11/25 14:21 03/11/25 14:38 03/11/25 14:46 Temperature 36.8 C Pulse Rate 67 125 H 108 H Respiratory Rate 16 16 23 H Blood Pressure 146/110 H 149/85 H 112/84 Pulse Oximetry 99 98 98 Oxygen Delivery 03/11/25 15:01 03/11/25 15:17 03/11/25 15:31 Temperature Pulse Rate 108 H 106 H 109 H Respiratory Rate 21 H 14 20 Blood Pressure 140/84 138/77 113/86 Pulse Oximetry 97 95 97 Oxygen Delivery 03/11/25 15:46 03/11/25 16:01 03/11/25 16:12 Temperature Pulse Rate 107 H 111 H 101 H Respiratory Rate 21 H 21 H Blood Pressure 108/91 H 109/77 Pulse Oximetry 98 97 Oxygen Delivery 03/11/25 16:12 03/11/25 16:16 03/11/25 16:31 Temperature Pulse Rate 104 H 105 H 114 H Respiratory Rate 18 18 21 H Blood Pressure 109/77 122/81 117/99 H Pulse Oximetry 99 97 97 Oxygen Delivery 03/11/25 16:46 03/11/25 17:00 03/11/25 17:12 Temperature Pulse Rate 115 H 117 H 115 H Respiratory Rate 18 21 H 25 H Blood Pressure 118/90 123/93 H 116/97 H Pulse Oximetry 97 97 99 Oxygen Delivery 03/11/25 17:17 03/11/25 17:31 03/11/25 17:46 Temperature Pulse Rate 120 H 136 H 129 H Respiratory Rate 20 17 19 Blood Pressure 114/103 H 105/95 H 113/98 H Pulse Oximetry 98 98 99 Oxygen Delivery 03/11/25 18:16 03/11/25 18:31 03/11/25 18:46 Temperature Pulse Rate 139 H 132 H 115 H Respiratory Rate 16 21 H 21 H Blood Pressure 127/94 H 121/91 H 124/96 H Pulse Oximetry 98 97 98 Oxygen Delivery 03/11/25 19:01 03/11/25 19:16 03/11/25 19:31 Temperature Pulse Rate 123 H 133 H 137 H Respiratory Rate 21 H 21 H 19 Blood Pressure 119/85 131/83 127/99 H Pulse Oximetry 97 98 97 Oxygen Delivery 03/11/25 22:21 03/11/25 22:32 03/11/25 23:01 Temperature Pulse Rate 92 100 112 H Respiratory Rate 22 H 20 Blood Pressure 135/87 140/101 H Pulse Oximetry 98 98 Oxygen Delivery 03/11/25 23:23 03/11/25 23:31 03/11/25 23:58 Temperature Pulse Rate 109 H 110 H 115 H Respiratory Rate 23 H 23 H 22 H Blood Pressure 130/92 H 109/77 109/77 Pulse Oximetry 97 96 96 Oxygen Delivery 03/12/25 00:16 03/12/25 01:01 03/12/25 01:06 Temperature Pulse Rate 111 H 112 H 96 Respiratory Rate 25 H 25 H Blood Pressure 110/81 106/86 106/86 Pulse Oximetry 97 98 Oxygen Delivery 03/12/25 01:08 03/12/25 01:08 03/12/25 01:33 Temperature Pulse Rate 96 109 H 103 H Respiratory Rate Blood Pressure 106/86 108/86 106/86 Pulse Oximetry Oxygen Delivery 03/12/25 01:34 03/12/25 01:37 03/12/25 01:46 Temperature Pulse Rate 97 100 109 H Respiratory Rate 22 H 22 H Blood Pressure 106/86 106/86 106/83 Pulse Oximetry 99 97 Oxygen Delivery 03/12/25 02:31 03/12/25 03:29 03/12/25 03:49 Temperature 36.7 C Pulse Rate 111 H 113 H Respiratory Rate 23 H 22 H Blood Pressure 101/70 119/92 H Pulse Oximetry 97 98 Oxygen Delivery Room Air 03/12/25 04:00 03/12/25 04:00 03/12/25 06:00 Temperature Pulse Rate 97 103 H 92 Respiratory Rate Blood Pressure 119/92 H 104/75 Pulse Oximetry Oxygen Delivery 03/12/25 06:00 03/12/25 06:00 03/12/25 06:00 Temperature Pulse Rate 92 92 92 Respiratory Rate Blood Pressure 104/75 104/75 Pulse Oximetry Oxygen Delivery 03/12/25 07:46 03/12/25 09:41 03/12/25 10:25 Temperature 36.7 C Pulse Rate 94 108 H 105 H Respiratory Rate 20 Blood Pressure 118/67 134/74 Pulse Oximetry 98 Oxygen Delivery Exam Const: General: no acute distress HENMT: Mouth: Yes moist mucous membranes Eyes: General: appearance normal, both eyes and all related structures Sclera: sclerae normal Resp: Effort & Inspection: normal respiratory effort Cardio: Rate: tachycardic Rhythm: regular rhythm Heart sounds: no murmurs Neuro: Speech: normal speech Psych: Mental Status: mental status grossly normal Affect: normal affect Results Labs and Meds 03/12/25 05:25 03/12/25 05:25 Lab results: Cardiac Enzymes 03/11/25 Range/Units 14:50 AST 37 (17-59) U/L Coagulation 03/11/25 03/11/25 03/12/25 Range/Units 14:50 23:13 : PT 14.4 14.1 (11.1-14.7) Seconds APTT 25.5 < 20.0 L 67.9 H (22.3-36.8) Seconds CBC 03/11/25 03/11/25 03/12/25 Range/Units 14:50 23:13 05: WBC 8.1 9.1 8.6 (4.5-10.0) K/mm3 RBC 3.95 L 3.88 L 3.51 L (4.6-6.20) M/mm3 Hgb 13.0 L 12.9 L 11.7 L (14.0-18.0) g/dL Hct 39.9 L 39.2 L 35.7 L (42.0-52.0) % Plt Count 278 280 263 (150-375) k/mm3 Lymph # (Auto) 1.48 1.88 2.26 (0.9-3.2) K/mm3 [place] # (Auto) 0.9 H 0.9 H 1.1 H (0.1-0.6) K/mm3 Eos # (Auto) 0.1 0.2 0.3 (0-0.3) K/mm3 Baso # (Auto) 0.1 0.1 0.1 (0.0-0.1) K/mm3 Comprehensive Metabolic Panel 03/11/25 03/12/25 Range/Units 14:50 05:25 Sodium 139 137 (137-145) mmol/L Potassium 4.0 3.9 (3.4-5.0) mmol/L Chloride 107 107 (98-107) mmol/L Carbon Dioxide 22 22 (22-30) mmol/L BUN 23 H 24 H (9-20) mg/dL Creatinine 0.85 0.74 (0.7-1.3) mg/dL Glucose 118 H 113 H (65-110) mg/dL Calcium 9.1 8.7 (8.4-10.2) mg/dL AST 37 (17-59) U/L ALT 52 H (6-50) U/L Alkaline Phosphatase 66 (38-126) U/L Total Protein 7.0 (6.3-8.2) g/dL Albumin 4.2 (3.5-5.1) g/dL Intake and Output 03/11/25 03/12/25 03/12/25 23:59 07:59 15:59 Intake Total 714.4 240 Output Total 300 Balance 414.4 240 Intake: IV 364.4 Amiodarone 150 mg/D5w 100 ml 120 150 mg In 100 ml @ 600 mls/hr IV CONT .Q10M [facility] Rx#:[id number] Amiodarone 360 mg/D5w 200 ml 147.8 360 mg In 200 ml @ 1 MG/MIN 33. 333 mls/hr IV CONT .Q6H ONE Rx# :[id number] Heparin Sod/D5w 100 Units/ml 25 96.6 ,000 units In 250 ml @ 1,600 UNITS/HR 16 mls/hr IV CONT . [id number] [facility] Rx#:[id number] Oral 350 240 Output: Urine 300 Other: # Unmeasured Voids 1 Patient Weight 03/12/25 23:59 Weight 80.2 kg
--- NOTE | 2025-03-12 10:49 | WPDMODSED ---
Moderate Sedation Note-Pt Data Patient Data Diagnosis: Atrial flutter with RVR Present Complaint: Atrial flutter with RVR Procedure to be performed/Plan: Transesophageal echocardiogram Synchronized electrical cardioversion Allergies Allergy/AdvReac Type Severity Reaction Status Date / Time codeine Allergy Unknown rash/itchin Verified 03/11/25 14:44 g Home Medications ?Medication ?Instructions ?Recorded ?Confirmed ?Type krill 300 mg-omega-3 90 mg-dha 27 1 cap PO DAILY 07/02/22 03/11/25 History mg-epa 45 ma-gzyrihz-aqrzesy capsule (Maximum Red Krill [place]-3) amlodipine 10 mg tablet 10 mg PO DAILY #90 tabs 10/27/24 03/11/25 Rx alprazolam 1 mg tablet 1 mg PO QHS #90 tabs 02/25/25 03/11/25 Rx Current Medications: Active Medications Acetaminophen (Acetaminophen 325 Mg Tablet) 650 mg PO Q4H PRN PRN Reason: Mild Pain (1-3) or Fever Last Admin: 03/12/25 01:05 Dose: 650 mg Alprazolam (Alprazolam (*Crx) 0.5 Mg Tablet) 1 mg PO QHS ESE Heparin Sodium (Porcine) (Heparin Sodium 5,000 Units/Ml Vial) 6,500 units IV PUSH PRN PRN PRN Reason: aPTT less than 55 seconds Heparin Sodium (Porcine) (Heparin Sodium 5,000 Units/Ml Vial) 3,000 units IV PUSH PRN PRN PRN Reason: aPTT 55 - 70 seconds Last Admin: 03/12/25 06:14 Dose: 3,000 units Heparin Sodium/Dextrose (Heparin Sodium/D5w 100 Units/Ml) 25,000 units in 250 mls @ 16 mls/hr IV CONT .[id number] ESE; Protocol Last Titration: 03/12/25 06:14 Dose: 1,600 units/hr, 16 mls/hr Amiodarone HCl/Dextrose (Nexterone 360 Mg/D5w 200 Ml) 360 mg in 200 mls @ 16.667 mls/hr IV CONT .Q12H ESE Last Infusion: 03/12/25 10:00 Dose: 0.5 mg/min, 16.67 mls/hr Metoprolol Tartrate (Metoprolol Tartrate 25 Mg Tablet) 25 mg PO Q12HR ESE Last Admin: 03/12/25 09:41 Dose: 25 mg Ondansetron HCl (Ondansetron Inj 4 Mg/2 Ml Vial) 4 mg IV PUSH Q4H PRN PRN Reason: Nausea Sedation/Anesthesia: No previous sedation/anesthesia problems (including family history). [facility] Surgical History Surgical History S/P patent foramen ovale closure 2024 H/O mitral valve replacement 2024 H/O colonoscopy (~2010) H/O hernia repair Family History Family History Mother Hypertension Family history of elevated blood lipids Grandparent Family history of malignant neoplasm of uterus Family history of malignant neoplasm of ovary Social History Social History Smoking status: Former smoker Tobacco type: cigarettes Smoking end date: 10/14/08 Alcohol intake: former Substance use: never Substance use type: does not use Do You Feel Safe in your Home?: Yes Lack of Transportation: No Lack of Food: Never True Current Housing: I Have Housing Concerned About Future Housing: No Difficulty Paying Gas/Electric Bills: No Difficulty Paying for Meds: No Currently Unemployed: No Education: High School Diploma/GED Difficulty w/ Childcare or Family Care: No Living arrangements: with family Spiritual care concerns: No Mod Sed Physical Exam Physical Exam Pre Procedural Exam: Normal: Appearance, Lungs, Neuro Exam, Extremities and Skin and Variation: Heart Rate (Atrial flutter with RVR) and Heart Rhythm (Atrial flutter with RVR) Hours since solid foods: 6 Hours since liquid intake: 6 Mallampati Classification: class III Internal Medicine - PN: Obj Da Vital Signs Vital Signs: Vital Signs - 24 hr 03/11/25 14:21 03/11/25 14:38 03/11/25 14:46 Temperature 36.8 C Pulse Rate 67 125 H 108 H Respiratory Rate 16 16 23 H Blood Pressure 146/110 H 149/85 H 112/84 Pulse Oximetry 99 98 98 Oxygen Delivery 03/11/25 15:01 03/11/25 15:17 03/11/25 15:31 Temperature Pulse Rate 108 H 106 H 109 H Respiratory Rate 21 H 14 20 Blood Pressure 140/84 138/77 113/86 Pulse Oximetry 97 95 97 Oxygen Delivery 03/11/25 15:46 03/11/25 16:01 03/11/25 16:12 Temperature Pulse Rate 107 H 111 H 101 H Respiratory Rate 21 H 21 H Blood Pressure 108/91 H 109/77 Pulse Oximetry 98 97 Oxygen Delivery 03/11/25 16:12 03/11/25 16:16 03/11/25 16:31 Temperature Pulse Rate 104 H 105 H 114 H Respiratory Rate 18 18 21 H Blood Pressure 109/77 122/81 117/99 H Pulse Oximetry 99 97 97 Oxygen Delivery 03/11/25 16:46 03/11/25 17:00 03/11/25 17:12 Temperature Pulse Rate 115 H 117 H 115 H Respiratory Rate 18 21 H 25 H Blood Pressure 118/90 123/93 H 116/97 H Pulse Oximetry 97 97 99 Oxygen Delivery 03/11/25 17:17 03/11/25 17:31 03/11/25 17:46 Temperature Pulse Rate 120 H 136 H 129 H Respiratory Rate 20 17 19 Blood Pressure 114/103 H 105/95 H 113/98 H Pulse Oximetry 98 98 99 Oxygen Delivery 03/11/25 18:16 03/11/25 18:31 03/11/25 18:46 Temperature Pulse Rate 139 H 132 H 115 H Respiratory Rate 16 21 H 21 H Blood Pressure 127/94 H 121/91 H 124/96 H Pulse Oximetry 98 97 98 Oxygen Delivery 03/11/25 19:01 03/11/25 19:16 03/11/25 19:31 Temperature Pulse Rate 123 H 133 H 137 H Respiratory Rate 21 H 21 H 19 Blood Pressure 119/85 131/83 127/99 H Pulse Oximetry 97 98 97 Oxygen Delivery 03/11/25 22:21 03/11/25 22:32 03/11/25 23:01 Temperature Pulse Rate 92 100 112 H Respiratory Rate 22 H 20 Blood Pressure 135/87 140/101 H Pulse Oximetry 98 98 Oxygen Delivery 03/11/25 23:23 03/11/25 23:31 03/11/25 23:58 Temperature Pulse Rate 109 H 110 H 115 H Respiratory Rate 23 H 23 H 22 H Blood Pressure 130/92 H 109/77 109/77 Pulse Oximetry 97 96 96 Oxygen Delivery 03/12/25 00:16 03/12/25 01:01 03/12/25 01:06 Temperature Pulse Rate 111 H 112 H 96 Respiratory Rate 25 H 25 H Blood Pressure 110/81 106/86 106/86 Pulse Oximetry 97 98 Oxygen Delivery 03/12/25 01:08 03/12/25 01:08 03/12/25 01:33 Temperature Pulse Rate 96 109 H 103 H Respiratory Rate Blood Pressure 106/86 108/86 106/86 Pulse Oximetry Oxygen Delivery 03/12/25 01:34 03/12/25 01:37 03/12/25 01:46 Temperature Pulse Rate 97 100 109 H Respiratory Rate 22 H 22 H Blood Pressure 106/86 106/86 106/83 Pulse Oximetry 99 97 Oxygen Delivery 03/12/25 02:31 03/12/25 03:29 03/12/25 03:49 Temperature 36.7 C Pulse Rate 111 H 113 H Respiratory Rate 23 H 22 H Blood Pressure 101/70 119/92 H Pulse Oximetry 97 98 Oxygen Delivery Room Air 03/12/25 04:00 03/12/25 04:00 03/12/25 06:00 Temperature Pulse Rate 97 103 H 92 Respiratory Rate Blood Pressure 119/92 H 104/75 Pulse Oximetry Oxygen Delivery 03/12/25 06:00 03/12/25 06:00 03/12/25 06:00 Temperature Pulse Rate 92 92 92 Respiratory Rate Blood Pressure 104/75 104/75 Pulse Oximetry Oxygen Delivery 03/12/25 07:46 03/12/25 08:00 03/12/25 09:41 Temperature 36.7 C Pulse Rate 94 94 108 H Respiratory Rate 20 Blood Pressure 118/67 118/67 Pulse Oximetry 98 Oxygen Delivery 03/12/25 10:00 03/12/25 10:25 Temperature Pulse Rate 105 H 105 H Respiratory Rate Blood Pressure 134/74 134/74 Pulse Oximetry Oxygen Delivery Intake/Output Intake/Output: Intake & Output 03/09/25 03/10/25 03/11/25 03/12/25 23:59 23:59 23:59 23:59 Intake Total 1021.0 Output Total 300 Balance 721.0 Meds/Results Medications: Active Medications Generic Name Dose Route Start Last Admin Trade Name Freq PRN Reason Stop Dose Admin Acetaminophen 650 mg 03/12/25 00:31 03/12/25 01:05 Acetaminophen 325 Mg Tablet PO 650 mg Q4H PRN Administration Mild Pain (1-3) or Fever Alprazolam 1 mg 03/12/25 21:00 Alprazolam (*Crx) 0.5 Mg Tablet PO QHS ESE Heparin Sodium (Porcine) 6,500 units 03/11/25 22:07 Heparin Sodium 5,000 Units/Ml Vial IV PUSH PRN PRN aPTT less than 55 seconds Heparin Sodium (Porcine) 3,000 units 03/11/25 22:07 03/12/25 06:14 Heparin Sodium 5,000 Units/Ml Vial IV PUSH 3,000 units PRN PRN Administration aPTT 55 - 70 seconds Heparin Sodium/Dextrose 25,000 units in 250 mls @ 16 mls/hr 03/11/25 22:40 03/12/25 06:14 Heparin Sodium/D5w 100 Units/Ml IV CONT 1,600 units/hr .[id number] ESE 16 mls/hr Titration Protocol 1,600 UNITS/HR Amiodarone HCl/Dextrose 360 mg in 200 mls @ 16.667 mls/hr 03/12/25 06:00 03/12/25 10:00 Nexterone 360 Mg/D5w 200 Ml IV CONT 0.5 mg/min .Q12H ESE 16.67 mls/hr Infusion 0.5 MG/MIN Metoprolol Tartrate 25 mg 03/12/25 09:00 03/12/25 09:41 Metoprolol Tartrate 25 Mg Tablet PO 25 mg Q12HR ESE Administration Ondansetron HCl 4 mg 03/12/25 00:31 Ondansetron Inj 4 Mg/2 Ml Vial IV PUSH Q4H PRN Nausea Radiology Results: ITS Impressions Chest X-Ray 03/11/25 16:34 IMPRESSION: Small left-sided pleural effusion with otherwise coarse interstitial markings. No focal infiltrate is appreciated. Chest CTA 03/11/25 19:17 IMPRESSION: 1. No pulmonary embolism. 2. Bilateral pleural effusion more on the right side with adjacent atelectasis versus pneumonia. Clinical correlation and follow-up advised. Labs 03/12/25 05:03/12/25 05:25 Labs: Laboratory Results - last 24 hr 03/11/25 03/11/25 03/11/25 14:50 16:58 19:53 WBC 8.1 RBC 3.95 L Hgb 13.0 L Hct 39.9 L MCV 101.0 H MCH 32.9 MCHC 32.6 RDW 12.9 Plt Count 278 MPV 9.7 Immature Gran % (Auto) 0.2 Neut % (Auto) 67.9 Lymph % (Auto) 18.3 [place] % (Auto) 11.5 H Eos % (Auto) 1.5 Baso % (Auto) 0.6 Lymph # (Auto) 1.48 [place] # (Auto) 0.9 H Eos # (Auto) 0.1 Baso # (Auto) 0.1 Abs Immat Gran (auto) 0.02 Absolute Neuts (auto) 5.5 Absolute Nucleated RBC 0.000 Nucleated RBC % 0.0 ESR 34 H PT 14.4 INR 1.1 APTT 25.5 Sodium 139 Potassium 4.0 Chloride 107 Carbon Dioxide 22 Anion Gap 10 BUN 23 H Creatinine 0.85 Estim Creat Clear Calc Not Reportable Estimated GFR > 60 Glucose 118 H Lactic Acid 0.8 Calcium 9.1 Magnesium Total Bilirubin 0.4 AST 37 ALT 52 H Alkaline Phosphatase 66 C-Reactive Protein 1.6 H Total Protein 7.0 Albumin 4.2 Influenza A (RT-PCR) Negative Influenza B (RT-PCR) Negative RSV (RT-PCR) Negative SARS-CoV-2 RNA (RT-PCR) Negative 03/11/25 03/12/25 23:13 05:25 WBC 9.1 8.6 RBC 3.88 L 3.51 L Hgb 12.9 L 11.7 L Hct 39.2 L 35.7 L MCV 101.0 H 101.7 H MCH 33.2 33.3 MCHC 32.9 32.8 RDW 13.1 13.1 Plt Count 280 263 MPV 9.6 9.9 Immature Gran % (Auto) 0.2 0.2 Neut % (Auto) 66.7 55.8 Lymph % (Auto) 20.8 26.3 [place] % (Auto) 9.5 H 12.9 H Eos % (Auto) 2.0 4.0 Baso % (Auto) 0.8 0.8 Lymph # (Auto) 1.88 2.26 [place] # (Auto) 0.9 H 1.1 H Eos # (Auto) 0.2 0.3 Baso # (Auto) 0.1 0.1 Abs Immat Gran (auto) 0.02 0.02 Absolute Neuts (auto) 6.1 4.8 Absolute Nucleated RBC 0.000 0.000 Nucleated RBC % 0.0 0.0 ESR PT 14.1 INR 1.1 APTT < 20.0 L 67.9 H Sodium 137 Potassium 3.9 Chloride 107 Carbon Dioxide 22 Anion Gap 8 BUN 24 H Creatinine 0.74 Estim Creat Clear Calc 89 Estimated GFR > 60 Glucose 113 H Lactic Acid Calcium 8.7 Magnesium 2.1 Total Bilirubin AST ALT Alkaline Phosphatase C-Reactive Protein Total Protein Albumin Influenza A (RT-PCR) Influenza B (RT-PCR) RSV (RT-PCR) SARS-CoV-2 RNA (RT-PCR) ASA Classification/Sedation ASA Classification/Sedation ASA Class: III Emergent: No Risks: Risks, benefits and alternatives explained and patient/family accepted plan for sedation. Patient re-evaluated immediately prior to sedation.
[2025-03-12 12:26] LABS: Partial Thromboplastin Time 106.1 Seconds (22.3-36.8)
--- NOTE | 2025-03-12 13:30 | ECG_ITS ---
Test Date: 2025-03-12 17:59:08 Measurements Intervals [place] Rate: 88 P: 37 IA: 168 QRS: 13 QRSD: 94 T: 35 QT: 378 QTc: 459 Interpretive Statements SINUS RHYTHM WITH SINUS ARRHYTHMIA NONSPECIFIC T-WAVE ABNORMALITY Compared to ECG 03/12/2025 17:18:20 Atrial flutter no longer present Electronically Signed On 03-12-2025 15:12:18 CDT by Alea Carpenter M.D.
--- NOTE | 2025-03-12 14:00 | ECG_ITS ---
Test Date: 2025-03-12 17:18:20 Measurements Intervals [place] Rate: 103 P: 0 [place]: 0 QRS: 23 QRSD: 89 T: 175 QT: 363 QTc: 475 Interpretive Statements ATRIAL FLUTTER/TACHYCARDIA WITH RAPID VENTRICULAR RESPONSE Compared to ECG 03/11/2025 18:31:02 NO SIGNIFICANT CHANGES Electronically Signed On 03-12-2025 15:12:07 CDT by Alea Carpenter M.D.
[2025-03-12] MEDS: LIDOCAINE 2% VISC SOLN 15 ML UDC (14:18)
[2025-03-12] MEDS: fentaNYL CITRATE INJ (*CRX) 100 MCG/2 ML VIAL 50 MCG IV PUSH (14:20)
[2025-03-12] MEDS: MIDAZOLAM HCL (*CRX) 2 MG/2 ML VIAL IV PUSH (14:20)
[2025-03-12] MEDS: MIDAZOLAM HCL (*CRX) 2 MG/2 ML VIAL 1 MG IV PUSH (14:22)
[2025-03-12] MEDS: MIDAZOLAM HCL (*CRX) 10 MG/2 ML VIAL IV PUSH (14:25)
[2025-03-12] MEDS: PROPOFOL IV EMULSION 200 MG/20 ML VIAL 40 MG IV PUSH (14:30)
--- NOTE | 2025-03-12 14:40 | WPDTECDV ---
PJ with Cardioversion Date of procedure: 03/12/25 Procedure Type: Brief History Of Present Illness: Patient is a pleasant 69 year old male who is referred for PJ-guided DCCV for atrial flutter with RVR. Procedure In Detail: After verbal and written informed consent was obtained, the patient risks, benefits, and alternatives explained in detail. The patient agreed to proceed with the plan of care as outlined above.?The patient was evaluated at bedside in the [facility] room.?See pre-sedation note for further details. The patient was then placed in the appropriate 30 to 45 degree angle supine position at a slight left lateral decubitus position.?Patient was monitored throughout the study with telemetry, oxygen saturation, end-tidal CO2 monitoring, blood pressure, heart rate, and respirations.?The posterior hypopharynx was then locally anesthetized using repeated administration of Hurricaine spray as well as gargled viscous lidocaine. After local anesthetic of the posterior hypopharynx was achieved and the oral bite block placed, moderate sedation was administered.?After confirmation of adequate moderate sedation, the transesophageal echocardiogram probe was advanced through the oral bite block into the posterior hypopharynx and into the esophagus easily and without complication.?Multiple, multiplanar echocardiographic images were obtained in multiple standard re-projections.?At the conclusion of the study, the transesophageal echocardiogram probe was removed easily and without complication. The patient tolerated the procedure well without difficulty. Moderate Sedation / Anesthesia Administration: Procedure / sedation start time: 14:20 Procedure / sedation end time: 14:33 Total procedure time: 13 minutes Total of IV Versed 4mg, Fentanyl 50mcg was administered by RN. Total of Propofol 40mg IV was administered prior to the cardioversion by me. FINDINGS: LEFT ATRIAL APPENDAGE: Anatomically normal structure with prominent pectinate muscles without thrombus or vegetation identified. ? CARDIOVERSION: Synchronized electrical cardioversion was performed with 1 shock at 250 joules, which converted patient to sinus rhythm. CONCLUSION: Successful cardioversion to sinus rhythm with 1 shock at 250 joules. Complications: None
[2025-03-12] MEDS: AMIODARONE HCL 200 MG TABLET PO (15:42)
[2025-03-12] MEDS: HEPARIN SOD/D5W 100 UNITS/ML 25,000 UNITS/250 ML BAG 14 UNITS IV CONT (15:43)
[2025-03-12] MEDS: APIXABAN 5 MG TABLET PO (20:39)
[2025-03-12] MEDS: ALPRAZolam (*CRX) 0.5 MG TABLET 1 MG PO (20:39)
[2025-03-13] VITALS (7 sets, daily range): BP systolic 123–126; BP diastolic 75–77; PULSE 88–98; RESP 18–20; TEMP 36.4–36.8; O2SAT 96–98
--- NOTE | 2025-03-13 09:01 | P.PNCA_ITS ---
Progress Note: A&P Assessment and Plan (1) Atrial flutter with rapid ventricular response: Code(s): I48.92 - Unspecified atrial flutter Status: Acute (2) Mitral regurgitation: Qualifiers: Cardiac valve disease etiology: etiology unspecified Qualified Code(s): I34.0 - Nonrheumatic mitral (valve) insufficiency Code(s): I34.0 - Nonrheumatic mitral (valve) insufficiency Status: Acute Plan 69-year-old man with background of mitral valve prolapse with MR status post recent valve repair earlier this month. He presents with atrial flutter with RVR and has been restored to sinus rhythm following cardioversion yesterday. In my opinion he is a good candidate for discharge today. Amiodarone and apixaban as well as metoprolol should be continued. For now his amlodipine will not be resumed since his blood pressure is normal with the above regimen. I will ensure that he was short interval follow-up scheduled with my partner, Dr. Pozo who has been seeing him in the office for several years regarding his mitral valve disease. Daniel Schmitz MD [facility] Subjective Date/time seen: Date of service: 03/13/25 09:01 Interval history: Follow-up visit in this 69-year-old man with: Mitral valve disease, mitral valve prolapse with moderate to severe MR requiring surgical repair that was done earlier this month at [facility]. Patient presented to the hospital with atrial flutter with RVR. Underwent PJ cardioversion yesterday restoring sinus rhythm. He feels better this morning. Amiodarone has been started and systemic anticoagulation with apixaban has also been started. Exam Const: General: comfortable and no acute distress HENMT: Mouth: Yes moist mucous membranes Eyes: Sclera: sclerae normal Neck: Neck: supple and no JVD Resp: Effort & Inspection: normal respiratory effort Auscultation: clear to auscultation bilaterally Cardio: Rate: regular rate Rhythm: regular rhythm Other: No audible MR GI: GI Palp: Yes Soft to palpation Auscultation: normal bowel sounds Skin: General skin exam: normal color Neuro: Other: Alert and oriented x3 Extrem: General: normal to inspection Objective Data Vital Signs Vital Signs: Vital Signs - 24 hr 03/12/25 09:41 03/12/25 10:00 03/12/25 10:00 Temperature Pulse Rate 108 H 105 H 101 H Respiratory Rate Blood Pressure 134/74 Pulse Oximetry Oxygen Delivery Oxygen Flow Rate 03/12/25 10:25 03/12/25 12:00 03/12/25 12:00 Temperature Pulse Rate 105 H 101 H Respiratory Rate Blood Pressure 134/74 Pulse Oximetry 97 Oxygen Delivery Room Air Oxygen Flow Rate 03/12/25 12:00 03/12/25 12:01 03/12/25 14:07 Temperature 36.5 C Pulse Rate 96 96 99 Respiratory Rate 18 17 Blood Pressure 127/96 H 127/96 H 125/79 Pulse Oximetry 97 97 Oxygen Delivery Room Air Oxygen Flow Rate 03/12/25 14:20 03/12/25 14:25 03/12/25 14:30 Temperature Pulse Rate 104 H 113 H 99 Respiratory Rate 21 H 19 20 Blood Pressure 134/87 124/84 117/99 H Pulse Oximetry 97 96 98 Oxygen Delivery Room Air Nasal Cannula Nasal Cannula Oxygen Flow Rate 2 2 03/12/25 14:45 03/12/25 15:00 03/12/25 15:42 Temperature Pulse Rate 91 89 87 Respiratory Rate 18 17 Blood Pressure 108/81 117/85 Pulse Oximetry 96 97 Oxygen Delivery Room Air Room Air Oxygen Flow Rate 03/12/25 16:00 03/12/25 16:00 03/12/25 16:33 Temperature 36.5 C Pulse Rate 88 88 Respiratory Rate 20 Blood Pressure 114/78 Pulse Oximetry 97 97 Oxygen Delivery Room Air Oxygen Flow Rate 03/12/25 18:00 03/12/25 20:00 03/12/25 20:00 Temperature 36.3 C L Pulse Rate 94 98 99 Respiratory Rate 20 Blood Pressure 129/81 Pulse Oximetry 97 Oxygen Delivery Oxygen Flow Rate 03/12/25 20:35 03/12/25 20:39 03/12/25 22:00 Temperature Pulse Rate 96 86 Respiratory Rate Blood Pressure Pulse Oximetry Oxygen Delivery Room Air Oxygen Flow Rate 03/12/25 23:33 03/13/25 00:00 03/13/25 00:20 Temperature 36.4 C Pulse Rate 86 95 Respiratory Rate 20 Blood Pressure 125/83 Pulse Oximetry 97 Oxygen Delivery Room Air Oxygen Flow Rate 03/13/25 02:00 03/13/25 04:00 03/13/25 04:00 Temperature Pulse Rate 92 88 Respiratory Rate Blood Pressure Pulse Oximetry Oxygen Delivery Room Air Oxygen Flow Rate 03/13/25 04:00 03/13/25 06:00 03/13/25 08:00 Temperature 36.4 C Pulse Rate 90 91 Respiratory Rate 20 Blood Pressure 126/75 Pulse Oximetry 96 98 Oxygen Delivery Room Air Oxygen Flow Rate 03/13/25 08:26 Temperature 36.8 C Pulse Rate 93 Respiratory Rate 18 Blood Pressure 123/77 Pulse Oximetry 98 Oxygen Delivery Oxygen Flow Rate Intake/Output Intake/Output: Intake & Output 03/10/25 03/11/25 03/12/25 03/13/25 23:59 23:59 23:59 23:59 Intake Total 1910.5 300 Output Total 1200 200 Balance 710.5 100 Meds/Results Medications: Active Medications Generic Name Dose Route Start Last Admin Trade Name Freq PRN Reason Stop Dose Admin Acetaminophen 650 mg 03/12/25 00:31 03/12/25 01:05 Acetaminophen 325 Mg Tablet PO 650 mg Q4H PRN Administration Mild Pain (1-3) or Fever Alprazolam 1 mg 03/12/25 21:00 03/12/25 20:39 Alprazolam (*Crx) 0.5 Mg Tablet PO 1 mg QHS ESE Administration Amiodarone HCl 200 mg 03/12/25 14:35 03/12/25 15:42 Amiodarone Hcl 200 Mg Tablet PO 200 mg DAILY@0800 ESE Administration Apixaban 5 mg 03/12/25 21:00 03/12/25 20:39 Apixaban 5 Mg Tablet PO 5 mg Q12HR ESE Administration Metoprolol Tartrate 25 mg 03/12/25 09:00 03/12/25 20:39 Metoprolol Tartrate 25 Mg Tablet PO 25 mg Q12HR ESE Administration Ondansetron HCl 4 mg 03/12/25 00:31 Ondansetron Inj 4 Mg/2 Ml Vial IV PUSH Q4H PRN Nausea Radiology Results: ITS Impressions Chest X-Ray 03/11/25 16:34 IMPRESSION: Small left-sided pleural effusion with otherwise coarse interstitial markings. No focal infiltrate is appreciated. Chest CTA 03/11/25 19:17 IMPRESSION: 1. No pulmonary embolism. 2. Bilateral pleural effusion more on the right side with adjacent atelectasis versus pneumonia. Clinical correlation and follow-up advised. Labs Labs: Laboratory Results - last 24 hr 03/12/25 03/12/25 05:20 12:08 APTT 106.1 H TSH 1.380
[2025-03-13] MEDS: APIXABAN 5 MG TABLET PO (09:12)
[2025-03-13] MEDS: METOPROLOL TARTRATE 25 MG TABLET PO (09:12)
[2025-03-13] MEDS: AMIODARONE HCL 200 MG TABLET PO (09:12)
--- NOTE | 2025-03-13 09:18 | PM.DS ---
DS: Admitting Diagnosis Discharge Date 03/13/2025 Admitting Diagnosis Palpitations DS: Discharge Diagnosis Discharge Diagnosis (1) Atrial flutter with rapid ventricular response: Code(s): I48.92 - Unspecified atrial flutter Status: Acute DS: Summary Hospital Course Hospital Course: Mr. Edwards is a 69-year-old male who had a mitral valve repair on February [address] Bedoya with [facility] [place]. Presents to [place] ER on 03/11/2025 with complaint of sinus pressure and sneezing. ER evaluation revealed a normal white count, afebrile, atrial flutter with RVR. Dr. Bedoya was consulted and recommended amiodarone. Conferred with [facility] Cardiology group. Patient reports being able to feel palpitations prior to admission however after initiation of amiodarone he did not have any symptoms of concern. Continue telemetry. Currently in the low 100s heart rate. Asymptomatic. Continue heparin GTT. Amiodarone infusion ongoing. Cardiology was consulted and he underwent PJ cardioversion on 03/12/2025. He was successfully cardioverted to sinus rhythm. He was monitored in the hospital overnight and he remained in a sinus rhythm. Complained of allergy symptoms for which claritin/antihistamines were recommended. Follow-up with cardiology as an outpatient basis. Full code. Time Spent with Patient Time attestation: Total time spent providing and/or coordinating discharge services: 35 minutes Exam Narrative: APPEARANCE: No apparent distress. Alert and oriented x3 EYES: EOMI, NOSE: Atraumatic NECK: Trachea midline RESPIRATORY: No increased rate of breathing clear to auscultation CARDIOVASCULAR: Regular rate and rhythm no peripheral edema ABDOMINAL: Non-distended soft nontender MUSCULOSKELETAl: No obvious deformities NEURO: Alert. Moving 4/4 extremities SKIN:: Warm, dry. Normal color PSYCHIATRIC: Normal affect DS: Data Data Completed and Pending Labs on day of discharge: Labs from last 24 hours 03/12/25 03/12/25 12:08 05:20 APTT 106.1 H TSH 1.380 Preliminary micro results at discharge 03/11/25 19:45 Blood Culture - Preliminary Blood 03/11/25 19:47 Blood Culture - Preliminary Blood 03/11/25 19:47 Blood Culture - Preliminary Blood Procedures/Treatments: PJ with Cardioversion Date of procedure: 03/12/25 Procedure Type: Brief History Of Present Illness: Patient is a pleasant 69 year old male who is referred for PJ-guided DCCV for atrial flutter with RVR. Procedure In Detail: After verbal and written informed consent was obtained, the patient risks, benefits, and alternatives explained in detail. The patient agreed to proceed with the plan of care as outlined above.?The patient was evaluated at bedside in [facility].?See pre-sedation note for further details. The patient was then placed in the appropriate 30 to 45 degree angle supine position at a slight left lateral decubitus position.?Patient was monitored throughout the study with telemetry, oxygen saturation, end-tidal CO2 monitoring, blood pressure, heart rate, and respirations.?The posterior hypopharynx was then locally anesthetized using repeated administration of Hurricaine spray as well as gargled viscous lidocaine. After local anesthetic of the posterior hypopharynx was achieved and the oral bite block placed, moderate sedation was administered.?After confirmation of adequate moderate sedation, the transesophageal echocardiogram probe was advanced through the oral bite block into the posterior hypopharynx and into the esophagus easily and without complication.?Multiple, multiplanar echocardiographic images were obtained in multiple standard re-projections.?At the conclusion of the study, the transesophageal echocardiogram probe was removed easily and without complication. The patient tolerated the procedure well without difficulty. Moderate Sedation / Anesthesia Administration: Procedure / sedation start time: 14:20 Procedure / sedation end time: 14:33 Total procedure time: 13 minutes Total of IV Versed 4mg, Fentanyl 50mcg was administered by RN. Total of Propofol 40mg IV was administered prior to the cardioversion by me. FINDINGS: LEFT ATRIAL APPENDAGE: Anatomically normal structure with prominent pectinate muscles without thrombus or vegetation identified. ? CARDIOVERSION: Synchronized electrical cardioversion was performed with 1 shock at 250 joules, which converted patient to sinus rhythm. CONCLUSION: Successful cardioversion to sinus rhythm with 1 shock at 250 joules. Complications: None Imaging Radiologist's impression: ITS Impressions Chest X-Ray 03/11/25 16:34 IMPRESSION: Small left-sided pleural effusion with otherwise coarse interstitial markings. No focal infiltrate is appreciated. Chest CTA 03/11/25 19:17 IMPRESSION: 1. No pulmonary embolism. 2. Bilateral pleural effusion more on the right side with adjacent atelectasis versus pneumonia. Clinical correlation and follow-up advised. Discharge Plan Discharge Attending physician on discharge: Navin Cancino Consulting providers: Dilip Pozo Discharging Clinician: Navin Cancino Anticipated Discharge Date/Time: 03/13/25 09:20 Patient Disposition: Home Activity: as tolerated Diet: heart healthy Patient Instructions: Antibiotic Form, Atrial Flutter (GEN) Patient Language: [place] Stand Alone Forms: General Discharge Information Follow-up/Referrals: Dilip Pozo MD [Physician] - 2 Weeks Daniel Montes MD [Primary Care Provider] - 1 Week Discharge Medications: New metoprolol tartrate 25 mg Tablet 25 mg PO Q12HR Qty: 60 0RF Eliquis 5 mg Tablet 5 mg PO Q12HR Qty: 60 0RF amiodarone [Pacerone] 200 mg Tablet 200 mg PO DAILY@0800 Qty: 30 0RF Continued alprazolam 1 mg tablet 1 mg PO QHS Qty: 90 3RF Rx Instructions: stopped oxycodone Maximum Red Krill [place]-3 [id number] mg capsule 1 cap PO DAILY Discontinued amlodipine 10 mg tablet 10 mg PO DAILY Qty: 90 3RF Date of admission: 03/12/25 00:31 Primary Care Provider: Daniel Montes Admitting Provider: Ana Mukherjee Attending physician on admission: Ana Mukherjee Condition: Stable
== END 2025-03-13 10:30 | disposition home or self-care (01) | DRG 310 ==
LOC: ANHED 22:35 → ANHIMU 03-12 01:55
PROVIDERS: Emergency Medicine; Internal Medicine; Admitting Provider General Practice; Emergency Provider Emergency Medicine; PCP Family Medicine; Visit Provider Internal Medicine
PROC: 5A2204Z Restoration of Cardiac Rhythm, Single (ICD-10-PCS; principal; 2025-03-12 14:00)
PROC: B24BZZ4 Ultrasonography of Heart with Aorta, Transesophageal (ICD-10-PCS; CPT 93312; 2025-03-12 14:00)
DX: I48.92 Unspecified atrial flutter (principal); Z95.2 Presence of prosthetic heart valve; Z87.891 Personal history of nicotine dependence; I10 Essential (primary) hypertension; E78.5 Hyperlipidemia, unspecified
CPT/HCPCS: 36415; 71045; 71275; 80048; 80053; 83605; 83735; 84443; 85025; 85610; 85652; 85730; 86140; 87040; 87637; 92960; 93005; 93312; 93320; 93325; 96365; 96375; 99213; 99285; A9270; G0463; J0282; J1644; J2250; J2704; J3010; J7040; Q9957; Q9967

== ENCOUNTER 2025-06-13 16:24 | Emergency (ER) | payer MEDICARE, SELFPAY ==
--- NOTE | ~2025-06-13 | XR_ITS ---
EXAMINATION: XR chest 2V DATE: 06/13/2025 17:33 INDICATION: Palpitations. TECHNIQUE: frontal view of the chest was obtained. COMPARISON: Chest radiograph and CT dated 03/11/2025 FINDINGS: Chronic linear discoid atelectasis/scarring along the lateral right midlung zone. No other airspace opacities, pulmonary edema, pleural effusion or pneumothorax. Heart size is normal. Mitral valve repair. Tortuous thoracic aorta. Mild thoracic dextrocurvature with mild spondylosis. IMPRESSION: 1. No acute cardiopulmonary disease. Reviewed, dictated and finalized at location A.
--- NOTE | 2025-06-13 16:26 | ECG_ITS ---
Test Date: 2025-06-13 16:32:35 Measurements Intervals Tavares Rate: 133 P: 0 DE: 0 QRS: 12 QRSD: 102 T: 265 QT: 309 QTc: 460 Interpretive Statements ATRIAL FLUTTER/TACHYCARDIA WITH RAPID VENTRICULAR RESPONSE DELAYED PRECORDIAL R/S TRANSITION BORDERLINE ST-T WAVE ABNORMALITY- LAT/HIGH LAT LEADS ABNORMAL ECG Compared to ECG 03/12/2025 17:59:08 SINUS RHYTHM NO LONGER PRESENT Electronically Signed On 06-13-2025 21:14:25 CDT by Ricardo Thompson D.O.
--- OUTSIDE RECORDS SUMMARY | 2025-06-13 16:29 | XMS_ITS | Clinical Summary ---
Author Organization [facility] Address [address] [place] [phone] Care Team Providers Care Psychiatric Tech Name Role Phone Daniel Montes MD Primary Care Provider [phone] Lavinia Bedoya MD Unavailable [phone] Dilip Pozo MD Unavailable [phone] Allergies Active Allergy Reactions Criticality Noted Date Comments Codeine Itching,Rash Medium 12/21/2014 Medications multivitamin (MULTI-DAY ORAL) Take 1 tablet by mouth every morning Active calcium carbonate (TUMS) 500 mg (200 mg elemental calcium) chewable tablet Take 1 tablet/chew tab (500 mg total) by mouth as needed for indigestion or heartburn Active acetaminophen 500 mg capsule Take 2 capsules (1,000 mg total) by mouth every 6 (six) hours as needed for pain 5 Active ALPRAZolam (XANAX) 1 mg tablet Take 1 tablet (1 mg total) by mouth nightly 5 Active amLODIPine (NORVASC) 10 mg tabletIndicatio ns:hypertension Take 1 tablet (10 mg total) by mouth every morning 90 tablet 3 5 Active amiodarone (PACERONE) 200 mg tablet Take 1 tablet (200 mg total) by mouth daily 90 tablet 3 5 Active metoprolol tartrate (LOPRESSOR) 25 mg immediate release tablet Take 1 tablet (25 mg total) by mouth every 12 (twelve) hours 180 tablet 3 5 Active Eliquis 5 mg tablet Take 1 tablet (5 mg total) by mouth every 12 (twelve) hours 180 tablet 3 Active Active Problems Problem Noted Date Diagnosed Date [...] 02/20/20 25 Severe mitral regurgitation 10/27/2024 02/19/2025 Encounters Date Type Department Care Team Description 04/13/2025 Telephone [facility] Cardiology [address] [place] [address] [place] [phone] Latanya Davis NP 03/30/2025 Telephone [place] [address] [place] [phone] Latanya Davis NP 03/29/2025 1:15 PM CDT Office Visit [facility] Cardiothoracic Surgery [address] [facility] Advanced Medicine 8th Floor [address] Room [address] [place] [phone] Argenis Jones CNS Nonrheumatic mitral valve regurgitation (Primary Dx) 03/29/2025 1:00 PM CDT - 03/29/2025 11:59 PM CDT Hospital Encounter [facility] [address] [place] [phone] Status post cardiac surgery Discharge Disposition: Discharge to home or self care 03/26/2025 2:30 PM CDT Office Visit [facility] Cardiology [address] [place] [address] [place] [phone] Latanya Davis NP Paroxysmal atrial flutter (HCC) (Primary Dx); Status post mitral valve repair; Primary hypertension; Hospital discharge follow-up 03/15/2025 Orders Only [facility] Cardiology [address] [place] [address] [place] [phone] Alea Carpenter MD from Last 3 Months Surgical History Surgery Date Site/Laterality Comments HERNIA REPAIR 10/14/2015 - 10/13/2016 Left STAPEDECTOMY 12/30/2014 Bilateral COLONOSCOPY CARDIAC CATHETERIZATION 12/07/2024 Left Procedure: LEFT HEART CATHETERIZATION WITH CORONARY ANGIOGRAPHY AND WITH OR WITHOUT LEFT VENTRICULOGRAM [id number]; Surgeon: Ravindra Musa MD PhD; Location: [facility]; Service: Cardiovascular; Laterality: Left; AFTER CPAP Medical [...] Date Smoking Tobacco: Former Cigarettes 0.5 41.8 0 10/14/1967 - 07/23/2009 Passive Smoke Exposure: Past Smokeless Tobacco: Never Comments:Quit several times, eventually stopping in 2008 [...] on file 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 Gender Identity Not on file Sexual Orientation Not on file Obstetrics History Last Filed Vital Signs Vital Sign Reading Time Taken Comments Blood Pressure 135/85 03/29/2025 1:19 PM CDT Pulse 109 03/29/2025 1:19 PM CDT Temperature 37.2 C (99 F) 02/20/2025 11:02 AM CDT Respiratory Rate 18 02/20/2025 11:02 AM CDT Oxygen Saturation 96% 03/29/2025 1:19 PM CDT Inhaled Oxygen Concentration - - Weight 80.3 kg (177 lb) 03/29/2025 1:19 PM CDT Height 182.9 cm (6') 03/29/2025 1:19 PM CDT Body Mass Index 24.01 03/29/2025 1:19 PM CDT Plan of Treatment Health Maintenance [...] 2 - PCV) 02/14/2022 02/14/2021 Covid-19 Vaccine (3 - 2023-2 5 season) 2024 02/10/2021, 01/13/2021 Influenza Vaccine (#1) 2025 , 08/23/2021, 09/12/2020, Additional history exists Fall Risk Assessment 02/20/2026 02/20/2025, 07/02/2024, 04/10/2024 Medical Devices Implanted Type Area Clinical Dietician Device Identifier Shelf Expiration Date Model / [...] In MRI Scanners and the Stapes Prosthesis (2006) Tiffanie estimates that between 64 and 266 patients received these implants worldwide and 64 of them received warning cards instructing them not to undergo MRI exposure. Cristobal Stapes Implant (4mm Stem X 1mm Well) With Bucket Handle-12/30/2014 Implanted:2014 (Quantity not on file) Other - see comments Stapes Description:Unfortunately, walker patel make and model were not described in the op note for this implant in 2014. Fortunately, [employer] lists all Jain stapes implants as MR Safe by the old definition; this can be interpreted to mean that the patient can be safely scanned at least at 1.5T in Normal Operating Mode. Reference (consulted 07/13/2024): [email or web address]_[email or web address]?[email or web address]&criteria=[email or web address] =[email or web address] t_description [employer] Ring Physio Flex Mitral Annuloplasty 38mm [id number] - [id number] - [id number] Implanted:Qty: 1 on 02/17/2025 by Lavinia Bedoya MD at [facility] N/A: Heart [employer] [id number] 10/26/2029 [id number] / [id number] / Procedures Procedure Name Priority Date/Time Associated Diagnosis Comments XR CHEST PA LATERAL 2 VIEWS Schedule Routine, Read Routine (OP Routine) 03/29/2025 1:05 PM CDT Status post cardiac surgery ECG 12-LEAD Routine 03/26/2025 Pre-op testing CARDIOLOGY DOCUMENT SCAN Routine 03/13/2025 3:15 PM CDT from Last 3 Months Results * XR Chest Pa Lateral 2 Views (03/29/2025 1:05 PM CDT) Anatomical Region Laterality Modality Body, Chest N/A Computed Radiogr aphy 03/29/2025 1:57 PM CDT Impressions 03/29/2025 2:19 PM CDT The current study is compared with the prior radiograph dated 02/19/2025. Mitral valve repair. Small left pleural effusion. No right pleural effusion. The heart and mediastinal contours are normal. There is no mass or consolidation. There is no lymphadenopathy. There is no pneumothorax. Dictated by: Oniel Herrera MD The radiology attending physician has personally reviewed this study, and had reviewed and/or edited this written report and agrees with it. Electronically signed by: Albin Marks M.D. Narrative 03/29/2025 2:19 PM CDT EXAMINATION: 2 view chest radiograph Procedure Note Albin Marks MD - 03/29/2025 EXAMINATION: 2 view chest radiograph IMPRESSION: The current study is compared with the prior radiograph dated 02/19/2025. Mitral valve repair. Small left pleural effusion. No right pleural effusion. The heart and mediastinal contours are normal. There is no mass or consolidation. There is no lymphadenopathy. There is no pneumothorax. Dictated by: Oniel Herrera MD The radiology attending physician has personally reviewed this study, and had reviewed and/or edited this written report and agrees with it. Electronically signed by: Albin Marks M.D. us Argenis Jones ECOMMERCE MARKETING MANAGER IMG XR PROCEDURES Final R esult * ECG 12 lead (03/26/2025) 03/26/2025 us Eddie Carbone MD ECG ORDERABLES Final Result * Cardiology Document Scan (03/13/2025 3:15 PM CDT) Anatomical Region Laterality Modality Other us Daniel Schmitz MD [facility] CARDIAC SERVICES PROC EDURES Final Result from Last 3 Months Insurance MEDICARE AETNA SENIOR SUPPLEMENT MEDICARE AETNA SENIOR SUPPLEMENT Advance Directives For more information, please contact: [phone] Documents on File Type Date Recorded Patient Compilation Clerk Expl anation ADVANCE DIRECTIVE 02/17/2025 6:46 AM Power of Electronic Bench Technician-Medical * Full Code (Latest Code Status on File) Date Activated Date Inactivated Comments 02/17/2025 1:18 PM 02/20/2025 4:49 PM * Full Code Date Activated Date Inactivated Comments 12/07/2024 2:05 PM 12/07/2024 8:36 PM * Full Code Date Activated Date Inactivated Comments 08/26/2024 10:28 AM 08/27/2024 4:55 AM Care Teams Psychiatric Tech Relationship Specialty Start Date End Date Daniel Montes MD [address] [place] [address] [address] [place] [id number] PCP - General Family Medicine 04/06/24 Lavinia Bedoya MD [address] [place] [address] [address] [place] [address] Cardiothoracic Surgery 02/20/25 Dilip Pozo MD [address], [address] [place] [address] Consulting Physician Cardiology 03/29/25
--- OUTSIDE RECORDS SUMMARY | 2025-06-13 16:29 | XMS_ITS | Encounter Summary ---
Author Organization [facility] Address [address] [place] [address] Care Team Providers Care Preparole Counseling Aide Name Role Phone Daniel Montes MD Primary Care Provider [phone] Lavinia Bedoya MD Unavailable [phone] Dilip Pozo MD Unavailable [phone] Encounter Details Date Type Department Care Team (Late st Contact Info) Description 04/22/2024 Orders Only [facility] [address] [place] [phone] Scanning, Provider Social History Tobacco Use Types Packs/Day Years Used Date Smoking Tobacco: Former Cigarettes Sex and Gender Information Value Date Recorded Sex Assigned at Not on file 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 Gender Identity Not on file Sexual Orientation Not on file documented as of this encounter Plan of Treatment Not on file documented as of this encounter Procedures Procedure Name Priority Date/Time Associated Diagnosis Comments CARDIOLOGY DOCUMENT SCAN 04/22/2024 documented in this encounter Results * Cardiology Document Scan (04/22/2024) Anatomical Region Laterality Modality Other us Provider Scanning [facility] CARDIAC SERVICES PROCEDURES Final Result documented in this encounter Visit Diagnoses Not on filedocumented in this encounter Care Teams Preparole Counseling Aide Relationship Specialty Start Date End Date Daniel Montes MD [facility] [address] [place] [id number] PCP - General Family Medicine 04/06/24 Lavinia Bedoya MD [address] [facility] [address] [place] [address] Cardiothoracic Surgery 02/20/25 Dilip Pozo MD [address], [address] [place] [address] Consulting Physician Cardiology 03/29/25 documented as of this encounter
--- OUTSIDE RECORDS SUMMARY | 2025-06-13 16:29 | XMS_ITS | Clinical Summary ---
Author Organization [facility] Address [address] [place] [phone] Phone Care Team Providers Care Rotor Winder Name Role Phone Christopher Wilkinson MD Primary Care Provider Allergies Active Allergy Reactions Criticality Noted Date Comments Codeine Rash,Itching Low 12/21/2014 Medications propranolol (INDERAL) 80 mg tablet Take 80 mg by mouth daily. Active amLODIPine (NORVASC) 10 mg tablet Take 10 mg by mouth daily. 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 Gender Identity Not on file Sexual Orientation [...] (1 of 2) 2005 INFLUENZA VACCINE (#1) 2025 RSV VACCINE (60+ or ) (1 - 1-dose 75+ series) 2030 Medical Devices Implanted Type Area Mortgage Assistant Device Identifier Shelf Expiration Date Model / Serial / Lot Pros Jaime White [id number] - [id number] Implanted:Qty: 1 on 12/30/2014 by Marito Jane MD at [facility] Ear Left: Ear [employer] 08/30/2022 [id number] / / [id number] Insurance BCBS BLUE ACCESS/TRUE BLUE PPO Advance Directives For more information, please contact: [phone] * Full Code (Latest Code Status on File) Date Activated Date Inactivated Comments 12/30/2014 9:28 AM 12/31/2014 9:42 AM * Full Code Date Activated Date Inactivated Comments 12/30/2014 5:42 AM 12/30/2014 9:28 AM Care Teams Rotor Winder Relationship Specialty Start Date End Date Christopher Wilkinson MD [address] [place] [address] PCP - General Family Practice 11/22/14
[2025-06-13 16:33] VITALS: BP 154/109; PULSE 129; RESP 18; TEMP 36.6; O2SAT 98
[2025-06-13 17:20] VITALS: BP 141/87; PULSE 133; RESP 16; O2SAT 97
[2025-06-13 17:22] VITALS: PULSE 132
[2025-06-13] MEDS: METOPROLOL TARTRATE INJ 5 MG/5 ML VIAL IV PUSH (17:22)
[2025-06-13 17:29] LABS: Hematocrit 45.5 % (42.0-52.0); Hemoglobin 15.4 g/dL (14.0-18.0); Immature Granulocyte Percent A 0.1 % (0-0.5); Lymphocytes Absolute Auto 1.51 K/mm3 (0.9-3.2); Mean Corpuscular HGB Conc 33.8 g/dl (32-36); Mean Corpuscular Hemoglobin 32.5 pg (26-34); Mean Corpuscular Volume 96.0 fl (80-100); Nucleated Red Blood Cells Absolute Auto 0.000 K/mm3 (0.0-0.012); Nucleated Red Blood Cells Perc 0.0 % (0.0-0.2); Platelet Count Result 175 k/mm3 (150-375); Red Blood Count 4.74 M/mm3 (4.6-6.20); White Blood Count 7.3 K/mm3 (4.5-10.0)
--- NOTE | 2025-06-13 17:40 | ECG_ITS ---
Test Date: 2025-06-13 18:14:24 Measurements Intervals [place] Rate: 84 P: 0 SC: 0 QRS: 58 QRSD: 93 T: 36 QT: 380 QTc: 450 Interpretive Statements ATRIAL FLUTTER WITH NORMAL VENTRICULAR RESPONSE ABNORMAL ECG Compared to ECG 06/13/2025 16:32:35 HEART RATE HAS DECREASED Electronically Signed On 06-13-2025 21:18:49 CDT by Ricardo Thompson D.O.
[2025-06-13 17:47] VITALS: BP 140/80; PULSE 88; RESP 13; O2SAT 98
[2025-06-13 17:48] LABS: Alanine Aminotransferase 25 U/L (6-50); Albumin Level 4.2 g/dL (3.5-5.1); Alkaline Phosphatase 62 U/L (38-126); Anion Gap 7 mmol/L (4-12); Aspartate Amino Transferase 32 U/L (17-59); Bilirubin,Total 0.4 mg/dL (0.2-1.3); Blood Urea Nitrogen 26 mg/dL (9-20); Calcium 8.9 mg/dL (8.4-10.2); Carbon Dioxide 23 mmol/L (22-30); Chloride 108 mmol/L (98-107); Estimated CRCL calculation 80 ml/min; Estimated Glomerular Filt Rate > 60; Glucose 127 mg/dL (65-110); Magnesium 2.0 mg/dL (1.6-2.3); Potassium 4.0 mmol/L (3.4-5.0); Sodium 138 mmol/L (137-145); Total Protein 7.7 g/dL (6.3-8.2)
[2025-06-13 17:57] LABS: Troponin I < 0.012 ng/mL (0.000-0.034)
[2025-06-13 17:58] LABS: INR 1.1; Partial Thromboplastin Time 28.5 Seconds (22.3-36.8); Prothrombin Time 14.8 Seconds (11.1-14.7)
--- NOTE | 2025-06-13 18:20 | ED.ARRPALP ---
HPI - Arrhythmia/Palpitations General Chief Complaint: Arrhythmia/Palpitations Stated Complaint: tachycardia Time Seen by Provider: 06/13/25 17:02 History of Present Illness HPI narrative: Patient is a 69-year-old male who presents ER with palpitations. Patient had mitral valve repair few months ago and then went into atrial flutter. He has been difficult to control. He has been on amiodarone. He is supposed discontinue the medication tomorrow 06/14/2025. He has noticed his heart rate being elevated and is not gotten better with home medications though it did trend down into a normal heart rate yesterday evening. No chest pain or shortness of breath or nausea or vomiting. No dizziness or syncope. Related Data Home Medications ?Medication ?Instructions ?Recorded ?Confirmed ?Last Taken ?Type krill 300 mg-omega-3 90 mg-dha 27 1 cap PO DAILY 07/02/22 03/11/25 03/11/25 History mg-epa 45 gd-iottgdi-ntoheah capsule (Maximum Red Krill [place]-3) Allergies Allergy/AdvReac Type Severity Reaction Status Date / Time codeine Allergy Unknown rash/itchin Verified 03/22/25 13:26 g Review of Systems Review of Systems: All systems reviewed & are unremarkable except as noted in HPI and below Constitutional: Constitutional: Reports no additional constitutional complaints Cardiovascular: Cardiovascular: Reports no additional cardiovascular complaints Respiratory: Respiratory: Reports no additional respiratory complaints Gastrointestinal: Gastrointestinal: Reports no additional gastrointestinal complaints Integumentary/Breasts: Skin/Breast: Reports system reviewed and no additional complaints, except as docu PMFSH Past Medical History Medical History (Updated 06/14/25 @ 00:00 by [facility] Dayah[facility]) Atrial flutter with rapid ventricular response MVP (mitral valve prolapse) 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 Essential (primary) hypertension Generalized anxiety disorder Surgical History Surgical History S/P patent foramen ovale closure 2024 H/O mitral valve replacement 2024 H/O colonoscopy (~2010) H/O hernia repair Family History Family History Mother Hypertension Family history of elevated blood lipids Grandparent Family history of malignant neoplasm of uterus Family history of malignant neoplasm of ovary Social History Social History Smoking status: Former smoker Tobacco type: cigarettes Smoking end date: 10/14/08 Alcohol intake: former Substance use: never Substance use type: does not use Do You Feel Safe in your Home?: Yes Lack of Transportation: No Lack of Food: Never True Current Housing: I Have Housing Concerned About Future Housing: No Difficulty Paying Gas/Electric Bills: No Difficulty Paying for Meds: No Currently Unemployed: No Education: High School Diploma/GED Difficulty w/ Childcare or Family Care: No Living arrangements: with family Spiritual care concerns: No Exam Narrative: GENERAL: Well-appearing, well-nourished, and in no acute distress. HEAD: Normocephalic, atraumatic. ENT: Mucous membranes moist. CHEST: Clear to auscultation. No respiratory distress. HEART: Tachycardic regular. Normal peripheral pulses. ABDOMEN: Soft, nontender, nondistended. EXTREMITIES: Normal range of motion. No edema. SKIN: Warm, dry, no rash. NEURO: Alert and oriented x3. PSYCH: Normal mood and affect. Course Course Emergency Course: Discussed case with Cardiology. Recommends increasing metoprolol to 50 mg twice a day and continuing the patient's amiodarone. Patient verbalized understanding of treatment plan. I will prescribe him additional metoprolol but he has plenty of amiodarone. He is to call his production scheduler on Saturday06/15/2025. Discussed return precautions. Discussed he should not take his metoprolol if his heart rate is below 60 beats per minute. Vital Signs Vital signs: Vital Signs Temperature 97.8 F 06/13/25 16:33 Pulse Rate 129 H 06/13/25 16:33 Respiratory Rate 18 06/13/25 16:33 Blood Pressure 154/109 H 06/13/25 16:33 Pulse Oximetry 98 06/13/25 16:33 Oxygen Delivery Room Air 06/13/25 16:33 Temperature 97.8 F 06/13/25 16:33 Pulse Rate 84 06/13/25 18:50 Respiratory Rate 16 06/13/25 18:50 Blood Pressure 135/78 06/13/25 18:50 Pulse Oximetry 98 06/13/25 18:50 Oxygen Delivery Room Air 06/13/25 17:20 MDM - Arrhythmia/Palpitations Lab Data 06/13/25 17:22 06/13/25 17:22 Labs: Lab Results 06/13/25 Range/Units 17:22 WBC 7.3 (4.5-10.0) K/mm3 RBC 4.74 (4.6-6.20) M/mm3 Hgb 15.4 D (14.0-18.0) g/dL Hct 45.5 (42.0-52.0) % MCV 96.0 (80-100) fl MCH 32.5 (26-34) pg MCHC 33.8 (32-36) g/dl RDW 14.0 (11.5-14.5) % Plt Count 175 (150-375) k/mm3 MPV 11.1 H (7.4-10.4) fl Immature Gran % (Auto) 0.1 (0-0.5) % Neut % (Auto) 67.0 (45.5-73.1) % Lymph % (Auto) 20.7 (18.3-44.2) % [place] % (Auto) 11.1 H (2.6-8.5) % Eos % (Auto) 0.7 (0-4.4) % Baso % (Auto) 0.4 (0.2-1.2) % Lymph # (Auto) 1.51 (0.9-3.2) K/mm3 [place] # (Auto) 0.8 H (0.1-0.6) K/mm3 Eos # (Auto) 0.1 (0-0.3) K/mm3 Baso # (Auto) 0.0 (0.0-0.1) K/mm3 Abs Immat Gran (auto) 0.01 (0.00-0.031) K/mm3 Absolute Neuts (auto) 4.9 (1.3-6.7) K/mm3 Absolute Nucleated RBC 0.000 (0.0-0.012) K/mm3 Nucleated RBC % 0.0 (0.0-0.2) % PT 14.8 H (11.1-14.7) Seconds INR 1.1 APTT 28.5 (22.3-36.8) Seconds Sodium 138 (137-145) mmol/L Potassium 4.0 (3.4-5.0) mmol/L Chloride 108 H (98-107) mmol/L Carbon Dioxide 23 (22-30) mmol/L Anion Gap 7 (4-12) mmol/L BUN 26 H (9-20) mg/dL Creatinine 0.83 (0.7-1.3) mg/dL Estim Creat Clear Calc 80 ml/min Estimated GFR > 60 (59 - ) Glucose 127 H (65-110) mg/dL Calcium 8.9 (8.4-10.2) mg/dL Magnesium 2.0 (1.6-2.3) mg/dL Total Bilirubin 0.4 (0.2-1.3) mg/dL AST 32 (17-59) U/L ALT 25 (6-50) U/L Alkaline Phosphatase 62 (38-126) U/L Troponin I < 0.012 (0.000-0.034) ng/mL Total Protein 7.7 (6.3-8.2) g/dL Albumin 4.2 (3.5-5.1) g/dL Imaging Data Radiologist's impression: ITS Impressions Chest X-Ray 06/13/25 17:53 IMPRESSION: 1. No acute cardiopulmonary disease. ECG Data EKG #1: ECG completion date: 06/13/25 ECG completion time: 16:32 EKG Interpretation: tachycardia (133), atrial flutter, non-specific ST changes and normal QRS Critical Care Time Critical Care Time Critical Care Time: Yes Total Critical Care Time: 35 Discharge Plan Discharge Clinical Impression: Atrial flutter with rapid ventricular response Patient Disposition: Home Condition: Stable Instructions: Antibiotic Form, Atrial Flutter (ED) Additional Instructions: Please return to the emergency department if you develop severe and persistent chest pain, difficulty breathing, dizziness, leg swelling or if you are coughing up blood as these can be signs of a medical emergency. Please call your doctor for a follow up appointment to determine the need for further testing. Patient Language: Turkmen Prescriptions: New metoprolol tartrate 50 mg tablet 50 mg PO BID Qty: 30 0RF No Action alprazolam 1 mg tablet 1 mg PO QHS Qty: 90 3RF Rx Instructions: stopped oxycodone Maximum Red Krill [place]-3 [id number] mg capsule 1 cap PO DAILY amiodarone [Pacerone] 200 mg Tablet 200 mg PO DAILY@0800 Qty: 30 0RF metoprolol tartrate 25 mg Tablet 25 mg PO Q12HR Qty: 60 0RF Eliquis 5 mg Tablet 5 mg PO Q12HR Qty: 60 0RF Follow-up/Referrals: Dilip Pozo MD [Physician, Cardiology] - 1 Week Daniel Montes MD [Primary Care Provider, Family Practice]
[2025-06-13 18:50] VITALS: BP 135/78; PULSE 84; RESP 16; O2SAT 98
== END 2025-06-13 18:55 | disposition home or self-care (01) ==
PROVIDERS: Emergency Provider Emergency Medicine; PCP Family Medicine
DX: I48.92 Unspecified atrial flutter (principal); I34.1 Nonrheumatic mitral (valve) prolapse; I13.0 Hypertensive heart and chronic kidney disease with heart failure and stage 1 through stage 4 chronic kidney disease, or unspecified chronic kidney disease; N18.9 Chronic kidney disease, unspecified; I50.9 Heart failure, unspecified; F41.1 Generalized anxiety disorder; Z95.2 Presence of prosthetic heart valve; Z87.891 Personal history of nicotine dependence; Z79.899 Other long term (current) drug therapy; Z79.01 Long term (current) use of anticoagulants; R94.31 Abnormal electrocardiogram [ECG] [EKG]
CPT/HCPCS: 36415; 71046; 80053; 83735; 84484; 85025; 85610; 85730; 93005; 96374; 99284; J0616

== ENCOUNTER 2025-07-08 10:21 | Outpatient (CLI) | payer MEDICARE, SELFPAY ==
--- NOTE | ~2025-07-08 | US_ITS ---
US arterial duplex LE RT 07/08/2025 11:13 Indication: Right groin abnormality. History of mitral valve repair surgery in February 2025. Procedure: Arterial duplex ultrasound right lower extremity Comparison: No prior studies for comparison. Findings: Duplex evaluation demonstrates normal arterial flow within the common femoral, superficial femoral, profunda femoris and common femoral arteries. Wave forms are triphasic and demonstrate no evidence of hemodynamically significant stenosis. At the area of palpable concern in the right groin there is complex cystic structure measuring 2.8 x 2.5 x 2.5 cm. A possible narrow neck appears to extend towards the region of the common femoral artery however no definite flow is identified within the suspected neck on color or spectral Doppler evaluation. Lesion corresponds to a site of prior surgical incision related to mitral valve repair. Impression: 1: Normal arterial flow. 2: Complex cystic lesion measuring 2.8 cm and the right groin in the area of concern with possible neck extending to the common femoral artery but without definite demonstrable flow. Considerations include chronic postoperative fluid collection (e.g. seroma, hydrocele or resolving hematoma right, thrombosed pseudoaneurysm is also consideration. If the lesion enlarges becomes symptomatic, or if there is clinical suspicion for vascular communication, further evaluation with contrast-enhanced CTA is recommended. Reviewed, dictated and finalized at location O. Impression: 1: Normal arterial flow. 2: Complex cystic lesion measuring 2.8 cm and the right groin in the area of c oncern with possible neck extending to the common femoral artery but without de finite demonstrable flow. Considerations include chronic postoperative fluid co llection (e.g. seroma, hydrocele or resolving hematoma right, thrombosed pseudo aneurysm is also consideration. If the lesion enlarges becomes symptomatic, or if there is clinical suspicion for vascular communication, further evaluation w ith contrast-enhanced CTA is recommended.
== END 2025-07-08 10:22 | disposition home or self-care (01) ==
PROVIDERS: PCP Family Medicine; Visit Provider Nurse Practitioner Adult Health
DX: T81.718A Complication of other artery following a procedure, not elsewhere classified, initial encounter (principal); Z98.890 Other specified postprocedural states
CPT/HCPCS: 93926

== ENCOUNTER 2025-07-08 13:39 | Emergency (ER) | payer MEDICARE, SELFPAY ==
--- NOTE | 2025-07-08 13:45 | ED_ITS ---
HPI - Skin/Abscess/Foreign Bdy General Chief complaint: Skin/Abscess/Foreign Body Stated complaint: Insect Bite on LT Hand Time Seen by Provider: 07/08/25 13:55 Source: patient Mode of arrival: ambulatory Limitations: no limitations History of Present Illness HPI narrative: Daniel is a 69-year-old male patient presenting to the clinic today with complaints of a insect bite to his left 3rd finger. He reports he believes he was bitten by a spider 1.5 weeks ago when he was removing bag worms on his tree. States after he was bitten the area became a blood blister. He popped it and not it is red and inflammed around the bite. He denies any fever, chills, or body aches. Related Data Home Medications ?Medication ?Instructions ?Recorded ?Confirmed ?Last Taken ?Type krill 300 mg-omega-3 90 mg-dha 27 1 cap PO DAILY 07/0203/11/25 03/11/25 History mg-epa 45 gq-gcdjesq-coniqzu capsule (Maximum Red Krill Bennett-3) Allergies Allergy/AdvReac Type Severity Reaction Status Date / Time codeine Allergy Unknown rash/itchin Verified 07/08/25 14:03 g Review of Systems Review of Systems: Pertinent positives per HPI. Patient denies any fever, chills, rash, headache, visual changes, dizziness, cough, runny nose, sore throat, shortness of breath, chest pain, palpitations, nausea, vomiting, diarrhea, constipation, abdominal pain, or any urinary issues. 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 Essential (primary) hypertension Generalized anxiety disorder Surgical History Surgical History S/P patent foramen ovale closure 2024 H/O mitral valve replacement 2024 H/O colonoscopy (~2010) H/O hernia repair Family History Family History Mother Hypertension Family history of elevated blood lipids Grandparent Family history of malignant neoplasm of uterus Family history of malignant neoplasm of ovary Social History Social History Smoking status: Former smoker Tobacco type: cigarettes Smoking end date: 10/14/08 Alcohol intake: former Substance use: never Substance use type: does not use Do You Feel Safe in your Home?: Yes Lack of Transportation: No Lack of Food: Never True Current Housing: I Have Housing Concerned About Future Housing: No Difficulty Paying Gas/Electric Bills: No Difficulty Paying for Meds: No Currently Unemployed: No Education: High School Diploma/GED Difficulty w/ Childcare or Family Care: No Living arrangements: with family Spiritual care concerns: No Comments At the time of my signature, I reviewed and agree with the nursing past medical, surgical, social, and family history. There is no relevant family history pertinent to the patient complaint. Exam Narrative: General: Well-developed, well nourished, in no apparent distress Head: Normocephalic, atraumatic. Cardio: Regular rate and rhythm, s1 and s2 normal, no murmur appreciated. Resp: Clear to auscultation bilaterally, no rhonchi, rales, wheezing or rubs. Integumentary: [place], warm, and dry, redness, swelling, and induration to the left proximal lateral 3rd finger with tenderness to palpation, does not appear to have a pustular center-area measuring approximately 0.5 cm by 1cm Course Course Emergency Course: Portions of this record may have been created with voice recognition software. Level of Care: Express Care Visit Vital Signs Vital signs: Vital signs reviewed MDM - Skin/Abscess/Foreign Bdy MDM Narrative Medical decision making narrative: At the time of visit patient is resting comfortably on the exam table. Patient appears to be nontoxic. Complaints of a insect bite to his left 3rd finger. He reports he believes he was bitten by a spider 1.5 weeks ago when he was removing bag worms on his tree. States after he was bitten the area became a blood blister. He popped it and not it is red and inflammed around the bite. He denies any fever, chills, or body aches. On exam patient has redness, swelling, and induration to the left proximal lateral 3rd finger with tenderness to palpation, does not appear to have a pustular center-area measuring approximately 0.5 cm by 1cm. No drainage Plan: I suspect patient has infected insect bite. Prescription for clindamycin and mupirocin cream was sent to the pharmacy. Supportive measures were discussed with the patient and they voiced understanding discharge instructions and agrees to treatment plan. Return precautions reviewed Differential Diagnosis Differential diagnosis: Likely abscess of skin or subcutaneous tissue, cellulitis and insect bites Discharge Plan Discharge Clinical Impression: Infected insect bite of finger Patient Disposition: Home Condition: Stable Instructions: Antibiotic Form, Wound Infection (ED), Insect Bite or Sting (ED) Additional Instructions: Take clindamycin as prescribed Apply mupirocin cream to the affected area as prescribed May take Tylenol as needed for fever or pain Increase fluids and stay well hydrated Follow-up with your PCP in 2-3 days for wound check Patient Language: Burkinan Prescriptions: New clindamycin HCl [Cleocin HCl] 300 mg capsule 300 mg PO Q8H 7 Days Qty: 21 0RF mupirocin [Centany] 2 % ointment 1 applic topical BID 7 Days Qty: 22 0RF No Action alprazolam 1 mg tablet 1 mg PO QHS Qty: 90 3RF Rx Instructions: stopped oxycodone Maximum Red Krill Bennett-3 [id number] mg capsule 1 cap PO DAILY amiodarone [Pacerone] 200 mg Tablet 200 mg PO DAILY@0800 Qty: 30 0RF metoprolol tartrate 25 mg Tablet 25 mg PO Q12HR Qty: 60 0RF Eliquis 5 mg Tablet 5 mg PO Q12HR Qty: 60 0RF metoprolol tartrate 50 mg tablet 50 mg PO BID Qty: 30 0RF Follow-up/Referrals: Daniel Montes MD [Primary Care Provider, [facility]] Time of Disposition: 14:02 Quality NIHSS Nursing Documentation ED NIHSS nursing documentation: reviewed/agree
[2025-07-08 13:47] VITALS: BP 148/77; PULSE 44; RESP 18; TEMP 36.4; O2SAT 99
--- OUTSIDE RECORDS SUMMARY | 2025-07-08 16:27 | XMS_ITS | Clinical Summary ---
Author Organization [facility] Address [address] [place] [phone] Care Team Providers Care Surface Water Technician Name Role Phone Daniel Montes MD Primary Care Provider [phone] Lavinia Bedoya MD Unavailable [phone] Dilip Pozo MD Unavailable [phone] Allergies Active Allergy Reactions Criticality Noted Date [...] nightly 5 Active amLODIPine (NORVASC) 10 mg tabletIndicati ons:hypertensi on Take 1 tablet (10 mg total) by mouth every morning 90 tablet 3 5 Active amiodarone (PACERONE) 200 mg tablet Take 1 tablet (200 mg total) by mouth daily 90 tablet 3 5 Active Eliquis 5 mg tablet Take 1 tablet (5 mg total) by mouth every 12 (twelve) hours 180 tablet 3 5 Active metoprolol tartrate (LOPRESSOR) 50 mg immediate release tablet Take 1 tablet (50 mg total) by mouth 2 (two) times a day 180 tablet 2 5 Active metoprolol tartrate (LOPRESSOR) 25 mg immediate release tablet Take 1 tablet (25 mg total) by mouth every 12 (twelve) hours 180 tablet 3 5 07/01/20 25 Discontin ued(Patie nt Reported) metoprolol tartrate (LOPRESSOR) 50 mg immediate release tablet Take 1 tablet (50 mg total) by mouth 2 (two) times a day 5 07/07/20 25 Discontin ued(Reord er) Active Problems Problem Noted Date Diagnosed Date [...] 8:11 AM CDT): Home antihypertensives: Amlodipine Vitals: 02/19/25 2005 02/19/25 2301 02/20/25 0100 02/20/25 0308 BP: 104/70 100/62 BP Location: Left arm Right arm Patient Position: Reclining HOB 30 degrees Pulse: 97 87 90 Resp: Temp: 36.7 C (98.1 F) TempSrc: Oral [...] Encounters Date Type Department Care Team Description 07/07/2025 Telephone [facility] Cardiology [address] [place] [address] [place] [phone] Dilip Pozo MD Med Refill 07/01/2025 9:00 AM CDT Office Visit [place] [address] [place] [phone] Latanya Davis NP Status post mitral valve repair (Primary Dx); Typical atrial flutter (HCC); Complication of other artery following a procedure, not elsewhere classified, initial encounter; Hypertension, unspecified type; Mixed hyperlipidemia; Exercise counseling 07/01/2025 Telephone [place] [address] [place] [phone] Serenity Parker MA 06/30/[address] [phone] Serenity Parker MA Records Requested 06/15/2025 Telephone [facility] Cardiology [address] [place] [address] [place] [phone] Dilip Pozo MD 04/13/2025 Telephone [facility] Cardiology [address] [place] [address] [place] [phone] Latanya Davis NP from Last 3 Months Surgical History Surgery Date Site/Laterality Comments HERNIA REPAIR 10/14/2015 - 10/13/2016 Left STAPEDECTOMY 12/30/2014 Bilateral COLONOSCOPY CARDIAC CATHETERIZATION 12/07/2024 Left Procedure: LEFT HEART CATHETERIZATION WITH CORONARY ANGIOGRAPHY AND WITH OR WITHOUT LEFT VENTRICULOGRAM [id number]; Surgeon: Ravindra Musa MD PhD; [facility] CARDIAC AGRICULTURAL REAL ESTATE AGENT; Service: Cardiovascular; Laterality: Left; AFTER CPAP Medical [...] on file 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 Gender Identity Not on file Sexual Orientation Not on file Obstetrics History Last Filed Vital Signs Vital Sign Reading Time Taken Comments Blood Pressure 122/76 07/01/2025 8:51 AM CDT Pulse 71 07/01/2025 8:51 AM CDT Temperature 37.2 C (99 F) 02/20/2025 11:02 AM CDT Respiratory Rate 18 02/20/2025 11:0 2 AM CDT Oxygen Saturation 97% 07/01/2025 8:51 AM CDT Inhaled Oxygen Concentration - - Weight 77.9 kg (171 lb 12.8 oz) 07/01/2025 8:51 AM CDT Height 182.9 cm (6') 07/01/2025 8:51 AM CDT Body Mass Index 23.3 07/01/2025 8:51 AM CDT Plan of Treatment Health Maintenance Due Date Last Done Comments Colon Cancer Screening-Colonoscopy 1955 Depression Screening 1955 Hepatitis C Screening 1955 Prostate Cancer Screening-PSA 1955 Hepatitis B Screening 1973 Zoster Vaccine (1 of 2) 2005 DTaP/Tdap/Td Vaccine (2 - Td or Tdap) 11/01/2018 11/01/2008, 01/12/1999 Abdominal Aortic Aneurysm (A AA) Screen 2020 Well Visit 65+ 2020 Covid-19 Vaccine (3 - 2024-2 6 season) 2025 02/10/2021, 01/13/2021 Influenza Vaccine (#1) 2025 , 08/23/2021, 09/12/2020, Additional history exists Fall Risk Assessment 02/20/2026 02/20/2025, 07/02/2024, 04/10/2024 Pneumococcal vaccine 65+ Completed 02/14/2021, 01/13 Medical Devices Implanted Type Area Nurse Substance Abuse Device Identifier Shelf Expiration Date Model / [...] instructing them not to undergo MRI exposure. Max Stapes Implant (4mm Stem X 1mm Well) With Bucket Handle-12/30/2014 Implanted:2014 (Quantity not on file) Other - see comments Stapes Description:Unfortunately, t he make and model were not described in the op note for this implant in 2014. Fortunately, [employer] lists all Max stapes implants as MR Safe by the old definition; this can be interpreted to mean that the patient can be safely scanned at least at 1.5T in Normal Operating Mode. Reference (consulted 07/13/2024): https://www.mrisafety.com/TMDL_list.php?qs=max%20stapes&criteria=or&orderby =samuel t_description [employer] Ring Physio Flex Mitral Annuloplasty 38mm [id number] - [id number] - [id number] Implanted:Qty: 1 on 02/17/2025 by Lavinia Bedoya MD at [facility] N/A: Heart [employer] [id number] 10/26/2029 [id number] / [id number] / Procedures Procedure Name Priority Date/Time Associated Diagnosis Comments POCT LIPID PANEL Routine 07/01/2025 4:49 PM CDT Mixed hyperlipidemia ELECTROCARDIOGRAM REPORT Routine 025 12:11 PM CDT Typical atrial flutter (HCC) from Last 3 Months Results * (ABNORMAL) POCT lipid panel (07/01/2025 4:49 PM CDT) Cholesterol, POC 176 <200 MG/DL Comment:GLU = 136 HDL, POC 37(A) >=40 mg/dL Triglycerides, POC 89 <=149 mg/dL LDL Cholesterol POC 121 <=129 mg/dL Chol/HDL Ratio, POC 3.3 NONE Non-HDL Cholesterol, POC 139 NONE mg/dL Cholesterol Total, POC 176 30 - 199 mg/dL Capillary blood 07/01/2025 4 :49 PM CDT Latanya Davis NP POINT OF CARE TEST ORDERA BLES Final Result * Electrocardiogram Report (07/01/2025 12:11 PM CDT) Latanya Davis NP ECG ORDERABLES Final Res ult from Last 3 Months Insurance MEDICARE T SENIOR SUPPLEMENT MEDICARE AET SENIOR SUPPLEMENT Advance Directives For more information, please contact: [phone] Documents on File Type Date Recorded Patient Folder And Notcher Expl anation ADVANCE DIRECTIVE 02/17/2025 6:46 AM Power of Tax Auditor-Medical * Full Code (Latest Code Status on File) Date Activated Date Inactivated Comments 02/17/2025 1:18 PM 02/20/2025 4:49 PM * Full Code Date Activated Date Inactivated Comments 12/07/2024 2:05 PM 12/07/2024 8:36 PM * Full Code Date Activated Date Inactivated Comments 08/26/2024 10:28 AM 08/27/2024 4:55 AM Care Teams Surface Water Technician Relationship Specialty Start Date End Date Daniel Montes MD [address] [place] [address] [address] [place] [address] PCP - General Family Medicine 04/06/24 Lavinia Bedoya MD [address] [place] [address] [address] [place] [address] Cardiothoracic Surgery 02/20/25 Dilip Pozo MD [address] [place] [address], [address] [place] [address] Consulting Physician Cardiology 03/29/25
--- OUTSIDE RECORDS SUMMARY | 2025-07-08 16:27 | XMS_ITS | Clinical Summary ---
Author Organization [facility] Address [address] [place] [id number] Phone Care Team Providers Care Shortage Worker Name Role Phone Christopher Wilkinson MD Primary Care Provider Allergies Active Allergy Reactions Criticality Noted Date Comments Codeine Rash,Itching Low 12/21/2014 Medications propranolol (INDERAL) 80 mg tablet Take 80 mg by mouth daily. Active amLODIPine (NORVASC) 10 mg tablet Take 10 mg by mouth daily. Active triamterene-hyd rochlorothiazid e (DYAZIDE) 37.5-25 mg capsule Take 1 Cap by mouth daily marketing operations associate. 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 Gender Identity Not on file [...] series) 2030 Medical Devices Implanted Type Area Exceptional Needs Teacher Device Identifier Shelf Expiration Date Model / Serial / Lot Pros Jaime White [id number] - [id number] Implanted:Qty: 1 on 12/30/2014 by Marito Jane MD at [facility] Ear Left: Ear [employer] 08/30/2022 [id number] / / [id number] Insurance BCBS BLUE ACCESS/TRUE BLUE PPO Advance Directives For more information, please contact: [phone] * Full Code (Latest Code Status on File) Date Activated Date Inactivated Comments 12/30/2014 9:28 AM 12/31/2014 9:42 AM * Full Code Date Activated Date Inactivated Comments 12/30/2014 5:42 AM 12/30/2014 9:28 AM Care Teams Shortage Worker Relationship Specialty Start Date End Date Christopher Wilkinson MD [address] [place] [address] PCP - General Family Practice 11/22/14
--- OUTSIDE RECORDS SUMMARY | 2025-07-08 16:27 | XMS_ITS | Encounter Summary ---
Author Organization [facility] Healthcare Address [address] [place] [address] Care Team Providers Care Cylinder Machine Operator Name Role Phone Daniel Montes MD Primary Care Provider [phone] Lavinia Bedoya MD Unavailable Dilip Pozo MD Unavailable [phone] Encounter Details Date Type Department Care Team (Late st Contact Info) Description 06/15/[address] 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 Son said they double his metoprolol from 25-50mg and sent him home. Pt is scheduled for hosp f/u in a fewweeks. Pt is feeling fine with no complaints of any symptoms-no CP, no SOB, no fatigue. Son said ptis currently camping and went on a bike ride yesterday. He is just concerned about the afib. He said pts HR will elevated for an hour or two and then come back down. Advised him to cont to monitor and as long as his elevated HR is not sustained and if he is asymptomatic then they are fine to cont to monitor for now and keep appt on 07/01. Son appreciated the callback, advised him to call sooner with any other concerns. * Telephone Encounter - Serina Souza - 06/15/2025 9:12 AM CDT Pt son states pt was discharged from on 06/13. States pt is in between atrial flutter and afib. They are wanting a sooner appt than 07/01. Contact: documented in this encounter Plan of Treatment Not on file documented as of this encounter Visit Diagnoses Not on filedocumented in this encounter Care Teams Cylinder Machine Operator Relationship Specialty Start Date End Date Daniel Montes MD [facility] [address] [address] PCP - General Family Medicine 04/06/24 Lavinia Bedoya MD [address] [facility] [address] [place] [address] Cardiothoracic Surgery 02/20/25 Dilip Pozo MD [address] [place] [address], [address] [place] [address] Consulting Physician Cardiology 03/29/25 documented as of this encounter
--- OUTSIDE RECORDS SUMMARY | 2025-07-08 16:27 | XMS_ITS | Encounter Summary ---
Author Organization [facility] Healthcare Address [address] [place] [address] Care Team Providers Care Loose Hand Packer Name Role Phone Daniel Montes MD Primary Care Provider [phone] Lavinia Bedoya MD Unavailable [phone] Dilip Pozo MD Unavailable [phone] Reason for Visit * Reason Onset Date Comments Med Refill 07/07/2025 Encounter Details Date Type Department Care Team (Late st Contact Info) Description 07/07/2025 Telephone [facility] Medical Group Cardiology [address] [place] [address] Dilip Pozo MD [address] [facility] [place] [facility], [address] [place], [place] [id number] Med Refill Social History Tobacco Use Types Packs/Day Years [...] on file 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 Gender Identity Not on file Sexual Orientation Not on file documented as of this encounter Ordered Prescriptions Prescription Sig Dispense Quantity Refills Last Filled Start Date End Date metoprolol tartrate (LOPRESSOR) 50 mg immediate release tablet Take 1 tablet (50 mg total) by mouth 2 (two) times a day 180 tablet 2 07/07/2025 documented in this encounter Miscellaneous Notes * Telephone Encounter - Serenity Parker MA - 07/07/2025 5:02 PM CDT Sent * Telephone Encounter - Radha Brown - 07/07/2025 10:27 AM CDT Patient requesting refill for metoprolol tartrate (LOPRESSOR) 50 mg with 90 day supply. Please [facility] pharmacy. Thank you. Contact [phone] documented in this encounter Plan of Treatment Not on file documented as of this encounter Visit Diagnoses Not on filedocumented in this encounter Discontinued Medications Medication Sig Discontinue Reason Start Date End Da te metoprolol tartrate (LOPRESSOR) 50 mg immediate release tablet Take 1 tablet (50 mg total) by mouth 2 (two) times a day Reorder 06/26/2025 07/07/2025 documented as of this encounter Care Teams Loose Hand Packer Relationship Specialty Start Date End Date Daniel Montes MD [address] [place] [address] [address] [place] [address] PCP - General Family Medicine 04/06/24 Lavinia Bedoya MD [address] [place] [address] [place] [address] Cardiothoracic Surgery 02/20/25 Dilip Pozo MD [address] [place] [address], [place] [address] [place], [place] [id number] Consulting Physician Cardiology 03/29/25 documented as of this encounter
== END 2025-07-08 14:13 | disposition home or self-care (01) ==
PROVIDERS: Emergency Provider Nurse Practitioner Family; PCP Family Medicine
DX: S60.463A Insect bite (nonvenomous) of left middle finger, initial encounter (principal); L08.9 Local infection of the skin and subcutaneous tissue, unspecified; W57.XXXA Bitten or stung by nonvenomous insect and other nonvenomous arthropods, initial encounter; I48.92 Unspecified atrial flutter; I11.0 Hypertensive heart disease with heart failure; I50.9 Heart failure, unspecified; F41.9 Anxiety disorder, unspecified; Z79.01 Long term (current) use of anticoagulants; Z95.2 Presence of prosthetic heart valve; Z87.891 Personal history of nicotine dependence
CPT/HCPCS: 99213; G0463